=== PATIENT | female | born 1935 | race Caucasian/White ===

== ENCOUNTER 2023-09-03 09:03 | Inpatient (IN) ==
--- NOTE | 2023-09-03 09:58 | CT Scan Report ---
CT head/brain wo con CLINICAL HISTORY: fall Technique: Contiguous axial CT images of the head were acquired from the base of the skull to the munira prema without intravenous contrast administration. Images were viewed in brain, subdural and bone [facility] . Automated dose lowering techniques and/or adjustment according to patient size were utilized for this exam. Comparison: None available at the time of this dictation. Findings: The ventricles, basal cisterns, and cerebral sulci are normal. There is no acute intracranial hemorrh age or evidence of acute territorial infarction. Neither mass effect, shift of the midline structures , nor abnormal extra-axial fluid collections are shown. Imaged portions of the paranasal sinuses and mastoid air cells are clear. The orbits appear normal. There are no acute fractures of the calvaria. Scalp swelling is seen in the right parietal soft tissu es. Impression: No acute intracranial hemorrhage or skull fractures. Scalp swelling is seen in the right parietal sof t tissues. ACT 112: Negative or not required by law. Electronically signed by: Sam Zheng M.D. 09/03/2023 9:57 AM
[2023-09-03 10:00] LABS: Anion Gap 7 (3-11); BUN Creatinine Ratio 28.2 (10-20); Blood Urea Nitrogen 24 mg/dl (6-23); Carbon Dioxide 29 mmol/L (21-32); Chloride 104 mmol/L (98-107); Creatinine Clr Calc Pharmacy 53.4 ml/min; Est GFR (African American) 72.4 ml/min; Est GFR (Non-African American) 62.5 ml/min; Glucose 117 mg/dl (70-99(Fasting)); Lipase 45 U/L (11-82); Potassium 3.6 mmol/L (3.5-5.1); Sodium 140 mmol/L (136-145)
--- NOTE | 2023-09-03 10:02 | CT Scan Report ---
CT cervical spine wo con CLINICAL HISTORY: fall TECHNIQUE: Multidetector row helical CT of the cervical spine was performed without administration of intravenous contrast. Coronal and sagittal reformations were obtained. Automated dose lowering techn iques and/or adjustment according to patient size were utilized for this exam. Comparison: None available at the time of this dictation. FINDINGS: There is an acute fracture of the C2 left posterior lamina and right lateral body. Degenerative manjarrez es are seen in the visualized spine. The alignment is normal. Soft tissues are unremarkable. IMPRESSION: Acute, minimally displaced fracture of C2 involving the lateral body and the superior arch. ACT 112: Negative or not required by law. Electronically signed by: Sam Zheng M.D. 09/03/2023 10:00 AM
[2023-09-03 10:05] LABS: Basophils # (auto) 0.01 K/uL (0.00-0.20); Basophils % (auto) 0.1 %; Eosinophils # (auto) 0.02 K/uL (0.00-0.50); Eosinophils % (auto) 0.3 %; Hematocrit (blood only) 37.5 % (37.0-47.0); Hemoglobin 12.2 g/dl (12.0-16.0); Immature Granulocytes # (auto) 0.03 K/uL (0.01-0.20); Immature Granulocytes % (auto) 0.4 %; Lymphocytes # (auto) 0.72 K/uL (1.20-3.40); Mean Corpuscular Hgb Conc 32.5 g/dL (32.0-36.0); Mean Platelet Volume 9.5 fL (9.4-12.4); Monocytes # (auto) 0.44 K/uL (0.11-0.59); Monocytes % (auto) 5.5 %; Neutrophils # (auto) 6.76 K/uL (1.40-6.50); Neutrophils % (auto) 84.7 %; Platelet Count 176 K/uL (130-400); RDW Coefficient of Variation 13.7 % (11.5-14.5); RDW Standard Deviation 41.1 fL (36.4-46.3); Red Blood Count 4.52 M/uL (4.20-5.40); White Blood Count 7.98 K/ul (4.8-10.8)
[2023-09-03 10:07] LABS: Troponin I High Sensitivity < 2.3 pg/ml (0-14)
[2023-09-03 10:12] LABS: INR 1.1 (0.9-1.1); Partial Thromboplastin Time 26 Seconds (21-31); Prothrombin Time 11.4 Seconds (9.0-12.0)
[2023-09-03] MEDS: ONDANSETRON INJ 2 MG/ML 2 ML VIAL IV STA (10:35)
[2023-09-03] MEDS: MoRPHine SULFATE 2 MG/ML CARP IV STA (10:37)
--- NOTE | 2023-09-03 11:10 | Emergency Department Note ---
ED Visit Note I was asked to suture this patient's right scalp wound by Dr. Fountain. Please see his dictation for full history and physical. Informed oral consent was obtained from the patient. scalp was prepped with Betadine and draped with a sterile towel. Wound was anesthetized using 6 cc1% buffered lidocaine in a direct infiltration. A thorough inspection was performed. no foreign material was noted. A large clot burden was debulked. Wound was irrigated copiously using normal sterile saline under jet spray lavage. There was no additional foreign material visible in the wound. It was then closed using surgical stainless steel nighat. Excellent wound edge approximation was achieved. Hemostasis was achieved. Wound care precautions were reviewed. [place] out in 12 days. she may shower. Avoid prolonged soaking for 2 weeks. Cleanse daily with soap and water and reapply a small amount of bacitracin or Neosporin. Total laceration length was 3 cm.
--- NOTE | 2023-09-03 11:43 | History & Physical Report ---
Date of Service September 03, 2023 Assessment & Plan (1) Dizziness: Plan: Got dizzy this morning when he was trying to go for voodoo No other associated symptoms and no prior history of dizziness Ended up with the fall was scalp laceration on the right side Remains hemodynamically stable May have mild dehydration with BUN elevated to 24 with normal creatinine Will give cautious amount of IV fluid Will get orthostatic vitals and monitoring MedSurg telemetry unit (2) Status post fall: Plan: Status post fall with right scalp laceration No loss of consciousness Scalp has been show sutured on 09/03/2023 (3) Injury of cervical spine: Plan: Acute minimally displaced fracture of C2 involving the lateral body and the superior arch No evidence of neurological symptoms The ER physician did talk to Dr. Giordano and advised to have a cervical collar For spine surgery consult (4) Hypertension: Plan: Has been taking losartan potassium and will continue Monitor BP (5) Osteoarthritis: Plan: Uses diclofenac sodium external gel and will continue Will try Tylenol and/or ibuprofen for pain control (6) Stress incontinence: Plan DVT prophylaxis SCDs for now given the cervical injury CODE STATUS Full History of Present Illness Chief Complaint: Dizziness with the fall this morning Primary Care Provider: Mu Lomeli MD The history was taken from the family members in front of the patient in the emergency room. She is an 87-year-old Citizen Of [place] female with significant past medical history of hypertension, legally blind in the right eye, history of memory and hearing loss, primary osteoarthritis of right knee, and stress incontinence. She cannot speak Monegasque. She has had a fall this morning around 6 AM when she was preparing go for voodoo. She had her breakfast this morning and felt dizzy on standing without any other associated neurological symptoms and she ended up having a fall injuring the head. She denies any visual symptoms before the fall, any chest pain or palpitation, any abdominal pain nausea no vomiting, any problem with urine and bowel habit, or any numbness or tingling involving any of the extremities. She was noted to have right-sided scalp laceration which was sutured and CT scan of the head did not show any significant abnormalities. CT of the cervical spine did show minimally displaced fracture of C2 involving the lateral body and the superior arch. The case was discussed with the spine surgeon and the neck collar was placed. She will be admitted to med/telemetry unit for continuation of care and also find out the possible cause for dizziness. Home Medications Medication Instructions Recorded Confirmed Type losartan 50 mg tablet 25 mg PO UD 09/03/23 09/03/23 History Past Med/Surg History Problem List (Updated 09/03/23 @ 11:48 by Maikel Nevarez MD) Stress incontinence Osteoarthritis Hypertension Injury of cervical spine Status post fall Dizziness Social History Smoking Status: Never smoker Preferred Language: Citizen [place] Feels Safe at Home: Yes Review of Systems Review of Systems: All systems reviewed and are unremarkable except as noted below Physical Exam Physical Exam: Lying in bed in cervical collar without any acute distress Constitutional: well developed, well nourished and + ill appearing Eyes: PERRL, conjunctivae normal, anicteric sclerae ENMT: external ear and nose normal, oropharynx normal Neck: trachea midline Cervical collar in situ Respiratory: no respiratory distress Auscultation: lungs clear to auscu ltation bilaterally Cardiovascular: Rate/Rhythm: regular rate and regular rhythm; not tachycardic Heart Sounds: normal S1 and normal S2; no murmur Extremities: no edema Gastrointestinal (Abdomen): Inspection/Auscultation: normal bowel sounds; abdomen not distended Percussion/Palpation: abdomen soft; abdomen nontender Musculoskeletal: No acute arthritis involving any of the joints Neurologic: normal touch/pain/proprioception and moves all extremities; no focal motor deficits Lymphatic: no cervical or axillary lymphadenopathy Results & Data Results & Data Vital Signs (Past 12 Hours) Vital Signs Temp Pulse Pulse Resp BP BP Pulse Ox 09/03/23 10:37 157/69 H 09/03/23 10:37 157/69 H 09/03/23 10:36 69 22 96 09/03/23 10:33 71 23 97 09/03/23 10:31 68 09/03/23 10:30 160/69 H 09/03/23 10:24 68 18 161/71 H 96 09/03/23 09:24 96 09/03/23 09:07 18 09/03/23 08:54 36.9 C 72 18 159/77 H 93 O2 Del Method 09/03/23 10:37 09/03/23 10:37 09/03/23 10:36 09/03/23 10:33 09/03/23 10:31 09/03/23 10:30 09/03/23 10:24 Room Air 09/03/23 09:24 Room Air 09/03/23 09:07 09/03/23 08:54 Room Air Laboratory Results Short CBC 09/03/23 Range/Units 09:15 WBC 7.98 (4.8-10.8) K/ul Hgb 12.2 (12.0-16.0) g/dl Hct 37.5 (37.0-47.0) % Plt Count 176 (130-400) K/uL BMP 09/03/23 09:15 Sodium 140 Potassium 3.6 Chloride 104 Carbon Dioxide 29 BUN 24 H Creatinine 0.85 Glucose 117 H Calcium 9.0
[2023-09-03] MEDS: LIDOCAINE 1% LOCAL 20 ML VIAL INFIL ONE (11:46)
[2023-09-03] MEDS: NSS + 20MEQ KCL 20 MEQ/1,000 ML BAG IV SCH (12:35)
--- NOTE | 2023-09-03 13:29 | XRay Report ---
XR chest 1V portable CLINICAL HISTORY: Chest pain, nonspecific TECHNIQUE: Single frontal radiograph of the chest was obtained. Comparison: None available at the time of this dictation. FINDINGS: No lines and tubes are seen. Calcified aortic knob is seen. The lungs are clear. No evidence of pleur al effusion or pneumothorax. IMPRESSION: No acute chest disease. ACT 112: Negative or not required by law. Electronically signed by: Sam Zheng M.D. 09/03/2023 1:27 PM
--- NOTE | 2023-09-03 13:32 | Emergency Department Note ---
History of Present Illness General Chief complaint: Fall Stated complaint: FALL, LAC TO HEAD, NECK PAIN Time Seen by Provider: 09/03/23 09:12 Limitations: language barrier (Daughter and at bedside translating) History of Present Illness Provider Complaint: + accidental head injury and + fall Onset (ago): hour(s) (2.5) Mechanism of Injury: + fall Place: + home Loss of Consciousness: + unsure Location of injury: + occipital Severity: moderate Maximum Pain Intensity: 4 Current Pain Intensity: 4 Quality: + sharp, + stabbing, + crushing and + aching Radiation: + neck Other Injuries: + laceration to scalp Context: no on aspirin, no on warfarin, no on plavix or no other anticoagulant use Associated symptoms: no amnesia, no nausea or no vomiting HPI Narrative: Daughter reports that the patient was in the restroom 2 and half hours ago getting ready for denominational when she still became dizzy and then fell and hit her head. Home Medications Medication Instructions Recorded Confirmed Type losartan 50 mg tablet 25 mg PO UD 09/03/23 09/03/23 History Past Med/Surg History Problem List (Updated 09/03/23 @ 13:47 by Stanford Fountain MD) Laceration of scalp (Acute) CHI (closed head injury) (Acute) Syncope and collapse (Acute) C2 cervical fracture (Acute) Stress incontinence Injury of cervical spine Status post fall Dizziness Medical History (Updated 09/03/23 @ 13:47 by Stanford Fountain MD) Osteoarthritis Hypertension Social History Smoking Status: Never smoker Preferred Language: Burmese Feels Safe at Home: Yes Physical Exam 2 Vital Signs: Vital Signs - 24 hr 09/03/23 08:54 09/03/23 09:07 09/03/23 09:24 Temperature 36.9 C Temperature Source Oral Pulse Rate 72 Pulse Rate [Finger ] Pulse Rate from Sp O2 Sensor Pulse Rhythm Regular Pulse Rhythm [Fing er] Pulse Strength [Fi nger] Respiratory Rate 18 18 Respiratory Effort / Characteristics Respiratory Depth Respiratory Patter n Blood Pressure 159/77 H Blood Pressure [Ri ght Arm] Blood Pressure Dayna n 104 Blood Pressure Dayna n [Right Arm] Pulse Oximetry 93 96 Oxygen Delivery Me thod Room Air Room Air Sepsis Recent Feve r Within 48 Hours No Sepsis New/Unexpla ined Change in Men love Status N/A Sepsis Action Take n by Nursing No Action Required 09/03/23 10:24 09/03/23 10:30 09/03/23 10:31 Temperature Temperature Source Pulse Rate 68 Pulse Rate [Finger ] 68 Pulse Rate from Sp O2 Sensor Pulse Rhythm Pulse Rhythm [Fing er] Regular Pulse Strength [Fi nger] Normal Respiratory Rate 18 Respiratory Effort / Characteristics Non-Labored Respiratory Depth Normal Respiratory Patter n Regular Blood Pressure 160/69 H Blood Pressure [Ri ght Arm] 161/71 H Blood Pressure Dayna n 106 Blood Pressure Dayna n [Right Arm] 101 Pulse Oximetry 96 Oxygen Delivery Me thod Room Air Sepsis Recent Feve r Within 48 Hours Sepsis New/Unexpla ined Change in Men love Status Sepsis Action Take n by Nursing 09/03/23 10:33 09/03/23 10:36 09/03/23 10:37 Temperature Temperature Source Pulse Rate 71 69 Pulse Rate [Finger ] Pulse Rate from Sp O2 Sensor 71 69 Pulse Rhythm Pulse Rhythm [Fing er] Pulse Strength [Fi nger] Respiratory Rate 23 22 Respiratory Effort / Characteristics Respiratory Depth Respiratory Patter n Blood Pressure 157/69 H Blood Pressure [Ri ght Arm] Blood Pressure Dayna n 117 Blood Pressure Dayna n [Right Arm] Pulse Oximetry 97 96 Oxygen Delivery Me thod Sepsis Recent Feve r Within 48 Hours Sepsis New/Unexpla ined Change in Men love Status Sepsis Action Take n by Nursing 09/03/23 10:37 09/03/23 10:57 09/03/23 11:00 Temperature Temperature Source Pulse Rate 70 Pulse Rate [Finger ] Pulse Rate from Sp O2 Sensor 70 Pulse Rhythm Pulse Rhythm [Fing er] Pulse Strength [Fi nger] Respiratory Rate 19 Respiratory Effort / Characteristics Respiratory Depth Respiratory Patter n Blood Pressure 157/69 H 143/64 H Blood Pressure [Ri ght Arm] Blood Pressure Dayna n 117 90 Blood Pressure Dayna n [Right Arm] Pulse Oximetry 94 Oxygen Delivery Me thod Sepsis Recent Feve r Within 48 Hours Sepsis New/Unexpla ined Change in Men love Status Sepsis Action Take n by Nursing 09/03/23 11:00 09/03/23 11:00 09/03/23 11:06 Temperature Temperature Source Pulse Rate 69 Pulse Rate [Finger ] Pulse Rate from Sp O2 Sensor 70 Pulse Rhythm Pulse Rhythm [Fing er] Pulse Strength [Fi nger] Respiratory Rate 24 Respiratory Effort / Characteristics Respiratory Depth Respiratory Patter n Blood Pressure 143/64 H 143/64 H Blood Pressure [Ri ght Arm] Blood Pressure Dayna n 90 90 Blood Pressure Dayna n [Right Arm] Pulse Oximetry 96 Oxygen Delivery Me thod Sepsis Recent Feve r Within 48 Hours Sepsis New/Unexpla ined Change in Men love Status Sepsis Action Take n by Nursing 09/03/23 11:12 09/03/23 11:30 09/03/23 11:39 Temperature Temperature Source Pulse Rate 68 72 Pulse Rate [Finger ] Pulse Rate from Sp O2 Sensor 68 Pulse Rhythm Pulse Rhythm [Fing er] Pulse Strength [Fi nger] Respiratory Rate 23 23 Respiratory Effort / Characteristics Respiratory Depth Respiratory Patter n Blood Pressure 137/66 Blood Pressure [Ri ght Arm] Blood Pressure Dayna n 97 Blood Pressure Dayna n [Right Arm] Pulse Oximetry 94 Oxygen Delivery Me thod Sepsis Recent Feve r Within 48 Hours Sepsis New/Unexpla ined Change in Men love Status Sepsis Action Take n by Nursing 09/03/23 12:15 09/03/23 12:30 09/03/23 12:30 Temperature Temperature Source Pulse Rate 71 Pulse Rate [Finger ] Pulse Rate from Sp O2 Sensor 70 Pulse Rhythm Pulse Rhythm [Fing er] Pulse Strength [Fi nger] Respiratory Rate 21 Respiratory Effort / Characteristics Respiratory Depth Respiratory Patter n Blood Pressure 162/93 H 162/93 H Blood Pressure [Ri ght Arm] Blood Pressure Dayna n 124 124 Blood Pressure Dayna n [Right Arm] Pulse Oximetry 95 Oxygen Delivery Me thod Sepsis Recent Feve r Within 48 Hours Sepsis New/Unexpla ined Change in Men love Status Sepsis Action Take n by Nursing 09/03/23 12:30 09/03/23 13:00 09/03/23 13:00 Temperature Temperature Source Pulse Rate 67 Pulse Rate [Finger ] Pulse Rate from Sp O2 Sensor 67 Pulse Rhythm Pulse Rhythm [Fing er] Pulse Strength [Fi nger] Respiratory Rate 19 Respiratory Effort / Characteristics Respiratory Depth Respiratory Patter n Blood Pressure 140/67 140/67 Blood Pressure [Ri ght Arm] Blood Pressure Dayna n 106 106 Blood Pressure Dayna n [Right Arm] Pulse Oximetry 95 Oxygen Delivery Me thod Sepsis Recent Feve r Within 48 Hours Sepsis New/Unexpla ined Change in Men love Status Sepsis Action Take n by Nursing 09/03/23 13:00 Temperature Temperature Source Pulse Rate 64 Pulse Rate [Finger ] Pulse Rate from Sp O2 Sensor 63 Pulse Rhythm Pulse Rhythm [Fing er] Pulse Strength [Fi nger] Respiratory Rate 20 Respiratory Effort / Characteristics Respiratory Depth Respiratory Patter n Blood Pressure Blood Pressure [Ri ght Arm] Blood Pressure Dayna n Blood Pressure Dayna n [Right Arm] Pulse Oximetry 96 Oxygen Delivery Me thod Sepsis Recent Feve r Within 48 Hours Sepsis New/Unexpla ined Change in Men love Status Sepsis Action Take n by Nursing Physical Exam: Physical Exam HENT: Exam performed. -Head: 3 cm laceration to the occiput. -Right Ear: External ear normal. No mastoid erythema -Left Ear: External ear normal. No mastoid erythema EYES: Conjunctivae and EOM are normal. Pupils are equal, round, and reactive to light. Right eye exhibits no discharge. Left eye exhibits no discharge. No scleral icterus. NECK: Patient in c-collar. Pain on palpation of the C-spine. CV: Normal rate, regular rhythm, normal heart sounds and intact distal pulses. There is no peripheral edema. Palpable radial pulses bue. PULM/CHEST: Effort normal and breath sounds normal. No respiratory distress. No stridor. She has no wheezes. She has no rales. -Chest Wall: She exhibits no tenderness. No crepitus bilaterally. ABD: The abdomen is soft. There is no tenderness. There is no rebound, no guarding. MUSC/SKEL: Pelvis stable. No T or L-spine tenderness. NEURO: Motor and sensation grossly intact. Course Course 09: The patient was evaluated in room A10. A complete history and physical exam was performed Cardiac monitoring: An order was placed for continuous cardiac monitoring. The monitor shows a rate of 70 with sinus rhythm interpreted by me 1028: Vital signs stable. Labs are unremarkable. CT of the head shows no skull fracture or ICH. CT of the C-spine shows an acute minimally displaced fracture of C2 involving the lateral body and superior arch. Discussed these findings with spine surgery on-call Dr. Giordano who did review the patient's CT scan. He recommends placing the patient in a Gray J collar. He states he does not think surgery will be necessary. Will admit the patient to the medicine team for workup of her dizziness/syncope and he is in agreement with that. [facility] hospitalist team will be made aware. Laceration closed by GUILLERMO Sanderson see his procedure note. Administered Medications Potassium Chloride/Sodium Chloride (Normal Saline W/20 Meq Kcl) 20 meq in 1,000 mls @ 100 mls/hr IV .Q10H KASIE; Protocol Stop: 09/04/23 08:29 Last Admin: 09/03/23 12:35 Dose: 100 mls/hr Documented By: JOSE Discontinued Medications Lidocaine HCl (Lidocaine 1% Local 20 Ml Vial) 20 ml INFIL NOW ONE Stop: 09/03/23 10:44 Last Admin: 09/03/23 11:46 Dose: 20 ml Documented By: JOSE Morphine Sulfate (Morphine Sulfate 2 Mg/Ml Carp) 2 mg IV NOW STA Stop: 09/03/23 10:32 Last Admin: 09/03/23 10:37 Dose: 2 mg Documented By: JOSE Ondansetron HCl (Ondansetron Inj 2 Mg/Ml 2 Ml Vial) 4 mg IV NOW STA Stop: 09/03/23 10:32 Last Admin: 09/03/23 10:35 Dose: 4 mg Documented By: JOSE Medical Decision Making Laboratory Data Attestation: I reviewed the patient's lab results. 09/03/23 09:15 09/03/23 09:15 Lab Results 09/03/23 09/03/23 Range/Units 09:15 09:15 WBC 7.98 (4.8-10.8) K/ul RBC 4.52 (4.20-5.40) M/uL Hgb 12.2 (12.0-16.0) g/dl Hct 37.5 (37.0-47.0) % MCV 83.0 (80.0-100.0) fL MCH 27.0 (25.0-34.0) pg MCHC 32.5 (32.0-36.0) g/dL RDW Std Deviation 41.1 (36.4-46.3) fL RDW Coeff of Ruby 13.7 (11.5-14.5) % Plt Count 176 (130-400) K/uL MPV 9.5 (9.4-12.4) fL Immature Gran % (Auto) 0.4 % Neut % (Auto) 84.7 % Lymph % (Auto) 9.0 % [place] % (Auto) 5.5 % Eos % (Auto) 0.3 % Baso % (Auto) 0.1 % Neut # (Auto) 6.76 H (1.40-6.50) K/uL Lymph # (Auto) 0.72 L (1.20-3.40) K/uL [place] # (Auto) 0.44 (0.11-0.59) K/uL Eos # (Auto) 0.02 (0.00-0.50) K/uL Baso # (Auto) 0.01 (0.00-0.20) K/uL Immature Gran # (Auto) 0.03 (0.01-0.20) K/uL PT 11.4 (9.0-12.0) Seconds INR 1.1 (0.9-1.1) APTT 26 (21-31) Seconds PTT Ratio 1.0 Sodium 140 (136-145) mmol/L Potassium 3.6 (3.5-5.1) mmol/L Chloride 104 (98-107) mmol/L Carbon Dioxide 29 (21-32) mmol/L Anion Gap 7 (3-11) BUN 24 H (6-23) mg/dl Creatinine 0.85 (0.6-1.2) mg/dl Est Cr Clr Drug Dosing 53.4 ml/min Est GFR ( Amer) 72.4 ml/min Est GFR (Non-Af Amer) 62.5 ml/min BUN/Creatinine Ratio 28.2 H (10-20) Glucose 117 H (70-99(Fasting)) mg/dl Calcium 9.0 (8.6-10.3) mg/dl Magnesium 2.0 (1.7-2.4) mg/dl Troponin I High Sens < 2.3 Cancelled (0-14) pg/ml Lipase 45 (11-82) U/L Imaging Data Radiologist's Impression: Cervical Spine CT 09/03/23 09:22 CT cervical spine wo con CLINICAL HISTORY: fall TECHNIQUE: Multidetector row helical CT of the cervical spine was performed without administration of intravenous contrast. Coronal and sagittal reformations were obtained. Automated dose lowering techniques and/or adjustment according to patient size were utilized for this exam. Comparison: None available at the time of this dictation. FINDINGS: There is an acute fracture of the C2 left posterior lamina and right lateral body. Degenerative changes are seen in the visualized spine. The alignment is normal. Soft tissues are unremarkable. IMPRESSION: Acute, minimally displaced fracture of C2 involving the lateral body and the superior arch. ACT 112: Negative or not required by law. Electronically signed by: Sam Zheng M.D. 09/03/2023 10:00 AM Chest X-Ray 09/03/23 09:22 XR chest 1V portable CLINICAL HISTORY: Chest pain, nonspecific TECHNIQUE: Single frontal radiograph of the chest was obtained. Comparison: None available at the time of this dictation. FINDINGS: No lines and tubes are seen. Calcified aortic knob is seen. The lungs are clear. No evidence of pleural effusion or pneumothorax. IMPRESSION: No acute chest disease. ACT 112: Negative or not required by law. Electronically signed by: Sam Zheng M.D. 09/03/2023 1:[address] 09/03/23 09:22 CT head/brain wo con CLINICAL HISTORY: fall Technique: Contiguous axial CT images of the head were acquired from the base of the skull to the vertex without intravenous contrast administration. Images were viewed in brain, subdural and bone windows. Automated dose lowering techniques and/or adjustment according to patient size were utilized for this exam. Comparison: None available at the time of this dictation. Findings: The ventricles, basal cisterns, and cerebral sulci are normal. There is no acute intracranial hemorrhage or evidence of acute territorial infarction. Neither mass effect, shift of the midline structures, nor abnormal extra-axial fluid collections are shown. Imaged portions of the paranasal sinuses and mastoid air cells are clear. The orbits appear normal. There are no acute fractures of the calvaria. Scalp swelling is seen in the right parietal soft tissues. Impression: No acute intracranial hemorrhage or skull fractures. Scalp swelling is seen in the right parietal soft tissues. ACT 112: Negative or not required by law. Electronically signed by: Sam Zheng M.D. 09/03/2023 9:57 AM ECG Data Attestation: I personally reviewed and interpreted this ECG as follows: Rate (beats per minute): 72 Rhythm: normal sinus Findings: no ST depression, no ST elevation or no prolonged QT Additional Comments: Left ventricular hypertrophy MDM Narrative 0912: The patient was evaluated in room A10. A complete history and physical exam was performed Cardiac monitoring: An order was placed for continuous cardiac monitoring. The monitor shows a rate of 70 with sinus rhythm interpreted by me 1028: Vital signs stable. Labs are unremarkable. CT of the head shows no skull fracture or ICH. CT of the C-spine shows an acute minimally displaced fracture of C2 involving the lateral body and superior arch. Discussed these findings with spine surgery on-call Dr. Giordano who did review the patient's CT scan. He recommends placing the patient in a Gray J collar. He states he does not think surgery will be necessary. Will admit the patient to the medicine team for workup of her dizziness/syncope and he is in agreement with that. [facility] hospitalist team will be made aware. Laceration closed by GUILLERMO Sanderson see his procedure note. Impression & Plan C2 cervical fracture, Syncope and collapse, CHI (closed head injury), Laceration of scalp Discharge Plan Visit Data Chief Complaint: Fall Stated Complaint: FALL, LAC TO HEAD, NECK PAIN ED Provider: Stanford Fountain Discharge Problem: C2 cervical fracture, Syncope and collapse, CHI (closed head injury), Laceration of scalp Patient Disposition: Admitted As Inpatient Discharge Instructions Activity Restrictions/Additional Instructions: Have the nighat removed in approximately 12 days From placement. Keep the area clean with soap and water Avoid soaking for 2 weeks Cover with a very thin coat of triple antibiotic ointment or bacitracin until the nighat have been removed Forms Stand Alone Forms: My [facility] [employer] Prescriptions Prescriptions: No Action losartan 50 mg tablet 25 mg PO UD Rx Instructions: 25 mg po daily; if BP elevated take other 25 mg po hs per pharmacy Referrals Referrals: Mu Lomeli MD [Primary Care Provider] - Discharge Problem: C2 cervical fracture Qualifiers: Encounter type: initial encounter Fracture type: closed Fracture morphology: u nspecified fracture morphology Fracture alignment: nondisplaced Qualified Code(s): S12.101A - Unspecified nondisplaced fracture of second cervical vertebra, initial encounter for closed fracture
--- OUTSIDE RECORDS SUMMARY | 2023-09-03 14:50 | External Medical Summary | Summary of Care ---
Author Name Unknown Organization [facility] Address [address] [place] [address] Phone [phone] Care Team Providers Care Community Service Technician Name Role Phone Armani CHRISTIE MD, Mu Valles Primary Care Provider [phone] Reason for Referral * Evaluate & Treat - Unlimited Visits (Within 10 days (routine)) - Authorized Specialty Diagnoses / Procedures Referred By Gerda almeida Referred To Contact Physical Therapy / Physical Medicine And Rehab Diagnoses Imbalance Frequent falls Damien Bravo DO [address] [place] [address] Referral ID Status Reason Start Date Expiration Date Visits Requested Visits Authorized [id number] Authorized Specialty Services Required 07/28/[phone] Question Answer Referral Priority Within 10 days (routine) Where should this appointment be scheduled? [facility] Comments Frequent dizziness and falls. Has a walker but falls with it. * Precert (Within 10 days (routine)) - Pending Review Specialty Diagnoses / Procedures Referred By Gerda almeida Referred To Contact Radiology Diagnoses Dizziness Imbalance Hearing loss of right ear, unspecified hearing loss type MCI (mild cognitive impairment) Procedures MRI BRAIN W WO CONTRAST Damien Bravo DO [address] [place] [address] Referral ID Status Reason Start Date Expiration Date V isits Requested Visits Authorized [id number] Pending Review 07/29/[phone] * Evaluate & Treat - Unlimited Visits (Within 10 days (routine)) - Authorized Specialty Diagnoses / Procedures Referred By Gerda almeida Referred To Contact Otolaryngology Diagnoses Dizziness Imbalance Hearing loss of right ear, unspecified hearing loss type Damien Bravo DO [address] [place] [address] Referral ID Status Reason Start Date Expiration Date Visits Requested Visits Authorized [id number] Authorized Specialty Services Required 07/28/[phone] Question Answer Referral Priority Within 10 days (routine) Where should this appointment be scheduled? [facility] Reason for Referral Other Comments Dizziness, swooshing noise in head, chronic R hear hearing loss Reason for Visit * Reason Comments NEW PATIENT * Evaluate & Treat - Unlimited Visits (Within 10 days (routine)) - Authorized Specialty Diagnoses / Procedures Referred By Gerda almeida Referred To Contact Neurology Diagnoses Memory loss Mu Lomeli III, MD [address] [place] [address] Referral ID Status Reason Start Date Expiration Date Visits Requested Visits Authorized [id number] Authorized Specialty Services Required 08/15/[phone] Encounter Details Date Type Department Care Team (Latest Contact Info) Description 07/28/2023 9:00 AM EDT Office Visit Neurology [facility] [address] [place] [address] Damien Bravo DO [address], [place] [id number] MCI (mild cognitive impairment)*; Dizziness; Imbalance; Hearing loss of right ear, unspecified hearing loss type; Hyperglycemia; Hyperlipidemia, unspecified hyperlipidemia type; Frequent falls Allergies No known active allergiesdocumented as of this encounter (statuses as of 07/28/2023) Medications Medication Sig Dispensed Refills Start Date End Date Status Blood Pressure Monitoring (BLOOD PRESSURE KIT) EMMANUELLE Use daily to check blood pressure 1 Device 05/08/2017 Active Timolol Maleate 0.5 % Ophthalmic Solution (Timoptic) INSTILL ONE DROP INTO BOTH EYES TWICE DAILY 10 mL 8 10/29/2020 Active Sodium Hyaluronate 60 MG/3ML Intra-articular Prefilled Syringe (Durolane) Inject 60 mg (1 syringe) intra-articularly into right knee once 3 mL 12/15/2022 Active Losartan Potassium 50 MG Oral Tablet (Cozaar) 1/2 tab daily if bp elevated take 2nd dose at bedtime 90 Tablet 11 03/23/2023 Active Sunbeam Incontinent Under Pad As directed 1 Each 11 03/23/2023 Active Diclofenac Sodium 1 % External Gel (Voltaren) APPLY TOPICALLY TO RIGHT KNEE 4 TIMES DAILY 100 g 6 06/19/2023 Active documented as of this encounter (statuses as of 07/28/2023) Active Problems Problem Noted Date Diagnosed Date Stress incontinence in female 03/23/2023 Food insecurity 02/06/2023 Overview: Per [facility] Protocol History of 2018 novel coronavirus disease (COVID -19) 12/23/2021 Legally blind in right eye, as defined in [place] Memory loss 12/23/2021 Hearing loss, right 12/23/2021 Dry eye 12/23/2021 Primary osteoarthritis of right knee 12/23/2021 HTN, goal below 150/90 11/21/2016 documented as of this encounter (statuses as of 07/28/2023) Immunizations No known immunizationsdocumented as of this encounter Social History Tobacco Use Types Packs/Day Years Used Date Smoking Tobacco: Never Smokeless Tobacco: Never Alcohol Use Standard Drinks/Week Comments No 0 (1 standard drink = 0.6 oz pur e alcohol) PHQ-2 Answer Date Recorded PHQ-2 Score -1 01/03/2018 Hunger Vital Sign Answer Date Recorded Within the past 12 months, y ou worried that your food would run out before you got the money to buy more. Sometimes true Within the past 12 months, t he food you bought just didn't last and you didn't have money to get more. Sometimes true Sex and Gender Information Value Date Recorded Sex Assigned at Female 05/24/2018 2:00 PM EDT Gender Identity Female 05/24/2018 2:00 PM EDT Sexual Orientation Straight 05/24/2018 2: 00 PM EDT Job Start Date Occupation Industry Not on file Not on file Not on file documented as of this encounter Last Filed Vital Signs Vital Sign Reading Time Taken Comments Blood Pressure 128/56 07/28/2023 9:10 AM EDT Pulse 71 07/28/2023 9:10 AM EDT Temperature 36.9 C (98.5 F) 07/28/2023 9:10 AM ED T Respiratory Rate - - Oxygen Saturation 96% 07/28/2023 9:10 AM EDT Inhaled Oxygen Concentration - - Weight 84.6 kg (186 lb 9.6 oz) 07/28/2023 9:10 A M EDT Height - - Body Mass Index 33.05 03/23/2023 10:36 AM EST documented in this encounter Progress Notes * Damien Bravo, DO - 07/28/2023 9:00 AM EDT [facility] MEMORY AND COGNITION PROGRAM New Patient Evaluation Patient: Oksana Velazquez Visit date: 07/28/2023 Referring Provider: Mu Lomeli III, MD Reason for referral: memory loss Chief Complaint: 1) memory loss, 2) sound in her head 3) dizziness Primarily language: Hungarian Language Line staff interpreter used: ID [id number] Permission was obtained for observer student doctor Ayaan to be in the room during this visit. HISTORY OF PRESENT ILLNESS Ms. Oksana Velazquez is an 87 year old right-handed Hungarian female with 10 years of education whopresents for evaluation of memory loss, dizziness and sounds in her head. The history was obtained from chart review, patient, and family. She is accompanied by her daughter . Memory loss was first mentioned in EMR in 04/2018. Patient was referred to Neurology for memory loss in 12/2019 , scheduled with Dr. Adan in 2020 but patient canceled via text message. She was again referred to Neurology for memory loss in 07/2022. She has a history significant for obesity, hypertension, blindness in right eye, hearing loss on the right, vertigo, OA, stress urinary incontinence, and food security. Medications are significant for losartan and diclofenac. Clinic note from 10/2022 reported patient attempting to take the [place] citizenship test but failed due to memory issue per daughter. Family was asking for exemption with support documents from PCP's office. Daughter was also wanting assistance with the plan for SSI. Patient was living by herself in early 2022 The following is obtained from the patient and daughter: Patient reports her memory is bad, unable to give me time of onset. Daughter reports STM has been since 2019, gradually progressive. She gets confused sometimes. PCP provided documentation for medical exemption, and she passed her you are citizenship test.. Patient lives alone. Family visits her. ADLs are intact with dressing, feeding, toileting and showering. She has urinary incontinence, but denies a dysuria. IADLs: Never drove. Able to maintain housekeeping and takes her medications in the morning, but needs help with medications. Never managed finances. Gait/balance: Poor. Feels dizzy and slides down. Has had minor head strike before but no lost consciousness. Falls about once every week to every 2 weeks. Last fall was last . Never had PT. Sleep: Sleeps about 7 hours. Interrupted by 2-3 bathroom breaks, denies trouble falling back to sleep. Wakes up refreshed. Naps twice daily for 15-30 minutes. Denies apnea. Appetite: good. Other physical symptoms: Visual impairment: Legally blind in right eye Hearing impairment: Chronic hearing loss or 10-15 years on the right, atraumatic. Never saw ENT or audiology. Chronic pain: no. Other physical symptoms: Hear noises in her head like a whooshing sound, intermittent. No headache.Does not bother her sleep Social history: Denies tobacco, alcohol, drugs. OBJECTIVE Past Medical History: Diagnosis Date Dry eye 12/23/2021 Hearing loss, right 12/23/2021 History of 2019 novel coronavirus disease (COVID-19) 12/23/2021 Legally blind in right eye, as defined in [place] 12/23/2021 MCI (mild cognitive impairment) vs mild dementia. onset 2019, diagnosed 07/28/23 Memory loss 12/23/2021 Primary osteoarthritis of right knee 12/23/2021 No past surgical history on file. Social History Tobacco Use Smoking status: Never Smokeless tobacco: Never Vaping Use Vaping status: Never Used Substance Use Topics Alcohol use: No Drug use: No No family history on file. No family status information on file. Review of patient's allergies indicates: No Known Allergies Patient's Medications New Prescriptions No medications on file Previous Medications BLOOD PRESSURE MONITORING (BLOOD PRESSURE KIT) EMMANUELLE Use daily to check blood pressure DICLOFENAC SODIUM 1 % EXTERNAL GEL (VOLTAREN) APPLY TOPICALLY TO RIGHT KNEE 4 TIMES DAILY LOSARTAN POTASSIUM 50 MG ORAL TABLET (COZAAR) 1/2 tab daily if bp elevated take 2nd dose at bedtime SODIUM HYALURONATE 60 MG/3ML INTRA-ARTICULAR PREFILLED SYRINGE (DUROLANE) Inject 60 mg (1 syringe) intra-articularly into right knee once SUNBEAM INCONTINENT UNDER PAD As directed TIMOLOL MALEATE 0.5 % OPHTHALMIC SOLUTION (TIMOPTIC) INSTILL ONE DROP INTO BOTH EYES TWICE DAILY Modified Medications No medications on file Discontinued Medications No medications on file DATA REVIEWED: Latest Reference Range & Units 11/04/21 13:29 Sodium 135 - 146 mmol/L 143 Potassium 3.5 - 5.1 mmol/L 4.4 Chloride 98 - 107 mmol/L 106 CO2 22 - 32 mmol/L 26 BUN 6 - 20 mg/dL 20 Creatinine 0.5 - 1.0 mg/dL 1.1 (H) Estimated Glomerular Filtration Rate >=60 mL/min 50 (L) Anion Gap 7 - 15 mmol/L 11 Glucose 70 - 120 mg/dL 122 (H) Calcium 8.4 - 10.2 mg/dL 9.7 Protein 6.0 - 8.3 g/dL 7.5 Folic Acid >4.5 ng/mL 11.6 (H): Data is abnormally high (L): Data is abnormally low Latest Reference Range & Units 11/04/21 13:29 Albumin 3.8 - 5.0 g/dL 4.8 AST 10 - 35 U/L 28 ALT 10 - 35 U/L 27 Alkaline Phosphatase 35 - 130 U/L 62 Bilirubin, Total <=1.2 mg/dL 0.7 Bilirubin, Direct 0.0 - 0.3 mg/dL <0.2 Latest Reference Range & Units 11/04/21 13:29 WBC 4.00 - 10.80 K/uL 5.42 RBC 3.85 - 5.15 M/uL 4.58 HGB 12.0 - 15.3 g/dL 12.8 HCT 36.0 - 45.2 % 38.6 MCV 81.5 - 97.5 fL 84.3 MCH 27.0 - 34.0 pg 27.9 MCHC 32.0 - 36.0 g/dL 33.2 RDW 11.5 - 15.5 % 13.7 PLT 140 - 400 K/uL 164 MPV 6.6 - 11.1 fL 9.9 Results for orders placed or performed in visit on 12/07/16 LIPID PANEL WITH DIRECT LDL IF TG ABOVE 400 MG/DL Result Value Ref Range HOURS FASTING 12 hours Triglycerides 229 (H) <200 mg/dL Cholesterol 193 <200 mg/dL HDL Cholesterol 30 (L) >39 mg/dL Cholesterol-HDL Ratio 6.4 LDL Cholesterol 117 0 - 129 mg/dL LDL Cholesterol (Direct Measure) NOT APPLICABLE 0 - 129 mg/dL No results found for: "HEMOGLOBIN A1C" Lab Results Component Value Date/Time TSH - KALYANER 2.75 11/04/2021 01:29 PM Latest Reference Range & Units 11/04/21 13:29 Vitamin B12 232-1,245 pg/mL 384 Folic Acid >4.5 ng/mL 11.6 No results for vitamin-D IMAGING STUDIES: No previous brain imaging PHYSICAL EXAMINATION Vital Signs - BP 128/56 (BP Site: Right Arm, BP Position: Sitting, BP Cuff Size: Regular) | Pulse 71 | Temp 36.9 C (98.5 F) (Tympanic) | Wt 84.6 kg (186 lb 9.6 oz) | SpO2 96% | BMI 33.05 kg/m |BSA 1.94 m General - appears as stated age, well nourished, well developed, in no apparent distress. HEENT: normocephalic, atraumatic. Mood and affect: Appropriate Behavioral Observations: Effort for testing was full. Cognitive and Neurologic exam Mental status: awake and alert. Attention: intact Mini Mental State Exam Question: Answer: Patient is oriented to the year, season, date, day, month? 5 out of 5 (07/28/231099) Patient is oriented to the state, country, town, hospital/clinic, floor? 3 out of 5 (Nose cognitiveher home address, but needs reminders for hometown) (07/28/231099) Patient repeated three words (ex: ball, flag, tree) 3 out of 3 (07/28/231099) Patient counted backwards from 100 by 7's (93, 86, 79, 72, 65) or spelled WORLD backwards (D, L, R,O W) 3 out of 5 (07/28/231099) Patient recalled the three words previously asked (ball, flag, tree) 3 out of 3 (07/28/231099) Patient is able to identify a watch and pencil 2 out of 2 (07/28/231099) Patient is able to repeat "No ifs, ands or buts" 1 out of 1 (07/28/231099) Patient is able to take a piece of paper, fold in half and place on the floor 3 out of 3 (07/28/231099) Patient is able to read and follow directions (show patient card reading "close your eyes") 1 out of 1 (07/28/231099) Patient is able to write a sentence 1 out of 1 (07/28/231099) Patient is able to copy a drawing of intersecting pentagons 1 out of 1 (07/28/231099) Score 26 (07/28/231099) Comments (not recorded) Speech fluent. No dysarthria. Spelling partially incorrect in her chilkat language. Clock drawing: Intact contour and numbers. But only johnnie hour hand ASSESSMENT Ms. Oksana Velazquez is an 87 year old right-handed Hungarian female with 10 years of education whopresents for evaluation of memory loss, dizziness and sounds in her head. Short-term memory decline since 2019, progressive. She lives alone, with assistance from family. ADLs are intact. IADLs: Never drove. Able to maintain housekeeping and takes her medications in the morning, but needs help with medications. Never managed finances. PCP's office provided medical exemption for [place] citizenship test, which she passed. She has a history significant for obesity, hypertension, blindness in right eye, hearing loss on the right, vertigo, OA, stress urinary incontinence, and food security. She complains of whooshing sound in her head, headache. She has chronic right ear hearing loss, never saw ENT or audiology. Also has intermittent dizziness, causing fall every 2 weeks to 1 week, not severe, sliding down usually. No safety concerns. No illicit substances. No brain impairing medications. Labs are notable for mildly elevated creatinine, but was from 2021. Most labs are outupdated. No previous brain imaging. MMSE was normal today: 26/30 (-2 for location; perfect recall). Clock drawing was partially impaired, only to the hour hand. Given patient arrived 15 minutes late, and language barrier, necessitating use of language line staff interpreter, there was no time for neurologic exam. My impression for her progressive short-term memory decline since 2019 is MCI versus dementia givensome ADLs are impaired. Though she did pretty well on MMSE. Differentials include vascular (has multiple cardiovascular risk factors) and AD (less likely). No psychosis symptoms were mentioned unlikely DLB. Differentials for her right-sided hearing loss, intermittent dizziness and frequent falls is on clear this time given we did not have time for physical examination. Diagnosis: ICD-10-CM 1. MCI (mild cognitive impairment) G31.84 2. Dizziness R42 3. Imbalance R26.89 4. Hearing loss of right ear, unspecified hearing loss type H91.91 5. Hyperglycemia R73.9 6. Hyperlipidemia, unspecified hyperlipidemia type E78.5 7. Frequent falls R29.6 PLAN 1. MCI (mild cognitive impairment) - check/recheck labs: B12, folic acid, lipid profile, A1c, TSH (not today, already 8) -MRI brain with and without contrast. Contrast to evaluate for possible enhancing lesion such as tumor, causing dizziness and hearing loss. - MoCA and neurologic exam at the next visit - Dizziness Imbalance, Frequent falls Hearing loss of right ear, unspecified hearing loss type - ADULT/PEDS OTOLARYNGOLOGY REFERRAL OP - MRI BRAIN W WO CONTRAST; Future - PT Follow Up: Return for Clinic Visit. | For: Clinic Visit | Check-out note: # Follow up with Dr. Bravo or Bhavana Meadows in 3-6 months [facility] in-person. The following orders were placed: Plan Vitamin B12 Folic Acid Lipid Panel WITHOUT Direct LDL Hemoglobin A1C TSH with Free T4 if indicated MRI Brain with and without IV contrast Adult/Peds Otolaryngology Referral Op PHYSICAL THERAPY REFERRAL OP I spent a total of 78 minutes coordinating, documenting, and providing care for this patient excluding time spent in the performance of separately billed services or time spent by another provider/QHP. Damien Bravo DO Cognitive and Behavioral Neurology [facility] 07/28/2023 11:34 AM documented in this encounter Nursing Notes * Hansa Narayanan LPN - 07/28/2023 9:10 AM EDT Chief Complaint Patient presents with NEW PATIENT documented in this encounter Plan of Treatment Upcoming Encounters Date Type Department Care Team (Late st Contact Info) Description 08/07/2023 2:00 PM EDT Office Visit Family Practice [facility] [address] [facility] [place] [address] Heather Butt MD [address] [facility] [place] [address] 08/18/2023 10:30 AM EDT Imaging Radiology [address] [facility] [place] [address] 10/05/2023 1:40 PM EDT Office Visit Otolaryngology [facility] [address] [facility] [place] [address] Audra Perez PA-C [facility] [address] 12/22/2023 3:00 PM EDT Office Visit Neurology [facility] [address] [facility] [place] [address] Bhavana Meadows CRNP [address], [place] [id number] Scheduled Orders Name Type Priority Associated Diagnoses Orde r Schedule VITAMIN B12 Lab Routine MCI (mild cognitive impairment) Expected: 07/28/2023, Expires: 07/27/2024 FOLIC ACID Lab Routine MCI (mild cognitive impairment) Expected: 07/28/2023, Expires: 07/27/2024 LIPID PANEL WITHOUT DIRECT LDL Lab Routine MCI (mild cognitive impairment) Hyperlipidemia, unspecified hyperlipidemia type Expected: 07/28/2023, Expires: 07/27/2024 HEMOGLOBIN A1C Lab Routine MCI (mild cognitive impairment) Hyperglycemia Expected: 07/28/2023, Expires: 07/27/2024 TSH WITH FREE T4 IF INDICATED Lab Routine MCI (mild cognitive impairment) Expected: 07/28/2023, Expires: 07/27/2024 MRI BRAIN W WO CONTRAST Medical Imaging Routine Dizziness Imbalance Hearing loss of right ear, unspecified hearing loss type MCI (mild cognitive impairment) Expected: 07/29/2023, Expires: 08/26/2024 Scheduled Referrals Name Type Priority Associated Diagnoses Orde r Schedule ADULT/PEDS OTOLARYNGOLOGY REFERRAL OP Referral Within 10 days (routine) Dizziness Imbalance Hearing loss of right ear, unspecified hearing loss type Ordered: 07/28/2023 PHYSICAL THERAPY REFERRAL OP Referral Within 10 days (routine) Imbalance Frequent falls Ordered: 07/28/2023 Health Maintenance Due Date Last Done Comments DXA Scan 1935 DTaP,Tdap,and Td Vaccines (1 - Tdap) 1956 Zoster Vaccines (1 of 2) 09/14/1987 Pneumococcal Vaccine: 65+ Ye ars (1 of 1 - PCV) 2002 Depression Screening 03/06/2018 03/06/2017 COVID-19 Vaccine (1 - 2022-2 4 season) 2022 Influenza Vaccine (FLU shot) (Season Ended) 2023 Albumin/Creatinine Ratio 11/04/2024 11/04/2021 GARDASIL-HPV IMMUNIZATION SERIES Aged Out No longer eligible based on patient's age to complete this topic Hepatitis B Aged Out No longer eligi ble based on patient's age to complete this topic MENINGOCOCCAL (MENACTRA/MENVEO) Aged Out No longer eligible based on patient's age to complete this topic documented as of this encounter Medical Devices Not on filedocumented as of this encounter Visit Diagnoses Diagnosis MCI (mild cognitive impairment)- Primary Mild cognitive impairment, so stated Dizziness Dizziness and giddiness Imbalance Abnormality of gait Hearing loss of right ear, unspecified hearing loss type Hyperglycemia Other abnormal glucose Hyperlipidemia, unspecified hyperlipidemia type Frequent falls Personal history of fall documented in this encounter Care Teams Community Service Technician Relationship Specialty Start Date End Date Mu Lomeli III, MD [address] [facility] [place] [place] [address] PCP - General Family Medicine 11/24/20 documented as of this encounter
--- OUTSIDE RECORDS SUMMARY | 2023-09-03 14:50 | External Medical Summary | Summary of Care ---
Author Name Unknown Organization [facility] Address [address] [place] [address] Phone [phone] Care Team Providers Care Chief Clerk Shelter Name Role Phone Armani CHRISTIE MD, John E Primary Care Provider [phone] Reason for Visit * Reason Onset Date Comments Other 05/18/2023 Encounter Details Date Type Department Care Team (Late st Contact Info) Description 05/18/2023 Telephone Family Practice [facility] [address] [facility] [place] [address] Mu Lomeli III, MD [address] [facility] [place] [address] Other Allergies No known active allergiesdocumented as of this encounter (statuses as of 07/17/2023) Medications Medication Sig Dispensed Refills Start Date End Date Status Blood Pressure Monitoring (BLOOD PRESSURE KIT) EMMANUELLE Use daily to check blood pressure 1 Device 05/08/2017 Active Timolol Maleate 0.5 % Ophthalmic Solution (Timoptic) INSTILL ONE DROP INTO BOTH EYES TWICE DAILY 10 mL 8 10/29/2020 Active Sodium Hyaluronate 60 MG/3ML Intra-articular Prefilled Syringe (Durolane) Inject 60 mg (1 syringe) intra-articular ly into right knee once 3 mL 12/15/2022 Active Losartan Potassium 50 MG Oral Tablet (Cozaar) 1/2 tab daily if bp elevated take 2nd dose at bedtime 90 Tablet 11 03/23/2023 Active Sunbeam Incontinent Under Pad As directed 1 Each 03/23/2023 Active Diclofenac Sodium 1 % External Gel (Voltaren) Apply topically to affected area 4 times a day. Apply to r knee 100 g 6 10/29/2020 4 Discontinued documented as of this encounter (statuses as of 07/17/2023) Active Problems Problem Noted Date Diagnosed Date Stress incontinence in female 03/23/2023 Food insecurity 02/06/2023 Overview: Per [facility] Protocol History of 2018 novel coronavirus disease (COVID -19) 12/23/2021 Legally blind in right eye, as defined in [place] Memory loss 12/23/2021 Hearing loss, right 12/23/2021 Dry eye 12/23/2021 Primary osteoarthritis of right knee 12/23/2021 HTN, goal below 150/90 11/21/2016 documented as of this encounter (statuses as of 07/17/2023) Immunizations No known immunizationsdocumented as of this [...] on file documented as of this encounter Miscellaneous Notes * Telephone Encounter - Venita Smith LPN - 05/22/2023 3:19 PM EDT Patient should have an office visit for hearing issue to determine if it's something that can be handled by PCP's office or if ENT referral is warranted. Please call to schedule with any available provider. Can discuss need for incontinence supplies at that time as well- will need chart documentation to support the DME request. * Telephone Encounter - Hector Smith OSA - 05/18/2023 12:31 PM EDT Pts daughter came in regarding an order for Incontinent Liners and also ENT as pt has been having asudden hard time in hearing. Please call primary number on file if these can be signed off, or whataction needs to be taken. documented in this encounter Plan of Treatment Upcoming Encounters Date Type Department Care Team (Late st Contact Info) Description 07/28/2023 9:00 AM EDT Office Visit Neurology [facility] [address] [facility] [place] [address] Damien Bravo, DO [address] [place] [address] 08/07/2023 2:00 PM EDT Office Visit Family Practice [facility] [address] [facility] [place] [address] Heather Butt MD [address] [facility] [place] [address] Health Maintenance Due Date Last Done Comments DXA Scan 1935 DTaP,Tdap,and Td Vaccines (1 - Tdap) 1956 Zoster Vaccines (1 of 2) 09/14/1987 Pneumococcal Vaccine: 65+ Ye ars (1 of 1 - PCV) 2002 Depression Screening 03/06/2018 03/06/2017 COVID-19 Vaccine ( - 2022-2 4 season) 2022 Influenza Vaccine [...] Not on filedocumented as of this encounter Care Teams Chief Clerk Shelter Relationship Specialty Start Date End Date Mu Lomeli III, MD [address] [facility] [place] [address] PCP - General Family Medicine 11/24/20 documented as of this encounter
--- OUTSIDE RECORDS SUMMARY | 2023-09-03 14:50 | External Medical Summary | Summary of Care ---
Author Name Unknown Organization [facility] Address [address] [place] [address] Phone [phone] Care Team Providers Care Supervisor Nutritional Yeast Name Role Phone Armani CHRISTIE MD, Mu Valles Primary Care Provider [phone] Encounter Details Date Type Department Care Team (Late st Contact Info) Description 03/27/2023 Orders Only PATIENT PORTAL DO NOT DELETE THIS DEPT USED BY [place] [address] Allergies No known active allergiesdocumented as of this encounter (statuses as of 03/27/2023) Medications Medication Sig Dispensed Refills Start Date End Date Status Blood Pressure Monitoring (BLOOD PRESSURE KIT) EMMANUELLE Use daily to check blood pressure 1 Device 0 05/08/2017 Active Diclofenac Sodium 1 % External Gel (Voltaren) Apply topically to affected area 4 times a day. Apply to r knee 100 g 6 10/29/2020 Active Timolol Maleate 0.5 % Ophthalmic Solution (Timoptic) INSTILL ONE DROP INTO BOTH EYES TWICE DAILY 10 mL 8 10/29/2020 Active Sodium Hyaluronate 60 MG/3ML Intra-articular Prefilled Syringe (Durolane) Inject 60 mg (1 syringe) intra-articularly into right knee once 3 mL 0 12/15/2022 Active Losartan Potassium 50 MG Oral Tablet (Cozaar) 1/2 tab daily if bp elevated take 2nd dose at bedtime 90 Tablet 11 03/23/2023 Active Sunbeam Incontinent Under Pad As directed 1 Each 11 03/23/2023 Active documented as of this encounter (statuses as of 03/27/2023) Active Problems Problem Noted Date Diagnosed Date Stress incontinence in female 03/23/2023 Food insecurity 02/06/2023 Overview: Per [facility] Protocol History of 2019 novel coronavirus disease (COVID -19) 12/23/2021 Legally blind in right eye, as defined in [place] Memory loss 12/23/2021 Hearing loss, right 12/23/2021 Dry eye 12/23/2021 Primary osteoarthritis of right knee 12/23/2021 HTN, goal below 150/90 11/21/2016 documented as of this encounter (statuses as of 03/27/2023) Immunizations No known immunizationsdocumented as of this [...] on file documented as of this encounter Plan of Treatment Upcoming Encounters Date Type Department Care Team (Late st Contact Info) Description 04/13/2023 1:00 PM EST Nurse Only Ancillary [facility] [place] [facility] [address] [place] [address] [place] Nurse [facility] [address] [facility] [place] [address] 07/28/2023 9:00 AM EDT Office Visit Neurology [facility] [address] [place] [address] Damien Bravo, DO [address] [place] [address] Health Maintenance Due Date Last Done Comments DXA Scan 1935 COVID-19 Vaccine (#1) 03[birth year]16/1936 DTaP,Tdap,and Td Vaccines (1 - Tdap) 1956 Zoster Vaccines (1 of 2) 09/14/1987 Pneumococcal Vaccine: 65+ Ye ars (1 - PCV) 2002 Depression Screening 03/06/2018 03/06/2017 Influenza Vaccine (FLU shot) (#1) 2022 Albumin/Creatinine Ratio 11/04/2024 11/04/2021 GARDASIL-HPV IMMUNIZATION SERIES [...] filedocumented as of this encounter Care Teams Supervisor Nutritional Yeast Relationship Specialty Start Date End Date Mu Lomeli III, MD [address] [place] [address] PCP - General Family Medicine 11/24/20 documented as of this encounter
--- OUTSIDE RECORDS SUMMARY | 2023-09-03 14:50 | External Medical Summary | Summary of Care ---
Author Name Unknown Organization [facility] Address [address] [place] [address] Phone [phone] Care Team Providers Care Web Application Tester Name Role Phone Armani CHRISTIE MD, John E Primary Care Provider [phone] Reason for Visit * Reason Comments eRx-Medication Refill Encounter Details Date Type Department Care Team (Late st Contact Info) Description 06/17/2023 Refill Family Practice [facility] [address] [place] [address] Cassia Collins III, MD [address] [facility] [place] [address] Allergies No known active allergiesdocumented as of this encounter (statuses as of 06/19/2023) Medications Medication Sig Dispensed Refills Start Date End Date Status Blood Pressure Monitoring (BLOOD PRESSURE KIT) EMMANUELLE Use daily to check blood pressure 1 Device 0 05/08/2017 Active Timolol Maleate 0.5 % Ophthalmic Solution (Timoptic) INSTILL ONE DROP INTO BOTH EYES TWICE DAILY 10 mL 8 10/29/2020 Active Sodium Hyaluronate 60 MG/3ML Intra-articular Prefilled Syringe (Durolane) Inject 60 mg (1 syringe) intra-articular ly into right knee once 3 mL 0 12/15/2022 Active Losartan Potassium 50 MG Oral Tablet (Cozaar) 1/2 tab daily if bp elevated take 2nd dose at bedtime 90 Tablet 11 03/23/2023 Active Sunbeam Incontinent Under Pad As directed 1 Each 11 03/23/2023 Active Diclofenac Sodium 1 % External Gel (Voltaren) APPLY TOPICALLY TO RIGHT KNEE 4 TIMES DAILY 100 g 6 06/19/2023 Active Diclofenac Sodium 1 % External Gel (Voltaren) Apply topically to affected area 4 times a day. Apply to r knee 100 g 6 10/29/2020 Discontinued documented as of this encounter (statuses as of 06/19/2023) Active Problems Problem Noted Date Diagnosed Date Stress incontinence in female 03/23/2023 Food insecurity 02/06/2023 Overview: Per [facility] Protocol History of 2019 novel coronavirus disease (COVID -19) 12/23/2021 Legally blind in right eye, as defined in [place] Memory loss 12/23/2021 Hearing loss, right 12/23/2021 Dry eye 12/23/2021 Primary osteoarthritis of right knee 12/23/2021 HTN, goal below 150/90 11/21/2016 documented as of this encounter (statuses as of 06/19/2023) Immunizations No known immunizationsdocumented as of this [...] encounter Miscellaneous Notes * Telephone Encounter - Cassia Collins III, MD - 06/19/2023 10:04 AM EDTSigned Prescriptions: Disp Refills Diclofenac Sodium 1 % External Gel (Voltar*100 g 6 Sig: APPLY TOPICALLY TO RIGHT KNEE 4 TIMES DAILYAuthorizing Provider: CASSIA COLLINS III * Telephone Encounter - Arnoldo Jones Kiva - 06/19/2023 8:17 AM EDT Pending Prescriptions: Disp Refills Diclofenac Sodium 1 % External Gel [Pharma*100 g 6 Sig: APPLY TOPICALLY TO RIGHT KNEE 4 TIMES DAILY * Telephone Encounter - Arnoldo Jones Kiva - 06/19/2023 8:16 AM EDT Did you pend patient's preferred pharmacy and medication before forwarding?yes Pharmacy: [facility] [id number] Pending Prescriptions: Disp Refills Diclofenac Sodium 1 % External Gel (Ismay*100 g 6 Sig: APPLY TOPICALLY TO RIGHT KNEE 4 TIMES DAILY Last Visit: 03/23/2023 (in office), Visit date not found (telemedicine) Next Visit: 07/27/2023 If no future appointments scheduled, and last appointment is greater than a year ago, please schedule patient for a follow-up appointment Last date the medication was ordered: 10/29/2020 Is this request for a controlled substance?No Urine Drug Screen:No results found for this or any previous visit. Patient Phone Numbers Labs: Lab Results Component Value Date/Time CREAT 1.1 (H) 11/04/2021 01:29 PM CREAT 1.0 12/07/2016 08:20 AM POTASSIUM 4.4 11/04/2021 01:29 PM POTASSIUM 4.6 12/07/2016 08:20 AM TSH 2.75 11/04/2021 01:29 PM LDLCALC 117 12/07/2016 08:20 AM LDLDIRECT NOT APPLICABLE 12/07/2016 08:20 AM ALT 27 11/04/2021 01:29 PM * Telephone Encounter - Delmy Naidu - 06/18/2023 4:34 AM EDTPending Prescriptions: Disp Refills Diclofenac Sodium 1 % External Gel [Pharma*100 g 6 Sig: APPLY TOPICALLY TO RIGHT KNEE 4 TIMES DAILY documented in this encounter Plan of Treatment Upcoming Encounters Date Type Department Care Team (Late st Contact Info) Description 07/20/2023 1:40 PM EDT Office Visit Otolaryngology [facility] [address] [place] [address] Tim Osborn PA-C [address] [place] [address] 07/27/2023 1:00 PM EDT Office Visit Family Practice [facility] [address] [facility] [address] [place] [address] Cassia Collins III, MD [address] [facility] [place] [address] 07/28/2023 9:00 AM EDT Office Visit Neurology [facility] [address] [place] [address] Damien Bravo, DO [address] [place] [address] Health Maintenance Due Date Last Done Comments [...] filedocumented as of this encounter Care Teams Web Application Tester Relationship Specialty Start Date End Date Cassia Collins III, MD [address] [place] [address] PCP - General Family Medicine 11/24/20 documented as of this encounter
--- OUTSIDE RECORDS SUMMARY | 2023-09-03 14:50 | External Medical Summary | Summary of Care ---
Author Name Unknown Organization [facility] Address [address] [place] [address] Phone [phone] Care Team Providers Care Merchandise Executive Name Role Phone Armani CHRISTIE MD, Mu Valles Primary Care Provider [phone] Reason for Referral * Evaluate & Treat - Unlimited Visits (Within 10 days (routine)) - Authorized Specialty Diagnoses / Procedures Referred By Gerda almeida Referred To Contact Orthopaedic Surgery / Orthopedics Diagnoses Chronic pain of right knee Mu Lomeli III, MD [address] [place] [address] Referral ID Status Reason Start Date Expiration Date Visits Requested Visits Authorized [id number] Authorized Specialty Services Required 03/23/[phone] Question Answer Referral Priority Within 10 days (routine) Where should this appointment be scheduled? [facility] What body part is the patient being seen for? Thigh/Knee What condition is the patient being seen for? Arthritis including related infection Reason for Visit * Reason Comments Re-Check Encounter Details Date Type Department Care Team (Late st Contact Info) Description 03/23/2023 10:20 AM EST Office Visit Family Practice [address] [place] [address] Mu Lomeli III, MD [address] [place] [address] [address] HTN, goal below 140/90*; Stress incontinence in female; At risk for falls; Chronic pain of right knee Allergies No known active allergiesdocumented as of this encounter (statuses as of 03/23/2023) Medications Medication Sig Dispensed Refills Start Date [...] As directed 1 Each 11 03/23/2023 Active Losartan Potassium 50 MG Oral Tablet (Cozaar) Take 1 Tablet by mouth in the morning and 1 Tablet before bedtime. 180 Tablet 11 08/15/2022 03/23/2023 Discontinue d(Refill) documented as of this encounter (statuses as of 03/23/2023) Active Problems Problem Noted Date Diagnosed Date Stress incontinence in female 03/23/2023 Food insecurity 02/06/2023 Overview: Per [facility] Protocol History of 2019 novel coronavirus disease (COVID -19) 12/23/2021 Legally blind in right eye, as defined in [place] Memory loss 12/23/2021 Hearing loss, right 12/23/2021 Dry eye 12/23/2021 Primary osteoarthritis of right knee 12/23/2021 HTN, goal below 150/90 11/21/2016 documented as of this encounter (statuses as of 03/23/2023) Immunizations No known immunizationsdocumented as of this [...] Sign Reading Time Taken Comments Blood Pressure 131/57 03/23/2023 10:36 AM EST Pulse 69 03/23/2023 10:36 AM EST Temperature 37 C (98.6 F) 03/23/2023 10:36 AM EST Respiratory Rate 69 03/23/2023 10:36 AM EST Oxygen Saturation - - Inhaled Oxygen Concentration - - Weight 87.5 kg (193 lb) 03/23/2023 10:36 AM EST Height 160 cm (5' 3") 03/23/2023 10:36 AM EST Body Mass Index 34.19 03/23/2023 10:36 AM EST documented in this encounter Progress Notes * Mu Lomeli III, MD - 03/23/2023 11:04 AM EST Subjective: Oksana Velazquez is a 87 year old female. Chief Complaint Patient presents with Re-Check HPI: Follow-up hypertension blind right eye severe arthritis right knee unable to sit for longer periods of time walking is significantly impaired uses a walker no bleeding urine or bowels has seen orthopedics in the had injections if her knee last injections were not helpful unable to travel to [place] in regards to immigration status would need home visit no bleeding urine or bowels denieschest pain shortness of breath can have some swelling of her ankles PMH: Patient Active Problem List Diagnosis Code HTN, goal below 150/90 I10 History of 2019 novel coronavirus disease (COVID-19) Z86.16 Legally blind in right eye, as defined in [place] H54.8 Memory loss R41.3 Hearing loss, right H91.91 Dry eye H04.129 Primary osteoarthritis of right knee M17.11 Food insecurity Z59.41 Stress incontinence in female N39.3 Current Outpatient Medications Medication Sig Dispense Refill Blood Pressure Monitoring (BLOOD PRESSURE KIT) EMMANUELLE Use daily to check blood pressure 1 Device 0 Diclofenac Sodium 1 % External Gel (Voltaren) Apply topically to affected area 4 times a day. Applyto r knee 100 g 6 Timolol Maleate 0.5 % Ophthalmic Solution (Timoptic) INSTILL ONE DROP INTO BOTH EYES TWICE DAILY 10mL 8 Sodium Hyaluronate 60 MG/3ML Intra-articular Prefilled Syringe (Durolane) Inject 60 mg (1 syringe) intra-articularly into right knee once 3 mL 0 Losartan Potassium 50 MG Oral Tablet (Cozaar) 1/2 tab daily if bp elevated take 2nd dose at [id number] Tablet 11 Sunbeam Incontinent Under Pad As directed 1 Each 11 No current facility-administered medications for this visit. Review of patient's allergies indicates: No Known Allergies Past Medical History: Diagnosis Date Dry eye 12/23/2021 Hearing loss, right 12/23/2021 History of 2019 novel coronavirus disease (COVID-19) 12/23/2021 Legally blind in right eye, as defined in [place] 12/23/2021 Memory loss 12/23/2021 Primary osteoarthritis of right knee 12/23/2021 No past surgical history on file. Objective: The patient is a 87 year old female BP 131/57 | Pulse 69 | Temp 37 C (98.6 F) | Resp 69 | Ht 1.6 m (5' 3") | Wt 87.5 kg (193 lb) | BMI 34.19 kg/m | BSA 1.97 m General: alert, healthy, and no distress Eye Exam: PERRLA, extraocular movements intact, conjunctiva are pink and non- injected, sclera clear Oropharynx: no exudate, no erythema, lips, buccal mucosa, and tongue normal, and mucous membranes are moist Heart: regular rate & rhythm, no murmur, and no gallops Lungs: lungs clear to auscultation Extremities: no clubbing, no cyanosis, trace edema left trace to +1 right ASSESSMENT: I10 HTN, goal below 140/90 (primary encounter diagnosis) N39.3 Stress incontinence in female Z91.81 At risk for falls M25.561,G89.29 Chronic pain of right knee PLAN: Letter for immigration incontinence pad cut back losartan to 1/2 tablet daily if elevated blood pressure could take another half tablet at bedtime flu vaccine discussed encouraged check CBC basic metabolic panel TSH Follow up in 3 month(s). Mu Lomeli III, MD * Lashell Arteaga RN - 03/23/2023 10:34 AM EST Pt is dizzy and BP is low and pt has fallen 2 times. documented in this encounter Plan of Treatment Upcoming Encounters Date Type Department Care Team (Late st Contact Info) Description 07/28/2023 9:00 AM EDT Office Visit Neurology [facility] [address] [place] [address] Damien Bravo, DO [address] [place] [address] Scheduled Orders Name Type Priority Associated Diagnoses Orde r Schedule BASIC METABOLIC PANEL Lab Routine HTN, goal below 140/90 Expected: 03/23/2023 (Approximate), Expires: 03/22/2024 CBC Lab Routine HTN, goal below 140/90 Expected: 03/23/2023 (Approximate), Expires: 03/22/2024 VITAMIN B12 Lab Routine At risk for falls Expected: 03/23/2023 (Approximate), Expires: 03/22/2024 TSH WITH FREE T4 IF INDICATED Lab Routine At risk for falls Expected: 03/23/2023 (Approximate), Expires: 03/22/2024 Scheduled Referrals Name Type Priority Associated Diagnoses Order Schedule ORTHOPAEDICS REFERRAL OP Referral Within 10 days (routine) Chronic pain of right knee Ordered: 03/23/2023 Health Maintenance Due Date Last Done Comments [...] as of this encounter Visit Diagnoses Diagnosis HTN, goal below 140/90- Primary Unspecified essential hypertension Stress incontinence in female Female stress incontinence At risk for falls Personal history of fall Chronic pain of right knee documented in this encounter Care Teams Merchandise Executive Relationship Specialty Start Date End Date Mu Lomeli III, MD [address] [place] [address] PCP - General Family Medicine 11/24/20 documented as of this encounter
[2023-09-03] MEDS ORDERED: POLYETHYLENE (MIRALAX) 17 GM PACK PO PRN (14:57)
[2023-09-03] MEDS: amLODIPine BESYLATE 5 MG TAB PO SCH (18:23)
[2023-09-03] MEDS ORDERED: traMADol HCL 50 MG TABLET PO PRN (20:28)
[2023-09-03] MEDS: ACETAMINOPHEN 325 MG TAB PO PRN (20:29)
[2023-09-03] MEDS ORDERED: Patient's ALLERGY Info needs ENTERED SCH (20:45)
--- NOTE | 2023-09-04 06:18 | Electrocardiogram Report ---
Test Reason : Blood Pressure : / mmHG Vent. Rate : 072 BPM Atrial Rate : 072 BPM P-R Int : 142 ms QRS Dur : 090 ms QT Int : 414 ms P-R-T Axes : 063 -02 029 degrees QTc Int : 453 ms Normal sinus rhythm Minimal voltage criteria for LVH, may be normal variant ( Robb product ) Septal infarct , age undetermined Abnormal ECG No previous ECGs available Confirmed by Kong Salcedo ([id number]) on 09/04/2023 6:17:34 AM Referred By: REFERRED SELF Confirmed By:Kong Salcedo
[2023-09-04 08:19] LABS: Basophils # (auto) 0.01 K/uL (0.00-0.20); Basophils % (auto) 0.2 %; Eosinophils # (auto) 0.06 K/uL (0.00-0.50); Eosinophils % (auto) 1.3 %; Hematocrit (blood only) 30.8 % (37.0-47.0); Hemoglobin 10.2 g/dl (12.0-16.0); Immature Granulocytes # (auto) 0.02 K/uL (0.01-0.20); Immature Granulocytes % (auto) 0.4 %; Lymphocytes # (auto) 1.03 K/uL (1.20-3.40); Lymphocytes % (auto) 22.1 %; Mean Corpuscular Hemoglobin 27.6 pg (25.0-34.0); Mean Corpuscular Hgb Conc 33.1 g/dL (32.0-36.0); Mean Corpuscular Volume 83.2 fL (80.0-100.0); Mean Platelet Volume 9.5 fL (9.4-12.4); Monocytes # (auto) 0.33 K/uL (0.11-0.59); Monocytes % (auto) 7.1 %; Neutrophils # (auto) 3.21 K/uL (1.40-6.50); Neutrophils % (auto) 68.9 %; Platelet Count 153 K/uL (130-400); RDW Coefficient of Variation 13.8 % (11.5-14.5); RDW Standard Deviation 41.3 fL (36.4-46.3); White Blood Count 4.66 K/ul (4.8-10.8)
[2023-09-04 08:39] LABS: BUN Creatinine Ratio 16.3 (10-20); Calcium 8.4 mg/dl (8.6-10.3); Creatinine Clr Calc Pharmacy 56.9 ml/min; Est GFR (African American) 77.9 ml/min; Est GFR (Non-African American) 67.2 ml/min; Potassium 4.1 mmol/L (3.5-5.1)
[2023-09-04 08:54] LABS: Thyroid Stimulating Hormone 2.312 uIu/ml (0.300-4.500)
--- NOTE | 2023-09-04 09:27 | Orthopedic Consultation ---
Date of Consultation September 04, 2023 Assessment & Plan (1) C2 cervical fracture: At this time we will maintain the cervical collar at all times. She may remove it for bathing only. She will require a follow-up CAT scan in approximately 2 weeks to assess healing. She cannot lift more than 1 to 2 pounds. History of Present Illness Reason for Consultation: C2 fracture Attending Physician: Andrews Brooks MD History of Present Illness This is an 87-year-old female presents after fall at home. She was diagnosed with a type III nondisplaced C2 fracture. T this morning she is at the bedside appears comfortable. She does not speak Luxembourgish. Home Medications Medication Instructions Recorded Confirmed Type losartan 50 mg tablet 25 mg PO UD 09/03/23 09/03/23 History Patient History Medical History (Updated 09/03/23 @ 13:47 by Stanford Fountain MD) Osteoarthritis Hypertension Social History Smoking Status: Never smoker Hx Alcohol Use: No Hx Substance Use: No Preferred Language: Dominican Communication Ability: Impaired Communication Ability Comment: patient primary language is Dominican Communication Tools: IPad Ammonium Hydroxide Operator Required: Yes Beliefs That Will Affect Care: None Current Living Situation: Alone Current Living Situation Comment: Lives home alone in apartment Other Information That Helps Us Care for You: No Feels Safe at Home: Yes Safety Concerns: Feels Safe At This Time Assistive Devices: Denture - Upper, Denture - Lower, Glasses and Walker Physical Exam Physical Exam: Patient is in the chair at the bedside. She appears to be neurologically intact with testing. The collar is in place. Results & Data Vital Signs (Past 12 Hours) Vital Signs Temp Pulse Pulse Resp BP Pulse Ox O2 Del Method 09/04/23 07:47 36.9 C 79 17 158/72 H 100 Room Air 09/04/23 06:49 60 09/04/23 04:36 36.8 C 71 16 148/69 H 96 Room Air 09/03/23 23:13 36.8 C 74 18 154/68 H 95 Room Air 09/03/23 21:57 71 (1) C2 cervical fracture Encounter type: initial encounter Fracture alignment: nondisplaced Fracture morphology: unspecified fracture morphology Fracture type: closed Qualified Code(s): S12.101A - Unspecified nondisplaced fracture of second cervical vertebra, initial encounter for closed fracture
[2023-09-04 13:10] LABS: Appearance Urine Clear (Clear); Bacteria Urine Automated None Seen (None Seen); Bilirubin Urine Negative (Negative); Blood Urine 2+ (Negative); Cast Urine Automated 0-2 /lpf (0-2); Color Urine Yellow; Epithelial Cell Urine Auto 0-2 /hpf (0-2); Glucose Urine UA Negative (Negative); Ketones Urine Negative (Negative); Leukocyte Esterase Urine Negative (Negative); Nitrite Urine Negative (Negative); Protein Urine Negative (Negative); RBC Urine Automated 0-2 /hpf (0-2); Urobilinogen Urine Negative (Negative); WBC Urine Automated 0-5 /hpf (0-5); pH Urine 6.5 (4.5-7.5)
--- NOTE | 2023-09-04 14:15 | Hospitalist Progress Note ---
Date of Service September 04, 2023 Assessment & Plan (1) Dizziness: Plan: Per admitting provider w/ addendum Got dizzy in the morning of admission when she was trying to go for [employer] No other associated symptoms and no prior history of dizziness Ended up with the fall with scalp laceration on the right side Remains hemodynamically stable May have mild dehydration with BUN elevated to 24 with normal creatinine Will give cautious amount of IV fluid Will get orthostatic vitals and monitoring [facility] telemetry unit 09/03 Pt is feeling well this AM, She is alert , oriented and answers appropriately Only complains of pain where her laceration is Daughter at the bedside and provides additional hx - says pt took shower, had a breakfast in AM No prior hx of falls. Pt denies any LOC UA, echo, carotid US ordered to further eval (2) Status post fall: Plan: Status post fall with right scalp laceration No loss of consciousness Scalp was sutured on 09/03/2023 (3) Injury of cervical spine: Plan: Acute minimally displaced fracture of C2 involving the lateral body and the superior arch No evidence of neurological symptoms The ER physician did talk to Dr. Giordano and advised to have a cervical collar Spine surgery consulted - At this time we will maintain the cervical collar at all times. She may remove it for bathing only. She will require a follow-up CAT scan in approximately 2 weeks to assess healing. She cannot lift more than 1 to 2 pounds. (4) Hypertension: Plan: Has been taking losartan potassium and will continue Monitor BP (5) Osteoarthritis: Plan: Uses diclofenac sodium external gel and will continue Will try Tylenol and/or ibuprofen for pain control (6) Stress incontinence: Plan DVT prophylaxis SCDs for now given the cervical injury CODE STATUS Full Admission and Anticipated Discharge Date Admission Date: September 03, 2023 Subjective Pt seen in follow up of fall / syncope (pt actually denies loss of consciousness), has C2 cervical fracture Laying in bed in NAD, cervical collar applied Denies fever, chills, chest pain, palpitations, shortness of breath, abd. pain, n/v Pt's daughter present at the bedside and also provides additional hx. Both updated. Pt seen by ortho-spine this AM - cont. cervical collar, no plan for surgery at this time Review of Systems Review of Systems: All systems reviewed & are unremarkable except as noted in Subjective Results & Data Results & Data Vital Signs (Past 12 Hours) Vital Signs Temp Pulse Pulse Resp BP Pulse Ox O2 Del Method 09/04/23 11:53 36.7 C 68 18 131/64 93 Room Air 09/04/23 07:47 36.9 C 79 17 158/72 H 100 Room Air 09/04/23 06:49 60 09/04/23 04:36 36.8 C 71 16 148/69 H 96 Room Air Laboratory Results 09/04/23 09/04/23 Range/Units 12:00 07:47 WBC 4.66 L (4.8-10.8) K/ul RBC 3.70 L (4.20-5.40) M/uL Hgb 10.2 L (12.0-16.0) g/dl Hct 30.8 L (37.0-47.0) % MCV 83.2 (80.0-100.0) fL MCH 27.6 (25.0-34.0) pg MCHC 33.1 (32.0-36.0) g/dL RDW Std Deviation 41.3 (36.4-46.3) fL RDW Coeff of Ruby 13.8 (11.5-14.5) % Plt Count 153 (130-400) K/uL MPV 9.5 (9.4-12.4) fL Immature Gran % (Auto) 0.4 % Neut % (Auto) 68.9 % Lymph % (Auto) 22.1 % [place] % (Auto) 7.1 % Eos % (Auto) 1.3 % Baso % (Auto) 0.2 % Neut # (Auto) 3.21 (1.40-6.50) K/uL Lymph # (Auto) 1.03 L (1.20-3.40) K/uL [place] # (Auto) 0.33 (0.11-0.59) K/uL Eos # (Auto) 0.06 (0.00-0.50) K/uL Baso # (Auto) 0.01 (0.00-0.20) K/uL Immature Gran # (Auto) 0.02 (0.01-0.20) K/uL Sodium 141 (136-145) mmol/L Potassium 4.1 (3.5-5.1) mmol/L Chloride 107 (98-107) mmol/L Carbon Dioxide 29 (21-32) mmol/L Anion Gap 5 (3-11) BUN 13 (6-23) mg/dl Creatinine 0.80 (0.6-1.2) mg/dl Est Cr Clr Drug Dosing 56.9 ml/min Est GFR ( Amer) 77.9 ml/min Est GFR (Non-Af Amer) 67.2 ml/min BUN/Creatinine Ratio 16.3 (10-20) Glucose 112 H (70-99(Fasting)) mg/dl Calcium 8.4 L (8.6-10.3) mg/dl Magnesium 2.0 (1.7-2.4) mg/dl TSH 2.312 (0.300-4.500) uIu/ml Urine Color Yellow Urine Appearance Clear (Clear) Urine pH 6.5 (4.5-7.5) Ur Specific [place] 1.010 (1.000-1.030) Urine Protein Negative (Negative) Urine Glucose (UA) Negative (Negative) Urine Ketones Negative (Negative) Urine Blood 2+ H (Negative) Urine Nitrite Negative (Negative) Urine Bilirubin Negative (Negative) Urine Urobilinogen Negative (Negative) Ur Leukocyte Esterase Negative (Negative) Urine WBC (Auto) 0-5 (0-5) /hpf Urine RBC (Auto) 0-2 (0-2) /hpf U Hyaline Cast (Auto) 0-2 (0-2) /lpf U Epithel Cells (Auto) 0-2 (0-2) /hpf Urine Bacteria (Auto) None Seen (None Seen) Medications Administered Current Inpatient Medications Acetaminophen (Acetaminophen 325 Mg Tab) 650 mg PO Q4H PRN PRN Reason: Pain or Fever Stop: 10/03/23 14:56 Last Admin: 09/03/23 20:29 Dose: 650 mg Amlodipine Besylate (Amlodipine Besylate 5 Mg Tab) 5 mg PO QAM KASIE Stop: 10/03/23 16:44 Last Admin: 09/04/23 08:58 Dose: 5 mg Miscellaneous Information (Patient's Allergy Info Needs Entered) 1 each N/A QS [facility] Stop: 10/04/23 07:59 Polyethylene Glycol (Polyethylene (Miralax) 17 Gm Pack) 17 gm PO DAILY PRN PRN Reason: Constipation Stop: 10/03/23 14:56 Tramadol HCl (Tramadol Hcl 50 Mg Tablet) 25 mg PO Q6H PRN PRN Reason: Mod-Sev Pain (Scale 4-10) Stop: 10/03/23 20:27
--- NOTE | 2023-09-04 17:01 | Ultrasound Report ---
BILATERAL CAROTID DOPPLER STUDY HISTORY: syncope COMPARISON: None. TECHNIQUE: Real-time, grayscale, and color Doppler sonography of the carotid arteries was performed. Imaging reviewed in the transverse and longitudinal planes. All measurements were calculated based on NASCET criteria. FINDINGS: Antegrade flow is seen in the bilateral vertebral arteries. Minimal scattered calcified plaque within the carotid arteries.. The peak systolic velocity within the right ICA is 80 cm/s. The right systolic ratio is 0.9. The peak systolic velocity within the left ICA is 94 cm/s. The left systolic ratio is 1.1. IMPRESSION: No hemodynamically significant stenosis seen within the carotid arteries. ACT 112: Negative or not required by law. Electronically signed by: Marques Villalpando M.D. 09/04/2023 5:00 PM
[2023-09-04] MEDS: Patient's ALLERGY Info needs ENTERED SCH (18:29)
[2023-09-05 06:48] LABS: Hematocrit (blood only) 33.6 % (37.0-47.0); Hemoglobin 10.9 g/dl (12.0-16.0); Mean Corpuscular Hemoglobin 26.8 pg (25.0-34.0); Mean Corpuscular Hgb Conc 32.4 g/dL (32.0-36.0); Mean Corpuscular Volume 82.8 fL (80.0-100.0); Mean Platelet Volume 9.5 fL (9.4-12.4); Platelet Count 165 K/uL (130-400); RDW Coefficient of Variation 13.5 % (11.5-14.5); RDW Standard Deviation 41.1 fL (36.4-46.3); Red Blood Count 4.06 M/uL (4.20-5.40); White Blood Count 5.24 K/ul (4.8-10.8)
[2023-09-05 07:19] LABS: BUN Creatinine Ratio 18.8 (10-20); Calcium 8.9 mg/dl (8.6-10.3); Creatinine Clr Calc Pharmacy 53.5 ml/min; Est GFR (African American) 72.4 ml/min; Est GFR (Non-African American) 62.5 ml/min; Magnesium 2.2 mg/dl (1.7-2.4); Phosphorus 3.1 mg/dl (2.5-4.9)
--- NOTE | 2023-09-05 14:59 | Hospitalist Progress Note ---
Date of Service September 05, 2023 Assessment & Plan (1) Laceration of scalp: (2) CHI (closed head injury): (3) Syncope and collapse: (4) C2 cervical fracture: (5) Stress incontinence: Plan Pt is an 87-year-old Egyptian female with PMHx significant for hypertension, legally blind in the right eye, history of memory and hearing loss, primary osteoarthritis of right knee, and stress incontinence who presented after a fall at home. Fall ?syncope Cervical fracture Scalp laceration CT cervical spine showing c2 fracture Chest xray with no acute fracture head CT noting no acute intracranial bleed, R parietal scalp swelling Syncope workup negative with carotid dopplers, ua w/o infection, and echo noting EF 60-65%, mild conc LVH, grade 1 diastolic dysfunction, moderate aortic sclerosis w/o stenosis, Trace AR, MR Scalp was sutured in the ED on 09/03/2023 Orthospine consulted, appreciate recs -At this time we will maintain the cervical collar at all times. She may remove it for bathing only. She will require a follow-up CAT scan in approximately 2 weeks to assess healing. She cannot lift more than 1 to 2 pounds. PT/OT consulted- recommending home with 24/7 care or short term rehab Per daughter, rehab better option, currently awaiting placement Pt stable for discharge, awaiting placement Hypertension Home losartan 25mg qpm Amlodipine qAM added continue to monitor Hypocalcemia AM ionized vazquez pending Hyperglycemia AM hgba1c pending Continue other home meds as ordered Diet: HH DVT prophylaxis: SCDs in setting of spine injury Dispo: acute rehab Admission and Anticipated Discharge Date Admission Date: September 03, 2023 Subjective pt was seen in the AM with her daughter at bedside. Daughter states that they are unable to care for pt 24/7 at home. Pt denies acute concerns today. Review of Systems Review of Systems: All systems reviewed & are unremarkable except as noted in Subjective Physical Exam Physical Exam: General: Alert. No acute distress Skin: No noted rashes or bruises Psych: Appropriate mood and affect Neuro: laying still, difficulty with movements HEENT: Neck brace in place CV: RRR Resp: Breath sounds clear bilaterally, no increased effort of breathing. Abdomen: Soft, nontender, nondistended Extremities: No edema in lower extremities bilaterally. Results & Data Results & Data Vital Signs (Past 12 Hours) Vital Signs Temp Pulse Pulse Resp BP Pulse Ox O2 Del Method 09/05/23 14:24 69 09/05/23 11:05 37.2 C 68 14 162/76 H 95 Room Air 09/05/23 07:23 36.9 C 66 15 169/75 H 94 Room Air 09/05/23 07:07 71 (4) C2 cervical fracture Encounter type: initial encounter Fracture alignment: nondisplaced Fracture morphology: unspecified fracture morphology Fracture type: closed Qualified Code(s): S12.101A - Unspecified nondisplaced fracture of second cervical vertebra, initial encounter for closed fracture
[2023-09-05] MEDS: LOSARTAN POTASSIUM 25 MG TAB PO SCH (19:46)
[2023-09-06 06:46] LABS: Hematocrit (blood only) 32.4 % (37.0-47.0); Hemoglobin 10.8 g/dl (12.0-16.0); Mean Corpuscular Hemoglobin 27.5 pg (25.0-34.0); Mean Corpuscular Hgb Conc 33.3 g/dL (32.0-36.0); Mean Corpuscular Volume 82.4 fL (80.0-100.0); Mean Platelet Volume 9.4 fL (9.4-12.4); Platelet Count 171 K/uL (130-400); RDW Coefficient of Variation 13.6 % (11.5-14.5); RDW Standard Deviation 41.2 fL (36.4-46.3); Red Blood Count 3.93 M/uL (4.20-5.40)
[2023-09-06 06:57] LABS: BUN Creatinine Ratio 19.3 (10-20); Calcium 8.8 mg/dl (8.6-10.3); Creatinine Clr Calc Pharmacy 54.8 ml/min; Est GFR (African American) 74.5 ml/min; Est GFR (Non-African American) 64.3 ml/min; Potassium 4.1 mmol/L (3.5-5.1)
[2023-09-06 07:25] LABS: Estimated Average Glucose 105 mg/dl; Hemoglobin A1C 5.3 % (4.5-5.6)
[2023-09-06 07:44] VITALS: RESP 16
[2023-09-06 11:30] VITALS: BP 128/67; TEMP 98; O2SAT 94
--- NOTE | 2023-09-06 12:24 | Discharge Summary ---
Discharge Summary Date of Service September 06, 2023 Principal Dx & Hospital Course #1 = Principal Diagnosis (1) Laceration of scalp: (2) CHI (closed head injury): (3) Syncope and collapse: (4) C2 cervical fracture: (5) Stress incontinence: Plan Pt is an 87-year-old Indian female with PMHx significant for hypertension, legally blind in the right eye, history of memory and hearing loss, primary osteoarthritis of right knee, and stress incontinence who presented after a fall at home. Fall ?syncope Cervical fracture Scalp laceration CT cervical spine showing c2 fracture Chest xray with no acute fracture head CT noting no acute intracranial bleed, R parietal scalp swelling Syncope workup negative with carotid dopplers, ua w/o infection, and echo noting EF 60-65%, mild conc LVH, grade 1 diastolic dysfunction, moderate aortic sclerosis w/o stenosis, Trace AR, MR Scalp was sutured in the ED on 09/03/2023 Orthospine consulted, appreciate recs -At this time we will maintain the cervical collar at all times. She may remove it for bathing only. She will require a follow-up CAT scan in approximately 2 weeks to assess healing. She cannot lift more than 1 to 2 pounds. PT/OT consulted- recommending home with 19/09 care or short term rehab Per daughter, rehab better option, currently awaiting placement Pt stable for discharge, discharged to [facility]. Constipation PRN bowel regimen with miralax, enemas Hypertension Home losartan 25mg qpm Amlodipine qAM added Continue with losartan only after discharge per daughter's request. Daughter states that amlodipine has made the pt dizzy in the past. Hyperglycemia hgba1c 5.3, normal Continue other home meds as ordered Notes For Next Care Provider Per orthospine: -At this time we will maintain the cervical collar at all times. She may remove it for bathing only. She will require a follow-up CAT scan in approximately 2 weeks to assess healing. She cannot lift more than 1 to 2 pounds. Medication Changes From Visit None Admission HPI Per Admitting Provider The history was taken from the family members in front of the patient in the emergency room. She is an 87-year-old Indian female with significant past medical history of hypertension, legally blind in the right eye, history of memory and hearing loss, primary osteoarthritis of right knee, and stress incontinence. She cannot speak [place]. She has had a fall this morning around 6 AM when she was preparing go for [employer]. She had her breakfast this morning and felt dizzy on standing without any other associated neurological symptoms and she ended up having a fall injuring the head. She denies any visual symptoms before the fall, any chest pain or palpitation, any abdominal pain nausea no vomiting, any problem with urine and bowel habit, or any numbness or tingling involving any of the extremities. She was noted to have right-sided scalp laceration which was sutured and CT scan of the head did not show any significant abnormalities. CT of the cervical spine did show minimally displaced fracture of C2 involving the lateral body and the superior arch. The case was discussed with the spine surgeon and the neck collar was placed. She will be admitted to med/telemetry unit for continuation of care and also find out the possible cause for dizziness. Admission Exam Per Admitting Provider Physical Exam: Lying in bed in cervical collar without any acute distress Constitutional: well developed, well nourished and + ill appearing Eyes: PERRL, conjunctivae normal, anicteric sclerae ENMT: external ear and nose normal, oropharynx normal Neck: trachea midline Cervical collar in situ Respiratory: no respiratory distress Auscultation: lungs clear to auscultation bilaterally Cardiovascular: Rate/Rhythm: regular rate and regular rhythm; not tachycardic Heart Sounds: normal S1 and normal S2; no murmur Extremities: no edema Gastrointestinal (Abdomen): Inspection/Auscultation: normal bowel sounds; abdomen not distended Percussion/Palpation: abdomen soft; abdomen nontender Musculoskeletal: No acute arthritis involving any of the joints Neurologic: normal touch/pain/proprioception and moves all extremities; no focal motor deficits Lymphatic: no cervical or axillary lymphadenopathy Discharge Exam General: Alert. No acute distress Skin: No noted rashes or bruises Psych: Appropriate mood and affect Neuro: laying still, difficulty with movements HEENT: Neck brace in place CV: RRR Resp: Breath sounds clear bilaterally, no increased effort of breathing. Abdomen: Soft, nontender, nondistended Extremities: No edema in lower extremities bilaterally. Updated Medication List Medication Instructions Recorded Confirmed Type losartan 50 mg tablet 25 mg PO UD 09/03/23 09/03/23 History Hospital Stay Data Consultations 09/03/23 10:29 ED Decision to Admit Stat 09/03/23 10:30 Consult Orthopedic Spine Surgery Routine Diagnostic Imagining Performed 09/03/23 09:22 CT cervical spine wo con Stat CT head/brain wo con Stat 09/04/23 07:19 US carotid doppler BI Routine Cervical Spine CT 09/03/23 09:22 CT cervical spine wo con CLINICAL HISTORY: fall TECHNIQUE: Multidetector row helical CT of the cervical spine was performed without administration of intravenous contrast. Coronal and sagittal reformations were obtained. Automated dose lowering techniques and/or adjustment according to patient size were utilized for this exam. Comparison: None available at the time of this dictation. FINDINGS: There is an acute fracture of the C2 left posterior lamina and right lateral body. Degenerative changes are seen in the visualized spine. The alignment is normal. Soft tissues are unremarkable. IMPRESSION: Acute, minimally displaced fracture of C2 involving the lateral body and the superior arch. ACT 112: Negative or not required by law. Electronically signed by: Sam Zheng M.D. 09/03/2023 10:00 AM Chest X-Ray 09/03/23 09:22 XR chest 1V portable CLINICAL HISTORY: Chest pain, nonspecific TECHNIQUE: Single frontal radiograph of the chest was obtained. Comparison: None available at the time of this dictation. FINDINGS: No lines and tubes are seen. Calcified aortic knob is seen. The lungs are clear. No evidence of pleural effusion or pneumothorax. IMPRESSION: No acute chest disease. ACT 112: Negative or not required by law. Electronically signed by: Sam Zheng M.D. 09/03/2023 1:[address] 09/03/23 09:22 CT head/brain wo con CLINICAL HISTORY: fall Technique: Contiguous axial CT images of the head were acquired from the base of the skull to the vertex without intravenous contrast administration. Images were viewed in brain, subdural and bone windows. Automated dose lowering techniques and/or adjustment according to patient size were utilized for this exam. Comparison: None available at the time of this dictation. Findings: The ventricles, basal cisterns, and cerebral sulci are normal. There is no acute intracranial hemorrhage or evidence of acute territorial infarction. Neither mass effect, shift of the midline structures, nor abnormal extra-axial fluid collections are shown. Imaged portions of the paranasal sinuses and mastoid air cells are clear. The orbits appear normal. There are no acute fractures of the calvaria. Scalp swelling is seen in the right parietal soft tissues. Impression: No acute intracranial hemorrhage or skull fractures. Scalp swelling is seen in the right parietal soft tissues. ACT 112: Negative or not required by law. Electronically signed by: Sam Zheng M.D. 09/03/2023 9:57 AM Carotid Doppler Study 09/04/23 07:19 BILATERAL CAROTID DOPPLER STUDY HISTORY: syncope COMPARISON: None. TECHNIQUE: Real-time, grayscale, and color Doppler sonography of the carotid arteries was performed. Imaging reviewed in the transverse and longitudinal planes. All measurements were calculated based on NASCET criteria. FINDINGS: Antegrade flow is seen in the bilateral vertebral arteries. Minimal scattered calcified plaque within the carotid arteries.. The peak systolic velocity within the right ICA is 80 cm/s. The right systolic ratio is 0.9. The peak systolic velocity within the left ICA is 94 cm/s. The left systolic ratio is 1.1. IMPRESSION: No hemodynamically significant stenosis seen within the carotid arteries. ACT 112: Negative or not required by law. Electronically signed by: Marques Villalpando M.D. 09/04/2023 5:00 PM Discharge Instructions Given to Patient (Per Discharging Provider) Oksana, You are being discharged to an acute rehab facility. For pain, you only requested tylenol while you were here. Please continue with that as needed for pain. Please keep close follow up with your primary care provider after discharge. Please do not hesitate to come back to the emergency room if your symptoms worsen or return. It was a pleasure taking care of you while you were here. Total Time Total Time Spent Total Time Spent (In Minutes): 65
[2023-09-06 15:46] VITALS: PULSE 71
== END 2023-09-06 17:47 | DRG 552 ==
LOC: ED 09:03 → SUATTDRO 11:14 → EDINP 11:14 → 2W 15:51

== ENCOUNTER 2024-01-24 17:11 | Inpatient (IN) ==
[2024-01-24] MEDS: fentaNYL citrate PF 100 MCG/2 ML VIAL IV STA (18:30)
[2024-01-24] MEDS: ACETAMINOPHEN 1,000 MG/100 ML VIAL IV STA (18:31)
--- NOTE | 2024-01-24 18:47 | Emergency Department Note ---
Impression & Plan Fall, Acute pain of right lower extremity, Hematoma of right lower extremity, Musculoskeletal pain of right upper extremity, ABLA (acute blood loss anemia) ED Provider Note Provider: Prince Becerra MD CHIEF COMPLAINT: Fall, right-sided pain, leg bruising HISTORY OF PRESENT ILLNESS: Patient is a 88-year-old female history of C2 fracture in cervical collar following with Dr. Giordano after a fall and summer presenting here today for evaluation after a fall yesterday and today. Has had some dizziness since prior injuries and normally uses a walker. Daughters present as the patient primarily speaks Lao and declined formal translation services she will translate. Patient evidently dizzy and fell to the ground on her right side yesterday. Helped her up but could not get around well today and fell again. Possibly did hit her head. Has maintain her cervical collar. This has been healing well according to daughter. No significant nausea or vomiting or shortness of breath reported. Significant pain in the right lower leg as well as in the right upper arm and some headache reported. Given the significant bruising daughter noted this afternoon or difficulty ambulating came here for evaluation. Does report a little bit of tingling extremities on the right. PAST MEDICAL HISTORY: As noted above MEDICATIONS: Reviewed home medications no blood thinners or anticoagulants reported. SOCIAL HISTORY: Speaks Lao, lives by herself PHYSICAL EXAM: GENERAL: alert and oriented in no acute distress on stretcher Head: normocephalic and atraumatic EYES: No injection, discharge or icterus. PERRL, EOMI. NECK: Trachea midline. In cervical collar ENT: Mucous membranes pink and moist. LUNGS: Airway patent. No retractions. Breath sounds clear HEART: Regular rate and rhythm. No chest wall tenderness ABDOMEN: Soft and non-tender, without guarding or rebound. No significant flank pain. SKIN: Acyanotic, warm, dry, without rashes EXTREMITIES: Patient without significant tenderness or deformity or swelling to the left upper lower extremity. The right upper extremity does have significant ecchymosis contusions mild tenderness of the proximal forearm right upper arm with difficulty with elbow extension and good movement of the shoulder. Intact sensation and feeling in the bilateral hands and feet. Able to dorsal and plantar flex. Patient with significant ecchymosis surrounding the right knee and into the right anterior and lateral lower leg. Some slight tenderness to the right lateral thigh as well. NEUROLOGICAL: No focal deficits. No aphasia. No facial droop or slurred speech. Normal strength and tone in the extremities. Sensation to gross touch normal EK bpm sinus tachycardia. No PVC or PAC. No acute ST segment elevation or depression with QTc of 453. CONTINUOUS CARDIAC MONITORING: was ordered and showed a heart rate of 100s bpm in sinus tachycardia to 90s beats per minute sinus rhythm GCS 15. Patient's laboratory studies and imaging reviewed. Differential includes Fracture, dislocation, contusion, intra-abdominal, pneumothorax, intrathoracic, intracranial, neurologic, compartment syndrome, rhabdomyolysis, as well as other pathologies. IMPRESSION/MEDICAL DECISION MAKING: Again patient declined formal translation services daughter providing translation. Fell yesterday and again today. Significant bruising really on the right lower extremity. Reports some numbness in extremities and headache. No vomiting or nausea or significant shortness of breath reported. History of prior cervical spine fracture follow with Dr. Giordano in collar already. No significant worsening pain here. Unable to fully extend the right arm due to pain in the predominate right upper arm and significant pain of the right knee and to the right lower leg. Seems to have good distal perfusion and able to move the foot and toes. Significant ecchymosis in the anterior to lateral right leg to the right knee. No significant chest wall or right flank pain given her age and mechanism will obtain CT batista scans. Obtain x-rays of the right upper arm right knee and right lower leg. Do not see clear evidence of compartment syndrome at this time but will monitor. Given some fentanyl and Tylenol initially for pain. Maintained in cervical collar. Blood work here shows new significant anemia hemoglobin 6.5. Not on blood thinners or anticoagulants but obvious concerned there could be internal bleeding beyond the significant ecchymosis in the lower extremity. Did discuss the anemia with patient and daughter at bedside. Consented for blood transfusion. Patient denies any GI bleeding/rectal bleeding/black stools recently. Doubt this represents GI bleed. No history of transfusion reported. No severe electrolyte abnormality signs of acute renal dysfunction on blood work. Slight AST elevation but LFTs otherwise reassuring. CK elevated 1960 question rhabdomyolysis. Troponin normal. X-rays without obvious findings of fracture on my review or dislocation. Again does seem like a fairly significant soft tissue injury but doubt compartment syndrome at this point. CT scans per radiology show no significant acute trauma or bleeding by available reports here. Patient on reassessment having improvement of pain in her right arm and leg. Given the anemia likely from the ecchymosis to her leg and arm as well as ambulatory dysfunction discussed further care here at the hospital. Discussed with patient and daughter staying for further care here. Hospitalist contacted. DIAGNOSIS: Fall, acute blood loss anemia, right arm and leg pain, right leg contusion/ecchymosis DISPOSITION: Hospitalist will evaluate Patient was agreeable with this plan. Critical Care I have personally spent 46 minutes of critical care time in the direct management of this patient. This includes bedside care, interpretation of diagnostic studies, and testing, discussion with consultants, patient, and family members, and other required patient management activities. These 46 minutes is in excess of all separately billable procedures. Past Med/Surg History Problem List (Updated 01/24/24 @ 23:50 by Prince Becerra M.D.) ABLA (acute blood loss anemia) (Acute) Musculoskeletal pain of right upper extremity (Acute) Hematoma of right lower extremity (Acute) Acute pain of right lower extremity (Acute) Fall (Acute) Laceration of scalp (Acute) CHI (closed head injury) (Acute) Syncope and collapse (Acute) C2 cervical fracture (Acute) Stress incontinence Injury of cervical spine Status post fall Dizziness Medical History (Updated 01/24/24 @ 23:50 by Prince Becerra M.D.) Osteoarthritis Hypertension Social History Smoking Status: Never smoker Do You Dip or Chew Tobacco: No; Hx Alcohol Use: No Hx Substance Use: No Preferred Language: Lao Communication Ability: Impaired Communication Ability Comment: patient primary language is Lao Communication Tools: IPad and Language Line 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 Required: Yes Beliefs That Will Affect Care: None Current Living Situation: Alone Current Living Situation Comment: Lives home alone in apartment Feels Safe at Home: Yes Safety Concerns: Feels Safe At This Time Assistive Devices: Walker Allergies Allergies Allergy/AdvReac Type Severity Reaction Status Date / Time No Known Allergies Allergy Unverified 09/04/23 10:10 Home Meds Home Medications Medication Instructions Recorded Confirmed losartan 50 mg tablet 25 mg PO UD 09/03/23 01/24/24 Results & Data (ED) Vital Signs Vital Signs - 24 hr 01/24/24 17:16 01/24/24 19:29 01/24/24 19:30 Temperature 36.7 C Temperature Source Temporal Artery Scan Pulse Rate 102 H 99 H Pulse Rate [Apical] 98 H Respiratory Rate 20 18 Blood Pressure 145/69 H Blood Pressure [Right Arm] 136/65 Blood Pressure Mean 94 Blood Pressure Mean [Right Arm] 88 Pulse Oximetry 98 95 Oxygen Delivery Method Room Air Room Air Sepsis Recent Fever Within 48 Hours No Sepsis New/Unexplained Change in Mental Status N/A Sepsis Action Taken by Nursing No Action Required 01/24/24 21:00 Temperature Temperature Source Pulse Rate Pulse Rate [Apical] 91 H Respiratory Rate 18 Blood Pressure Blood Pressure [Right Arm] 96/65 L Blood Pressure Mean Blood Pressure Mean [Right Arm] 75 Pulse Oximetry 96 Oxygen Delivery Method Room Air Sepsis Recent Fever Within 48 Hours Sepsis New/Unexplained Change in Mental Status Sepsis Action Taken by Nursing Laboratory Data 01/24/24 18:25 01/24/24 18:25 Lab Results 01/24/24 01/24/24 01/24/24 Range/Units 18:25 18:37 19:35 WBC 12.29 H (4.8-10.8) K/ul RBC 2.42 L (4.20-5.40) M/uL Hgb 6.5 L* (12.0-16.0) g/dl POC Hgb 6.5 L* (12.0-16.0) g/dl Hct 20.5 L* (37.0-47.0) % POC Hct 19 L* (37-47) % MCV 84.7 (80.0-100.0) fL MCH 26.9 (25.0-34.0) pg MCHC 31.7 L (32.0-36.0) g/dL RDW Std Deviation 47.2 H (36.4-46.3) fL RDW Coeff of Ruby 15.6 H (11.5-14.5) % Plt Count 225 (130-400) K/uL MPV 9.4 (9.4-12.4) fL Immature Gran % (Auto) 0.4 % Neut % (Auto) 84.3 % Lymph % (Auto) 7.2 % [place] % (Auto) 8.0 % Eos % (Auto) 0.0 % Baso % (Auto) 0.1 % Neut # (Auto) 10.37 H (1.40-6.50) K/uL Lymph # (Auto) 0.88 L (1.20-3.40) K/uL [place] # (Auto) 0.98 H (0.11-0.59) K/uL Eos # (Auto) 0.00 (0.00-0.50) K/uL Baso # (Auto) 0.01 (0.00-0.20) K/uL Immature Gran # (Auto) 0.05 (0.01-0.20) K/uL Polychromasia 1+ Tear Drop Cells 1+ PT 11.9 (9.0-12.0) Seconds INR 1.1 (0.9-1.1) POC Sodium 145 H (135-144) mmol/L Sodium 143 (136-145) mmol/L POC Potassium 3.9 (3.3-5.0) mmol/L Potassium 4.0 (3.5-5.1) mmol/L POC Chloride 106 (101-112) mmol/L Chloride 107 (98-107) mmol/L Carbon Dioxide 27 (21-32) mmol/L POC Total CO2 23 L (24-31) mmol/L Anion Gap 9 (3-11) POC Anion Gap 21.0 (16-25) mmol/L POC BUN 31 H (7-18) mg/dl BUN 35 H (6-23) mg/dl Creatinine 0.97 (0.6-1.2) mg/dl POC Creatinine 1.1 (0.6-1.3) mg/dl Est Cr Clr Drug Dosing Not Reportable eGFR 56.91 BUN/Creatinine Ratio 36.1 H (10-20) Glucose 131 H (70-99(Fasting)) mg/dl POC Glucose (other) 127 H (70-99) mg/dl Calcium 9.1 (8.6-10.3) mg/dl POC Ioniz Calcium Jennifer 1.19 (1.12-1.32) mmol/l Magnesium 2.2 (1.7-2.4) mg/dl Total Bilirubin 0.8 (0.2-1.0) mg/dl AST 46 H (13-39) U/L ALT 20 (7-52) U/L Alkaline Phosphatase 51 (34-104) U/L Total Creatine Kinase 1961 H (26-192) U/L Troponin I High Sens 4.5 (0-14) pg/ml Total Protein 6.7 (6.0-8.3) gm/dl Albumin 4.3 (3.4-5.0) gm/dl Globulin 2.4 L (2.5-4.0) gm/dl Albumin/Globulin Ratio 1.8 (0.9-2) Blood Type A Positive Blood Type Recheck Antibody Screen NEGATIVE Crossmatch See Detail 01/24/24 Range/Units 20:12 WBC (4.8-10.8) K/ul RBC (4.20-5.40) M/uL Hgb (12.0-16.0) g/dl POC Hgb (12.0-16.0) g/dl Hct (37.0-47.0) % POC Hct (37-47) % MCV (80.0-100.0) fL MCH (25.0-34.0) pg MCHC (32.0-36.0) g/dL RDW Std Deviation (36.4-46.3) fL RDW Coeff of Ruby (11.5-14.5) % Plt Count (130-400) K/uL MPV (9.4-12.4) fL Immature Gran % (Auto) % Neut % (Auto) % Lymph % (Auto) % [place] % (Auto) % Eos % (Auto) % Baso % (Auto) % Neut # (Auto) (1.40-6.50) K/uL Lymph # (Auto) (1.20-3.40) K/uL [place] # (Auto) (0.11-0.59) K/uL Eos # (Auto) (0.00-0.50) K/uL Baso # (Auto) (0.00-0.20) K/uL Immature Gran # (Auto) (0.01-0.20) K/uL Polychromasia Tear Drop Cells PT (9.0-12.0) Seconds INR (0.9-1.1) POC Sodium (135-144) mmol/L Sodium (136-145) mmol/L POC Potassium (3.3-5.0) mmol/L Potassium (3.5-5.1) mmol/L POC Chloride (101-112) mmol/L Chloride (98-107) mmol/L Carbon Dioxide (21-32) mmol/L POC Total CO2 (24-31) mmol/L Anion Gap (3-11) POC Anion Gap (16-25) mmol/L POC BUN (7-18) mg/dl BUN (6-23) mg/dl Creatinine (0.6-1.2) mg/dl POC Creatinine (0.6-1.3) mg/dl Est Cr Clr Drug Dosing eGFR BUN/Creatinine Ratio (10-20) Glucose (70-99(Fasting)) mg/dl POC Glucose (other) (70-99) mg/dl Calcium (8.6-10.3) mg/dl POC Ioniz Calcium Jennifer (1.12-1.32) mmol/l Magnesium (1.7-2.4) mg/dl Total Bilirubin (0.2-1.0) mg/dl AST (13-39) U/L ALT (7-52) U/L Alkaline Phosphatase (34-104) U/L Total Creatine Kinase (26-192) U/L Troponin I High Sens (0-14) pg/ml Total Protein (6.0-8.3) gm/dl Albumin (3.4-5.0) gm/dl Globulin (2.5-4.0) gm/dl Albumin/Globulin Ratio (0.9-2) Blood Type Blood Type Recheck A Positive Antibody Screen Crossmatch Administered Medications Lactated Ringer's (Lr) 1,000 mls @ 75 mls/hr IV .[id number] ONE Stop: 01/25/24 09:44 Last Admin: 01/24/24 21:06 Dose: 75 mls/hr Documented By: NRB Discontinued Medications Fentanyl Citrate (Fentanyl Citrate Pf 100 Mcg/2 Ml Vial) 25 mcg IV NOW STA Stop: 01/24/24 18:09 Last Admin: 01/24/24 18:30 Dose: 25 mcg Documented By: LUCA Acetaminophen (Ofirmev) 1,000 mg in 100 mls @ 400 mls/hr IV NOW STA Stop: 01/24/24 18:24 Last Infusion: 01/24/24 19:01 Dose: Infused Documented By: Admin: 01/24/24 18:31 Dose: 400 mls/hr Documented By: NRB Ioversol (Optiray 320 100ml) 92 ml IV ONCE ONE Stop: 01/24/24 19:21 Last Admin: 01/24/24 19:21 Dose: 92 ml Documented By: GES Imaging Data Radiologist's Impression: Abdomen/Pelvis CT 01/24/24 18:08 Exam(s): CT ABDOMEN + PELVIS With Contrast IV Amt: 92 cc opti 320 EXAM: CT Abdomen and Pelvis With Intravenous Contrast CLINICAL HISTORY: Fall TECHNIQUE: Axial computed tomography images of the abdomen and pelvis with intravenous contrast. CTDI is 25 mGy and DLP is 899 mGy-cm. Automated exposure control was utilized for the study. A dose lowering technique was utilized adhering to the principles of ALARA. CONTRAST: Patient received 92 cc opti 320 of IV contrast COMPARISON: No relevant prior studies available. FINDINGS: Lung bases: Unremarkable. No mass. No consolidation. ABDOMEN: Liver: There is a simple appearing hepatic cyst, no follow-up is needed. No suspicious liver lesion. Gallbladder and bile ducts: Unremarkable. No calcified stones. No ductal dilation. Pancreas: Unremarkable. No mass. No ductal dilation. Spleen: Unremarkable. No splenomegaly. Adrenals: Unremarkable. No mass. Kidneys and ureters: There is a simple appearing left renal cyst, no follow-up is needed. The kidneys are otherwise unremarkable. No hydronephrosis. Stomach and bowel: Unremarkable. No obstruction. No mucosal thickening. PELVIS: Appendix: Normal appendix. Bladder: Unremarkable. No mass. Reproductive: Unremarkable as visualized. ABDOMEN and PELVIS: Intraperitoneal space: Unremarkable. No free air. No significant fluid collection. Bones/joints: There are degenerative changes of the spine. No acute fracture. No dislocation. Soft tissues: Small fat-containing umbilical hernia. Vasculature: There is ectasia of the infrarenal aorta measuring 2.5 cm. Moderate atherosclerosis. No abdominal aortic aneurysm. Lymph nodes: Unremarkable. No enlarged lymph nodes. IMPRESSION: 1. No acute finding of the abdomen or pelvis. 2. There is ectasia of the infrarenal aorta measuring 2.5 cm. Electronically signed by: Tracee Tipton MD 01/24/24 20:[address] 01/24/24 18:08 Exam(s): CT C SPINE EXAM: CT Cervical Spine Without Intravenous Contrast CLINICAL HISTORY: Fall. TECHNIQUE: Axial computed tomography images of the cervical spine without intravenous contrast. CTDI is 35.22 mGy and DLP is 234.15 mGy-cm. Automated exposure control was utilized for the study. A dose lowering technique was utilized adhering to the principles of ALARA. COMPARISON: CT C-spine 10/09/2023 FINDINGS: Vertebrae: Chronic C2 fractures. No acute fracture. No malalignment. Degenerative changes are noted. Discs/spinal canal/neural foramina: No acute findings. No spinal canal stenosis. Soft tissues: Unremarkable. IMPRESSION: No acute findings in the cervical spine. Electronically signed by: Tracee Tipton MD 01/24/24 20:[address] 01/24/24 18:08 Exam(s): CT CHEST With Contrast IV Amt: 92 cc opti 320 EXAM: CT Chest With Intravenous Contrast CLINICAL HISTORY: Fall. TECHNIQUE: Axial computed tomography images of the chest with intravenous contrast. CTDI is 26.7 mGy and DLP is 511 mGy-cm. Automated exposure control was utilized for the study. A dose lowering technique was utilized adhering to the principles of ALARA. CONTRAST: Patient received 92 cc opti 320 of IV contrast COMPARISON: Chest radiograph 09/03/2023 FINDINGS: Lungs: Unremarkable. No mass. No consolidation. Pleural space: Unremarkable. No pneumothorax. No significant effusion. Heart: Coronary artery calcifications are present. No cardiomegaly. No significant pericardial effusion. Bones/joints: There are degenerative changes of the spine. No acute fracture. No dislocation. Soft tissues: Unremarkable. Vasculature: There is dilation of the pulmonary arteries. Mild atherosclerosis. The main pulmonary artery measures 3.6 cm. Lymph nodes: Unremarkable. No enlarged lymph nodes. IMPRESSION: 1. No acute finding of the chest. 2. There is dilation of the pulmonary arteries. This is concerning for pulmonary artery hypertension. Electronically signed by: Tracee Tipton MD 01/24/24 20:03 PM Elbow X-Ray 01/24/24 18:08 Exam(s): XR RIGHT ELBOW, 3+ views EXAM: XR Right Elbow Complete, 3 or More Views CLINICAL HISTORY: Fall. TECHNIQUE: Frontal, lateral and oblique views of the right elbow. COMPARISON: No relevant prior studies available. FINDINGS: Bones/joints: Question small elbow joint effusion. No visualized acute fracture. No dislocation. Soft tissues: Nonspecific soft tissue swelling of the posterior elbow. IMPRESSION: 1. Nonspecific soft tissue swelling of the posterior elbow. 2. Question small elbow joint effusion. Recommend follow-up radio graphs in 7-10 days to assess for signs of healing. Electronically signed by: Tracee Tipton MD 01/24/24 19:[address] 01/24/24 18:08 Exam(s): CT HEAD Without Contrast EXAM: CT Head Without Intravenous Contrast CLINICAL HISTORY: Fall. TECHNIQUE: Axial computed tomography images of the head/brain without intravenous contrast. CTDI is 35.22 mGy and DLP is 624.41 mGy-cm. Automated exposure control was utilized for the study. A dose lowering technique was utilized adhering to the principles of ALARA. COMPARISON: No relevant prior studies available. FINDINGS: Brain: No intracranial hemorrhage, mass-effect or midline shift. No abnormal extra axial fluid. No evidence of acute infarct. Mild periventricular white matter hypodensities are most consistent with chronic microangiopathy. Ventricles: Unremarkable. No ventriculomegaly. Bones/joints: Unremarkable. No acute fracture. Soft tissues: Unremarkable. Sinuses: There is mild mucosal thickening of the ethmoid and maxillary sinuses. The remaining visualized paranasal sinuses are clear. Mastoid air cells: Unremarkable as visualized. No mastoid effusion. IMPRESSION: No acute intracranial finding. Electronically signed by: Tracee Tipton MD 01/24/24 19:59 PM Knee X-Ray 01/24/24 18:08 Exam(s): XR RIGHT KNEE, 1-2 views EXAM: XR Right Knee, 1 or 2 Views CLINICAL HISTORY: Fall. TECHNIQUE: Frontal and/or lateral views of the right knee. COMPARISON: No relevant prior studies available. FINDINGS: Bones/joints: There are degenerative changes of all 3 compartments of the knee most prominent of the medial compartment where there is severe joint space narrowing. No acute fracture. No dislocation. Soft tissues: Marked nonspecific soft tissue swelling. IMPRESSION: 1. Marked nonspecific soft tissue swelling. 2. There are degenerative changes of all 3 compartments of the knee most prominent of the medial compartment where there is severe joint space narrowing. Electronically signed by: Tracee Tipton MD 01/24/24 19:58 PM Shoulder X-Ray 01/24/24 18:08 Exam(s): XR SHOULDER, 2+ views EXAM: XR Right Shoulder Complete, 2 or More Views CLINICAL HISTORY: Fall. TECHNIQUE: Two or more views of the right shoulder. COMPARISON: No relevant prior studies available. FINDINGS: Bones/joints: There are moderate degenerative changes of the acromioclavicular and glenohumeral joints. No acute fracture. No dislocation. Soft tissues: Unremarkable. IMPRESSION: No acute findings in the right shoulder. Electronically signed by: Tracee Tipton MD 01/24/24 19:58 PM Tibia/Fibula X-Ray 01/24/24 18:08 Exam(s): XR RIGHT TIB/FIB, 2 views EXAM: XR Right Tibia and Fibula, 2 Views CLINICAL HISTORY: Fall. TECHNIQUE: Frontal and lateral views of the right tibia and fibula. COMPARISON: No relevant prior studies available. FINDINGS: Bones/joints: There are degenerative changes of all 3 compartments of the knee most prominent of the medial compartment where there is severe joint space narrowing. Calcaneal enthesophytes are noted. No acute fracture. No dislocation. Soft tissues: Marked nonspecific changes soft tissue swelling. No radiopaque foreign body. IMPRESSION: 1. Marked nonspecific soft tissue swelling. 2. There are degenerative changes of all 3 compartments of the knee most prominent of the medial compartment where there is severe joint space narrowing. Electronically signed by: Tracee Tipton MD 01/24/24 19:58 PM Discharge Plan Visit Data Chief Complaint: Fall Stated Complaint: FELL ON RT SIDE, PAIN IN KNEE ED Provider: Prince Becerra Discharge Problem: Fall, Acute pain of right lower extremity, Hematoma of right lower extremity, Musculoskeletal pain of right upper extremity, ABLA (acute blood loss anemia) Patient Disposition: Admitted As Inpatient Discharge Instructions Interventions: ED Discharge Assessment Last Done: 01/24/24 22:06 Discharge Problem: Fall Qualifiers: Encounter type: initial encounter Qualified Code(s): W19.XXXA - Unspecified fall, initial encounter
[2024-01-24 18:50] LABS: iSTAT Creatinine 1.1 mg/dl (0.6-1.3); iSTAT Hemoglobin 6.5 g/dl (12.0-16.0); iSTAT Ionized Calcium 1.19 mmol/l (1.12-1.32); iSTAT Potassium 3.9 mmol/L (3.3-5.0)
[2024-01-24 18:56] LABS: Hematocrit (blood only) 20.5 % (37.0-47.0); Hemoglobin 6.5 g/dl (12.0-16.0); Mean Corpuscular Hemoglobin 26.9 pg (25.0-34.0); Mean Corpuscular Hgb Conc 31.7 g/dL (32.0-36.0); Mean Corpuscular Volume 84.7 fL (80.0-100.0); Mean Platelet Volume 9.4 fL (9.4-12.4); Platelet Count 225 K/uL (130-400); RDW Coefficient of Variation 15.6 % (11.5-14.5); RDW Standard Deviation 47.2 fL (36.4-46.3); Red Blood Count 2.42 M/uL (4.20-5.40); White Blood Count 12.29 K/ul (4.8-10.8)
[2024-01-24 19:05] LABS: Alanine Aminotransferase 20 U/L (7-52); Albumin Globulin Ratio 1.8 (0.9-2); Albumin Level 4.3 gm/dl (3.4-5.0); Alkaline Phosphatase 51 U/L (34-104); Anion Gap 9 (3-11); Aspartate Aminotransferase 46 U/L (13-39); BUN Creatinine Ratio 36.1 (10-20); Bilirubin,Total 0.8 mg/dl (0.2-1.0); Blood Urea Nitrogen 35 mg/dl (6-23); Calcium 9.1 mg/dl (8.6-10.3); Carbon Dioxide 27 mmol/L (21-32); Chloride 107 mmol/L (98-107); Creatine Kinase 1961 U/L (26-192); Globulin 2.4 gm/dl (2.5-4.0); Glucose 131 mg/dl (70-99(Fasting)); Sodium 143 mmol/L (136-145); Total Protein 6.7 gm/dl (6.0-8.3)
[2024-01-24 19:11] LABS: Basophils # (auto) 0.01 K/uL (0.00-0.20); Basophils % (auto) 0.1 %; Immature Granulocytes # (auto) 0.05 K/uL (0.01-0.20); Immature Granulocytes % (auto) 0.4 %; Lymphocytes # (auto) 0.88 K/uL (1.20-3.40); Lymphocytes % (auto) 7.2 %; Monocytes # (auto) 0.98 K/uL (0.11-0.59); Neutrophils # (auto) 10.37 K/uL (1.40-6.50); Neutrophils % (auto) 84.3 %; Polychromasia 1+; Tear Drop Cells 1+; Troponin I High Sensitivity 4.5 pg/ml (0-14)
[2024-01-24 19:13] LABS: INR 1.1 (0.9-1.1); Prothrombin Time 11.9 Seconds (9.0-12.0)
[2024-01-24] MEDS: OPTIRAY 320 100ml IV ONE (19:21)
[2024-01-24] MEDS ORDERED: SODIUM CHLORIDE 0.9% 50 ML IV PRN (19:52)
[2024-01-24] MEDS ORDERED: SODIUM CHLORIDE 0.9% 100 ML IV PRN (19:52)
--- NOTE | 2024-01-24 19:58 | XRay Report ---
Exam(s): XR RIGHT ELBOW, 3+ views EXAM: XR Right Elbow Complete, 3 or More Views CLINICAL HISTORY: Fall. TECHNIQUE: Frontal, lateral and oblique views of the right elbow. COMPARISON: No relevant prior studies available. FINDINGS: Bones/joints: Question small elbow joint effusion. No visualized acute fracture. No dislocation. Soft tissues: Nonspecific soft tissue swelling of the posterior elbow. IMPRESSION: 1. Nonspecific soft tissue swelling of the posterior elbow. 2. Question small elbow joint effusion. Recommend follow-up radio graphs in 7-10 days to assess for signs of healing. Electronically signed by: Tracee Tipton MD 01/24/24 19:57 PM
--- NOTE | 2024-01-24 19:59 | XRay Report ---
Exam(s): XR RIGHT TIB/FIB, 2 views EXAM: XR Right Tibia and Fibula, 2 Views CLINICAL HISTORY: Fall. TECHNIQUE: Frontal and lateral views of the right tibia and fibula. COMPARISON: No relevant prior studies available. FINDINGS: Bones/joints: There are degenerative changes of all 3 compartments of the knee most prominent of the medial compartment where there is severe joint space narrowing. Calcaneal enthesophytes are noted. No acute fracture. No dislocation. Soft tissues: Marked nonspecific changes soft tissue swelling. No radiopaque foreign body. IMPRESSION: 1. Marked nonspecific soft tissue swelling. 2. There are degenerative changes of all 3 compartments of the knee most prominent of the medial compartment where there is severe joint space narrowing. Electronically signed by: Tracee Tipton MD 01/24/24 19:58 PM
--- NOTE | 2024-01-24 19:59 | XRay Report ---
Exam(s): XR SHOULDER, 2+ views EXAM: XR Right Shoulder Complete, 2 or More Views CLINICAL HISTORY: Fall. TECHNIQUE: Two or more views of the right shoulder. COMPARISON: No relevant prior studies available. FINDINGS: Bones/joints: There are moderate degenerative changes of the acromioclavicular and glenohumeral joints. No acute fracture. No dislocation. Soft tissues: Unremarkable. IMPRESSION: No acute findings in the right shoulder. Electronically signed by: Tracee Tipton MD 01/24/24 19:58 PM
--- NOTE | 2024-01-24 20:00 | CT Scan Report ---
Exam(s): CT HEAD Without Contrast EXAM: CT Head Without Intravenous Contrast CLINICAL HISTORY: Fall. TECHNIQUE: Axial computed tomography images of the head/brain without intravenous contrast. CTDI is 35.22 mGy and DLP is 624.41 mGy-cm. Automated exposure control was utilized for the study. A dose lowering technique was utilized adhering to the principles of ALARA. COMPARISON: No relevant prior studies available. FINDINGS: Brain: No intracranial hemorrhage, mass-effect or midline shift. No abnormal extra axial fluid. No evidence of acute infarct. Mild periventricular white matter hypodensities are most consistent with chronic microangiopathy. Ventricles: Unremarkable. No ventriculomegaly. Bones/joints: Unremarkable. No acute fracture. Soft tissues: Unremarkable. Sinuses: There is mild mucosal thickening of the ethmoid and maxillary sinuses. The remaining visualized paranasal sinuses are clear. Mastoid air cells: Unremarkable as visualized. No mastoid effusion. IMPRESSION: No acute intracranial finding. Electronically signed by: Tracee Tipton MD 01/24/24 19:59 PM
--- NOTE | 2024-01-24 20:00 | XRay Report ---
Exam(s): XR RIGHT KNEE, 1-2 views EXAM: XR Right Knee, 1 or 2 Views CLINICAL HISTORY: Fall. TECHNIQUE: Frontal and/or lateral views of the right knee. COMPARISON: No relevant prior studies available. FINDINGS: Bones/joints: There are degenerative changes of all 3 compartments of the knee most prominent of the medial compartment where there is severe joint space narrowing. No acute fracture. No dislocation. Soft tissues: Marked nonspecific soft tissue swelling. IMPRESSION: 1. Marked nonspecific soft tissue swelling. 2. There are degenerative changes of all 3 compartments of the knee most prominent of the medial compartment where there is severe joint space narrowing. Electronically signed by: Tracee Tipton MD 01/24/24 19:58 PM
--- NOTE | 2024-01-24 20:02 | CT Scan Report ---
Exam(s): CT C SPINE EXAM: CT Cervical Spine Without Intravenous Contrast CLINICAL HISTORY: Fall. TECHNIQUE: Axial computed tomography images of the cervical spine without intravenous contrast. CTDI is 35.22 mGy and DLP is 234.15 mGy-cm. Automated exposure control was utilized for the study. A dose lowering technique was utilized adhering to the principles of ALARA. COMPARISON: CT C-spine 10/09/2023 FINDINGS: Vertebrae: Chronic C2 fractures. No acute fracture. No malalignment. Degenerative changes are noted. Discs/spinal canal/neural foramina: No acute findings. No spinal canal stenosis. Soft tissues: Unremarkable. IMPRESSION: No acute findings in the cervical spine. Electronically signed by: Tracee Tipton MD 01/24/24 20:02 PM
--- NOTE | 2024-01-24 20:04 | CT Scan Report ---
Exam(s): CT CHEST With Contrast IV Amt: 92 cc opti 320 EXAM: CT Chest With Intravenous Contrast CLINICAL HISTORY: Fall. TECHNIQUE: Axial computed tomography images of the chest with intravenous contrast. CTDI is 26.7 mGy and DLP is 511 mGy-cm. Automated exposure control was utilized for the study. A dose lowering technique was utilized adhering to the principles of ALARA. CONTRAST: Patient received 92 cc opti 320 of IV contrast COMPARISON: Chest radiograph 09/03/2023 FINDINGS: Lungs: Unremarkable. No mass. No consolidation. Pleural space: Unremarkable. No pneumothorax. No significant effusion. Heart: Coronary artery calcifications are present. No cardiomegaly. No significant pericardial effusion. Bones/joints: There are degenerative changes of the spine. No acute fracture. No dislocation. Soft tissues: Unremarkable. Vasculature: There is dilation of the pulmonary arteries. Mild atherosclerosis. The main pulmonary artery measures 3.6 cm. Lymph nodes: Unremarkable. No enlarged lymph nodes. IMPRESSION: 1. No acute finding of the chest. 2. There is dilation of the pulmonary arteries. This is concerning for pulmonary artery hypertension. Electronically signed by: Tracee Tipton MD 01/24/24 20:03 PM
--- NOTE | 2024-01-24 20:06 | CT Scan Report ---
Exam(s): CT ABDOMEN + PELVIS With Contrast IV Amt: 92 cc opti 320 EXAM: CT Abdomen and Pelvis With Intravenous Contrast CLINICAL HISTORY: Fall TECHNIQUE: Axial computed tomography images of the abdomen and pelvis with intravenous contrast. CTDI is 25 mGy and DLP is 899 mGy-cm. Automated exposure control was utilized for the study. A dose lowering technique was utilized adhering to the principles of ALARA. CONTRAST: Patient received 92 cc opti 320 of IV contrast COMPARISON: No relevant prior studies available. FINDINGS: Lung bases: Unremarkable. No mass. No consolidation. ABDOMEN: Liver: There is a simple appearing hepatic cyst, no follow-up is needed. No suspicious liver lesion. Gallbladder and bile ducts: Unremarkable. No calcified stones. No ductal dilation. Pancreas: Unremarkable. No mass. No ductal dilation. Spleen: Unremarkable. No splenomegaly. Adrenals: Unremarkable. No mass. Kidneys and ureters: There is a simple appearing left renal cyst, no follow-up is needed. The kidneys are otherwise unremarkable. No hydronephrosis. Stomach and bowel: Unremarkable. No obstruction. No mucosal thickening. PELVIS: Appendix: Normal appendix. Bladder: Unremarkable. No mass. Reproductive: Unremarkable as visualized. ABDOMEN and PELVIS: Intraperitoneal space: Unremarkable. No free air. No significant fluid collection. Bones/joints: There are degenerative changes of the spine. No acute fracture. No dislocation. Soft tissues: Small fat-containing umbilical hernia. Vasculature: There is ectasia of the infrarenal aorta measuring 2.5 cm. Moderate atherosclerosis. No abdominal aortic aneurysm. Lymph nodes: Unremarkable. No enlarged lymph nodes. IMPRESSION: 1. No acute finding of the abdomen or pelvis. 2. There is ectasia of the infrarenal aorta measuring 2.5 cm. Electronically signed by: Tracee Tipton MD 01/24/24 20:06 PM
[2024-01-24 20:52] LABS: Magnesium 2.2 mg/dl (1.7-2.4)
[2024-01-24] MEDS: LACTATED RINGER'S 1,000 ML IV ONE (21:06)
--- NOTE | 2024-01-24 21:11 | History & Physical Report ---
Date of Service January 24, 2024 Assessment & Plan (1) Rhabdomyolysis: Plan: Traumatic rhabdomyolysis secondary to recurrent falls Acute on chronic anemia secondary to multiple contusions/hematoma hypertension, slightly elevated Trace AR/MR history of traumatic cervical fracture 09/2023), patient compliant with cervical collar, patient due for outpatient follow-up with [facility] as per outpatient records from November 2023 mild cognitive impairment as per records Medical Monitor CPK response to IVF Transfuse 1 unit PRBC to maintain hemoglobin of at least 7 Orthopedic spine consult Re: Follow-up eval for C2 fracture PT OT eval DVT prophylaxis. SCDs re: multiple contusions/hematoma resulting in anemia DNR as per patient prior directives as per daughter/POA, Ms. Mariela Ozuna. She request updates from providers through [phone]. Text document was generated using [employer] voice recognition software. It may contain grammatical or spelling errors. Kindly contact undersigned for clarification of any documentation item in qu estion. History of Present Illness Chief Complaint: Recurrent falls Primary Care Provider: Mu Lomeli MD History obtained from patient, family, and records. Limited history from patient secondary to language barrier. Medical history significant for hypertension, history of traumatic cervical fracture, stress incontinence, mild cognitive impairment as per records. Last confinement August 2023 for traumatic C2 fracture/scalp laceration secondary to fall. No operative management. Orthopedics recommended cervical collar at time of discharge to rehab facility before returning home last month. Hemoglobin 10 at time of discharge. Patient with dizzy episode leading to fall on her right side yesterday. No head trauma. Some bruising noted at home. Patient denies chest pain, SOB. Patient had another unwitnessed fall at home today. Achy right arm and leg pain with bruising noted. Denies syncopal event. Achy headache symptoms. Denies arm or leg weakness. 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, [employer] Allergies Allergy/AdvReac Type Severity Reaction Status Date / Time No Known Allergies Allergy Unverified 09/04/23 10:10 Home Medications Medication Instructions Recorded Confirmed Type losartan 50 mg tablet 25 mg PO UD 09/03/23 01/24/24 History Past Med/Surg History Problem List (Updated 01/25/24 @ 04:07 by Nathan Nelson MD) Rhabdomyolysis ABLA (acute blood loss anemia) (Acute) Musculoskeletal pain of right upper extremity (Acute) Hematoma of right lower extremity (Acute) Acute pain of right lower extremity (Acute) Fall (Acute) Laceration of scalp (Acute) CHI (closed head injury) (Acute) Syncope and collapse (Acute) C2 cervical fracture (Acute) Stress incontinence Injury of cervical spine Status post fall Dizziness Medical History (Updated 01/25/24 @ 04:07 by Nathan Nelson MD) Osteoarthritis Hypertension Social History Smoking Status: Never smoker Do You Dip or Chew Tobacco: No; Hx Alcohol Use: No Hx Substance Use: No Preferred Language: Greek Communication Ability: Impaired Communication Ability Comment: patient primary language is Greek Communication Tools: Language Line Assistant Chief Engineer Assistant Chief Engineer Required: Yes Beliefs That Will Affect Care: None Current Living Situation: Alone Current Living Situation Comment: Lives home alone in apartment Feels Safe at Home: Yes Safety Concerns: Feels Safe At This Time Assistive Devices: Walker Review of Systems Review of Systems: Could not be reliably obtained secondary to language barrier Physical Exam Physical Exam: GENERAL: Comfortable, pleasant, obese, no respiratory distress SKIN: Pallor, warm HEENT: Pale palpebral conjunctivae, no ptosis, moist buccal mucosa NECK : Cervical collar in place, no tenderness CHEST : CTA, no tenderness HEART : RRR, no obvious murmurs ABDOMEN: Some distention, nontender EXTREMITIES : Right upper extremity and right lower extremity with tender ecchymoses/contusions NEUROLOGIC : Coherent, no facial asymmetry, gait and stance not assessed Results & Data Results & Data Vital Signs (Past 12 Hours) Vital Signs Temp Pulse Pulse Resp BP BP Pulse Ox 01/24/24 19:30 98 H 18 136/65 95 01/24/24 19:29 99 H 01/24/24 17:16 36.7 C 102 H 20 145/69 H 98 O2 Del Method 01/24/24 19:30 Room Air 01/24/24 19:29 01/24/24 17:16 Room Air Laboratory Results Laboratory Results WBC 12.29 K/ul (4.8-10.8) H 01/24/24 18:25 RBC 2.42 M/uL (4.20-5.40) L 01/24/24 18:25 Hgb 6.5 g/dl (12.0-16.0) L* 01/24/24 18:25 POC Hgb 6.5 g/dl (12.0-16.0) L* 01/24/24 18:37 Hct 20.5 % (37.0-47.0) L* 01/24/24 18:25 POC Hct 19 % (37-47) L* 01/24/24 18: MCV 84.7 fL (80.0-100.0) 01/24/24 18:25 MCH 26.9 pg (25.0-34.0) 01/24/24 18: MCHC 31.7 g/dL (32.0-36.0) L 01/24/24 18: RDW Std Deviation 47.2 fL (36.4-46.3) H 01/24/24 18: RDW Coeff of Ruby 15.6 % (11.5-14.5) H 01/24/24 18: Plt Count 225 K/uL (130-400) 01/24/24 18: MPV 9.4 fL (9.4-12.4) 01/24/24 18: Immature Gran % (Auto) 0.4 % 01/24/24 18: Neut % (Auto) 84.3 % 01/24/24 18: Lymph % (Auto) 7.2 % 01/24/24 18:25 [place] % (Auto) 8.0 % 01/24/24 18:25 Eos % (Auto) 0.0 % 01/24/24 18: Baso % (Auto) 0.1 % 01/24/24 18: Neut # (Auto) 10.37 K/uL (1.40-6.50) H 01/24/24 18:25 Lymph # (Auto) 0.88 K/uL (1.20-3.40) L 01/24/24 18:25 [place] # (Auto) 0.98 K/uL (0.11-0.59) H 01/24/24 18:25 Eos # (Auto) 0.00 K/uL (0.00-0.50) 01/24/24 18: Baso # (Auto) 0.01 K/uL (0.00-0.20) 01/24/24 18:25 Immature Gran # (Auto) 0.05 K/uL (0.01-0.20) 01/24/24 18:25 Polychromasia 1+ 01/24/24 18:25 Tear Drop Cells 1+ 01/24/24 18:25 PT 11.9 Seconds (9.0-12.0) 01/24/24 18:25 INR 1.1 (0.9-1.1) 01/24/24 18:25 POC Sodium 145 mmol/L (135-144) H 01/24/24 18:37 Sodium 143 mmol/L (136-145) 01/24/24 18:25 POC Potassium 3.9 mmol/L (3.3-5.0) 01/24/24 18:37 Potassium 4.0 mmol/L (3.5-5.1) 01/24/24 18:25 POC Chloride 106 mmol/L (101-112) 01/24/24 18:37 Chloride 107 mmol/L (98-107) 01/24/24 18:25 Carbon Dioxide 27 mmol/L (21-32) 01/24/24 18:25 POC Total CO2 23 mmol/L (24-31) L 01/24/24 18:37 Anion Gap 9 (3-11) 01/24/24 18:25 POC Anion Gap 21.0 mmol/L (16-25) 01/24/24 18:37 POC BUN 31 mg/dl (7-18) H 01/24/24 18:37 BUN 35 mg/dl (6-23) H 01/24/24 18:25 Creatinine 0.97 mg/dl (0.6-1.2) 01/24/24 18:25 POC Creatinine 1.1 mg/dl (0.6-1.3) 01/24/24 18:37 Est Cr Clr Drug Dosing Not Reportable 01/24/24 18:25 eGFR 56.91 01/24/24 18:25 BUN/Creatinine Ratio 36.1 (10-20) H 01/24/24 18:25 Glucose 131 mg/dl (70-99(Fasting)) H 01/24/24 18:25 POC Glucose (other) 127 mg/dl (70-99) H 01/24/24 18:37 Calcium 9.1 mg/dl (8.6-10.3) 01/24/24 18:25 POC Ioniz Calcium Jennifer 1.19 mmol/l (1.12-1.32) 01/24/24 18:37 Magnesium 2.2 mg/dl (1.7-2.4) 01/24/24 18:25 Total Bilirubin 0.8 mg/dl (0.2-1.0) 01/24/24 18:25 AST 46 U/L (13-39) H 01/24/24 18:25 ALT 20 U/L (7-52) 01/24/24 18:25 Alkaline Phosphatase 51 U/L (34-104) 01/24/24 18:25 Total Creatine Kinase 1961 U/L (26-192) H 01/24/24 18:25 Troponin I High Sens 4.5 pg/ml (0-14) 01/24/24 18:25 Total Protein 6.7 gm/dl (6.0-8.3) 01/24/24 18:25 Albumin 4.3 gm/dl (3.4-5.0) 01/24/24 18:25 Globulin 2.4 gm/dl (2.5-4.0) L 01/24/24 18:25 Albumin/Globulin Ratio 1.8 (0.9-2) 01/24/24 18:25 Blood Type A Positive 01/24/24 19:35 Blood Type Recheck A Positive 01/24/24 20:12 Antibody Screen NEGATIVE 01/24/24 19:35 Crossmatch See Detail 01/24/24 19:35 Impressions Abdomen/Pelvis CT 01/24/24 18:08 Exam(s): CT ABDOMEN + PELVIS With Contrast IV Amt: 92 cc opti 320 EXAM: CT Abdomen and Pelvis With Intravenous Contrast CLINICAL HISTORY: Fall TECHNIQUE: Axial computed tomography images of the abdomen and pelvis with intravenous contrast. CTDI is 25 mGy and DLP is 899 mGy-cm. Automated exposure control was utilized for the study. A dose lowering technique was utilized adhering to the principles of ALARA. CONTRAST: Patient received 92 cc opti 320 of IV contrast COMPARISON: No relevant prior studies available. FINDINGS: Lung bases: Unremarkable. No mass. No consolidation. ABDOMEN: Liver: There is a simple appearing hepatic cyst, no follow-up is needed. No suspicious liver lesion. Gallbladder and bile ducts: Unremarkable. No calcified stones. No ductal dilation. Pancreas: Unremarkable. No mass. No ductal dilation. Spleen: Unremarkable. No splenomegaly. Adrenals: Unremarkable. No mass. Kidneys and ureters: There is a simple appearing left renal cyst, no follow-up is needed. The kidneys are otherwise unremarkable. No hydronephrosis. Stomach and bowel: Unremarkable. No obstruction. No mucosal thickening. PELVIS: Appendix: Normal appendix. Bladder: Unremarkable. No mass. Reproductive: Unremarkable as visualized. ABDOMEN and PELVIS: Intraperitoneal space: Unremarkable. No free air. No significant fluid collection. Bones/joints: There are degenerative changes of the spine. No acute fracture. No dislocation. Soft tissues: Small fat-containing umbilical hernia. Vasculature: There is ectasia of the infrarenal aorta measuring 2.5 cm. Moderate atherosclerosis. No abdominal aortic aneurysm. Lymph nodes: Unremarkable. No enlarged lymph nodes. IMPRESSION: 1. No acute finding of the abdomen or pelvis. 2. There is ectasia of the infrarenal aorta measuring 2.5 cm. Electronically signed by: Tracee Tipton MD 01/24/24 20:[address] 01/24/24 18:08 Exam(s): CT C SPINE EXAM: CT Cervical Spine Without Intravenous Contrast CLINICAL HISTORY: Fall. TECHNIQUE: Axial computed tomography images of the cervical spine without intravenous contrast. CTDI is 35.22 mGy and DLP is 234.15 mGy-cm. Automated exposure control was utilized for the study. A dose lowering technique was utilized adhering to the principles of ALARA. COMPARISON: CT C-spine 10/09/2023 FINDINGS: Vertebrae: Chronic C2 fractures. No acute fracture. No malalignment. Degenerative changes are noted. Discs/spinal canal/neural foramina: No acute findings. No spinal canal stenosis. Soft tissues: Unremarkable. IMPRESSION: No acute findings in the cervical spine. Electronically signed by: Tracee Tipton MD 01/24/24 20:[address] 01/24/24 18:08 Exam(s): CT CHEST With Contrast IV Amt: 92 cc opti 320 EXAM: CT Chest With Intravenous Contrast CLINICAL HISTORY: Fall. TECHNIQUE: Axial computed tomography images of the chest with intravenous contrast. CTDI is 26.7 mGy and DLP is 511 mGy-cm. Automated exposure control was utilized for the study. A dose lowering technique was utilized adhering to the principles of ALARA. CONTRAST: Patient received 92 cc opti 320 of IV contrast COMPARISON: Chest radiograph 09/03/2023 FINDINGS: Lungs: Unremarkable. No mass. No consolidation. Pleural space: Unremarkable. No pneumothorax. No significant effusion. Heart: Coronary artery calcifications are present. No cardiomegaly. No significant pericardial effusion. Bones/joints: There are degenerative changes of the spine. No acute fracture. No dislocation. Soft tissues: Unremarkable. Vasculature: There is dilation of the pulmonary arteries. Mild atherosclerosis. The main pulmonary artery measures 3.6 cm. Lymph nodes: Unremarkable. No enlarged lymph nodes. IMPRESSION: 1. No acute finding of the chest. 2. There is dilation of the pulmonary arteries. This is concerning for pulmonary artery hypertension. Electronically signed by: Tracee Tipton MD 01/24/24 20:03 PM Elbow X-Ray 01/24/24 18:08 Exam(s): XR RIGHT ELBOW, 3+ views EXAM: XR Right Elbow Complete, 3 or More Views CLINICAL HISTORY: Fall. TECHNIQUE: Frontal, lateral and oblique views of the right elbow. COMPARISON: No relevant prior studies available. FINDINGS: Bones/joints: Question small elbow joint effusion. No visualized acute fracture. No dislocation. Soft tissues: Nonspecific soft tissue swelling of the posterior elbow. IMPRESSION: 1. Nonspecific soft tissue swelling of the posterior elbow. 2. Question small elbow joint effusion. Recommend follow-up radio graphs in 7-10 days to assess for signs of healing. Electronically signed by: Tracee Tipton MD 01/24/24 19:[address] 01/24/24 18:08 Exam(s): CT HEAD Without Contrast EXAM: CT Head Without Intravenous Contrast CLINICAL HISTORY: Fall. TECHNIQUE: Axial computed tomography images of the head/brain without intravenous contrast. CTDI is 35.22 mGy and DLP is 624.41 mGy-cm. Automated exposure control was utilized for the study. A dose lowering technique was utilized adhering to the principles of ALARA. COMPARISON: No relevant prior studies available. FINDINGS: Brain: No intracranial hemorrhage, mass-effect or midline shift. No abnormal extra axial fluid. No evidence of acute infarct. Mild periventricular white matter hypodensities are most consistent with chronic microangiopathy. Ventricles: Unremarkable. No ventriculomegaly. Bones/joints: Unremarkable. No acute fracture. Soft tissues: Unremarkable. Sinuses: There is mild mucosal thickening of the ethmoid and maxillary sinuses. The remaining visualized paranasal sinuses are clear. Mastoid air cells: Unremarkable as visualized. No mastoid effusion. IMPRESSION: No acute intracranial finding. Electronically signed by: Tracee Tipton MD 01/24/24 19:59 PM Knee X-Ray 01/24/24 18:08 Exam(s): XR RIGHT KNEE, 1-2 views EXAM: XR Right Knee, 1 or 2 Views CLINICAL HISTORY: Fall. TECHNIQUE: Frontal and/or lateral views of the right knee. COMPARISON: No relevant prior studies available. FINDINGS: Bones/joints: There are degenerative changes of all 3 compartments of the knee most prominent of the medial compartment where there is severe joint space narrowing. No acute fracture. No dislocation. Soft tissues: Marked nonspecific soft tissue swelling. IMPRESSION: 1. Marked nonspecific soft tissue swelling. 2. There are degenerative changes of all 3 compartments of the knee most prominent of the medial compartment where there is severe joint space narrowing. Electronically signed by: Tracee Tipton MD 01/24/24 19:58 PM Shoulder X-Ray 01/24/24 18:08 Exam(s): XR SHOULDER, 2+ views EXAM: XR Right Shoulder Complete, 2 or More Views CLINICAL HISTORY: Fall. TECHNIQUE: Two or more views of the right shoulder. COMPARISON: No relevant prior studies available. FINDINGS: Bones/joints: There are moderate degenerative changes of the acromioclavicular and glenohumeral joints. No acute fracture. No dislocation. Soft tissues: Unremarkable. IMPRESSION: No acute findings in the right shoulder. Electronically signed by: Tracee Tipton MD 01/24/24 19:58 PM Tibia/Fibula X-Ray 01/24/24 18:08 Exam(s): XR RIGHT TIB/FIB, 2 views EXAM: XR Right Tibia and Fibula, 2 Views CLINICAL HISTORY: Fall. TECHNIQUE: Frontal and lateral views of the right tibia and fibula. COMPARISON: No relevant prior studies available. FINDINGS: Bones/joints: There are degenerative changes of all 3 compartments of the knee most prominent of the medial compartment where there is severe joint space narrowing. Calcaneal enthesophytes are noted. No acute fracture. No dislocation. Soft tissues: Marked nonspecific changes soft tissue swelling. No radiopaque foreign body. IMPRESSION: 1. Marked nonspecific soft tissue swelling. 2. There are degenerative changes of all 3 compartments of the knee most prominent of the medial compartment where there is severe joint space narrowing. Electronically signed by: Tracee Tipton MD 01/24/24 19:58 PM Diagnostic Findings EKG as per my interpretation :rate 105, sinus tachycardia, normal axis, no ischemia
[2024-01-24] MEDS ORDERED: PROMETHAZINE 6.25 MG/50.25 ML BAG IV PRN (21:12)
[2024-01-25] MEDS: ACETAMINOPHEN 325 MG TAB PO PRN (02:21)
[2024-01-25] MEDS: LOSARTAN POTASSIUM 25 MG TAB PO STA (02:21)
[2024-01-25 06:36] LABS: BUN Creatinine Ratio 39.2 (10-20); Calcium 8.4 mg/dl (8.6-10.3); Creatinine Clr Calc Pharmacy 58.6 ml/min; Potassium 3.7 mmol/L (3.5-5.1)
[2024-01-25 06:42] LABS: Hematocrit (blood only) 21.3 % (37.0-47.0); Hemoglobin 6.8 g/dl (12.0-16.0); Mean Corpuscular Hemoglobin 26.4 pg (25.0-34.0); Mean Corpuscular Hgb Conc 31.9 g/dL (32.0-36.0); Mean Corpuscular Volume 82.6 fL (80.0-100.0); Mean Platelet Volume 9.2 fL (9.4-12.4); Platelet Count 174 K/uL (130-400); RDW Coefficient of Variation 15.5 % (11.5-14.5); RDW Standard Deviation 46.8 fL (36.4-46.3); Red Blood Count 2.58 M/uL (4.20-5.40); White Blood Count 7.39 K/ul (4.8-10.8)
[2024-01-25] MEDS ORDERED: SODIUM CHLORIDE 0.9% 50 ML IV PRN (06:45)
[2024-01-25] MEDS ORDERED: SODIUM CHLORIDE 0.9% 100 ML IV PRN (06:45)
[2024-01-25 06:57] LABS: Basophils # (auto) 0.01 K/uL (0.00-0.20); Basophils % (auto) 0.1 %; Eosinophils # (auto) 0.02 K/uL (0.00-0.50); Eosinophils % (auto) 0.3 %; Immature Granulocytes # (auto) 0.04 K/uL (0.01-0.20); Immature Granulocytes % (auto) 0.5 %; Lymphocytes # (auto) 1.27 K/uL (1.20-3.40); Lymphocytes % (auto) 17.2 %; Monocytes # (auto) 0.56 K/uL (0.11-0.59); Monocytes % (auto) 7.6 %; Neutrophils # (auto) 5.49 K/uL (1.40-6.50); Neutrophils % (auto) 74.3 %; Polychromasia 1+; Tear Drop Cells 1+
[2024-01-25] MEDS ORDERED: LOSARTAN POTASSIUM 25 MG TAB PO SCH (09:00)
--- NOTE | 2024-01-25 10:20 | Orthopedic Consultation ---
Date of Consultation January 25, 2024 Assessment & Plan (1) C2 cervical fracture: CT scan of the cervical spine available for review does demonstrate chronic C2 fracture involving the lateral mass on the right. It does appear to be healing and stable. I would recommend weaning from the cervical collar. She certainly may remove this collar for meals. At this point I would only have her wear it when transfers to chair and ambulating. History of Present Illness Reason for Consultation: C2 fracture Attending Physician: Moira Villa MD History of Present Illness This is an 88-year-old female that presents to the hospital with multiple medical issues. She does have a known C2 fracture sustained in August of this year. We have been following her at the office. This morning she does appear comfortable and is not complaining of pain. Allergies Allergy/AdvReac Type Severity Reaction Status Date / Time No Known Allergies Allergy Unverified 09/04/23 10:10 Home Medications Medication Instructions Recorded Confirmed Type losartan 50 mg tablet 25 mg PO UD 09/03/23 01/24/24 History Patient History Medical History (Updated 01/25/24 @ 04:07 by Nathan Nelson MD) Osteoarthritis Hypertension Social History Smoking Status: Never smoker Do You Dip or Chew Tobacco: No; Hx Alcohol Use: No Hx Substance Use: No Preferred Language: Hungarian Communication Ability: Impaired Communication Ability Comment: patient primary language is Hungarian Communication Tools: Language Line Service Line Coordinator Service Line Coordinator Required: Yes Beliefs That Will Affect Care: None Current Living Situation: Alone Current Living Situation Comment: Lives home alone in apartment Feels Safe at Home: Yes Safety Concerns: Feels Safe At This Time Assistive Devices: Walker Physical Exam Physical Exam: On exam she has reasonable cervical range of motion without evidence of discomfort. She is neurologically intact to testing upper extremities. Results & Data Vital Signs (Past 12 Hours) Vital Signs Temp Pulse Pulse Resp BP BP Pulse Ox 01/25/24 10:17 37 C 83 21 117/66 96 01/25/24 09:24 36.9 C 96 H 20 122/65 96 01/25/24 08:54 37.1 C 86 20 114/73 96 01/25/24 08:52 37 C 99 H 22 129/70 96 01/25/24 08:40 36.9 C 100 H 18 148/73 H 96 01/25/24 08:20 37 C 86 24 113/64 94 01/25/24 07:23 36.7 C 91 H 18 127/70 97 01/25/24 00:49 36.8 C 91 H 16 162/70 H 97 01/25/24 00:43 37.2 C 88 16 160/70 H 96 01/24/24 23:43 37.0 C 93 H 17 162/74 H 98 01/24/24 23:40 37.0 C 93 H 17 162/74 H 98 01/24/24 22:43 37.1 C 85 16 163/72 H 97 O2 Del Method 01/25/24 10:17 01/25/24 09:24 01/25/24 08:54 01/25/24 08:52 01/25/24 08:40 01/25/24 08:20 01/25/24 07:23 Room Air 01/25/24 00:49 01/25/24 00:43 01/24/24 23:43 01/24/24 23:40 01/24/24 22:43 (1) C2 cervical fracture Encounter type: initial encounter Fracture alignment: nondisplaced Fracture morphology: unspecified fracture morphology Fracture type: closed Qualified Code(s): S12.101A - Unspecified nondisplaced fracture of second cervical vertebra, initial encounter for closed fracture
--- NOTE | 2024-01-25 11:20 | Hospitalist Progress Note ---
Date of Service January 25, 2024 Assessment & Plan (1) Rhabdomyolysis: Plan: Plan Pt is an 88yoF with PMhx significant for hypertension, history of traumatic cervical fracture, stress incontinence, mild cognitive impairment as per records presenting with concern after a fall at home once more. RLE swelling and bruising Possible R knee Hemarthrosis Fall Patient with fall at home Pain in her right lower extremity with noted swelling and bruising. X-ray right knee noting nonspecific tissue swelling MRI of the right knee ordered and pending Tib-fib x-ray noting marked nonspecific tissue swelling as well as severe joint space narrowing Shoulder x-ray unremarkable Arterial Doppler ordered Orthopedic surgery consulted, appreciate further recs workup for falls completed during last admission, will add EEG PT OT once medically stable Traumatic Rhabdomyolysis secondary to recurrent falls CK 1960 to 1775 today Continue with IV fluids Follow CK Acute on chronic anemia Patient with acute drop of hemoglobin down to 6.8 today hemoglobin of 10 on discharge in August s/p transfusion of 2 units of packed red blood cells since admission hemoglobin 8.1 on repeat AM iron panel as well as folate and B12 levels pending Continue to monitor 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 Giordano as an outpatient Orthospine was consulted once more this admission, appreciate recs. Recommended or stated the following: "CT scan of the cervical spine available for review does demonstrate chronic C2 fracture involving the lateral mass on the right. It does appear to be healing and stable. I would recommend weaning from the cervical collar. She certainly may remove this collar for meals. At this point I would only have her wear it when transfers to chair and ambulating." Continue other home meds as ordered Diet: HH DVT prophylaxis: SCDs re: multiple contusions/hematoma resulting in anemia Dispo: per PT/OT recs once medically stable Admission and Anticipated Discharge Date Admission Date: January 24, 2024 Subjective patient was seen with her daughter at bedside Daughter states that she spent [facility] after discharge in August and has been home for the last 2 months. States that she lives alone but daughter checks on her quite frequently. states she typically ambulates with a walker and does have a known history of osteoarthritis of the right knee. Had a fall And was on the ground for an unknown amount of time. Daughter states that she believes patient dragged her leg trying to get up from her following position. Denies a known history of any blood disorders, no family history of excessive bleeding. Believes that the bleeding in the knee was exacerbated by patient's attempt to get back up. Review of Systems Review of Systems: All systems reviewed & are unremarkable except as noted in Subjective Physical Exam Physical Exam: General: Alert. No acute distress, neck collar in place Skin: bruising noted on right leg and knee Psych: Appropriate mood and affect Neuro: difficulty with movements in the bed HEENT: NC/AT, neck collar in place CV: RRR Resp: no increased effort of breathing Abdomen: Soft, nontender Extremities:R knee and lower extremity with significant swelling and bruising Results & Data Results & Data Vital Signs (Past 12 Hours) Vital Signs Temp Pulse Pulse Resp BP BP Pulse Ox 01/25/24 10:17 37 C 83 21 117/66 96 01/25/24 09:24 36.9 C 96 H 20 122/65 96 01/25/24 08:54 37.1 C 86 20 114/73 96 01/25/24 08:52 37 C 99 H 22 129/70 96 01/25/24 08:40 36.9 C 100 H 18 148/73 H 96 01/25/24 08:20 37 C 86 24 113/64 94 01/25/24 07:23 36.7 C 91 H 18 127/70 97 01/25/24 00:49 36.8 C 91 H 16 162/70 H 97 01/25/24 00:43 37.2 C 88 16 160/70 H 96 01/24/24 23:43 37.0 C 93 H 17 162/74 H 98 01/24/24 23:40 37.0 C 93 H 17 162/74 H 98 O2 Del Method 01/25/24 10:17 01/25/24 09:24 01/25/24 08:54 01/25/24 08:52 01/25/24 08:40 01/25/24 08:20 01/25/24 07:23 Room Air 01/25/24 00:49 01/25/24 00:43 01/24/24 23:43 01/24/24 23:40 Diagnostic Findings Abdomen/Pelvis CT 01/24/24 18:08 Exam(s): CT ABDOMEN + PELVIS With Contrast IV Amt: 92 cc opti 320 EXAM: CT Abdomen and Pelvis With Intravenous Contrast CLINICAL HISTORY: Fall TECHNIQUE: Axial computed tomography images of the abdomen and pelvis with intravenous contrast. CTDI is 25 mGy and DLP is 899 mGy-cm. Automated exposure control was utilized for the study. A dose lowering technique was utilized adhering to the principles of ALARA. CONTRAST: Patient received 92 cc opti 320 of IV contrast COMPARISON: No relevant prior studies available. FINDINGS: Lung bases: Unremarkable. No mass. No consolidation. ABDOMEN: Liver: There is a simple appearing hepatic cyst, no follow-up is needed. No suspicious liver lesion. Gallbladder and bile ducts: Unremarkable. No calcified stones. No ductal dilation. Pancreas: Unremarkable. No mass. No ductal dilation. Spleen: Unremarkable. No splenomegaly. Adrenals: Unremarkable. No mass. Kidneys and ureters: There is a simple appearing left renal cyst, no follow-up is needed. The kidneys are otherwise unremarkable. No hydronephrosis. Stomach and bowel: Unremarkable. No obstruction. No mucosal thickening. PELVIS: Appendix: Normal appendix. Bladder: Unremarkable. No mass. Reproductive: Unremarkable as visualized. ABDOMEN and PELVIS: Intraperitoneal space: Unremarkable. No free air. No significant fluid collection. Bones/joints: There are degenerative changes of the spine. No acute fracture. No dislocation. Soft tissues: Small fat-containing umbilical hernia. Vasculature: There is ectasia of the infrarenal aorta measuring 2.5 cm. Moderate atherosclerosis. No abdominal aortic aneurysm. Lymph nodes: Unremarkable. No enlarged lymph nodes. IMPRESSION: 1. No acute finding of the abdomen or pelvis. 2. There is ectasia of the infrarenal aorta measuring 2.5 cm. Electronically signed by: Tracee Tipton MD 01/24/24 20:[address] 01/24/24 18:08 Exam(s): CT C SPINE EXAM: CT Cervical Spine Without Intravenous Contrast CLINICAL HISTORY: Fall. TECHNIQUE: Axial computed tomography images of the cervical spine without intravenous contrast. CTDI is 35.22 mGy and DLP is 234.15 mGy-cm. Automated exposure control was utilized for the study. A dose lowering technique was utilized adhering to the principles of ALARA. COMPARISON: CT C-spine 10/09/2023 FINDINGS: Vertebrae: Chronic C2 fractures. No acute fracture. No malalignment. Degenerative changes are noted. Discs/spinal canal/neural foramina: No acute findings. No spinal canal stenosis. Soft tissues: Unremarkable. IMPRESSION: No acute findings in the cervical spine. Electronically signed by: Tracee Tipton MD 01/24/24 20:[address] 01/24/24 18:08 Exam(s): CT CHEST With Contrast IV Amt: 92 cc opti 320 EXAM: CT Chest With Intravenous Contrast CLINICAL HISTORY: Fall. TECHNIQUE: Axial computed tomography images of the chest with intravenous contrast. CTDI is 26.7 mGy and DLP is 511 mGy-cm. Automated exposure control was utilized for the study. A dose lowering technique was utilized adhering to the principles of ALARA. CONTRAST: Patient received 92 cc opti 320 of IV contrast COMPARISON: Chest radiograph 09/03/2023 FINDINGS: Lungs: Unremarkable. No mass. No consolidation. Pleural space: Unremarkable. No pneumothorax. No significant effusion. Heart: Coronary artery calcifications are present. No cardiomegaly. No significant pericardial effusion. Bones/joints: There are degenerative changes of the spine. No acute fracture. No dislocation. Soft tissues: Unremarkable. Vasculature: There is dilation of the pulmonary arteries. Mild atherosclerosis. The main pulmonary artery measures 3.6 cm. Lymph nodes: Unremarkable. No enlarged lymph nodes. IMPRESSION: 1. No acute finding of the chest. 2. There is dilation of the pulmonary arteries. This is concerning for pulmonary artery hypertension. Electronically signed by: Tracee Tipton MD 01/24/24 20:03 PM Elbow X-Ray 01/24/24 18:08 Exam(s): XR RIGHT ELBOW, 3+ views EXAM: XR Right Elbow Complete, 3 or More Views CLINICAL HISTORY: Fall. TECHNIQUE: Frontal, lateral and oblique views of the right elbow. COMPARISON: No relevant prior studies available. FINDINGS: Bones/joints: Question small elbow joint effusion. No visualized acute fracture. No dislocation. Soft tissues: Nonspecific soft tissue swelling of the posterior elbow. IMPRESSION: 1. Nonspecific soft tissue swelling of the posterior elbow. 2. Question small elbow joint effusion. Recommend follow-up radio graphs in 7-10 days to assess for signs of healing. Electronically signed by: Tracee Tipton MD 01/24/24 19:[address] 01/24/24 18:08 Exam(s): CT HEAD Without Contrast EXAM: CT Head Without Intravenous Contrast CLINICAL HISTORY: Fall. TECHNIQUE: Axial computed tomography images of the head/brain without intravenous contrast. CTDI is 35.22 mGy and DLP is 624.41 mGy-cm. Automated exposure control was utilized for the study. A dose lowering technique was utilized adhering to the principles of ALARA. COMPARISON: No relevant prior studies available. FINDINGS: Brain: No intracranial hemorrhage, mass-effect or midline shift. No abnormal extra axial fluid. No evidence of acute infarct. Mild periventricular white matter hypodensities are most consistent with chronic microangiopathy. Ventricles: Unremarkable. No ventriculomegaly. Bones/joints: Unremarkable. No acute fracture. Soft tissues: Unremarkable. Sinuses: There is mild mucosal thickening of the ethmoid and maxillary sinuses. The remaining visualized paranasal sinuses are clear. Mastoid air cells: Unremarkable as visualized. No mastoid effusion. IMPRESSION: No acute intracranial finding. Electronically signed by: Tracee Tipton MD 01/24/24 19:59 PM Knee X-Ray 01/24/24 18:08 Exam(s): XR RIGHT KNEE, 1-2 views EXAM: XR Right Knee, 1 or 2 Views CLINICAL HISTORY: Fall. TECHNIQUE: Frontal and/or lateral views of the right knee. COMPARISON: No relevant prior studies available. FINDINGS: Bones/joints: There are degenerative changes of all 3 compartments of the knee most prominent of the medial compartment where there is severe joint space narrowing. No acute fracture. No dislocation. Soft tissues: Marked nonspecific soft tissue swelling. IMPRESSION: 1. Marked nonspecific soft tissue swelling. 2. There are degenerative changes of all 3 compartments of the knee most prominent of the medial compartment where there is severe joint space narrowing. Electronically signed by: Tracee Tipton MD 01/24/24 19:58 PM Shoulder X-Ray 01/24/24 18:08 Exam(s): XR SHOULDER, 2+ views EXAM: XR Right Shoulder Complete, 2 or More Views CLINICAL HISTORY: Fall. TECHNIQUE: Two or more views of the right shoulder. COMPARISON: No relevant prior studies available. FINDINGS: Bones/joints: There are moderate degenerative changes of the acromioclavicular and glenohumeral joints. No acute fracture. No dislocation. Soft tissues: Unremarkable. IMPRESSION: No acute findings in the right shoulder. Electronically signed by: Tracee Tipton MD 01/24/24 19:58 PM Tibia/Fibula X-Ray 01/24/24 18:08 Exam(s): XR RIGHT TIB/FIB, 2 views EXAM: XR Right Tibia and Fibula, 2 Views CLINICAL HISTORY: Fall. TECHNIQUE: Frontal and lateral views of the right tibia and fibula. COMPARISON: No relevant prior studies available. FINDINGS: Bones/joints: There are degenerative changes of all 3 compartments of the knee most prominent of the medial compartment where there is severe joint space narrowing. Calcaneal enthesophytes are noted. No acute fracture. No dislocation. Soft tissues: Marked nonspecific changes soft tissue swelling. No radiopaque foreign body.
[2024-01-25] MEDS: LACTATED RINGER'S 1,000 ML IV ONE (11:32)
--- OUTSIDE RECORDS SUMMARY | 2024-01-25 11:34 | External Medical Summary | Summary of Care ---
Author Name Unknown Organization [facility] Address [address] [place] [address] Phone [phone] Care Team Providers Care Parking Assistant Name Role Phone Armani CHRISTIE MD, John E Primary Care Provider [phone] Reason for Visit * Reason Onset Date Comments Fax 12/15/2023 Encounter Details Date Type Department Care Team (Late st Contact Info) Description 12/15/2023 Telephone Family Practice [facility] [address] [facility] [place] [address] Mu Lomeli III, MD [address] [facility] [place] [address] Fax Allergies No known active allergiesdocumented as of this encounter (statuses as of 01/18/2024) Medications Blood Pressure Monitoring (BLOOD PRESSURE KIT) EMMANUELLE Use daily to check blood pressure 1 Device 8 Active Timolol Maleate 0.5 % Ophthalmic Solution (Timoptic) INSTILL ONE DROP INTO BOTH EYES TWICE DAILY 10 mL 8 1 Active Sodium Hyaluronate 60 MG/3ML Intra-articular Prefilled Syringe (Durolane) Inject 60 mg (1 syringe) intra-articula rly into right knee once 3 mL 12/28/2022 3:41 PM EDT 3 Active Losartan Potassium 50 MG Oral Tablet (Cozaar) 1/2 tab daily if bp elevated take 2nd dose at bedtime 90 Tablet 11 4 Active Sunbeam Incontinent Under Pad As directed 1 Each 11 4 Active Diclofenac Sodium 1 % External Gel (Voltaren) APPLY TOPICALLY TO RIGHT KNEE 4 TIMES DAILY 100 g 6 4 Active documented as of this encounter (statuses as of 01/18/2024) Active Problems Problem Noted Date Diagnosed Date [...] as of this encounter (statuses as of 01/18/2024) Immunizations No known immunizationsdocumented as of this [...] have money to get more. Sometimes true Childcare Answer Date Recorded Do you feel overwhelmed with taking care of a child, family member or friend? No 09/26/2022 Does your family need help f inding childcare? (Household - for ages 0-17 years) Not on file 09/26/2022 Clothing Answer Date Recorded Have you been unable to get clothing when it was really needed? No 09/26/2022 Is your family able to get c lothes or diapers when needed? (Household - for ages 0-17 years) Not on file 09/26/2022 Personal Safety Answer Date Recorded Do you feel unsafe or have concerns for your saf ety? No 09/26/2022 Do you have concerns for you r family's safety? (Household - for ages 0-17 years) Not on file 09/26/2022 Utilities Answer Date Recorded Do you have trouble paying y our heating, water, or electric bill? (Adult - for ages 18 years and over) Not on file 09/29/2023 Is your family able to pay t he heat, water, or electric bill? (Household - for ages 0-17 years) Not on file 09/29/2023 Does your family have access to good internet? (Household - for ages 0-17 years) Not on file 09/29/2023 Employment Status Answer Date Recorded Are you unemployed or without regular income? No 09/26/2022 Does the household have a re gular source of income? (Household - for ages 0-17 years) Not on file 09/26/2022 Social Connections Answer Date Recorded How often do you feel lonely or isolated from those around you? (Adult - for ages 18 years and over) Not on file 09/29/2023 Financial Resource Strain Answer Date R ecorded Do you have any trouble payi ng for your medications, or do you think you might in the future? No 09/26/2022 Does your family have troubl e paying for medicine? (Household - for ages 0-17 years) Not on file 09/26/2022 Transportation Needs Answer Date Record ed READ ONLY Do you have troubl e getting a ride to medical visits or work? Never True 09/26/2022 Does your family have a hard time getting a ride to doctors visits? (Household - for ages 0-17 years) Not on file 09/26/2022 Has lack of transportation k ept you from medical appointments, meetings, work, or from getting things needed for daily living? Check all that apply. (Adult - for ages 18 years and over) Not on file 09/26/2022 Do you (or your family) have trouble finding or paying for a ride (transportation)? (Household - for ages 0-17 years) Not on file 09/26/2022 Housing Stability Answer Date Recorded Do you currently live in a s helter or have no steady place to sleep at night? No 09/26/2022 READ ONLY Do you think you a re at risk of becoming homeless? No 09/26/2022 Does your family worry about paying for your home or becoming homeless? (Household - for ages 0-17 years) Not on file 0 09/26/2022 Are you homeless or worried that you might be in the future? (Adult - for ages 18 years and over) Not on file Are you (or your family) reid eless or worried that you might be in the future? (Household - for ages 0-17 years) Not on file Food Insecurity Answer Date Recorded Do you need food for this week? No 09/26/2022 Are you able to get enough f ood for your family? (Household - for ages 0-17 years) Not on file 09/26/2022 Does your family need food t his week? (Household - for ages 0-17 years) Not on file 09/26/2022 Do you always have enough fo od for your family? (Household - for ages 0-17 years) Not on file 09/26/2022 Comments No Sex and Gender Information Value Date Recorded Sex Assigned at Female 05/24/2018 2:00 PM EDT Legal Sex Female 3:57 PM EDT Gender Identity Female 05/24/2018 2:00 PM EDT Sexual Orientation Straight 05/24/2018 2: 00 PM EDT documented as of this encounter Miscellaneous Notes * Telephone Encounter - Chiquita Olmos OSA - 01/15/2024 12:51 PM EST Do we know where I could locate this form so it can be re faxed again to numbers provided below. * Telephone Encounter - Leigh Ann Vizcarra OSA - 01/03/2024 1:21 PM EST [employer] asking if forms can be re-faxed to [phone] or [phone] * Telephone Encounter - Malathi Aivla LPN - 12/26/2023 11:17 AM EDT Form was received. Signed & faxed * Telephone Encounter - Ekaterina Dupree OSA - 12/25/2023 10:20 AM EDT Received a call asking if fax was received by office. Name/Company sending fax: Courtney from [employer]. What fax is pertaining to: Prescription of medical supplies Date(s) they sent request: 12/18/23,12/15/23,12/08/23,12/06/23 Verified fax number they are sending to is correct (Y or N): [phone] Callback Number for the clinic to call to verified if fax was received: [phone] * Telephone Encounter - Elizabeth Lopes OSA - 12/22/2023 2:03 PM EDT Patient calling in to check on the status of previous message. Patient Called after 48 hour timeframe and escalation e-mail was sent to clinic leadership. * Telephone Encounter - Rc Walter OSA - 12/18/2023 2:51 PM EDT Courtney from [employer] calling. They faxed this over again on 12/07. Was it received? She is going to fax over again. Please have provider fill out diagnosis code, number of refills, and signature and send back to [phone]. * Telephone Encounter - Yumiko Newman OSA - 12/15/2023 9:30 AM EDT Received a call asking if fax was received by office. Name/Company sending fax: [employer] What fax is pertaining to: Prescription request form. Date(s) they sent request: 11/23/23 and 12/15/23. Verified fax number they are sending to is correct (Y or N): Yes Callback Number for the clinic to call to verified if fax was received: [phone] documented in this encounter Plan of Treatment Health Maintenance Due Date Last Done Comments DXA Scan 1937 DTap/Tdap Vaccines (1 - Tdap) 1956 Zoster Vaccines (1 of 2) 09/14/1987 Pneumococcal Vaccine: 65+ Ye ars (1 of 1 - PCV) 2002 Adult Wellness Visit 09/14/2003 Depression Screening 03/06/2018 03/06/2017 COVID-19 Vaccine ( - 2023-2 5 season) 2023 Influenza Vaccine (FLU shot) (#1) 2023 Albumin/Creatinine Ratio 11/04/2024 11/04/2021 HPV (Gardasil) Vaccine Aged Out No lo nger eligible based on patient's age to complete this topic Hepatitis B Vaccine Aged Out No longe r eligible based on patient's age to complete this topic MENINGOCOCCAL (MENACTRA/MENVEO) Aged Out No longer eligible based on patient's age to complete this topic documented as of this encounter Medical Devices Not on filedocumented as of this encounter Care Teams Parking Assistant Relationship Specialty Start Date End Date Mu Lomeli III, MD [address] [place] [address] PCP - General Family Medicine 11/24/20 documented as of this encounter
--- OUTSIDE RECORDS SUMMARY | 2024-01-25 11:34 | External Medical Summary | Summary of Care ---
Author Name Unknown Organization [facility] Address [address] [place] [address] Phone [phone] Care Team Providers Care Machine Tester Name Role Phone Armani CHRISTIE MD, John E Primary Care Provider [phone] Reason for Visit * Reason Onset Date Comments Fax 12/15/2023 Encounter Details Date Type Department Care Team (Late st Contact Info) Description 12/15/2023 Telephone Family Practice [facility] [address] [facility] [address] Mu Lomeli III, MD [address] [place] [address] Fax Allergies No known active allergiesdocumented as of this encounter (statuses as of 01/24/2024) Medications Blood Pressure Monitoring (BLOOD PRESSURE KIT) [...] as of this encounter (statuses as of 01/24/2024) Active Problems Problem Noted Date Diagnosed Date [...] as of this encounter (statuses as of 01/24/2024) Immunizations No known immunizationsdocumented as of this [...] below. * Telephone Encounter - Leigh Ann Vizacrra OSA - 01/03/2024 1:21 PM EST [employer] asking if forms can be re-faxed to [phone] or [phone] * Telephone Encounter - Malathi Avila LPN - 12/26/2023 11:17 AM EDT Form was received. Signed & faxed * Telephone Encounter - Ekaterina Dupree OSA - 12/25/2023 10:20 AM EDT Received a call asking if fax was received by office. Name/Company sending fax: Courtney from [employer]. What fax is pertaining to: Prescription of medical supplies Date(s) they sent request: 12/18/23,12/15/23,12/08/23,12/06/23 Verified fax number they are sending to is correct (Y or N): [phone] Callback Number for the clinic to call to verified if fax was received: [phone] * Telephone Encounter - Elizabeth Lopes OSA - 12/22/2023 2:03 PM EDT Patient calling in to check on the status of previous message. Patient Called after 48 hour timeframe and escalation e-mail was sent to clinic leadership. * Telephone Encounter - Rc Walter OSA - 12/18/2023 2:51 PM EDT Courtney from [employer] calling. They faxed this over again on 12/07. Was it received? She is going to fax over again. Please have provider fill out diagnosis code, number of refills, and signature and send back to [phone]. * Telephone Encounter - Yumiko Newman OSA - 12/15/2023 9:30 AM EDT Received a call asking if fax was received by office. Name/Company sending fax: [employer] What fax is pertaining to: Prescription request form. Date(s) they sent request: 11/23/23 and 12/15/23. Verified fax number they are sending to is correct (Y or N): Yes Callback Number for the clinic to call to verified if fax was received: [phone] documented in this encounter Plan of Treatment [...] filedocumented as of this encounter Care Teams Machine Tester Relationship Specialty Start Date End Date Mu Lomeli III, MD [address] [place] [address] PCP - General Family Medicine 11/24/20 documented as of this encounter
--- OUTSIDE RECORDS SUMMARY | 2024-01-25 11:34 | External Medical Summary | Summary of Care ---
Author Name Unknown Organization [facility] Address [address] [place] [address] Phone [phone] Care Team Providers Care Hunter Trapper Name Role Phone Armani CHRISTIE MD, John E Primary Care Provider [phone] Reason for Visit * Reason Onset Date Comments Fax 12/15/2023 Encounter Details Date Type Department Care Team (Late st Contact Info) Description 12/15/2023 Telephone Family Practice [facility] [address] [facility] [place] [address] Mu Lomeli III, MD [address] [facility] [place] [address] Fax Allergies No known active allergiesdocumented as of this encounter (statuses as of 01/15/2024) Medications Blood Pressure Monitoring (BLOOD PRESSURE KIT) [...] as of this encounter (statuses as of 01/15/2024) Active Problems Problem Noted Date Diagnosed Date [...] as of this encounter (statuses as of 01/15/2024) Immunizations No known immunizationsdocumented as of this [...] Vizcarra OSA - 01/03/2024 1:21 PM EST [employer] asking if forms can be re-faxed to [phone] or [phone] * Telephone Encounter - Malathi Avila LPN - 12/26/2023 11:17 AM EDT Form was received. Signed & faxed * Telephone Encounter - Ekaterina Dupree OSA - 12/25/2023 10:20 AM EDT Received a call asking if fax was received by office. Name/Company sending fax: Courtney from [employer]. What fax is pertaining to: Prescription of medical supplies Date(s) they sent request: 12/18/23,12/15/23,12/08/23,12/06/23 Verified fax number they are sending to is correct (Y or N): [phone] Callback Number for the clinic to call to verified if fax was received: [phone] * Telephone Encounter - Elizabeth Lopes OSA - 12/22/2023 2:03 PM EDT Patient calling in to check on the status of previous message. Patient Called after 48 hour timeframe and escalation e-mail was sent to clinic leadership. * Telephone Encounter - Rc Walter OSA - 12/18/2023 2:51 PM EDT Courtney from [employer] calling. They faxed this over again on 12/07. Was it received? She is going to fax over again. Please have provider fill out diagnosis code, number of refills, and signature and send back to [phone]. * Telephone Encounter - Yumiko Newman OSA - 12/15/2023 9:30 AM EDT Received a call asking if fax was received by office. Name/Company sending fax: [employer] What fax is pertaining to: Prescription request form. Date(s) they sent request: 11/23/23 and 12/15/23. Verified fax number they are sending to is correct (Y or N): Yes Callback Number for the clinic to call to verified if fax was received: [phone] documented in this encounter Plan of Treatment [...] filedocumented as of this encounter Care Teams Hunter Trapper Relationship Specialty Start Date End Date Mu Lomeli III, MD [address] [place] [address] PCP - General Family Medicine 11/24/20 documented as of this encounter
--- OUTSIDE RECORDS SUMMARY | 2024-01-25 11:34 | External Medical Summary | Summary of Care ---
Author Name Unknown Organization [facility] Address [address] [place] [address] Phone [phone] Care Team Providers Care Natural Gas Treating Unit Operator Name Role Phone Armani CHRISTIE MD, John E Primary Care Provider [phone] Reason for Visit * Reason Onset Date Comments Advice 12/11/2023 Encounter Details Date Type Department Care Team (Late st Contact Info) Description 12/11/[address] [facility] [address] [facility] [place] [address] Mu Lomeli III, MD [address] [facility] [place] [address] Advice Allergies No known active allergiesdocumented as of this encounter (statuses as of 01/03/2024) Medications Medication Sig Dispensed Refills Start Date [...] as of this encounter (statuses as of 01/03/2024) Active Problems Problem Noted Date Diagnosed Date [...] as of this encounter (statuses as of 01/03/2024) Immunizations No known immunizationsdocumented as of this [...] 18 years and over) Not on file 3 Are you (or your family) reid eless [...] ages 0-17 years) Not on file 09/26/2022 Sex and Gender Information Value Date Recorded Sex Assigned at Female 05/24/2018 2:00 PM EDT Gender Identity Female 05/24/2018 2:00 PM EDT Sexual Orientation Straight 05/24/2018 2: 00 PM EDT Job Start Date Occupation Industry Not on file Not on file Not on file documented as of this encounter Miscellaneous Notes * Telephone Encounter - Dary Sandoval LPN - 12/11/2023 9:17 AM EDT See TE from 12/07 * Telephone Encounter - Meliza Rutledge OSA - 12/11/2023 9:13 AM EDT Reason for patient's call: Myranda from [facility] is calling in to speak to a nurse about pt seismograph recorder was transferred to Dary at the nurse line. documented in this encounter Plan of Treatment Health Maintenance Due Date Last Done Comments DXA Scan 1935 DTap/Tdap Vaccines (1 - Tdap) 1956 Zoster Vaccines (1 of 2) 09/14/1987 Pneumococcal Vaccine: 65+ Ye ars (1 of 1 - PCV) 2002 Adult Wellness Visit 09/14/2003 Depression Screening 03/06/2018 03/06/2017 COVID-19 Vaccine (2023-2 5 season) 2023 Influenza Vaccine (FLU shot) [...] filedocumented as of this encounter Care Teams Natural Gas Treating Unit Operator Relationship Specialty Start Date End Date Mu Lomeli III, MD [address] [facility] [place] [address] PCP - General Family Medicine 11/24/20 documented as of this encounter
--- OUTSIDE RECORDS SUMMARY | 2024-01-25 11:34 | External Medical Summary | Summary of Care ---
Author Name Unknown Organization [facility] Address [address] [place] [address] Phone [phone] Care Team Providers Care Satellite Technician Name Role Phone Armani CHRISTIE MD, John E Primary Care Provider [phone] Reason for Visit * Reason Onset Date Comments Follow Up 01/01/2024 Encounter Details Date Type Department Care Team (Late st Contact Info) Description 01/01/2024 Telephone Family Practice [facility] 200 [facility] [place] [address] Mu Lomeli III, MD 200 [facility] [place] [id number] Follow Up Allergies No known active allergiesdocumented as of [...] encounter Miscellaneous Notes * Telephone Encounter - Maricarmen Medley LPN - 01/03/2024 3:12 PM EST Called [facility] confirmed that they have received all their documentation and forms and are working with the family to have it delivered. * Telephone Encounter - Heather Butt MD - 01/02/2024 12:40 PM EST Created additional addendum to note. Forms returned to [facility]. * Telephone Encounter - Malathi Avila LPN - 01/01/2024 4:57 PM EST Received call from [facility] Need different order for hospital bed. Needs to say hospital bed semi electric, with mattress &side rails. Due to need for frequent changes in body position Order done & faxed Dr. Butt it may come back that your note from 10/25 would need to be addended to say that "pt requires frequent change in body position" documented in this encounter Plan of Treatment [...] as of this encounter Visit Diagnoses Diagnosis Closed fracture of cervical vertebra, unspecified cervical vertebral level, initial encounter (HCC)- Primary documented in this encounter Care Teams Satellite Technician Relationship Specialty Start Date End Date Mu Lomeli III, MD [address] [place] [address] PCP - General Family Medicine 11/24/20 documented as of this encounter
--- OUTSIDE RECORDS SUMMARY | 2024-01-25 11:35 | External Medical Summary | Summary of Care ---
Author Name Unknown Organization [facility] Address [address] [place] [address] Phone [phone] Care Team Providers Care Dye Mixer Name Role Phone Armani CHRISTIE MD, John E Primary Care Provider [phone] Reason for Visit * Reason Onset Date Comments Advice 11/30/2023 Incontinence sup ply order Encounter Details Date Type Department Care Team (Late st Contact Info) Description 11/30/2023 Telephone Family Practice [facility] [address] [place] [address] Mu Lomeli III, MD [address] [place] [address] Advice (Incontinence supply order ) Allergies No known active allergiesdocumented as of this encounter (statuses as of 12/29/2023) Medications Medication Sig Dispensed Refills Start Date [...] as of this encounter (statuses as of 12/29/2023) Active Problems Problem Noted Date Diagnosed Date [...] as of this encounter (statuses as of 12/29/2023) Immunizations No known immunizationsdocumented as of this [...] encounter Miscellaneous Notes * Telephone Encounter - Lashell Arteaga RN - 12/28/2023 4:15 PM EDT Form on counter for Armani signature. * Telephone Encounter - Marcie Siegel OSA - 12/28/2023 2:46 PM EDT Medical supply calling in to check on the status of previous message about the fax they keep faxingover Called over to [facility] to get check on status and nurse stated she received it and filled it out and faxed it back. Lisa states they did not receive it and to please refax * Telephone Encounter - Sushila Kirkpatrick CPhT - 12/13/2023 2:40 PM EDT [employer] calling in to check if office received the fax for incontinence supplies. They said they keep faxing it over and not getting any responses. Please advise. Thank you, Sushila Kirkpatrick CPhT [employer] [facility] 12/13/2023, 2:40 PM * Telephone Encounter - Sushila Mabry OSA - 12/08/2023 2:28 PM EDT Received a call asking if fax was received by office. Name/Company sending fax: Radha from [employer] What fax is pertaining to: Order Req for Incontinence Supplies - Needs to have dx code, amount of refills, date and signature. Date(s) they sent request: 12/06/23 and again today to Verified fax number they are sending to is correct (Y or N): Y Callback Number for the clinic to call to verified if fax was received: [email or web address] * Telephone Encounter - Kelly Garcia circuit court clerk - 12/06/2023 1:17 PM EDT Geoff calling back from [employer]. Advised of number to fax form to. Advised to make sure dx code , amount of refills and date it is being signed Thank you, Kelly Garcia Meter Installer [employer] [facility] 12/06/2023,1:18 PM * Telephone Encounter - Kaden Moreno circuit court clerk - 12/06/2023 1:11 PM EDT Another calling from [facility] about checking to find out if the fax was received at the office or not. I informed him I didn't see any confirmation that it was received. I put the caller on hold while I reached out to a nurse at the clinic. She gave him a fax number to give to them to ensure it would go directly to the office. Before I could get back on with [employer] and give them the fax number, the call was disconnected. If they call back please make sure they fax form to [phone] Thank you, Jordan Moreno, Machine Plate Stacker [employer] [facility] ([facility] 12/06/2023,1:14 PM * Telephone Encounter - Nirali Murillo PHARM Tech - 12/05/2023 5:27 PM EDT [facility] [employer] checking status, refaxing as well. Thank you, Nirali Murillo [facility] [employer] [facility] 12/05/2023,5:28 PM * Telephone Encounter - Kaden Moreno PHARM Tech - 12/01/2023 2:49 PM EDT Chandler from [employer] is calling for a status check. She will refax form. Thank you, Jordan Moreno Machine Plate Stacker [employer] [facility] 12/01/2023,2:50 PM * Telephone Encounter - Yudy Vail OSA - 11/30/2023 10:29 AM EDT Courtney ([phone]) from [employer] is calling to see if the office received the order for Incontinence supplies. She faxed it 11-23-23 Was it received? If so, can it be signed and faxed back to her at [phone] documented in this encounter Plan of Treatment Health Maintenance Due Date Last Done Comments DXA Scan 1937 DTap/Tdap Vaccines (1 - Tdap) 1956 Zoster Vaccines (1 of 2) 09/14/1987 Pneumococcal Vaccine: 65+ Ye ars (1 of 1 - PCV) 2002 Adult Wellness Visit 09/14/2003 Depression Screening 03/06/2018 03/06/2017 COVID-19 Vaccine (1 - 2023-2 5 season) 2023 Influenza Vaccine [...] filedocumented as of this encounter Care Teams Dye Mixer Relationship Specialty Start Date End Date Mu Lomeli III, MD [address] [place] [address] PCP - General Family Medicine 11/24/20 documented as of this encounter
--- OUTSIDE RECORDS SUMMARY | 2024-01-25 11:35 | External Medical Summary | Summary of Care ---
Author Name Unknown Organization [facility] Address [address] [place] [address] Phone [phone] Care Team Providers Care Filler Shredder Helper Name Role Phone Armani CHRISTIE MD, John E Primary Care Provider [phone] Reason for Visit * Reason Onset Date Comments Fax 12/15/2023 Encounter Details Date Type Department Care Team (Late st Contact Info) Description 12/15/2023 Telephone Family Practice [facility] 200 [facility] [place] [address] Mu Lomeli III, MD 200 [place] [address] Fax Allergies No known active allergiesdocumented as of this encounter (statuses as of 12/26/2023) Medications Medication Sig Dispensed Refills Start Date [...] as of this encounter (statuses as of 12/26/2023) Active Problems Problem Noted Date Diagnosed Date [...] as of this encounter (statuses as of 12/26/2023) Immunizations No known immunizationsdocumented as of this [...] encounter Miscellaneous Notes * Telephone Encounter - Malathi Avila LPN - 12/26/2023 11:17 AM EDT Form was received. Signed & faxed * Telephone Encounter - kEaterina Dupree OSA - 12/25/2023 10:20 AM EDT Received a call asking if fax was received by office. Name/Company sending fax: Courtney from [employer]. What fax is pertaining to: Prescription of medical supplies Date(s) they sent request: 12/18/23,12/15/23,12/08/23,12/06/23 Verified fax number they are sending to is correct (Y or N): [phone] Callback Number for the clinic to call to verified if fax was received: [phone] * Telephone Encounter - Elizabeth Lopes OSA - 12/22/2023 2:03 PM EDT Patient calling in to check on the status of previous message. Patient Called after 48 hour timeframe and escalation e-mail was sent to clinic leadership. * Telephone Encounter - Rc Walter OSA - 12/18/2023 2:51 PM EDT Courtney from [employer] calling. They faxed this over again on 12/07. Was it received? She is going to fax over again. Please have provider fill out diagnosis code, number of refills, and signature and send back to [phone]. * Telephone Encounter - Yumiko Newman OSA - 12/15/2023 9:30 AM EDT Received a call asking if fax was received by office. Name/Company sending fax: [employer] What fax is pertaining to: Prescription request form. Date(s) they sent request: 11/23/23 and 12/15/23. Verified fax number they are sending to is correct (Y or N): Yes Callback Number for the clinic to call to verified if fax was received: [phone] documented in this encounter Plan of Treatment [...] filedocumented as of this encounter Care Teams Filler Shredder Helper Relationship Specialty Start Date End Date Mu Lomeli III, MD [address] [facility] [place] [address] PCP - General Family Medicine 11/24/20 documented as of this encounter
--- OUTSIDE RECORDS SUMMARY | 2024-01-25 11:35 | External Medical Summary | Summary of Care ---
Author Name Unknown Organization [facility] Address [address] [place] [address] Phone [phone] Care Team Providers Care French Comber Name Role Phone Armani CHRISTIE MD, Mu Valles Primary Care Provider [phone] Reason for Visit * Reason Comments Hospital Follow-Up D/C from [facility] Encounter Details Date Type Department Care Team (Latest Contact Info) Description 10/26/2023 1:40 PM EDT Office Visit [facility] [address] [facility] [place] [address] Heather Butt MD [address] [facility] [place] [address] Hospital discharge follow-up*; Closed head injury, sequela; Closed nondisplaced fracture of second cervical vertebra, unspecified fracture morphology, sequela; Gait difficulty; Female stress incontinence; Primary osteoarthritis of right knee Allergies No known active allergiesdocumented as of this encounter (statuses as of 01/02/2024) Medications Medication Sig Dispensed Refills Start Date [...] as of this encounter (statuses as of 01/02/2024) Active Problems Problem Noted Date Diagnosed Date [...] as of this encounter (statuses as of 01/02/2024) Immunizations No known immunizationsdocumented as of this [...] Sign Reading Time Taken Comments Blood Pressure 122/50 10/26/2023 1:41 PM EDT Pulse 80 10/26/2023 1:41 PM EDT Temperature 37.6 C (99.6 F) 10/26/2023 1:41 PM ED T Respiratory Rate 18 10/26/2023 1:41 PM EDT Oxygen Saturation 95% 10/26/2023 1:41 PM EDT Inhaled Oxygen Concentration - - Weight - - Height - - Body Mass Index - - documented in this encounter Progress Notes * Heather Butt MD - 01/02/2024 12:38 PM EST ADDENDUM: Patient requires frequent changes in body position. Recommend semi-electric hospital bed. * Heather Butt MD - 11/17/2023 8:36 AM EDT ADDENDUM: Patient requesting DME order for hospital bed. Due to cervical collar, needs positioning in ways not feasible in an ordinary bed to alleviate pain. * Heather Butt MD - 10/26/2023 1:56 PM EDT Subjective Chief Complaint Patient presents with Hospital Follow-Up D/C from [facility] HPI: Oksana Velazquez is a 88 year old female. The following issues were addressed today: Date of admission: 09/03/23 Date of discharge: 09/06/23 Hospital course: Patient is an 87-year-old female with hypertension, legally blind in the right eye, history of memory and hearing loss, primary osteoarthritis of right knee, and stress incontinence who presented to the [facility] ER after a fall at home. CT cervical spine showing C2 fracture. Head CT noting no acute intracranial bleed, R parietal scalp swelling. Syncope workup negative with carotid Dopplers, UA w/o infection, and TTE noting EF 60-65%, mild conc LVH, grade 1 diastolic dysfunction, moderate aortic sclerosis w/o stenosis, trace AR, MR. Scalp was sutured in the ED on 09/03/23. Ortho-spine consulted, recommended maintaining cervical collar atall times, remove for bathing only. She was discharged to [facility]. Tests/studies pending at time of discharge: None Home/outpatient services ordered: None Course since hospitalization: Patient presents today with daughter who is translating. States she is feeling better. Minimal pain at rest, up to 3-4/10 when moving. Needs help with ambulating. Livingalone. Will be wearing collar for 3 months. Daughter states she needs form for free waiver program and form for home physical therapy completed and they should have been faxed to the office. Having a flare up of knee pain. Was previously getting injections but missed most recent appointment due to being in the hospital. Daughter is also asking for DME orders for briefs for incontinence. Review of Systems: See HPI Objective BP 122/50 | Pulse 80 | Temp 37.6 C (99.6 F) (Tympanic) | Resp 18 | SpO2 95% Wt Readings from Last 3 Encounters: 07/28/23 84.6 kg (186 lb 9.6 oz) 03/23/23 87.5 kg (193 lb) 08/15/22 87.7 kg (193 lb 6.4 oz) BP Readings from Last 3 Encounters: 10/26/23 122/50 07/28/23 128/56 03/23/23 131/57 General: Well-appearing, no acute distress, C collar in place Head: Normocephalic and atraumatic Cardiovascular: Regular rate and rhythm, no murmur Respiratory: Good respiratory effort, breath sounds equal and clear to auscultation bilaterally Extremities: No edema Neurological: Alert Psychiatric: Appropriate mood and affect Assessment & Plan 1. Hospital discharge follow-up - DISCH MED RECON CUR MED LIS 2. Closed head injury, sequela Laceration healed. 3. Closed nondisplaced fracture of second cervical vertebra, unspecified fracture morphology, sequela Continue to wear cervical collar at all times. Follow-up with ortho-spine as scheduled. 4. Gait difficulty Continue home physical therapy. Will sign form for continuation of services once fax received. 5. Female stress incontinence - DURABLE MEDICAL EQUIPMENT 6. Primary osteoarthritis of right knee Follow-up with orthopedics as scheduled for steroid injection. Follow Up: Return in about 6 months (around 04/26/2024). This note was electronically signed by Heather Butt MD documented in this encounter Nursing Notes * Racquel Jarvis LPN - 10/26/2023 1:36 PM EDT Oksana Velazquez presents for follow up on D/C from [facility]. Medications & HM reviewed. Discuss her neck working on getting home health documented in this encounter Plan of Treatment [...] as of this encounter Visit Diagnoses Diagnosis Hospital discharge follow-up- Primary Other follow-up examination Closed head injury, sequela Closed nondisplaced fracture of second cervical vertebra, unspecified fracture morphology, sequela Gait difficulty Abnormality of gait Female stress incontinence Primary osteoarthritis of right knee Primary localized osteoarthrosis, lower leg documented in this encounter Care Teams French Comber Relationship Specialty Start Date End Date Mu Lomeli III, MD [address] [place] [address] PCP - General Family Medicine 11/24/20 documented as of this encounter"
--- OUTSIDE RECORDS SUMMARY | 2024-01-25 11:35 | External Medical Summary | Summary of Care ---
Author Name Unknown Organization [facility] Address [address] [place] [address] Phone [phone] Care Team Providers Care Quilt Maker Name Role Phone Armani CHRISTIE MD, John E Primary Care Provider [phone] Reason for Visit * Reason Onset Date Comments Follow Up 01/01/2024 Encounter Details Date Type Department Care Team (Late st Contact Info) Description 01/01/2024 Telephone Family Practice [facility] [address] [facility] [place] [address] Mu Lomeli III, MD [address] [facility] [place] [address] Follow Up Allergies No known active allergiesdocumented [...] encounter Miscellaneous Notes * Telephone Encounter - Heather Butt MD - 01/02/2024 12:40 PM EST Created additional addendum to note. Forms returned to [facility]. * Telephone Encounter - Malathi Avila LPN [...] Primary documented in this encounter Care Teams Quilt Maker Relationship Specialty Start Date End Date Mu Lomeli III, MD [address] [place] [address] PCP - General Family Medicine 11/24/20 documented as of this encounter
--- OUTSIDE RECORDS SUMMARY | 2024-01-25 11:35 | External Medical Summary | Summary of Care ---
Author Name Unknown Organization [facility] Address [address] [place] [address] Phone [phone] Care Team Providers Care Trauma Surgeon Name Role Phone Armani CHRISTIE MD, John E Primary Care Provider [phone] Reason for Visit * Reason Onset Date Comments Advice 11/30/2023 Incontinence sup ply order Encounter Details Date Type Department Care Team (Late st Contact Info) Description 11/30/[address] [facility] [address] [facility] [place] [address] Mu Lomeli III, MD [address] [place] [address] Advice (Incontinence supply order ) Allergies No known active allergiesdocumented as of this encounter (statuses as of 12/08/2023) Medications Medication Sig Dispensed Refills Start Date [...] as of this encounter (statuses as of 12/08/2023) Active Problems Problem Noted Date Diagnosed Date [...] as of this encounter (statuses as of 12/08/2023) Immunizations No known immunizationsdocumented as of this [...] encounter Miscellaneous Notes * Telephone Encounter - Sushila Mabry OSA - 12/08/2023 2:28 PM EDT Received a call asking if fax was received by office. Name/Company sending fax: Radha from [employer] What fax is pertaining to: Order Req for Incontinence Supplies - Needs to have dx code, amount of refills, date and signature. Date(s) they sent request: 12/06/23 and again today to Verified fax number they are sending to is correct (Y or N): Y Callback Number for the clinic to call to verified if fax was received: [employer], [employer] # [phone] * Telephone Encounter - Kelly Garcia, campus police officer - 12/06/2023 1:17 PM EDT Geoff calling back from [employer]. Advised of number to fax form to. Advised to make sure dx code , amount of refills and date it is being signed Thank you, Kelly Garcia Plaster Maker I [facility] 12/06/2023,1:18 PM * Telephone Encounter - Kaden Moreno PHARM Tech - 12/06/2023 1:11 PM EDT Another calling from [employer] about checking to find out if the [...] Before I could get back on with [employer] and give them the fax number, the call was disconnected. If they call back please make sure they fax form to [phone] Thank you, Jordan Moreno, Warehouse And Receiving Supervisor Plaster Maker 1 [facility] ([facility]) (Formerly Telepharmacy) 12/06/2023,1:14 PM * Telephone Encounter - Nirali Murillo PHARM Tech - 12/05/2023 5:27 PM EDT [employer] checking status, refaxing as well. Thank you, Nirali Murillo, [facility] Obstetrical Nurse II [facility]) 12/05/2023,5:28 PM * Telephone Encounter - Kaden Moreno PHARM Tech - 12/01/2023 2:49 PM EDT Chandler from [employer] is calling for a status check. She will refax form. Thank you, Jordan Moreno, Warehouse And Receiving Supervisor Plaster Maker 1 [facility] ([facility]) (Formerly Telepharmacy) 12/01/2023,2:50 PM * Telephone Encounter - Yudy Vail OSA - 11/30/2023 10:29 AM EDT Courtney ([phone]) from [employer] is calling to see if the office received the order for Incontinence supplies. She faxed it 11-23-23 Was it received? If so, can it be signed and faxed back to her at [phone] documented in this encounter Plan of Treatment Upcoming Encounters Date Type Department Care Team (Late st Contact Info) Description 12/22/2023 3:00 PM EDT Office Visit Neurology [facility] [address] [place] [address] Bhavana Meadows CRNP [address] [place] [address] Health Maintenance Due Date Last [...] filedocumented as of this encounter Care Teams Trauma Surgeon Relationship Specialty Start Date End Date Mu Lomeli III, MD [address] [facility] [place] [address] PCP - General Family Medicine 11/24/20 documented as of this encounter
--- OUTSIDE RECORDS SUMMARY | 2024-01-25 11:35 | External Medical Summary | Summary of Care ---
Author Name Unknown Organization [facility] Address [address] [place] [address] Phone [phone] Care Team Providers Care Burring Wheel Operator Name Role Phone Armani CHRISTIE MD, John E Primary Care Provider [phone] Reason for Visit * Reason Onset Date Comments Advice 11/30/2023 Incontinence sup ply order Encounter Details Date Type Department Care Team (Late st Contact Info) Description 11/30/2023 Telephone Family Practice [facility] [address] [facility] [place] [address] Mu Lomeli III, MD [address] [place] [address] Advice (Incontinence supply order ) Allergies No known active allergiesdocumented as of this encounter (statuses as of 12/13/2023) Medications Medication Sig Dispensed Refills Start Date [...] as of this encounter (statuses as of 12/13/2023) Active Problems Problem Noted Date Diagnosed Date [...] as of this encounter (statuses as of 12/13/2023) Immunizations No known immunizationsdocumented as of this [...] Miscellaneous Notes * Telephone Encounter - Sushila Kirkpatrick CPhT - 12/13/2023 2:40 PM EDT [employer] calling in to check if office received the fax for incontinence supplies. They said they keep faxing it over and not getting any responses. Please advise. Thank you, Sushila Kirkpatrick CPhT Manager Mobile III [facility]) 12/13/2023, 2:40 PM * Telephone Encounter - Sushila Mabry OSA - 12/08/2023 2:28 PM EDT Received a call asking if fax was received by office. Name/Company sending fax: Radha from [employer] What fax is pertaining to: Order Req for Incontinence Supplies - Needs to have dx code, amount of refills, date and signature. Date(s) they sent request: 12/06/23 and again today to Verified fax number they are sending to is correct (Y or N): Y Callback Number for the clinic to call to verified if fax was received: [employer] # [phone] * Telephone Encounter - Kelly Garcia PHARM Tech - 12/06/2023 1:17 PM EDT Geoff calling back from [employer]. Advised of number to fax form to. Advised to make sure dx code , amount of refills and date it is being signed Thank you, Kelly Garcia Cms Expert I [facility]) 12/06/2023,1:18 PM * Telephone Encounter - Kaden Moreno PHARM Tech - 12/06/2023 1:11 PM EDT Another calling from [employer] about checking to find out if the [...] Before I could get back on with [employer] and give them the fax number, the call was disconnected. If they call back please make sure they fax form to [phone] Thank you, Jordan Moreno, Talent Acquisition Manager Cms Expert 1 [facility] ([facility]) (Formerly Telepharmacy) 12/06/2023,1:14 PM * Telephone Encounter - Nirali Murillo PHARM Tech - 12/05/2023 5:27 PM EDT Medical Supply checking status, refaxing as well. Thank you, Nirali Murillo [facility] Manager Mobile II [facility]) 12/05/2023,5:28 PM * Telephone Encounter - Kaden Moreno PHARM Tech - 12/01/2023 2:49 PM EDT Chandler from [employer] is calling for a status check. She will refax form. Thank you, Jordan Moreno, Talent Acquisition Manager Cms Expert 1 [facility] ([facility]) (Formerly Telepharmacy) 12/01/2023,2:50 PM * Telephone Encounter - Yudy Vail OSA - 11/30/2023 10:29 AM EDT Courtney ([phone]) from [employer] is calling to see if the office received the order for Incontinence supplies. She faxed it 11-23-23 Was it received? If so, can it be signed and faxed back to her at [phone] documented in this encounter Plan of Treatment Upcoming Encounters Date Type Department Care Team (Late st Contact Info) Description 12/22/2023 3:00 PM EDT Office Visit Neurology [facility] [address] [place] [address] Bhavana Meadows CRNP [address] [place] [address] Health Maintenance Due Date Last [...] filedocumented as of this encounter Care Teams Burring Wheel Operator Relationship Specialty Start Date End Date Licking PRATIK, Mu Valles MD [address] [facility] [place] [address] PCP - General Family Medicine 11/24/20 documented as of this encounter
--- OUTSIDE RECORDS SUMMARY | 2024-01-25 11:35 | External Medical Summary | Summary of Care ---
Author Name Unknown Organization [facility] Address [address] [place] [address] Phone [phone] Care Team Providers Care Employment Representative Name Role Phone Armani CHRISTIE MD, John E Primary Care Provider [phone] Reason for Visit * Reason Onset Date Comments Order Request 11/10/2023 Encounter Details Date Type Department Care Team (Late st Contact Info) Description 11/10/2023 Telephone Family Practice [facility] [address] [place] [address] Mu Lomeli III, MD [address] [place] [address] Order Request Allergies No known active allergiesdocumented as of this encounter (statuses as of 12/30/2023) Medications Medication Sig Dispensed Refills Start Date [...] as of this encounter (statuses as of 12/30/2023) Active Problems Problem Noted Date Diagnosed Date [...] as of this encounter (statuses as of 12/30/2023) Immunizations No known immunizationsdocumented as of this [...] encounter Miscellaneous Notes * Telephone Encounter - Rommel Welch CMA - 12/30/2023 12:13 PM EDT Refaxed orders to [phone], success receipt relieved. * Telephone Encounter - Yudy Ziegler OSA - 12/28/2023 12:49 PM EDT Daughter Mariela spoke to [facility], they have still not rec'd hospital bed order. She is in an urgent situation to get it. Please refax to [facility]. Pt needs BP monitor order send to another provider. [facility] does not supply these. Please advise daughter Kathe * Telephone Encounter - Yury Peraza OSA - 12/08/2023 3:27 PM EDT Patient's daughter has been notified of the message(pt does not speak Romansh). Patient's daughter has no further questions. * Telephone Encounter - Maricarmen Medley LPN - 11/20/2023 1:55 PM EDT Faxed to [facility]. * Telephone Encounter - Heather Butt MD - 11/17/2023 8:37 AM EDT Order signed and note addended * Telephone Encounter - Rommel Welch CMA - 11/16/2023 3:02 PM EDT Order pended. * Telephone Encounter - Mu Lomeli III, MD - 11/14/2023 12:[address] order please will sign * Telephone Encounter - Rc Hillman OSA - 11/10/2023 3:35 PM EDT An order was requested for this patient. Name of Requesting Provider: PCP Order Requested: hospital bed and blood pressure monitor. Diagnosis/Reason for Request: was recently in hospital and has hard time getting out of bed. Needs to have head elevated. If order request is for Mammogram: Is the patient having any breast symptoms? N/A Is there a chance of ? N/A Has the patient had any breast problems in the past? NA What location AND department does the patient wish to have their order completed at? [facility] Fax Number, if applicable: N/A Phone- [phone] If the caller is not a current patient, please advise the patient to call their current PCP to havethe order's prior to being seen in our office. The patient was informed that our providers would not order anything (medication, labs, etc.) prior to being seen. . documented in this encounter Plan of Treatment [...] of this encounter Visit Diagnoses Diagnosis Closed nondisplaced fracture of second cervical vertebra, unspecified fracture morphology, sequela- Primary documented in this encounter Care Teams Employment Representative Relationship Specialty Start Date End Date Mu Lomeli III, MD [address] [place] [address] PCP - General Family Medicine 11/24/20 documented as of this encounter
--- OUTSIDE RECORDS SUMMARY | 2024-01-25 11:35 | External Medical Summary | Summary of Care ---
Author Name Unknown Organization [facility] Address [address] [place] [address] Phone [phone] Care Team Providers Care Business Solutions Director Name Role Phone Armani CHRISTIE MD, John E Primary Care Provider [phone] Reason for Visit * Reason Onset Date Comments Advice 11/30/2023 Incontinence sup ply order Encounter Details Date Type Department Care Team (Late st Contact Info) Description 11/30/2023 Telephone Family Practice [facility] [address] [place] [address] Mu Lomeli III, MD [address] [place] [address] Advice (Incontinence supply order ) Allergies No known active allergiesdocumented as of this encounter (statuses as of 12/01/2023) Medications Medication Sig Dispensed Refills Start Date [...] as of this encounter (statuses as of 12/01/2023) Active Problems Problem Noted Date Diagnosed Date [...] as of this encounter (statuses as of 12/01/2023) Immunizations No known immunizationsdocumented as of this [...] encounter Miscellaneous Notes * Telephone Encounter - Kaden Moreno piece goods clerk - 12/01/2023 2:49 PM EDT Nataliobina from [employer] is calling for a status check. She will refax form. Thank you, Jordan Moreno, Cabinet Worker [employer] 1 [facility] ([facility]) (Formerly Telepharmacy) 12/01/2023,2:50 PM * Telephone Encounter - Yudy Vail OSA - 11/30/2023 10:29 AM EDT Courtney ([phone]) from [employer] is calling to see if the office received the order for Incontinence supplies. She faxed it 11-23-23 Was it received? If so, can it be signed and faxed back to her at [phone] documented in this encounter Plan of Treatment Upcoming Encounters Date Type Department Care Team (Late st Contact Info) Description 12/22/2023 3:00 PM EDT Office Visit Neurology [facility] [place] [address] [place] [address] Bhavana Meadows CRNP [address] [place] [address] Health Maintenance Due Date Last Done Comments [...] filedocumented as of this encounter Care Teams Business Solutions Director Relationship Specialty Start Date End Date Mu Lomeli III, MD [address] [facility] [place] [address] PCP - General Family Medicine 11/24/20 documented as of this encounter
--- OUTSIDE RECORDS SUMMARY | 2024-01-25 11:35 | External Medical Summary | Summary of Care ---
Author Name Unknown Organization [facility] Address [address] [place] [address] Phone [phone] Care Team Providers Care Title Closer Name Role Phone Armani CHRISTIE MD, John E Primary Care Provider [phone] Reason for Visit * Reason Onset Date Comments Advice 11/30/2023 Incontinence sup ply order Encounter Details Date Type Department Care Team (Late st Contact Info) Description 11/30/2023 Telephone Family Practice [facility] 200 [facility] [place] [address] Mu Lomeli III, MD [address] [place] [address] Advice (Incontinence supply order ) Allergies No known active allergiesdocumented as of this encounter (statuses as of 12/28/2023) Medications Medication Sig Dispensed Refills Start Date [...] as of this encounter (statuses as of 12/28/2023) Active Problems Problem Noted Date Diagnosed Date Stress incontinence in female 03/23/2023 Food insecurity 02/06/2023 Overview: Per [facility] Protocol History of 2019 novel coronavirus disease (COVID -19) 12/23/2021 Legally blind in right eye, as defined in [place] Memory loss 12/23/2021 Hearing loss, right 12/23/2021 Dry eye 12/23/2021 Primary osteoarthritis of right knee 12/23/2021 HTN, goal below 150/90 11/21/2016 documented as of this encounter (statuses as of 12/28/2023) Immunizations No known immunizationsdocumented as of this [...] encounter Miscellaneous Notes * Telephone Encounter - Marcie Siegel OSA - 12/28/2023 2:46 PM EDT Medical supply calling in to check on the status of previous message about the fax they keep faxingover Called over to [facility] to get check on status and nurse [...] Please advise. Thank you, Sushila Kirkpatrick CPhT Smelter Operator III [facility] ([facility]) 12/13/2023, 2:40 PM * Telephone Encounter - Sushila Mabry OSA - 12/08/2023 2:28 PM EDT Received a call asking if fax was received by office. Name/Company sending fax: Radha from [employer] What fax is pertaining to: Order Req for Incontinence Supplies - Needs to have dx code, amount of refills, date and signature. Date(s) they sent request: 12/06/23 and again today to Verified fax number they are sending to is correct (Y or N): Y Callback Number for the clinic to call to verified if fax was received: [employer] # [phone] * Telephone Encounter - Kelly Garcia physicist nuclear - 12/06/2023 1:17 PM EDT Geoff calling back from [employer]. Advised of number to fax form to. Advised to make sure dx code , amount of refills and date it is being signed Thank you, Kelly Garcia Bottle Caser I [facility] ([facility]) 12/06/2023,1:18 PM * Telephone Encounter - Kaden Moreno physicist nuclear - 12/06/2023 1:11 PM EDT Another calling from [employer] about checking to find out if the [...] Before I could get back on with [employer] and give them the fax number, the call was disconnected. If they call back please make sure they fax form to [phone] Thank you, Jordan Moreno, Cosmetics Presser Bottle Caser 1 [facility] ([facility]) (Formerly Telepharmacy) 12/06/2023,1:14 PM * Telephone Encounter - Nirali Murillo PHARM Tech - 12/05/2023 5:27 PM EDT Medical Supply checking status, refaxing as well. Thank you, Nirali Murillo, [facility] Smelter Operator II [facility] ([facility]) 12/05/2023,5:28 PM * Telephone Encounter - Kaden Moreno PHARM Tech - 12/01/2023 2:49 PM EDT Chandler from [employer] is calling for a status check. She will refax form. Thank you, Jordan Moreno Cosmetics Presser Bottle Caser 1 [facility] ([facility]) (Formerly Telepharmacy) 12/01/2023,2:50 PM * Telephone Encounter - Yudy Vail OSA - 11/30/2023 10:29 AM EDT Courtney ([phone]) from [employer] is calling to see if the office received the order for Incontinence supplies. She faxed it 11-23-23 Was it received? If so, can it be signed and faxed back to her at [phone] documented in this encounter Plan of Treatment [...] filedocumented as of this encounter Care Teams Title Closer Relationship Specialty Start Date End Date Mu Lomeli III, MD [address] [place] [address] PCP - General Family Medicine 11/24/20 documented as of this encounter
--- OUTSIDE RECORDS SUMMARY | 2024-01-25 11:35 | External Medical Summary | Summary of Care ---
Author Name Unknown Organization [facility] Address [address] [place] [address] Phone [phone] Care Team Providers Care Bi Analyst Name Role Phone Armani CHRISTIE MD, John E Primary Care Provider [phone] Reason for Visit * Reason Onset Date Comments Order Request 11/10/2023 Encounter Details Date Type Department Care Team (Late st Contact Info) Description 11/10/2023 Telephone Family Practice [facility] 200 [facility] [place] [address] Mu Lomeli III, MD 200 [place] [address] Order Request Allergies No known active allergiesdocumented [...] encounter Miscellaneous Notes * Telephone Encounter - Yury Peraza OSA - 12/08/2023 3:27 PM EDT Patient's daughter has been notified of the message(pt does not speak Turkmen). Patient's daughter has no further questions. * Telephone Encounter - Maricarmen Medley LPN - 11/20/2023 1:55 PM EDT Faxed to [employer]. * Telephone Encounter - Heather Butt MD [...] wish to have their order completed at? [facility] Fax Number, if applicable: N/A Phone- [phone] If the caller is not a current [...] PM EDT Office Visit Neurology [facility] [place] [address] [facility] [address] Bhavana Meadows CRNP [address] [facility] [address] Health Maintenance Due Date Last Done [...] Primary documented in this encounter Care Teams Bi Analyst Relationship Specialty Start Date End Date Mu Lomeli III, MD [address] [place] [address] PCP - General Family Medicine 11/24/20 documented as of this encounter
--- OUTSIDE RECORDS SUMMARY | 2024-01-25 11:35 | External Medical Summary | Summary of Care ---
Author Name Unknown Organization [facility] Address [address] [place] [address] Phone [phone] Care Team Providers Care Die Equipment Operator Name Role Phone Armani CHRISTIE MD, John E Primary Care Provider [phone] Reason for Visit * Reason Onset Date Comments Order Request 12/08/2023 Encounter Details Date Type Department Care Team (Late st Contact Info) Description 12/08/2023 Telephone Family Practice [facility] 200 [facility] [place] [address] Mu Lomeli III, MD 200 [place] [address] Order Request Allergies No known active allergiesdocumented [...] Encounter - Rommel Welch CMA - 12/30/2023 12:36 PM EDT Resolved in other encounter. * Telephone Encounter - Yumiko Newman OSA - 12/29/2023 10:15 AM EDT Reason for patient's call: [facility] to speak with a nurse. Myranda would like to be contacted at [phone]. * Telephone Encounter - Dary Sandoval LPN - 12/11/2023 9:18 AM EDT Myranda from [facility] is calling. Asks that DME for Hospital bed is changed to semi electric hospital bed with mattress and side rails. Office visit note will need addendum stating pt has a cervical fracture and requires frequent changes of body positions. Insurance will not cover digital BP cuff. She will make the pt aware and direct her to an OTC BP cuff. DME and OV note can be faxed to [phone]. Please advise. * Telephone Encounter - Cruz Garvin OSA - 12/08/2023 11:22 AM EDT An order was requested for this patient. Name of Requesting Provider: Patient - Oksana Velazquez Order Requested: Pt needs order for Hospital Bed & Blood Pressure cuff Diagnosis/Reason for Request: N/A If order request is for Mammogram: Is the patient having any breast symptoms? N/A Is there a chance of ? N/A Has the patient had any breast problems in the past? NA What location AND department does the patient wish to have their order completed at? N/A Fax Number, if applicable: N/A Laura from [employer] calling and requesting a call back from a nurse. Patient needs ordersplaced for a Hospital Bed & Blood Pressure Cuff. Laura can be reached at [phone] to discuss. If the caller is not a current patient, please advise the patient to call their current PCP to havethe order's prior to being seen in our office. The patient was informed that our providers would not order anything (medication, labs, etc.) prior to being seen. documented in this encounter Plan of Treatment [...] Primary documented in this encounter Care Teams Die Equipment Operator Relationship Specialty Start Date End Date Mu Lomeli III, MD 200 [place] [address] PCP - General Family Medicine 11/24/20 documented as of this encounter
--- OUTSIDE RECORDS SUMMARY | 2024-01-25 11:35 | External Medical Summary | Summary of Care ---
Author Name Unknown Organization [facility] Address [address] [place] [address] Phone [phone] Care Team Providers Care Lining Parts Sewer Name Role Phone Armani CHRISTIE MD, John E Primary Care Provider [phone] Reason for Visit * Reason Onset Date Comments Home Health 10/23/2023 Encounter Details Date Type Department Care Team (Late st Contact Info) Description 10/23/2023 Telephone Family Practice [facility] 200 [facility] [place] [address] Mu Lomeli III, MD 200 [facility] [place] [address] Home Health Allergies No known active allergiesdocumented as of [...] Telephone Encounter - Venita Smith LPN - 11/09/2023 2:22 PM EDT Faxes received and scanned in to chart starting patient no longer wishes to have an aide or PROFILER OPERATOR services. Will follow up with Dr. Lomeli to see if initial eval form was signed. * Telephone Encounter - Lea Romero MED ASSIST - 11/08/2023 11:[address] Lomeli's nurse regarding this form. * Telephone Encounter - Heather Butt MD - 10/26/2023 2:21 PM EDT Saw patient today. Completed form for waiver program but there is no fax from [facility] in Dr. Lomeli's box yet. * Telephone Encounter - Sushila Youssef LPN - 10/23/2023 2:48 PM EDT HH PT/OT/ST Eval Start of Care/Continuation Diogenes PT, Calling from: [facility] PT Plan of care: 1 times per week for 4 weeks: Focusing on: Gait, balance, therapeutic activity, home exercise program Concerns: no None Symptoms: none Vitals: T 97.8 P 74 RR 18 BP 128/74 SP O2 96% RA Narrative: Family is requesting social work and home health aid. [facility] is faxing orders for signature Advised that additional visit orders will be signed by Mu Lomeli III, MD and to fax to the office for signature * Telephone Encounter - Luz Alegria OSA - 10/23/2023 2:46 PM EDT Reason for patient's call: Diogenes from [facility] Home Health Caller was transferred to Sushila at the nurse line. documented in this [...] filedocumented as of this encounter Care Teams Lining Parts Sewer Relationship Specialty Start Date End Date Mu Lomeli III, MD 200 [facility] [place] [address] PCP - General Family Medicine 11/24/20 documented as of this encounter
--- OUTSIDE RECORDS SUMMARY | 2024-01-25 11:35 | External Medical Summary | Summary of Care ---
Author Name Unknown Organization [facility] Address [address] [place] [address] Phone [phone] Care Team Providers Care Central Office Associate Name Role Phone Armani CHRISTIE MD, John E Primary Care Provider [phone] Reason for Visit * Reason Onset Date Comments Order Request 11/10/2023 Encounter Details Date Type Department Care Team (Late st Contact Info) Description 11/10/2023 Telephone Family Practice [facility] 200 [place] [address] Mu Lomeli III, MD 200 [place] [address] Order Request Allergies No known active allergiesdocumented [...] encounter Miscellaneous Notes * Telephone Encounter - Yudy Ziegler OSA [...] notified of the message(pt does not speak Maltese). Patient's daughter has no further questions. * Telephone Encounter - Maricarmen Medley LPN - 11/20/2023 1:55 PM EDT Faxed to [employer]. * Telephone Encounter - Heather Butt MD [...] wish to have their order completed at? [facility] Fax Number, if applicable: N/A Phone- [phone] If the caller is not a current [...] Primary documented in this encounter Care Teams Central Office Associate Relationship Specialty Start Date End Date Mu Lomeli III, MD 200 [place] [address] PCP - General Family Medicine 11/24/20 documented as of this encounter
--- OUTSIDE RECORDS SUMMARY | 2024-01-25 11:35 | External Medical Summary | Summary of Care ---
Author Name Unknown Organization [facility] Address [address] [place] [address] Phone [phone] Care Team Providers Care Client Technical Specialist Name Role Phone Armani CHRISTIE MD, John E Primary Care Provider [phone] Reason for Visit * Reason Onset Date Comments Advice 11/30/2023 Incontinence sup ply order Encounter Details Date Type Department Care Team (Late st Contact Info) Description 11/30/2023 Telephone Family Practice [facility] 200 [facility] [place] [address] Mu Lomeli III, MD [address] [place] [address] Advice (Incontinence supply order ) Allergies No known active allergiesdocumented as of this encounter (statuses as of 12/06/2023) Medications Medication Sig Dispensed Refills Start Date [...] as of this encounter (statuses as of 12/06/2023) Active Problems Problem Noted Date Diagnosed Date [...] as of this encounter (statuses as of 12/06/2023) Immunizations No known immunizationsdocumented as of this [...] encounter Miscellaneous Notes * Telephone Encounter - Kelly Garcia manager administration - 12/06/2023 1:17 PM EDT Geoff calling back from [employer]. Advised of number to fax form to. Advised to make sure dx code , amount of refills and date it is being signed Thank you, Kelly Garcia Business Continuity Director I [facility] ([facility]) 12/06/2023,1:18 PM * Telephone Encounter - Kaden Moreno manager administration - 12/06/2023 1:11 PM EDT Another calling from [employer] about checking to find out if the [...] Before I could get back on with [employer] and give them the fax number, the call was disconnected. If they call back please make sure they fax form to [phone] Thank you, Jordan Moreno, Teacher Of [employer] Emotionally Dist[employer] Business Continuity Director 1 [facility] Services ([facility]PS) (Formerly Telepharmacy) 12/06/2023,1:14 PM * Telephone Encounter - Nirali Murillo PHARM Tech - 12/05/2023 5:27 PM EDT Medical Supply checking status, refaxing as well. Thank you, Nirali Murillo, [facility] House Admin II [facility] ([facility]) 12/05/2023,5:28 PM * Telephone Encounter - Kaden Moreno PHARM Tech - 12/01/2023 2:49 PM EDT Chandler from [employer] is calling for a status check. She will refax form. Thank you, Jordan Moreno Teacher Of [employer] Emotionally Disturbed Business Continuity Director 1 [facility] ([facility]) (Formerly Telepharmacy) 12/01/2023,2:50 PM * Telephone Encounter - Yudy Vail OSA - 11/30/2023 10:29 AM EDT Courtney ([phone]) from [employer] is calling to see if the office received the order for Incontinence supplies. She faxed it 11-23-23 Was it received? If so, can it be signed and faxed back to her at [phone] documented in this encounter Plan of Treatment Upcoming Encounters Date Type Department Care Team (Late st Contact Info) Description 12/22/2023 3:00 PM EDT Office Visit [facility] [place] [address] Bhavana Meadows CRNP [address] [place] [address] Health Maintenance Due Date Last Done Comments [...] filedocumented as of this encounter Care Teams Client Technical Specialist Relationship Specialty Start Date End Date Mu Lomeli III, MD 200 [facility] [place] [address] PCP - General Family Medicine 11/24/20 documented as of this encounter
--- OUTSIDE RECORDS SUMMARY | 2024-01-25 11:35 | External Medical Summary | Summary of Care ---
Author Name Unknown Organization [facility] Address [address] [place] [address] Phone [phone] Care Team Providers Care Industrial Mechanic Name Role Phone Armani CHRISTIE MD, John E Primary Care Provider [phone] Reason for Visit * Reason Onset Date Comments Order Request 11/10/2023 Encounter Details Date Type Department Care Team (Late st Contact Info) Description 11/10/2023 Telephone Family Practice [facility] 200 [facility] [place] [facility] [place] [address] Mu Lomeli III, MD 200 [place] [address] Order Request Allergies No known active allergiesdocumented [...] notified of the message(pt does not speak Italian). Patient's daughter has no further questions. * [...] wish to have their order completed at? [facility] Fax Number, if applicable: N/A Phone- [phone] If the caller is not a current [...] Primary documented in this encounter Care Teams Industrial Mechanic Relationship Specialty Start Date End Date Mu Lomeli III, MD 200 [facility] [place] [address] PCP - General Family Medicine 11/24/20 documented as of this encounter
--- OUTSIDE RECORDS SUMMARY | 2024-01-25 11:35 | External Medical Summary | Summary of Care ---
Author Name Unknown Organization [facility] Address [address] [place] [address] Phone [phone] Care Team Providers Care Car Cleaner Name Role Phone Armani CHRISTIE MD, John E Primary Care Provider [phone] Reason for Visit * Reason Onset Date Comments Advice 11/30/2023 Incontinence sup ply order Encounter Details Date Type Department Care Team (Late st Contact Info) Description 11/30/2023 Telephone Family Practice [facility] 200 [facility] [place] [address] Mu Lomeli III, MD 200 [place] [address] Advice (Incontinence supply order ) Allergies No [...] Notes * Telephone Encounter - Kaden Moreno events specialist - 12/06/2023 1:11 PM EDT Another calling from [employer] about checking to find out if [...] Before I could get back on with [employer] and give them the fax number, the call was disconnected. If they call back please make sure they fax form to [phone] Thank you, Jordan Moreno, Die Press Operator Traffic Signal Repairer 1 [facility] ([facility]) (Formerly Telepharmacy) 12/06/2023,1:14 PM * Telephone Encounter - Nirali Murillo events specialist - 12/05/2023 5:27 PM EDT Medical Supply checking status, refaxing as well. Thank you, Nirali Murillo, [facility] Corrosion Control Engineer II [facility] Clin[facility] Pharm[facility] Services ([facility]) 12/05/2023,5:28 PM * Telephone Encounter - Kaden Moreno PHARM Tech - 12/01/2023 2:49 PM EDT Chandler from [employer] is calling for a status check. She will refax form. Thank you, Jordan Moreno, Die Press Operator Traffic Signal Repairer 1 [facility] ([facility]) (Formerly Telepharmacy) 12/01/2023,2:50 PM * Telephone Encounter - Yudy Vail OSA - 11/30/2023 10:29 AM EDT Courtney ([phone]) from [employer] is calling to see if the office received the order for Incontinence supplies. She faxed it 11-23-23 Was it received? If so, can it be signed and faxed back to her at [phone] documented in this encounter Plan of Treatment Upcoming Encounters Date Type Department Care Team (Late st Contact Info) Description 12/22/2023 3:00 PM EDT Office Visit Neurology Angela Sams [place] 200 [place] [address] Bhavana Meadows CRNP [address] [facility] [address] Health Maintenance Due Date Last Done [...] filedocumented as of this encounter Care Teams Car Cleaner Relationship Specialty Start Date End Date Mu Lomeli III, MD 200 [facility] [place] [address] PCP - General Family Medicine 11/24/20 documented as of this encounter
--- OUTSIDE RECORDS SUMMARY | 2024-01-25 11:35 | External Medical Summary | Summary of Care ---
Author Name Unknown Organization [facility] Address [address] [place] [address] Phone [phone] Care Team Providers Care Survey Questionnaire Designer Name Role Phone Armani CHRISTIE MD, John E Primary Care Provider [phone] Reason for Visit * Reason Onset Date Comments Follow Up 01/01/2024 Encounter Details Date Type Department Care Team (Late st Contact Info) Description 01/01/2024 Telephone Family Practice [facility] 200 [facility] [place] [address] Mu Lomeli III, MD 200 [facility] [place] [address] Follow Up Allergies No known active allergiesdocumented [...] additional addendum to note. Forms returned to [facility]. * Telephone Encounter - Malathi Avila LPN [...] Primary documented in this encounter Care Teams Survey Questionnaire Designer Relationship Specialty Start Date End Date Mu Lomeli III, MD [address] [place] [address] PCP - General Family Medicine 11/24/20 documented as of this encounter
--- OUTSIDE RECORDS SUMMARY | 2024-01-25 11:35 | External Medical Summary | Summary of Care ---
Author Name Unknown Organization [facility] Address [address] [place] [address] Phone [phone] Care Team Providers Care Emergency Medicine Name Role Phone Armani CHRISTIE MD, John E Primary Care Provider [phone] Reason for Visit * Reason Onset Date Comments Fax 12/15/2023 Encounter Details Date Type Department Care Team (Late st Contact Info) Description 12/15/2023 Telephone Family Practice [facility] 200 [facility] [place] [address] Mu Lomeli III, MD 200 [place] [address] Fax Allergies No known active allergiesdocumented as [...] encounter Miscellaneous Notes * Telephone Encounter - Leigh Ann Vizcarra OSA - 01/03/2024 1:21 PM EST [employer] asking if forms can be re-faxed to [phone] or [phone] * Telephone Encounter - Malathi Avila LPN - 12/26/2023 11:17 AM EDT Form was received. Signed & faxed * Telephone Encounter - Ekaterina Dupree OSA - 12/25/2023 10:20 AM EDT Received a call asking if fax was received by office. Name/Company sending fax: Courtney from [employer]. What fax is pertaining to: Prescription of medical supplies Date(s) they sent request: 12/18/23,12/15/23,12/08/23,12/06/23 Verified fax number they are sending to is correct (Y or N): [phone] Callback Number for the clinic to call to verified if fax was received: [phone] * Telephone Encounter - Elizabeth Lopes OSA - 12/22/2023 2:03 PM EDT Patient calling in to check on the status of previous message. Patient Called after 48 hour timeframe and escalation e-mail was sent to clinic leadership. * Telephone Encounter - Rc Walter OSA - 12/18/2023 2:51 PM EDT Courtney from [employer] calling. They faxed this over again on 12/07. Was it received? She is going to fax over again. Please have provider fill out diagnosis code, number of refills, and signature and send back to [phone]. * Telephone Encounter - Yumiko Newman OSA - 12/15/2023 9:30 AM EDT Received a call asking if fax was received by office. Name/Company sending fax: [employer] What fax is pertaining to: Prescription request form. Date(s) they sent request: 11/23/23 and 12/15/23. Verified fax number they are sending to is correct (Y or N): Yes Callback Number for the clinic to call to verified if fax was received: [phone] documented in this encounter Plan of Treatment [...] filedocumented as of this encounter Care Teams Emergency Medicine Relationship Specialty Start Date End Date Mu Lomeli III, MD [address] [place] [address] PCP - General Family Medicine 11/24/20 documented as of this encounter
--- OUTSIDE RECORDS SUMMARY | 2024-01-25 11:35 | External Medical Summary | Summary of Care ---
Author Name Unknown Organization [facility] Address [address] [place] [address] Phone [phone] Care Team Providers Care Sales Consultant Residential Manager Name Role Phone Armani CHRISTIE MD, John E Primary Care Provider +1 [phone] Reason for Visit * Reason Onset Date Comments Advice 11/30/2023 Incontinence sup ply order Encounter Details Date Type Department Care Team (Late st Contact Info) Description 11/30/2023 Telephone Family Practice [facility] [address] [facility] [place] [address] Mu Lomeli III, MD [address] [place] [address] Advice (Incontinence supply order ) Allergies No known active allergiesdocumented as of this encounter (statuses as of 12/05/2023) Medications Medication Sig Dispensed Refills Start Date [...] as of this encounter (statuses as of 12/05/2023) Active Problems Problem Noted Date Diagnosed Date [...] as of this encounter (statuses as of 12/05/2023) Immunizations No known immunizationsdocumented as of this [...] encounter Miscellaneous Notes * Telephone Encounter - Nirali Murillo PHARM Tech - 12/05/2023 5:27 PM EDT Medical Supply checking status, refaxing as well. Thank you, Nirali Murillo [facility] Burn Table Operator II [facility] ([facility]) 12/05/2023,5:28 PM * Telephone Encounter - Kaden Moreno k 12 school professional - 12/01/2023 2:49 PM EDT Chandler from [facility] [employer] is calling for a status check. She will refax form. Thank you, Jordan Moreno, Steamfitter [employer] Ticket Sales 1 [facility] ([facility]) (Formerly Telepharmacy) 12/01/2023,2:50 PM * Telephone Encounter - Yudy Vail OSA - 11/30/2023 10:29 AM EDT Courtney ([phone]) from [facility] [employer] is calling to see if the office received the order for Incontinence supplies. She faxed it 11-23-23 Was it received? If so, can it be signed and faxed back to her at [phone] documented in this encounter Plan of Treatment Upcoming Encounters Date Type Department Care Team (Late st Contact Info) Description 12/22/2023 3:00 PM EDT Office Visit [facility] [address] [facility] [place] [address] Bhavana Meadows CRNP [address] [place] [address] Health Maintenance Due Date Last [...] filedocumented as of this encounter Care Teams Sales Consultant Residential Manager Relationship Specialty Start Date End Date Mu Lomeli III, MD [address] [facility] [place] [address] PCP - General Family Medicine 9/28/21 documented as of this encounter
--- OUTSIDE RECORDS SUMMARY | 2024-01-25 11:35 | External Medical Summary | Summary of Care ---
Author Name Unknown Organization [facility] Address [address] [place] [address] Phone [phone] Care Team Providers Care Metal Lather Name Role Phone Armani CHRISTIE MD, John E Primary Care Provider [phone] Reason for Visit * Reason Onset Date Comments Advice 12/11/2023 Encounter Details Date Type Department Care Team (Late st Contact Info) Description 12/11/2023 Telephone Family Practice [facility] 200 [place] [address] Mu Lomeli III, MD 200 [place] [address] Advice Allergies No known active allergiesdocumented as of this encounter (statuses as of 12/11/2023) Medications Medication Sig Dispensed Refills Start Date [...] as of this encounter (statuses as of 12/11/2023) Active Problems Problem Noted Date Diagnosed Date [...] as of this encounter (statuses as of 12/11/2023) Immunizations No known immunizationsdocumented as of this [...] EDT Reason for patient's call: Myranda from [facility] is calling in to speak to a nurse about pt telephone order clerk was transferred to [facility] at the nurse line. documented in this encounter Plan of Treatment Upcoming Encounters Date Type Department Care Team (Late st Contact Info) Description 12/22/2023 3:00 PM EDT Office Visit Neurology [facility] [place] [address] [place] [address] Bhavana Meadows CRNP [address] [place] [address] Health Maintenance Due Date Last Done Comments [...] filedocumented as of this encounter Care Teams Metal Lather Relationship Specialty Start Date End Date Mu Lomeli III, MD [address] [place], [place] [address] PCP - General Family Medicine 11/24/20 documented as of this encounter
--- OUTSIDE RECORDS SUMMARY | 2024-01-25 11:35 | External Medical Summary | Summary of Care ---
Author Name Unknown Organization [facility] Address [address] [place] [address] Phone [phone] Care Team Providers Care Credit Administration Officer Name Role Phone Armani CHRISTIE MD, John E Primary Care Provider [phone] Reason for Visit * Reason Onset Date Comments Advice 11/30/2023 Incontinence sup ply order Encounter Details Date Type Department Care Team (Late st Contact Info) Description 11/30/2023 Telephone Family Practice [facility] 200 [facility] [place] [address] Mu Lomeli III, MD [address] [place] [address] Advice (Incontinence supply order ) Allergies No [...] female 03/23/2023 Food insecurity 02/06/2023 Overview: Per [facility] Protocol History of 2019 novel [...] fax they keep faxingover Called over to [facility] to get check on status and nurse [...] Please advise. Thank you, Sushila Kirkpatrick CPhT Central Supply Manager III [facility] ([facility]) 12/13/2023, 2:40 PM * Telephone Encounter - Sushila Mabry OSA - 12/08/2023 2:28 PM EDT Received a call asking if fax was received by office. Name/Company sending fax: Radha from [employer] What fax is pertaining to: Order Req for Incontinence Supplies - Needs to have dx code, amount of refills, date and signature. Date(s) they sent request: 12/06/23 and again today to Verified fax number they are sending to is correct (Y or N): Y Callback Number for the clinic to call to verified if fax was received: [employer] * Telephone Encounter - Kelly Garcia die sinker - 12/06/2023 1:17 PM EDT Geoff calling back from [employer]. Advised of number to fax form to. Advised to make sure dx code , amount of refills and date it is being signed Thank you, Kelly Garcia [employer] [facility] ([facility]) 12/06/2023,1:18 PM * Telephone Encounter - Kaden Moreno die sinker - 12/06/2023 1:11 PM EDT Another calling from [facility] about checking to find out if the [...] please make sure they fax form to [phone] Thank you, Jordan Moreno, Resourcing Advisor [employer] [facility] ([facility]) (Formerly Telepharmacy) 12/06/2023,1:14 PM * Telephone Encounter - Nirali Murillo PHARM Tech - 12/05/2023 5:27 PM EDT Medical Supply checking status, refaxing as well. Thank you, Nirali Murillo [facility] Central Supply Manager II [facility] ([facility]) 12/05/2023,5:28 PM * Telephone Encounter - Kaden Moreno PHARM Tech - 12/01/2023 2:49 PM EDT Chandler from [employer] is calling for a status check. She will refax form. Thank you, Jordan Moreno Resourcing Advisor [employer] [facility] ([facility]) (Formerly Telepharmacy) 12/01/2023,2:50 PM * Telephone Encounter - Yudy Vail OSA - 11/30/2023 10:29 AM EDT Courtney ([phone]) from [employer] is calling to see if the office received the order for Incontinence supplies. She faxed it 11-23-23 Was it received? If so, can it be signed and faxed back to her at [phone] documented in this encounter Plan of Treatment [...] filedocumented as of this encounter Care Teams Credit Administration Officer Relationship Specialty Start Date End Date Mu Lomeli III, MD 200 [place] [address] PCP - General Family Medicine 11/24/20 documented as of this encounter
--- OUTSIDE RECORDS SUMMARY | 2024-01-25 11:36 | External Medical Summary | Summary of Care ---
Author Name Unknown Organization [facility] Address [address] [place] [address] Phone [phone] Care Team Providers Care Bread Pan Greaser Name Role Phone Armani CHRISTIE MD, John E Primary Care Provider [phone] Reason for Visit * Reason Onset Date Comments Home Health 10/23/2023 Encounter Details Date Type Department Care Team (Late st Contact Info) Description 10/23/2023 Telephone Family Practice [facility] [address] [facility] [place] [address] Mu Lomeli III, MD [address] [facility] [place] [address] Home Health Allergies No known active allergiesdocumented as of this encounter (statuses as of 11/08/2023) Medications Medication Sig Dispensed Refills Start Date [...] as of this encounter (statuses as of 11/08/2023) Active Problems Problem Noted Date Diagnosed Date [...] as of this encounter (statuses as of 11/08/2023) Immunizations No known immunizationsdocumented as of this [...] encounter Miscellaneous Notes * Telephone Encounter - Lea Romero, MED ASSIST - 11/08/2023 11:[address] Lomeli's nurse regarding this form. * Telephone Encounter - Heather Butt MD - 10/26/2023 2:21 PM EDT Saw patient today. Completed form for waiver program but there is no fax from [facility] in Dr. Lomeli's box yet. * Telephone Encounter - Sushila Youssef LPN - 10/23/2023 2:48 PM EDT HH PT/OT/ST Eval Start of Care/Continuation Diogenes PT, Calling from: [facility] PT Plan of care: 1 times per [...] EDT Reason for patient's call: Diogenes from [facility] Home Health Caller was transferred to Sushila at the nurse line. documented in this encounter Plan of Treatment Upcoming Encounters Date Type Department Care Team (Late st Contact Info) Description 12/22/2023 3:00 PM EDT Office Visit Neurology [facility] [address] [place] [address] Bhavana Meadows CRNP [address] [place] [address] Health Maintenance Due Date Last Done Comments DXA Scan 1935 DTap/Tdap Vaccines (1 - Tdap) 1956 Zoster Vaccines (1 of 2) 09/14/1987 Pneumococcal Vaccine: 65+ Ye ars (1 of 1 - PCV) 2002 Adult Wellness Visit 09/14/2003 Depression Screening 03/06/2018 03/06/2017 COVID-19 Vaccine (1 - 2022-2 4 season) 2023 Influenza Vaccine (FLU shot) (#1) [...] filedocumented as of this encounter Care Teams Bread Pan Greaser Relationship Specialty Start Date End Date Swain PRATIK, Mu Valles MD 200 [place] [address] PCP - General Family Medicine 11/24/20 documented as of this encounter
--- OUTSIDE RECORDS SUMMARY | 2024-01-25 11:36 | External Medical Summary | Summary of Care ---
Author Name Unknown Organization [facility] Address [address] [place] [address] Phone [phone] Care Team Providers Care Senior Technical Recruiter Name Role Phone Armani CHRISTIE MD, Mu Valles Primary Care Provider [phone] Reason for Visit * Reason Comments Hospital Follow-Up D/C from [facility] Encounter Details Date Type Department Care Team (Latest Contact Info) Description 10/26/2023 1:40 PM EDT Office Visit [facility] 200 [facility] [place] [address] Heather Butt MD [address] [facility] [place] [address] Hospital discharge follow-up*; Closed head injury, sequela; Closed nondisplaced fracture of second cervical vertebra, unspecified fracture morphology, sequela; Gait difficulty; Female stress incontinence; Primary osteoarthritis of right knee Allergies No known active allergiesdocumented as of this encounter (statuses as of 11/17/2023) Medications Medication Sig Dispensed Refills Start Date [...] as of this encounter (statuses as of 11/17/2023) Active Problems Problem Noted Date Diagnosed Date [...] as of this encounter (statuses as of 11/17/2023) Immunizations No known immunizationsdocumented as of this [...] Progress Notes * Heather Butt MD - 11/17/2023 8:36 AM EDT ADDENDUM: Patient requesting DME order for hospital bed. Due to cervical collar, needs positioning in ways not feasible in an ordinary bed to alleviate pain. * Heather Butt MD - 10/26/2023 1:56 PM EDT Subjective Chief Complaint Patient presents with Hospital Follow-Up D/C from [facility] HPI: Oksana Velazquez is a 88 year old female. The following issues were addressed today: Date of admission: 09/03/23 Date of discharge: 09/06/23 Hospital course: Patient is an 87-year-old female with hypertension, legally blind in the right eye, history of memory and hearing loss, primary osteoarthritis of right knee, and stress incontinence who presented to the [facility] ER after a fall at home. CT [...] for bathing only. She was discharged to [facility]. Tests/studies pending at time of discharge: None [...] presents for follow up on D/C from [facility]. Medications & HM reviewed. Discuss her neck working on getting home health documented in this encounter Plan of Treatment Upcoming Encounters Date Type Department Care Team (Late st Contact Info) Description 12/22/2023 3:00 PM EDT Office Visit [facility]rology [facility] [place] [facility] [address] Bhavana Meadows CRNP [address] [facility] [address] Health Maintenance Due Date Last [...] leg documented in this encounter Care Teams Senior Technical Recruiter Relationship Specialty Start Date End Date Mu Lomeli III, MD [address] [facility] [place] [address] PCP - General Family Medicine 11/24/20 documented as of this encounter"
--- OUTSIDE RECORDS SUMMARY | 2024-01-25 11:36 | External Medical Summary | Summary of Care ---
Author Name Unknown Organization [facility] Address [address] [place] [address] Phone [phone] Care Team Providers Care Product Development Manager Name Role Phone Armani CHRISTIE MD, John E Primary Care Provider [phone] Reason for Visit * Reason Onset Date Comments Home Health 10/23/2023 Encounter Details Date Type Department Care Team (Late st Contact Info) Description 10/23/2023 Telephone Family Practice [facility] 200 [facility] [place] [address] Mu Lomeli III, MD [address] [facility] [place] [place] [address] Home Health Allergies No known active allergiesdocumented as of this encounter (statuses as of 10/23/2023) Medications Medication Sig Dispensed Refills Start Date [...] as of this encounter (statuses as of 10/23/2023) Active Problems Problem Noted Date Diagnosed Date [...] as of this encounter (statuses as of 10/23/2023) Immunizations No known immunizationsdocumented as of this [...] Miscellaneous Notes * Telephone Encounter - Sushila Youssef LPN - 10/23/2023 2:48 PM EDT HH PT/OT/ST Eval Start of Care/Continuation Diogenes PT, Calling from: [facility] PT Plan of care: 1 times [...] EDT Reason for patient's call: Diogenes from [facility] Home Health Caller was transferred to Sushila at the nurse line. documented in this encounter Plan of Treatment Upcoming Encounters Date Type Department Care Team (Late st Contact Info) Description 10/26/2023 1:40 PM EDT Office Visit Family Practice [facility] [address] [place] [address] Heather Butt MD 200 [facility] [place] [address] 12/22/2023 3:00 PM EDT Office Visit Neurology [facility] [address] [place] [address] Bhavana Meadows CRNP [address] [place] [address] Health Maintenance Due Date Last Done Comments DXA Scan 1937 DTaP,Tdap,and Td Vaccines (1 - Tdap) 1956 Zoster Vaccines (1 of 2) 09/14/1987 Pneumococcal Vaccine: 65+ Ye ars (1 of 1 - PCV) 2002 Adult Wellness Visit 09/14/2003 Depression Screening 03/06/2018 03/06/2017 COVID-19 Vaccine ( - 2022-2 4 season) 2022 Influenza Vaccine (FLU shot) (#1) 2023 Albumin/Creatinine [...] filedocumented as of this encounter Care Teams Product Development Manager Relationship Specialty Start Date End Date Mu Lomeli III, MD [address] [facility] [place] [address] PCP - General Family Medicine 11/24/20 documented as of this encounter
--- OUTSIDE RECORDS SUMMARY | 2024-01-25 11:36 | External Medical Summary | Summary of Care ---
Author Name Unknown Organization [facility] Address [address] [place] [address] Phone [phone] Care Team Providers Care Molecular Pathologist Name Role Phone Armani CHRISTIE MD, John E Primary Care Provider [phone] Reason for Visit * Reason Onset Date Comments Order Request 11/10/2023 Encounter Details Date Type Department Care Team (Late st Contact Info) Description 11/10/2023 Telephone Family Practice [facility] 200 [facility] [place] [address] Mu Lomeli III, MD [address] [place] [address] Order Request Allergies No known active allergiesdocumented [...] wish to have their order completed at? [facility] Fax Number, if applicable: N/A Phone- [phone] If the caller is not a current [...] 12/22/2023 3:00 PM EDT Office Visit Neurology [facility] [address] [place] [address] Bhavana Meadows CRNP [address] [place] [address] Health Maintenance Due Date Last [...] Primary documented in this encounter Care Teams Molecular Pathologist Relationship Specialty Start Date End Date Mu Lomeli III, MD [address] [facility] [place] [address] PCP - General Family Medicine 11/24/20 documented as of this encounter
--- OUTSIDE RECORDS SUMMARY | 2024-01-25 11:36 | External Medical Summary | Summary of Care ---
Author Name Unknown Organization [facility] Address [address] [place] [address] Phone [phone] Care Team Providers Care 411 Directory Assistance Operator Name Role Phone Armani CHRISTIE MD, John E Primary Care Provider [phone] Reason for Visit * Reason Onset Date Comments Order Request 11/10/2023 Encounter Details Date Type Department Care Team (Late st Contact Info) Description 11/10/[address] [facility] 200 [facility] [place] [address] Mu Lomeli III, MD 200 [facility] [place] [address] Order Request Allergies No known active allergiesdocumented as of this encounter (statuses as of 11/20/2023) Medications Medication Sig Dispensed Refills Start Date [...] as of this encounter (statuses as of 11/20/2023) Active Problems Problem Noted Date Diagnosed Date [...] as of this encounter (statuses as of 11/20/2023) Immunizations No known immunizationsdocumented as of this [...] wish to have their order completed at? [facility] Fax Number, if applicable: N/A Phone- [phone] If the caller is not a current [...] 3:00 PM EDT Office Visit Neurology [facility] [address] [place] [address] Bhavana Meadows CRNP [address] [place] [address] Health Maintenance Due Date Last [...] Primary documented in this encounter Care Teams 411 Directory Assistance Operator Relationship Specialty Start Date End Date Mu Lomeli III, MD 200 [facility] [place] [address] PCP - General Family Medicine 11/24/20 documented as of this encounter
--- OUTSIDE RECORDS SUMMARY | 2024-01-25 11:36 | External Medical Summary | Summary of Care ---
Author Name Unknown Organization [facility] Address [address] [place] [address] Phone [phone] Care Team Providers Care Continuous Dryout Operator Helper Name Role Phone Armani CHRISTIE MD, John E Primary Care Provider [phone] Reason for Visit * Reason Onset Date Comments Home Health 10/23/2023 Encounter Details Date Type Department Care Team (Late st Contact Info) Description 10/23/2023 Telephone Family Practice [facility] 200 [facility] [place] [address] Mu Lomeli III, MD [address] [facility] [place] [address] Home Health Allergies No known active allergiesdocumented as of this encounter (statuses as of 11/09/2023) Medications Medication Sig Dispensed Refills Start Date [...] as of this encounter (statuses as of 11/09/2023) Active Problems Problem Noted Date Diagnosed Date [...] as of this encounter (statuses as of 11/09/2023) Immunizations No known immunizationsdocumented as of this [...] longer wishes to have an aide or HOME ORGANIZER services. Will follow up with Dr. Lomeli to see if initial eval form was signed. * Telephone Encounter - Lea Romero MED ASSIST - 11/08/2023 11:[address] Lomeli's nurse regarding this form. * Telephone Encounter - Heather Butt MD - 10/26/2023 2:21 PM EDT Saw patient today. Completed form for waiver program but there is no fax from [facility] in Dr. Lomeli's box yet. * Telephone Encounter - Sushila Youssef LPN - 10/23/2023 2:48 PM EDT HH PT/OT/ST Eval Start of Care/Continuation Diogenes PT, Calling from: [facility] PT Plan of care: 1 times [...] EDT Reason for patient's call: Diogenes from [facility] Home Health Caller was transferred to Sushila at the nurse line. documented in this encounter Plan of Treatment Upcoming Encounters Date Type Department Care Team (Late st Contact Info) Description 12/22/2023 3:00 PM EDT Office Visit Neurology [facility] 200 [place] [address] Bhavana Meadows CRNP [address] [place] [address] Health Maintenance Due Date Last Done Comments DXA Scan 1937 DTap/Tdap Vaccines (1 - Tdap) 1956 Zoster Vaccines (1 of 2) 09/14/1987 Pneumococcal Vaccine: 65+ Ye ars (1 of 1 - PCV) 2002 Adult Wellness Visit 09/14/2003 Depression Screening 03/06/2018 03/06/2017 COVID-19 Vaccine ( - 2024-2 5 season) 2023 Influenza Vaccine (FLU shot) [...] filedocumented as of this encounter Care Teams Continuous Dryout Operator Helper Relationship Specialty Start Date End Date Mu Lomeli III, MD 200 [facility] [place] [address] PCP - General Family Medicine 11/24/20 documented as of this encounter
--- OUTSIDE RECORDS SUMMARY | 2024-01-25 11:36 | External Medical Summary | Summary of Care ---
Author Name Unknown Organization [facility] Address [address] [place] [address] Phone [phone] Care Team Providers Care Stock Holder Name Role Phone Armani HCRISTIE MD, John E Primary Care Provider [phone] Reason for Visit * Reason Onset Date Comments Advice 11/30/2023 Incontinence sup ply order Encounter Details Date Type Department Care Team (Late st Contact Info) Description 11/30/2023 Telephone Family Practice [facility] 200 [facility] [place] [address] Mu Lomeli III, MD 200 [place] [address] Advice (Incontinence supply order ) Allergies No known active allergiesdocumented as of this encounter (statuses as of 11/30/2023) Medications Medication Sig Dispensed Refills Start Date [...] as of this encounter (statuses as of 11/30/2023) Active Problems Problem Noted Date Diagnosed Date [...] as of this encounter (statuses as of 11/30/2023) Immunizations No known immunizationsdocumented as of this [...] Miscellaneous Notes * Telephone Encounter - Yudy Vail OSA - 11/30/2023 10:29 AM EDT Courtney ([phone]) from [email or web address] is calling to see if the office received the order for Incontinence supplies. She faxed it 11-23-23 Was it received? If so, can it be signed and faxed back to her at [phone] documented in this encounter Plan of Treatment Upcoming Encounters Date Type Department Care Team (Late st Contact Info) Description 12/22/2023 3:00 PM EDT Office [facility] [place] [address] [facility] [address] Bhavana Meadows CRNP [address] [place] [address] Health Maintenance Due Date Last [...] filedocumented as of this encounter Care Teams Stock Holder Relationship Specialty Start Date End Date Mu Lomeli III, MD [address] [place] [address] PCP - General Family Medicine 11/24/20 documented as of this encounter
--- OUTSIDE RECORDS SUMMARY | 2024-01-25 11:36 | External Medical Summary | Summary of Care ---
Author Name Unknown Organization [facility] Address [address] [place] [address] Phone [phone] Care Team Providers Care Sprayer Automatic Spray Machine Name Role Phone Armani CHRISTIE MD, Mu Valles Primary Care Provider [phone] Reason for Visit * Reason Onset Date Comments MyCode Nonconsent - Language Barrier 10/26/2023 Encounter Details Date Type Department Care Team (Late st Contact Info) Description 10/26/2023 Orders Only Outcomes Research Department [address] [place] [address] Tigre Gonzales CHRA MyCode Nonconsent Documentation Allergies No known active allergiesdocumented as of this encounter (statuses as of 10/26/2023) Medications Medication Sig Dispensed Refills Start Date [...] as of this encounter (statuses as of 10/26/2023) Active Problems Problem Noted Date Diagnosed Date [...] as of this encounter (statuses as of 10/26/2023) Immunizations No known immunizationsdocumented as of this [...] on file documented as of this encounter Progress Notes * Tigre Gonzales CHRA - 10/26/2023 3:07 PM EDT MyCode Nonconsent Documentation Oksana Velazquez was approached in the clinic regarding participation in the MyCode Project and did not consent. documented in this encounter Plan of Treatment Upcoming Encounters Date Type Department Care Team (Late st Contact Info) Description 12/22/2023 3:00 PM EDT Office Visit Neurology [facility] [place] [address] [place] [address] Bhavana Meadows CRNP [address] [place] [address] Health Maintenance Due Date Last [...] filedocumented as of this encounter Care Teams Sprayer Automatic Spray Machine Relationship Specialty Start Date End Date Mu Lomeli III, MD [address] [place] [address] PCP - General Family Medicine 11/24/20 documented as of this encounter
--- OUTSIDE RECORDS SUMMARY | 2024-01-25 11:36 | External Medical Summary | Summary of Care ---
Author Name Unknown Organization [facility] Address [address] [place] [address] Phone [phone] Care Team Providers Care Cabinetmaker Supervisor Name Role Phone Armani CHRISTIE MD, John E Primary Care Provider [phone] Reason for Visit * Reason Onset Date Comments Order Request 11/10/2023 Encounter Details Date Type Department Care Team (Late st Contact Info) Description 11/10/2023 Telephone Family Practice [facility] 200 [facility] [place] [address] Mu Lomeli III, MD 200 [facility] [place] [address] Order Request Allergies No known active allergiesdocumented [...] to have their order completed at? [facility] Fax Number, if applicable: N/A Phone- [phone] If the caller is not a current [...] 12/22/2023 3:00 PM EDT Office Visit Neurology [facility] [address] [place] [address] Bhavana Meadows CRNP [address] [place] [address] Health Maintenance Due Date Last [...] Primary documented in this encounter Care Teams Cabinetmaker Supervisor Relationship Specialty Start Date End Date Mu Lomlei III, MD 200 [facility] [place] [address] PCP - General Family Medicine 11/24/20 documented as of this encounter
--- OUTSIDE RECORDS SUMMARY | 2024-01-25 11:36 | External Medical Summary | Summary of Care ---
Author Name Unknown Organization [facility] Address [address] [place] [address] Phone [phone] Care Team Providers Care Lead Software Engineer Name Role Phone Armani CHRISTIE MD, John E Primary Care Provider [phone] Reason for Visit * Reason Onset Date Comments Home Health 11/09/2023 Encounter Details Date Type Department Care Team (Late st Contact Info) Description 11/09/2023 Telephone Family Practice [facility] 200 [place] [address] Mu Lomeli III, MD [address] [place] [address] Home Health Allergies No known active allergiesdocumented [...] Telephone Encounter - Sushila Youssef LPN - 11/09/2023 10:49 AM EDT [facility]kel PT calling from [facility]. Patient cancelled appt for today, he said there is a language barrier and they mentioned something about a bill in the mail. He stated that he is planning for 2 more visit next week and then discharging. Faxing order for signature. documented in this encounter Plan of Treatment Upcoming Encounters Date Type Department Care Team (Late st Contact Info) Description 12/22/2023 3:00 PM EDT Office Visit Neurology [facility] [place] 200 [place] [address] Bhavana Meadows CRNP [address] [place] [address] Health Maintenance Due Date Last [...] filedocumented as of this encounter Care Teams Lead Software Engineer Relationship Specialty Start Date End Date Mu Lomeli III, MD [address] [place] [address] PCP - General Family Medicine 11/24/20 documented as of this encounter
--- OUTSIDE RECORDS SUMMARY | 2024-01-25 11:36 | External Medical Summary | Summary of Care ---
Author Name Unknown Organization [facility] Address [address] [place] [address] Phone [phone] Care Team Providers Care Doctor Podiatric Medicine Name Role Phone Armani CHRISTIE MD, Mu Valles Primary Care Provider [phone] Reason for Visit * Reason Comments Hospital Follow-Up D/C from [facility] Encounter Details Date Type Department Care Team (Latest Contact Info) Description 10/26/2023 1:40 PM EDT Office Visit Family [facility] 200 [facility] [place] [address] Heather Butt MD [address] [facility] [place] [address] Hospital discharge follow-up*; Closed head injury, sequela; Closed nondisplaced fracture of second cervical vertebra, unspecified fracture morphology, sequela; Gait difficulty; Female stress incontinence; Primary osteoarthritis of right knee Allergies No known active allergiesdocumented as of this encounter (statuses as of 11/03/2023) Medications Medication Sig Dispensed Refills Start Date [...] as of this encounter (statuses as of 11/03/2023) Active Problems Problem Noted Date Diagnosed Date [...] as of this encounter (statuses as of 11/03/2023) Immunizations No known immunizationsdocumented as of this [...] Progress Notes * Heather Butt MD - 10/26/2023 1:56 PM EDT Subjective Chief Complaint Patient presents with Hospital Follow-Up D/C from [facility] HPI: Oksana Velazquez is a 88 year old female. The following issues were addressed today: Date of admission: 09/03/23 Date of discharge: 09/06/23 Hospital course: Patient is an 87-year-old female with hypertension, legally blind in the right eye, history of memory and hearing loss, primary osteoarthritis of right knee, and stress incontinence who presented to the [facility] after a fall at home. CT [...] for bathing only. She was discharged to [facility]. Tests/studies pending at time of discharge: None [...] presents for follow up on D/C from [facility]. Medications & HM reviewed. Discuss her neck working on getting home health documented in this encounter Plan of Treatment Upcoming Encounters Date Type Department Care Team (Late st Contact Info) Description 12/22/2023 3:00 PM EDT Office Visit Neurology [facility] [address] [place] [address] Bhavana Meadows CRNP [address] [place] [address] Health Maintenance Due Date Last [...] leg documented in this encounter Care Teams Doctor Podiatric Medicine Relationship Specialty Start Date End Date Mu Lomeli III, MD 200 [place] [place] [address] PCP - General Family Medicine 11/24/20 documented as of this encounter"
--- OUTSIDE RECORDS SUMMARY | 2024-01-25 11:36 | External Medical Summary | Summary of Care ---
Author Name Unknown Organization [facility] Address [address] [place] [address] Phone [phone] Care Team Providers Care Chlorine Operator Name Role Phone Armani CHRISTIE MD, John E Primary Care Provider [phone] Reason for Visit * Reason Onset Date Comments Home Health 10/19/2023 Encounter Details Date Type Department Care Team (Late st Contact Info) Description 10/19/2023 Telephone Family Practice [facility] 200 [facility] [place] [address] Mu Lomeli III, MD [address] [facility] [place] [address] Home Health Allergies No known active allergiesdocumented as of this encounter (statuses as of 10/19/2023) Medications Medication Sig Dispensed Refills Start Date [...] as of this encounter (statuses as of 10/19/2023) Active Problems Problem Noted Date Diagnosed Date [...] as of this encounter (statuses as of 10/19/2023) Immunizations No known immunizationsdocumented as of this [...] Telephone Encounter - Sushila Youssef LPN - 10/19/2023 1:14 PM EDT HH PT/OT/ST [place] Start of Care/Continuation Mykel PT, Calling from: [facility] PT Plan of care: 1 times per week for 4 weeks: Focusing on: Gait, balance, therapeutic activity, home exercise program Concerns: no None Symptoms: none Vitals: T 98.2 P 72 RR 18 BP 138/60 sitting, left 132/60 standing, left SP O2 94% RA Lung sounds Clear Narrative: Scheduled Hospital Discharge appt with Dr. Butt 10/25 at 1:40pm. Advised that additional visit orders will be signed by Mu Lomeli III, MD and to fax to the office for signature documented in this encounter Plan of Treatment Upcoming Encounters Date Type Department Care Team (Late st Contact Info) Description 10/26/2023 1:40 PM EDT Office Visit [facility] [place] [address] [place] [address] Heather Butt MD [address] [place] [address] 12/22/2023 3:00 PM EDT Office Visit Neurology [facility] [place] [address] [place] [address] Bhavana Meadows CRNP [address] [place] [address] Health Maintenance Due Date Last Done Comments [...] filedocumented as of this encounter Care Teams Chlorine Operator Relationship Specialty Start Date End Date Mu Lomeli III, MD [address] [facility] [address] PCP - General Family Medicine 11/24/20 documented as of this encounter
--- OUTSIDE RECORDS SUMMARY | 2024-01-25 11:36 | External Medical Summary | Summary of Care ---
Author Name Unknown Organization [facility] Address [address] [place] [address] Phone [phone] Care Team Providers Care Rn Birthing Name Role Phone Armani CHRISTIE MD, John E Primary Care Provider [phone] Reason for Visit * Reason Onset Date Comments Home Health 10/23/2023 Encounter Details Date Type Department Care Team (Late st Contact Info) Description 10/23/2023 Telephone Family Practice [facility] 200 [place] [address] Mu Lomeli III, MD 200 [facility] [place] [address] Home Health Allergies No known active allergiesdocumented [...] program but there is no fax from [facility] in Dr. Lomeli's box yet. * Telephone Encounter - Sushila Yousesf LPN - 10/23/2023 2:48 PM EDT HH PT/OT/ST Eval Start of Care/Continuation Diogenes PT, Calling from: [facility] PT Plan of care: 1 times [...] EDT Reason for patient's call: Diogenes from [facility] Home Health Caller was transferred to Sushila at the nurse line. documented in this encounter Plan of Treatment Upcoming Encounters Date Type Department Care Team (Late st Contact Info) Description 12/22/2023 3:00 PM EDT Office Visit [facility] [address] [facility] [place] [address] Bhavana Meadows CRNP [address] [place] [address] Health Maintenance Due Date Last [...] filedocumented as of this encounter Care Teams Rn Birthing Relationship Specialty Start Date End Date Mu Lomeli III, MD 200 [facility] [place] [address] PCP - General Family Medicine 11/24/20 documented as of this encounter
--- OUTSIDE RECORDS SUMMARY | 2024-01-25 11:36 | External Medical Summary | Summary of Care ---
Author Name Unknown Organization [facility] Address [address] [place] [address] Phone [phone] Care Team Providers Care Transportation Inspector Name Role Phone Armain CHRISTIE MD, John E Primary Care Provider [phone] Reason for Visit * Reason Onset Date Comments Order Request 11/10/2023 Encounter Details Date Type Department Care Team (Late st Contact Info) Description 11/10/2023 Telephone Family Practice [facility] 200 [place] [address] Mu Lomeli III, MD 200 [place] [address] Order Request Allergies No known active allergiesdocumented [...] wish to have their order completed at? [facility] Fax Number, if applicable: N/A Phone- [phone] If the caller is not a current [...] 12/22/2023 3:00 PM EDT Office Visit Neurology [facility] [address] [place] [address] Bhavana Meadows CRNP [address] [place] [address] Health Maintenance Due Date Last [...] Primary documented in this encounter Care Teams Transportation Inspector Relationship Specialty Start Date End Date Mu Lomeli III, MD [address] [place] [address] PCP - General Family Medicine 11/24/20 documented as of this encounter
--- OUTSIDE RECORDS SUMMARY | 2024-01-25 11:36 | External Medical Summary | Summary of Care ---
Author Name Unknown Organization [facility] Address [address] [place] [address] Phone [phone] Care Team Providers Care Transit Mix Operator Name Role Phone Armani CHRISTIE MD, John E Primary Care Provider [phone] Reason for Visit * Reason Onset Date Comments Home Health 10/23/2023 Encounter Details Date Type Department Care Team (Late st Contact Info) Description 10/23/2023 Telephone Family Practice [facility] [address] [place] [address] Mu Lomeli III, MD [address] [place] [address] Home Health Allergies No known active allergiesdocumented [...] Start of Care/Continuation Diogenes PT, Calling from: [facility] PT Plan of care: 1 times [...] EDT Reason for patient's call: Diogenes from [facility] Home Health Caller was transferred to Sushila at the nurse line. documented in this encounter Plan of Treatment Upcoming Encounters Date Type Department Care Team (Late st Contact Info) Description 12/22/2023 3:00 PM EDT Office Visit Neurology [facility] [place] [address] [facility] [place] [address] Bhavana Meadows CRNP [address] [place] [address] Health Maintenance Due Date Last Done Comments [...] filedocumented as of this encounter Care Teams Transit Mix Operator Relationship Specialty Start Date End Date Mu Lomeli III, MD [address] [facility] [place] [address] PCP - General Family Medicine 11/24/20 documented as of this encounter
--- NOTE | 2024-01-25 11:44 | Electrocardiogram Report ---
Test Reason : Blood Pressure : */* mmHG Vent. Rate : 101 BPM Atrial Rate : 101 BPM P-R Int : 158 ms QRS Dur : 82 ms QT Int : 350 ms P-R-T Axes : 54 25 16 degrees QTcB Int : 453 ms Poor data quality, interpretation may be adversely affected Sinus tachycardia Nonspecific ST abnormality Abnormal ECG When compared with ECG of 03-Sep-2023 09:15, Criteria for Septal infarct are no longer Present Confirmed by Kong Salcedo ([id number]) on 01/25/2024 11:44:20 AM Referred By: REFERRED SELF Confirmed By: Kong Salcedo
[2024-01-25 12:31] LABS: Hematocrit (blood only) 24.9 % (37.0-47.0); Hemoglobin 8.1 g/dl (12.0-16.0)
--- NOTE | 2024-01-25 16:19 | Orthopedic Consultation ---
Date of Consultation January 25, 2024 Assessment & Plan (1) Status post fall: IMPRESSION: 1) RLE pain, secondarily to swelling, bruising, and exacerbation of degenerative changes right knee, due to fall and resulting in rhabdomyolysis 2) Right elbow pain, secondarily to contusion versus occult fracture PLAN: Recommend conservative treatment. WBAT with walker. RICE RLE & R elbow. PT/OT Continue IV fluids. Continue pain control per primary service Continue care per primary service. Will continue to monitor. Present on Admission?: Yes History of Present Illness Reason for Consultation: R knee, pain, swelling, ?hematoma Requesting Physician: Tigre Rice MD Attending Physician: Moira Villa MD History of Present Illness 88 yo female with multiple falls, admitted for rhabdomyolysis with right knee pain. I was consulted for RLE swelling, concern for hematoma. Utilized interpreter and translator ipad to communicate with the patient. Allergies Allergy/AdvReac Type Severity Reaction Status Date / Time No Known Allergies Allergy Unverified 09/04/23 10:10 Home Medications Medication Instructions Recorded Confirmed Type losartan 50 mg tablet 25 mg PO UD 09/03/23 01/24/24 History Patient History Medical History (Updated 01/25/24 @ 04:07 by Nathan Nelson MD) Osteoarthritis Hypertension Social History Smoking Status: Never smoker Do You Dip or Chew Tobacco: No; Hx Alcohol Use: No Hx Substance Use: No Preferred Language: Bhutanese Communication Ability: Effective Communication Ability Comment: patient primary language is Bhutanese Communication Tools: IPad Chinese Instructor Required: Yes Beliefs That Will Affect Care: None Current Living Situation: Alone Current Living Situation Comment: Lives home alone in apartment Feels Safe at Home: Yes Safety Concerns: Feels Safe At This Time Assistive Devices: Walker Review of Systems Review of Systems: All systems reviewed & are unremarkable except as noted in HPI & below Physical Exam Physical Exam: RLE: Sensation to light touch intact. Motor to GS, TA, EHL intact. Able to preform straight leg raise. BCR < 2 sec. Significant bruising and swelling to lateral/anterior compartment, tender to touch, compliant/not firm. + tenderness to palpation hamstring, vastus lateralis/IT band, and quad, but soft. Limited ROM knee secondarily to pain. RUE: 2+ radial pulse. Sensation to light touch intact distally. Motor to median, ulnar, radial, AIN, PIN intact. No swelling. + minimal TTP over the radial head laterally. ROM 30-120 deg. Minimal discomfort with supination of the forearm. Results & Data Vital Signs (Past 12 Hours) Vital Signs Temp Pulse Pulse Resp BP BP Pulse Ox 01/25/24 11:19 37 C 93 H 18 133/71 94 01/25/24 10:17 37 C 83 21 117/66 96 01/25/24 09:24 36.9 C 96 H 20 122/65 96 01/25/24 08:54 37.1 C 86 20 114/73 96 01/25/24 08:52 37 C 99 H 22 129/70 96 01/25/24 08:40 36.9 C 100 H 18 148/73 H 96 01/25/24 08:20 37 C 86 24 113/64 94 01/25/24 07:23 36.7 C 91 H 18 127/70 97 O2 Del Method 01/25/24 11:19 01/25/24 10:17 01/25/24 09:24 01/25/24 08:54 01/25/24 08:52 01/25/24 08:40 01/25/24 08:20 01/25/24 07:23 Room Air Laboratory Results Laboratory Results WBC 7.39 K/ul (4.8-10.8) 01/25/24 05:54 RBC 2.58 M/uL (4.20-5.40) L 01/25/24 05:54 Hgb 8.1 g/dl (12.0-16.0) L 01/25/24 12:10 POC Hgb 6.5 g/dl (12.0-16.0) L* 01/24/24 18:37 Hct 24.9 % (37.0-47.0) L 01/25/24 12:10 POC Hct 19 % (37-47) L* 01/24/24 18:37 MCV 82.6 fL (80.0-100.0) 01/25/24 05:54 MCH 26.4 pg (25.0-34.0) 01/25/24 05:54 MCHC 31.9 g/dL (32.0-36.0) L 01/25/24 05:54 RDW Std Deviation 46.8 fL (36.4-46.3) H 01/25/24 05:54 RDW Coeff of Ruby 15.5 % (11.5-14.5) H 01/25/24 05:54 Plt Count 174 K/uL (130-400) 01/25/24 05:54 MPV 9.2 fL (9.4-12.4) L 01/25/24 05:54 Immature Gran % (Auto) 0.5 % 01/25/24 05:54 Neut % (Auto) 74.3 % 01/25/24 05:54 Lymph % (Auto) 17.2 % 01/25/24 05:54 Haskell % (Auto) 7.6 % 01/25/24 05:54 Eos % (Auto) 0.3 % 01/25/24 05:54 Baso % (Auto) 0.1 % 01/25/24 05:54 Neut # (Auto) 5.49 K/uL (1.40-6.50) 01/25/24 05:54 Lymph # (Auto) 1.27 K/uL (1.20-3.40) 01/25/24 05:54 Haskell # (Auto) 0.56 K/uL (0.11-0.59) 01/25/24 05:54 Eos # (Auto) 0.02 K/uL (0.00-0.50) 01/25/24 05:54 Baso # (Auto) 0.01 K/uL (0.00-0.20) 01/25/24 05:54 Immature Gran # (Auto) 0.04 K/uL (0.01-0.20) 01/25/24 05:54 Polychromasia 1+ 01/25/24 05:54 Tear Drop Cells 1+ 01/25/24 05:54 PT 11.9 Seconds (9.0-12.0) 01/24/24 18:25 INR 1.1 (0.9-1.1) 01/24/24 18:25 POC Sodium 145 mmol/L (135-144) H 01/24/24 18:37 Sodium 143 mmol/L (136-145) 01/25/24 05:54 POC Potassium 3.9 mmol/L (3.3-5.0) 01/24/24 18:37 Potassium 3.7 mmol/L (3.5-5.1) 01/25/24 05:54 POC Chloride 106 mmol/L (101-112) 01/24/24 18:37 Chloride 110 mmol/L (98-107) H 01/25/24 05:54 Carbon Dioxide 27 mmol/L (21-32) 01/25/24 05:54 POC Total CO2 23 mmol/L (24-31) L 01/24/24 18:37 Anion Gap 6 (3-11) 01/25/24 05:54 POC Anion Gap 21.0 mmol/L (16-25) 01/24/24 18:37 POC BUN 31 mg/dl (7-18) H 01/24/24 18:37 BUN 29 mg/dl (6-23) H 01/25/24 05:54 Creatinine 0.74 mg/dl (0.6-1.2) 01/25/24 05:54 POC Creatinine 1.1 mg/dl (0.6-1.3) 01/24/24 18:37 Est Cr Clr Drug Dosing 58.6 ml/min 01/25/24 05:54 eGFR 78.74 01/25/24 05:54 BUN/Creatinine Ratio 39.2 (10-20) H 01/25/24 05:54 Glucose 112 mg/dl (70-99(Fasting)) H 01/25/24 05:54 POC Glucose (other) 127 mg/dl (70-99) H 01/24/24 18:37 Calcium 8.4 mg/dl (8.6-10.3) L 01/25/24 05:54 POC Ioniz Calcium Jennifer 1.19 mmol/l (1.12-1.32) 01/24/24 18:37 Magnesium 2.2 mg/dl (1.7-2.4) 01/24/24 18:25 Total Bilirubin 0.8 mg/dl (0.2-1.0) 01/24/24 18:25 AST 46 U/L (13-39) H 01/24/24 18:25 ALT 20 U/L (7-52) 01/24/24 18:25 Alkaline Phosphatase 51 U/L (34-104) 01/24/24 18:25 Total Creatine Kinase 1776 U/L (26-192) H 01/25/24 05:54 Troponin I High Sens 4.5 pg/ml (0-14) 01/24/24 18:25 Total Protein 6.7 gm/dl (6.0-8.3) 01/24/24 18:25 Albumin 4.3 gm/dl (3.4-5.0) 01/24/24 18:25 Globulin 2.4 gm/dl (2.5-4.0) L 01/24/24 18:25 Albumin/Globulin Ratio 1.8 (0.9-2) 01/24/24 18:25 Blood Type A Positive 01/24/24 19:35 Blood Type Recheck A Positive 01/24/24 20:12 Antibody Screen NEGATIVE 01/24/24 19:35 Crossmatch See Detail 01/24/24 19:35 Impressions Abdomen/Pelvis CT 01/24/24 18:08 Exam(s): CT ABDOMEN + PELVIS With Contrast IV Amt: 92 cc opti 320 EXAM: CT Abdomen and Pelvis With Intravenous Contrast CLINICAL HISTORY: Fall TECHNIQUE: Axial computed tomography images of the abdomen and pelvis with intravenous contrast. CTDI is 25 mGy and DLP is 899 mGy-cm. Automated exposure control was utilized for the study. A dose lowering technique was utilized adhering to the principles of ALARA. CONTRAST: Patient received 92 cc opti 320 of IV contrast COMPARISON: No relevant prior studies available. FINDINGS: Lung bases: Unremarkable. No mass. No consolidation. ABDOMEN: Liver: There is a simple appearing hepatic cyst, no follow-up is needed. No suspicious liver lesion. Gallbladder and bile ducts: Unremarkable. No calcified stones. No ductal dilation. Pancreas: Unremarkable. No mass. No ductal dilation. Spleen: Unremarkable. No splenomegaly. Adrenals: Unremarkable. No mass. Kidneys and ureters: There is a simple appearing left renal cyst, no follow-up is needed. The kidneys are otherwise unremarkable. No hydronephrosis. Stomach and bowel: Unremarkable. No obstruction. No mucosal thickening. PELVIS: Appendix: Normal appendix. Bladder: Unremarkable. No mass. Reproductive: Unremarkable as visualized. ABDOMEN and PELVIS: Intraperitoneal space: Unremarkable. No free air. No significant fluid collection. Bones/joints: There are degenerative changes of the spine. No acute fracture. No dislocation. Soft tissues: Small fat-containing umbilical hernia. Vasculature: There is ectasia of the infrarenal aorta measuring 2.5 cm. Moderate atherosclerosis. No abdominal aortic aneurysm. Lymph nodes: Unremarkable. No enlarged lymph nodes. IMPRESSION: 1. No acute finding of the abdomen or pelvis. 2. There is ectasia of the infrarenal aorta measuring 2.5 cm. Electronically signed by: Tracee Tipton MD 01/24/24 20:[address] 01/24/24 18:08 Exam(s): CT C SPINE EXAM: CT Cervical Spine Without Intravenous Contrast CLINICAL HISTORY: Fall. TECHNIQUE: Axial computed tomography images of the cervical spine without intravenous contrast. CTDI is 35.22 mGy and DLP is 234.15 mGy-cm. Automated exposure control was utilized for the study. A dose lowering technique was utilized adhering to the principles of ALARA. COMPARISON: CT C-spine 10/09/2023 FINDINGS: Vertebrae: Chronic C2 fractures. No acute fracture. No malalignment. Degenerative changes are noted. Discs/spinal canal/neural foramina: No acute findings. No spinal canal stenosis. Soft tissues: Unremarkable. IMPRESSION: No acute findings in the cervical spine. Electronically signed by: Tracee Tipton MD 01/24/24 20:[address] 01/24/24 18:08 Exam(s): CT CHEST With Contrast IV Amt: 92 cc opti 320 EXAM: CT Chest With Intravenous Contrast CLINICAL HISTORY: Fall. TECHNIQUE: Axial computed tomography images of the chest with intravenous contrast. CTDI is 26.7 mGy and DLP is 511 mGy-cm. Automated exposure control was utilized for the study. A dose lowering technique was utilized adhering to the principles of ALARA. CONTRAST: Patient received 92 cc opti 320 of IV contrast COMPARISON: Chest radiograph 09/03/2023 FINDINGS: Lungs: Unremarkable. No mass. No consolidation. Pleural space: Unremarkable. No pneumothorax. No significant effusion. Heart: Coronary artery calcifications are present. No cardiomegaly. No significant pericardial effusion. Bones/joints: There are degenerative changes of the spine. No acute fracture. No dislocation. Soft tissues: Unremarkable. Vasculature: There is dilation of the pulmonary arteries. Mild atherosclerosis. The main pulmonary artery measures 3.6 cm. Lymph nodes: Unremarkable. No enlarged lymph nodes. IMPRESSION: 1. No acute finding of the chest. 2. There is dilation of the pulmonary arteries. This is concerning for pulmonary artery hypertension. Electronically signed by: Tracee Tipton MD 01/24/24 20:03 PM Elbow X-Ray 01/24/24 18:08 Exam(s): XR RIGHT ELBOW, 3+ views EXAM: XR Right Elbow Complete, 3 or More Views CLINICAL HISTORY: Fall. TECHNIQUE: Frontal, lateral and oblique views of the right elbow. COMPARISON: No relevant prior studies available. FINDINGS: Bones/joints: Question small elbow joint effusion. No visualized acute fracture. No dislocation. Soft tissues: Nonspecific soft tissue swelling of the posterior elbow. IMPRESSION: 1. Nonspecific soft tissue swelling of the posterior elbow. 2. Question small elbow joint effusion. Recommend follow-up radio graphs in 7-10 days to assess for signs of healing. Electronically signed by: Tracee Tipton MD 01/24/24 19:[address] 01/24/24 18:08 Exam(s): CT HEAD Without Contrast EXAM: CT Head Without Intravenous Contrast CLINICAL HISTORY: Fall. TECHNIQUE: Axial computed tomography images of the head/brain without intravenous contrast. CTDI is 35.22 mGy and DLP is 624.41 mGy-cm. Automated exposure control was utilized for the study. A dose lowering technique was utilized adhering to the principles of ALARA. COMPARISON: No relevant prior studies available. FINDINGS: Brain: No intracranial hemorrhage, mass-effect or midline shift. No abnormal extra axial fluid. No evidence of acute infarct. Mild periventricular white matter hypodensities are most consistent with chronic microangiopathy. Ventricles: Unremarkable. No ventriculomegaly. Bones/joints: Unremarkable. No acute fracture. Soft tissues: Unremarkable. Sinuses: There is mild mucosal thickening of the ethmoid and maxillary sinuses. The remaining visualized paranasal sinuses are clear. Mastoid air cells: Unremarkable as visualized. No mastoid effusion. IMPRESSION: No acute intracranial finding. Electronically signed by: Tracee Tipton MD 01/24/24 19:59 PM Knee X-Ray 01/24/24 18:08 Exam(s): XR RIGHT KNEE, 1-2 views EXAM: XR Right Knee, 1 or 2 Views CLINICAL HISTORY: Fall. TECHNIQUE: Frontal and/or lateral views of the right knee. COMPARISON: No relevant prior studies available. FINDINGS: Bones/joints: There are degenerative changes of all 3 compartments of the knee most prominent of the medial compartment where there is severe joint space narrowing. No acute fracture. No dislocation. Soft tissues: Marked nonspecific soft tissue swelling. IMPRESSION: 1. Marked nonspecific soft tissue swelling. 2. There are degenerative changes of all 3 compartments of the knee most prominent of the medial compartment where there is severe joint space narrowing. Electronically signed by: Tracee Tipton MD 01/24/24 19:58 PM Shoulder X-Ray 01/24/24 18:08 Exam(s): XR SHOULDER, 2+ views EXAM: XR Right Shoulder Complete, 2 or More Views CLINICAL HISTORY: Fall. TECHNIQUE: Two or more views of the right shoulder. COMPARISON: No relevant prior studies available. FINDINGS: Bones/joints: There are moderate degenerative changes of the acromioclavicular and glenohumeral joints. No acute fracture. No dislocation. Soft tissues: Unremarkable. IMPRESSION: No acute findings in the right shoulder. Electronically signed by: Tracee Tipton MD 01/24/24 19:58 PM Tibia/Fibula X-Ray 01/24/24 18:08 Exam(s): XR RIGHT TIB/FIB, 2 views EXAM: XR Right Tibia and Fibula, 2 Views CLINICAL HISTORY: Fall. TECHNIQUE: Frontal and lateral views of the right tibia and fibula. COMPARISON: No relevant prior studies available. FINDINGS: Bones/joints: There are degenerative changes of all 3 compartments of the knee most prominent of the medial compartment where there is severe joint space narrowing. Calcaneal enthesophytes are noted. No acute fracture. No dislocation. Soft tissues: Marked nonspecific changes soft tissue swelling. No radiopaque foreign body. IMPRESSION: 1. Marked nonspecific soft tissue swelling. 2. There are degenerative changes of all 3 compartments of the knee most prominent of the medial compartment where there is severe joint space narrowing. Electronically signed by: Tracee Tipton MD 01/24/24 19:58 PM Knee MRI 01/25/24 11:16 Clinical History: Knee pain. Technique: Multiple T1 and T2-weighted magnetic resonance images were obtained of the right knee without gadolinium contrast. Findings: This examination is limited by extensive motion artifact There is full-thickness cartilage loss in the medial compartment. There is both horizontal and vertical tearing of the body and posterior horn of the medial meniscus There is a horizontal tear of the body and anterior horn of the lateral meniscus. No lateral compartment cartilage defect is identified. There is full-thickness cartilage loss in the patellofemoral compartment. The patella is normally situated within the trochlear groove. The medial and lateral patellar retinacula appear intact. There is some thickening and intermediate signal intensity of the anterior cruciate ligament. The posterior cruciate ligament appears intact. There is mild quadriceps and patellar tendinopathy. The medial and lateral collateral ligament complexes appear normal. There is a small knee effusion. No definite joint body is seen. No Car's cyst is present. There is subcutaneous edema anterior to the patellar tendon and patella, without definite bursitis There is mild bone marrow edema within the posterior aspect of the lateral tibial plateau. No definite fracture is identified. No focal osseous lesion is seen. There are osteophytes in all 3 compartments Impression: 1. Limited examination due to motion artifact 2. Multifocal tearing of the medial meniscus 3. Horizontal tear of the lateral meniscus 4. 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 Mild quadriceps and patellar tendinopathy 7. Small knee effusion 8. Possible bone contusion of the posterior edge of the lateral tibial plateau Electronically signed by Kai Sams 01-25-2024 4:55 PM Duplex Scan Lower Extremity Artery 01/25/24 13:46 EXAM: US arterial duplex LE RT CLINICAL HISTORY: RLE swelling; ? compartment syndrome. See attached worksheet No detectable flow in dist rt PHYSICIST ASTROPHYSICS. TECHNIQUE: Ultrasound examination of the right lower extremity arteries with ankle brachial indices was performed in real time and duplex. One or more of the following were performed- spectral analysis, resistive index, waveform analysis, and pulsed Doppler. COMPARISON: None. FINDINGS: Vessel Flow Pattern Right Peak Velocity Right (cm/sec) Common Femoral Artery (SHEAR GRINDER OPERATOR) Tri [PSV Right]159 Deep Femoral Artery (DPA) Bi [PSV Right]55 Superficial Femoral Artery (SFA) Bi [PSV Right]135 Popliteal Artery (POP A) Bi [PSV Right]84 Posterior Tibial Artery (PHYSICIST ASTROPHYSICS), proximal [place] 294 Posterior Tibial Artery (PHYSICIST ASTROPHYSICS), distal [place] 47 Dorsalis Pedis Artery (DPA) Bi 31 SANDRA measures 1.04 on right and 1.13 on left side. Diffuse mild atherosclerotic disease. There is significant elevation of the velocity at the proximal PHYSICIST ASTROPHYSICS with a velocity ratio measures 3 suggesting significant stenosis 50-74%. IMPRESSION: 1. 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 Further evaluation by CT angiography is advised. 2. Preserved normal SANDRA. Electronically signed by Isai Barrera 01-25-2024 4:20 PM
--- NOTE | 2024-01-25 16:21 | Ultrasound Report ---
EXAM: US arterial duplex LE RT CLINICAL HISTORY: RLE swelling; ? compartment syndrome. See attached worksheet No detectable flow in dist rt DISTRICT ADMINISTRATIVE ASSISTANT. TECHNIQUE: Ultrasound examination of the right lower extremity arteries with ankle brachial indices was performed in real time and duplex. One or more of the following were performed- spectral analysis, resistive index, waveform analysis, and pulsed Doppler. COMPARISON: None. FINDINGS: Vessel Flow Pattern Right Peak Velocity Right (cm/sec) Common Femoral Artery (FOUNDER AND CHIEF EXECUTIVE OFFICER) Tri [PSV Right]159 Deep Femoral Artery (DPA) Bi [PSV Right]55 Superficial Femoral Artery (SFA) Bi [PSV Right]135 Popliteal Artery (POP A) Bi [PSV Right]84 Posterior Tibial Artery (DISTRICT ADMINISTRATIVE ASSISTANT), proximal [place] 294 Posterior Tibial Artery (DISTRICT ADMINISTRATIVE ASSISTANT), distal [place] 47 Dorsalis Pedis Artery (DPA) Bi 31 SANDRA measures 1.04 on right and 1.13 on left side. Diffuse mild atherosclerotic disease. There is significant elevation of the velocity at the proximal DISTRICT ADMINISTRATIVE ASSISTANT with a velocity ratio measures 3 suggesting significant stenosis 50-74%. IMPRESSION: 1. Diffuse mild atherosclerotic disease, with significant stenosis at the proximal DISTRICT ADMINISTRATIVE ASSISTANT (50-74% stenosis according to velocity changes). Further evalaution by CT angiography is advised. 2. Preserved normal SANDRA. Electronically signed by Isai Barrera 01-25-2024 4:20 PM
--- NOTE | 2024-01-25 16:56 | Magnetic Resonance Report ---
Clinical History: Knee pain. Technique: Multiple T1 and T2-weighted magnetic resonance images were obtained of the right knee without gadolinium contrast. Findings: This examination is limited by extensive motion artifact There is full-thickness cartilage loss in the medial compartment. There is both horizontal and vertical tearing of the body and posterior horn of the medial meniscus There is a horizontal tear of the body and anterior horn of the lateral meniscus. No lateral compartment cartilage defect is identified. There is full-thickness cartilage loss in the patellofemoral compartment. The patella is normally situated within the trochlear groove. The medial and lateral patellar retinacula appear intact. There is some thickening and intermediate signal intensity of the anterior cruciate ligament. The posterior cruciate ligament appears intact. There is mild quadriceps and patellar tendinopathy. The medial and lateral collateral ligament complexes appear normal. There is a small knee effusion. No definite joint body is seen. No Car's cyst is present. There is subcutaneous edema anterior to the patellar tendon and patella, without definite bursitis There is mild bone marrow edema within the posterior aspect of the lateral tibial plateau. No definite fracture is identified. No focal osseous lesion is seen. There are osteophytes in all 3 compartments Impression: 1. Limited examination due to motion artifact 2. Multifocal tearing of the medial meniscus 3. Horizontal tear of the lateral meniscus 4. 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 Mild quadriceps and patellar tendinopathy 7. Small knee effusion 8. Possible bone contusion of the posterior edge of the lateral tibial plateau Electronically signed by Kai Sams 01-25-2024 4:55 PM
[2024-01-26 07:05] LABS: Hematocrit (blood only) 24.8 % (37.0-47.0); Mean Corpuscular Hgb Conc 32.3 g/dL (32.0-36.0); Mean Corpuscular Volume 83.8 fL (80.0-100.0); Mean Platelet Volume 9.3 fL (9.4-12.4); Platelet Count 155 K/uL (130-400); RDW Coefficient of Variation 15.6 % (11.5-14.5); RDW Standard Deviation 47.5 fL (36.4-46.3); Red Blood Count 2.96 M/uL (4.20-5.40); White Blood Count 5.76 K/ul (4.8-10.8)
[2024-01-26 07:17] LABS: Albumin Globulin Ratio 1.4 (0.9-2); Albumin Level 3.5 gm/dl (3.4-5.0); BUN Creatinine Ratio 26.7 (10-20); Bilirubin,Total 1.2 mg/dl (0.2-1.0); Calcium 8.3 mg/dl (8.6-10.3); Creatinine Clr Calc Pharmacy 57.8 ml/min; Globulin 2.5 gm/dl (2.5-4.0); Magnesium 2.1 mg/dl (1.7-2.4); Phosphorus 2.7 mg/dl (2.5-4.9); Potassium 3.6 mmol/L (3.5-5.1)
[2024-01-26 07:35] LABS: Ferritin 177.4 ng/ml (8-388)
[2024-01-26 07:41] LABS: Folate (Folic Acid),Ser orPlas 15.22 ng/ml (>5.38)
[2024-01-26] MEDS ORDERED: POLYETHYLENE (MIRALAX) 17 GM PACK PO PRN (07:51)
[2024-01-26] MEDS ORDERED: LOSARTAN POTASSIUM 25 MG TAB PO SCH (09:00)
[2024-01-26] MEDS: IRON SUCROSE 200 MG in SODIUM CHLORIDE 0.9% 100 ML IV ONE (09:19)
[2024-01-26] MEDS: DOCUSATE SODIUM 100 MG CAP PO SCH (09:19)
[2024-01-26] MEDS: OPTIRAY 320 125ml IV ONE (10:18)
--- NOTE | 2024-01-26 10:54 | CT Scan Report ---
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 MRI of the ri ght knee January 05, 2024. CT of the abdomen and pelvis January 24, 2024. TECHNIQUE: Helical axial images of the right lower extremity were obtained during arterial phase foll owing intravenous injection of 119 cc of Optiray 320 IV. Sagittal and coronal reconstructions were vi ewed as well as maximal intensity projections on an independent 3-D workstation .Automated exposure c ontrol was utilized for the study. A dose lowering technique was utilized adhering to the principles of ALARA. FINDINGS: The right common femoral and superficial femoral arteries are patent. There is mild plaque within the right superficial femoral artery without stenosis. There is moderate plaque within the rig ht popliteal artery without stenosis. The proximal right anterior tibial arteries occluded. There are severe multifocal stenoses with suspected short segment occlusion and reconstitution within the righ t anterior tibial and dorsalis pedis vessels. The right peroneal artery is patent. The proximal right posterior tibial artery is occluded with reconstitution distally through the peroneal artery. There is no aneurysm within the right lower extremity. There is no evidence for vascular injury. Multiple intramuscular hematomas within the right gluteal musculature are present. There are hematoma s within an overlying the right hamstrings muscle, deep to the fascia. There may also be a small amou nt of intramuscular hemorrhage within the right adductor muscles. No active extravasation is identifi ed. Overall, there is a moderate amount of hemorrhage. There is no pseudoaneurysm. There are no fract ures within the right femur. Severe degenerative changes within the right knee are incidentally noted . IMPRESSION: 1. Moderate atherosclerotic plaque within the right lower extremity. Patent right common femoral, sup erficial femoral and popliteal arteries. 2. 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 Patent right peroneal artery. Severe stenoses and suspected short segment occlusion w ith reconstitution of the right dorsalis pedis and anterior tibial arteries. 3. Multiple acute hematomas within the right buttock, groin and thigh, as described above. Overall, m oderate amount of hemorrhage. No active extravasation. ACT 112: Negative or not required by law. Electronically signed by: Leonid Mueller M.D. 01/26/2024 10:52 AM
--- NOTE | 2024-01-26 10:57 | Hospitalist Progress Note ---
Date of Service January 26, 2024 Assessment & Plan (1) Rhabdomyolysis: Plan: Plan Pt is an 88yoF with PMhx significant for hypertension, history of traumatic cervical fracture, stress incontinence, mild cognitive impairment as per records presenting with concern after a fall at home once more. RLE swelling and bruising R Elbow Pain Possible R knee Hemarthrosis Hematomas Peripheral Artery Disease Fall Patient with fall at home Pain in her right lower extremity with noted swelling and bruising. 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 Noted or stated the following on 01/26/24 via [employer]:"Her abis are normal and all waveforms are normal except for the posterior tibial. 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 Noted /stated the following: "Recommend conservative treatment. WBAT with walker. RICE RLE & R elbow. PT/OT" Workup for falls completed during last admission, EEG noted with no indication of seizures PT OT ordered, appreciate further recs Traumatic Rhabdomyolysis secondary to recurrent falls CK 1960 to 1775 today Continue with IV fluids Follow CK Acute on chronic anemia Multiple hematomas of buttock, groin and thigh Patient with acute drop of hemoglobin down to 6.8 on 01/25/24 hemoglobin of 10 on discharge in August CTA right lower extremity noting "Multiple acute hematomas within the right buttock, groin and thigh, as described above. Overall, moderate amount of hemorrhage. 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 Giordano as an outpatient Orthospine was consulted once more this admission, appreciate recs. Recommended or stated the following: "CT scan of the cervical spine available for review does demonstrate chronic C2 fracture involving the lateral mass on the right. It does appear to be healing and stable. I would recommend weaning from the cervical collar. She certainly may remove this collar for meals. At this point I would only have her wear it when transfers to chair and ambulating." Continue other home meds as ordered Diet: HH DVT prophylaxis: SCDs re: multiple contusions/hematoma resulting in anemia Dispo: per PT/OT recs once medically stable Admission and Anticipated Discharge Date Admission Date: January 24, 2024 Subjective Patient was seen laying in bed Had ice on her right knee noted that it was "cold" Daughter called and updated at the end of the day Review of Systems Review of Systems: All systems reviewed & are unremarkable except as noted in Subjective Physical Exam Physical Exam: General: Alert. No acute distress, neck collar in place Skin: bruising noted on right leg and knee Psych: Appropriate mood and affect Neuro: difficulty with movements in the bed HEENT: NC/AT, neck collar in place CV: RRR Resp: no increased effort of breathing Abdomen: Soft, nontender Extremities:R knee and lower extremity with significant swelling and bruising Results & Data Results & Data Vital Signs (Past 12 Hours) Vital Signs Temp Pulse Resp BP Pulse Ox O2 Del Method 01/26/24 08:22 37.0 C 82 18 166/73 H 97 Room Air 01/26/24 05:02 36.6 C 76 18 155/74 H 95 Room Air Diagnostic Findings Abdomen/Pelvis CT 01/24/24 18:08 Exam(s): CT ABDOMEN + PELVIS With Contrast IV Amt: 92 cc opti 320 EXAM: CT Abdomen and Pelvis With Intravenous Contrast CLINICAL HISTORY: Fall TECHNIQUE: Axial computed tomography images of the abdomen and pelvis with intravenous contrast. CTDI is 25 mGy and DLP is 899 mGy-cm. Automated exposure control was utilized for the study. A dose lowering technique was utilized adhering to the principles of ALARA. CONTRAST: Patient received 92 cc opti 320 of IV contrast COMPARISON: No relevant prior studies available. FINDINGS: Lung bases: Unremarkable. No mass. No consolidation. ABDOMEN: Liver: There is a simple appearing hepatic cyst, no follow-up is needed. No suspicious liver lesion. Gallbladder and bile ducts: Unremarkable. No calcified stones. No ductal dilation. Pancreas: Unremarkable. No mass. No ductal dilation. Spleen: Unremarkable. No splenomegaly. Adrenals: Unremarkable. No mass. Kidneys and ureters: There is a simple appearing left renal cyst, no follow-up is needed. The kidneys are otherwise unremarkable. No hydronephrosis. Stomach and bowel: Unremarkable. No obstruction. No mucosal thickening. PELVIS: Appendix: Normal appendix. Bladder: Unremarkable. No mass. Reproductive: Unremarkable as visualized. ABDOMEN and PELVIS: Intraperitoneal space: Unremarkable. No free air. No significant fluid collection. Bones/joints: There are degenerative changes of the spine. No acute fracture. No dislocation. Soft tissues: Small fat-containing umbilical hernia. Vasculature: There is ectasia of the infrarenal aorta measuring 2.5 cm. Moderate atherosclerosis. No abdominal aortic aneurysm. Lymph nodes: Unremarkable. No enlarged lymph nodes. IMPRESSION: 1. No acute finding of the abdomen or pelvis. 2. There is ectasia of the infrarenal aorta measuring 2.5 cm. Electronically signed by: Tracee Tipton MD 01/24/24 20:[address] 01/24/24 18:08 Exam(s): CT C SPINE EXAM: CT Cervical Spine Without Intravenous Contrast CLINICAL HISTORY: Fall. TECHNIQUE: Axial computed tomography images of the cervical spine without intravenous contrast. CTDI is 35.22 mGy and DLP is 234.15 mGy-cm. Automated exposure control was utilized for the study. A dose lowering technique was utilized adhering to the principles of ALARA. COMPARISON: CT C-spine 10/09/2023 FINDINGS: Vertebrae: Chronic C2 fractures. No acute fracture. No malalignment. Degenerative changes are noted. Discs/spinal canal/neural foramina: No acute findings. No spinal canal stenosis. Soft tissues: Unremarkable. IMPRESSION: No acute findings in the cervical spine. Electronically signed by: Tracee Tipton MD 01/24/24 20:[address] 01/24/24 18:08 Exam(s): CT CHEST With Contrast IV Amt: 92 cc opti 320 EXAM: CT Chest With Intravenous Contrast CLINICAL HISTORY: Fall. TECHNIQUE: Axial computed tomography images of the chest with intravenous contrast. CTDI is 26.7 mGy and DLP is 511 mGy-cm. Automated exposure control was utilized for the study. A dose lowering technique was utilized adhering to the principles of ALARA. CONTRAST: Patient received 92 cc opti 320 of IV contrast COMPARISON: Chest radiograph 09/03/2023 FINDINGS: Lungs: Unremarkable. No mass. No consolidation. Pleural space: Unremarkable. No pneumothorax. No significant effusion. Heart: Coronary artery calcifications are present. No cardiomegaly. No significant pericardial effusion. Bones/joints: There are degenerative changes of the spine. No acute fracture. No dislocation. Soft tissues: Unremarkable. Vasculature: There is dilation of the pulmonary arteries. Mild atherosclerosis. The main pulmonary artery measures 3.6 cm. Lymph nodes: Unremarkable. No enlarged lymph nodes. IMPRESSION: 1. No acute finding of the chest. 2. There is dilation of the pulmonary arteries. This is concerning for pulmonary artery hypertension. Electronically signed by: Tracee Tipton MD 01/24/24 20:03 PM Elbow X-Ray 01/24/24 18:08 Exam(s): XR RIGHT ELBOW, 3+ views EXAM: XR Right Elbow Complete, 3 or More Views CLINICAL HISTORY: Fall. TECHNIQUE: Frontal, lateral and oblique views of the right elbow. COMPARISON: No relevant prior studies available. FINDINGS: Bones/joints: Question small elbow joint effusion. No visualized acute fracture. No dislocation. Soft tissues: Nonspecific soft tissue swelling of the posterior elbow. IMPRESSION: 1. Nonspecific soft tissue swelling of the posterior elbow. 2. Question small elbow joint effusion. Recommend follow-up radio graphs in 7-10 days to assess for signs of healing. Electronically signed by: Tracee Tipton MD 01/24/24 19:[address] 01/24/24 18:08 Exam(s): CT HEAD Without Contrast EXAM: CT Head Without Intravenous Contrast CLINICAL HISTORY: Fall. TECHNIQUE: Axial computed tomography images of the head/brain without intravenous contrast. CTDI is 35.22 mGy and DLP is 624.41 mGy-cm. Automated exposure control was utilized for the study. A dose lowering technique was utilized adhering to the principles of ALARA. COMPARISON: No relevant prior studies available. FINDINGS: Brain: No intracranial hemorrhage, mass-effect or midline shift. No abnormal extra axial fluid. No evidence of acute infarct. Mild periventricular white matter hypodensities are most consistent with chronic microangiopathy. Ventricles: Unremarkable. No ventriculomegaly. Bones/joints: Unremarkable. No acute fracture. Soft tissues: Unremarkable. Sinuses: There is mild mucosal thickening of the ethmoid and maxillary sinuses. The remaining visualized paranasal sinuses are clear. Mastoid air cells: Unremarkable as visualized. No mastoid effusion. IMPRESSION: No acute intracranial finding. Electronically signed by: Tracee Tipton MD 01/24/24 19:59 PM Knee X-Ray 01/24/24 18:08 Exam(s): XR RIGHT KNEE, 1-2 views EXAM: XR Right Knee, 1 or 2 Views CLINICAL HISTORY: Fall. TECHNIQUE: Frontal and/or lateral views of the right knee. COMPARISON: No relevant prior studies available. FINDINGS: Bones/joints: There are degenerative changes of all 3 compartments of the knee most prominent of the medial compartment where there is severe joint space narrowing. No acute fracture. No dislocation. Soft tissues: Marked nonspecific soft tissue swelling. IMPRESSION: 1. Marked nonspecific soft tissue swelling. 2. There are degenerative changes of all 3 compartments of the knee most prominent of the medial compartment where there is severe joint space narrowing. Electronically signed by: Tracee Tipton MD 01/24/24 19:58 PM Shoulder X-Ray 01/24/24 18:08 Exam(s): XR SHOULDER, 2+ views EXAM: XR Right Shoulder Complete, 2 or More Views CLINICAL HISTORY: Fall. TECHNIQUE: Two or more views of the right shoulder. COMPARISON: No relevant prior studies available. FINDINGS: Bones/joints: There are moderate degenerative changes of the acromioclavicular and glenohumeral joints. No acute fracture. No dislocation. Soft tissues: Unremarkable. IMPRESSION: No acute findings in the right shoulder. Electronically signed by: Tracee Tipton MD 01/24/24 19:58 PM Tibia/Fibula X-Ray 01/24/24 18:08 Exam(s): XR RIGHT TIB/FIB, 2 views EXAM: XR Right Tibia and Fibula, 2 Views CLINICAL HISTORY: Fall. TECHNIQUE: Frontal and lateral views of the right tibia and fibula. COMPARISON: No relevant prior studies available. FINDINGS: Bones/joints: There are degenerative changes of all 3 compartments of the knee most prominent of the medial compartment where there is severe joint space narrowing. Calcaneal enthesophytes are noted. No acute fracture. No dislocation. Soft tissues: Marked nonspecific changes soft tissue swelling. No radiopaque foreign body. IMPRESSION: 1. Marked nonspecific soft tissue swelling. 2. There are degenerative changes of all 3 compartments of the knee most prominent of the medial compartment where there is severe joint space narrowing. Electronically signed by: Tracee Tipton MD 01/24/24 19:58 PM Knee MRI 01/25/24 11:16 Clinical History: Knee pain. Technique: Multiple T1 and T2-weighted magnetic resonance images were obtained of the right knee without gadolinium contrast. Findings: This examination is limited by extensive motion artifact There is full-thickness cartilage loss in the medial compartment. There is both horizontal and vertical tearing of the body and posterior horn of the medial meniscus There is a horizontal tear of the body and anterior horn of the lateral meniscus. No lateral compartment cartilage defect is identified. There is full-thickness cartilage loss in the patellofemoral compartment. The patella is normally situated within the trochlear groove. The medial and lateral patellar retinacula appear intact. There is some thickening and intermediate signal intensity of the anterior cruciate ligament. The posterior cruciate ligament appears intact. There is mild quadriceps and patellar tendinopathy. The medial and lateral collateral ligament complexes appear normal. There is a small knee effusion. No definite joint body is seen. No Car's cyst is present. There is subcutaneous edema anterior to the patellar tendon and patella, without definite bursitis There is mild bone marrow edema within the posterior aspect of the lateral tibial plateau. No definite fracture is identified. No focal osseous lesion is seen. There are osteophytes in all 3 compartments Impression: 1. Limited examination due to motion artifact 2. Multifocal tearing of the medial meniscus 3. Horizontal tear of the lateral meniscus 4. 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 Mild quadriceps and patellar tendinopathy 7. Small knee effusion 8. Possible bone contusion of the posterior edge of the lateral tibial plateau Electronically signed by Kai Sams 01-25-2024 4:55 PM Duplex Scan Lower Extremity Artery 01/25/24 13:46 EXAM: US arterial duplex LE RT CLINICAL HISTORY: RLE swelling; ? compartment syndrome. See attached worksheet No detectable flow in dist rt MULTIMEDIA SERVICES MANAGER. TECHNIQUE: Ultrasound examination of the right lower extremity arteries with ankle brachial indices was performed in real time and duplex. One or more of the following were performed- spectral analysis, resistive index, waveform analysis, and pulsed Doppler. COMPARISON: None. FINDINGS: Vessel Flow Pattern Right Peak Velocity Right (cm/sec) Common Femoral Artery (CIRCUITRY NEGATIVE INSPECTOR) Tri [PSV Right]159 Deep Femoral Artery (DPA) Bi [PSV Right]55 Superficial Femoral Artery (SFA) Bi [PSV Right]135 Popliteal Artery (POP A) Bi [PSV Right]84 Posterior Tibial Artery (MULTIMEDIA SERVICES MANAGER), proximal [place] 294 Posterior Tibial Artery (MULTIMEDIA SERVICES MANAGER), distal [place] 47 Dorsalis Pedis Artery (DPA) Bi 31 SANDRA measures 1.04 on right and 1.13 on left side. Diffuse mild atherosclerotic disease. There is significant elevation of the velocity at the proximal M[employer]IMEDIA SERVICES MANAGER with a velocity ratio measures 3 suggesting significant stenosis 50-74%. IMPRESSION: 1. Diffuse mild atherosclerotic disease, with significant stenosis at the proximal MULTIMEDIA SERVICES MANAGER (50-74% stenosis according to velocity changes). Further evalaution by CT angiography is advised. 2. Preserved normal SANDRA. Electronically signed by Isai Barrera 01-25-2024 4:20 PM Lower Extremity CTA 01/26/24 07:[address] ANGIOGRAPHY CLINICAL HISTORY: f/u on RLE arterial doppler, significant stenosis of right M[employer]IMEDIA SERVICES MANAGER COMPARISON STUDY: Right lower extremity arterial Doppler ultrasound January 25, 2024. MRI of the right knee January 05, 2024. CT of the abdomen and pelvis January 24, 2024. TECHNIQUE: Helical axial images of the right lower extremity were obtained during arterial phase following intravenous injection of 119 cc of Optiray 320 IV. Sagittal and coronal reconstructions were viewed as well as maximal int ensity projections on an independent 3-D workstation .Automated exposure control was utilized for the study. A dose lowering technique was utilized adhering to the principles of ALARA. FINDINGS: The right common femoral and superficial femoral arteries are patent. There is mild plaque within the right superficial femoral artery without stenosis. There is moderate plaque within the right popliteal artery without stenosis. The proximal right anterior tibial arteries occluded. There are severe multifocal stenoses with suspected short segment occlusion and reconstitution within the right anterior tibial and dorsalis pedis vessels. The right peroneal artery is patent. The proximal right posterior tibial artery is occluded with reconstitution distally through the peroneal artery. There is no aneurysm within the right lower extremity. There is no evidence for vascular injury. Multiple intramuscular hematomas within the right gluteal musculature are present. There are hematomas within an overlying the right hamstrings muscle, deep to the fascia. There may also be a small amount of intramuscular hemorrhage within the right adductor muscles. No active extravasation is identified. Overal l, there is a moderate amount of hemorrhage. There is no pseudoaneurysm. There are no fractures within the right femur. Severe degenerative changes within the right knee are incidentally noted. IMPRESSION: 1. Moderate atherosclerotic plaque within the right lower extremity. Patent right common femoral, superficial femoral and popliteal arteries. 2. 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 Patent right peroneal artery. Severe stenoses and suspected short segment occlusion with reconstitution of the right dorsalis pedis and anterior tibial arteries. 3. Multiple acute hematomas within the right buttock, groin and thigh, as described above. Overall, moderate amount of hemorrhage. No active extravasation. ACT 112: Negative or not required by law. Electronically signed by: Leonid Mueller M.D. 01/26/2024 10:52 AM
--- NOTE | 2024-01-26 16:37 | Electroencephalogram ---
EEG Procedure Note Date of Service January 26, 2024 Start / End Times Start Time: 1101 End Time: [address] Garcia History A 88 yo F with syncope. EEG performed for evaluation of epileptiform activity. Home Medication List Medication Instructions Recorded Confirmed Type losartan 50 mg tablet 25 mg PO UD 09/03/23 01/24/24 History Inpatient Medication List Acetaminophen (Acetaminophen 325 Mg Tab) 650 mg PO QID PRN PRN Reason: pain/fever Stop: 02/23/24 20:24 Last Admin: 01/26/24 09:18 Dose: 650 mg Documented By: Admin: 01/25/24 11:18 Dose: 650 mg Documented By: Admin: 01/25/24 02:21 Dose: 650 mg Documented By: MAYI Docusate Sodium (Docusate Sodium 100 Mg Cap) 100 mg PO BID KASIE Stop: 02/25/24 08:59 Last Admin: 01/26/24 09:19 Dose: 100 mg Documented By: JARROD Discontinued Medications Fentanyl Citrate (Fentanyl Citrate Pf 100 Mcg/2 Ml Vial) 25 mcg IV NOW STA Stop: 01/24/24 18:09 Last Admin: 01/24/24 18:30 Dose: 25 mcg Documented By: LUCA Acetaminophen (Ofirmev) 1,000 mg in 100 mls @ 400 mls/hr IV NOW STA Stop: 01/24/24 18:24 Last Infusion: 01/24/24 19:01 Dose: Infused Documented By: Admin: 01/24/24 18:31 Dose: 400 mls/hr Documented By: LUCA Lactated Ringer's (Lr) 1,000 mls @ 75 mls/hr IV .[id number] ONE Stop: 01/25/24 09:44 Last Infusion: 01/25/24 08:15 Dose: 0 mls/hr Documented By: Admin: 01/24/24 21:06 Dose: 75 mls/hr Documented By: LUCA Lactated Ringer's (Lr) 1,000 mls @ 75 mls/hr IV .[id number] ONE Stop: 01/25/24 23:19 Last Infusion: 01/26/24 06:50 Dose: Infused Documented By: Admin: 01/25/24 11:32 Dose: 75 mls/hr Documented By: JARROD Iron Sucrose 200 mg/ Sodium (Chloride) 110 mls @ 220 mls/hr IV TODAY ONE; Protocol Stop: 01/26/24 08:29 Last Infusion: 01/26/24 10:23 Dose: Infused Documented By: Admin: 01/26/24 09:19 Dose: 220 mls/hr Documented By: JARROD Ioversol (Optiray 320 100ml) 92 ml IV ONCE ONE Stop: 01/24/24 19:21 Last Admin: 01/24/24 19:21 Dose: 92 ml Documented By: LISSETT Ioversol (Optiray 320 125ml) 119 ml IV ONCE ONE Stop: 01/26/24 10:18 Last Admin: 01/26/24 10:18 Dose: 119 ml Documented By: JAIME Losartan Potassium (Losartan Potassium 25 Mg Tab) 25 mg PO NOW STA Stop: 01/25/24 01:36 Last Admin: 01/25/24 02:21 Dose: 25 mg Documented By: MAYI Description This is a 21 electrode EEG with a single channel dedicated to limited EKG. The electrodes were placed in accordance with the International 10-20 system. REPORT: At the onset of the EEG the patient is awake. The posterior dominant rhythm is 10 Hz. During drowsiness there is some intermixed 2-3 Hz generalized delta activity. Interpretation IMPRESSION: This is an abnormal awake and drowsy routine EEG due to mild intermittent background slowing suggestive of a mild non specific encephalopathy. No epileptiform activity is seen.
[2024-01-27 07:22] LABS: Hematocrit (blood only) 26.9 % (37.0-47.0); Hemoglobin 8.6 g/dl (12.0-16.0); Mean Corpuscular Hemoglobin 26.8 pg (25.0-34.0); Mean Corpuscular Volume 83.8 fL (80.0-100.0); Mean Platelet Volume 9.3 fL (9.4-12.4); Platelet Count 170 K/uL (130-400); RDW Coefficient of Variation 15.5 % (11.5-14.5); RDW Standard Deviation 46.7 fL (36.4-46.3); Red Blood Count 3.21 M/uL (4.20-5.40); White Blood Count 5.79 K/ul (4.8-10.8)
[2024-01-27 07:44] LABS: Albumin Globulin Ratio 1.5 (0.9-2); Albumin Level 3.7 gm/dl (3.4-5.0); Bilirubin,Total 1.6 mg/dl (0.2-1.0); Calcium 8.6 mg/dl (8.6-10.3); Chol HDL Ratio 4.3 (0-5); Globulin 2.5 gm/dl (2.5-4.0); Phosphorus 2.9 mg/dl (2.5-4.9); Total Protein 6.2 gm/dl (6.0-8.3)
[2024-01-27 08:21] LABS: Potassium 3.7 mmol/L (3.5-5.1)
[2024-01-27] MEDS: FERROUS SULFATE 325 MG TAB PO SCH (09:32)
--- NOTE | 2024-01-27 14:21 | Orthopedic Progress Note ---
Date of Service January 26, 2024 Assessment & Plan (1) Status post fall: Plan: IMPRESSION: 1) RLE pain, secondarily to swelling, bruising, and exacerbation of degenerative changes right knee, due to fall and resulting in rhabdomyolysis, improving slowly 2) Right elbow pain, secondarily to contusion versus occult fracture, improving PLAN: Recommend conservative treatment. WBAT with walker. RICE RLE & R elbow. PT/OT Continue IV fluids. Continue pain control per primary service Continue care per primary service. Will continue to monitor. Admission and Anticipated Discharge Date Admission Date: January 24, 2024 Subjective A little better, but still bad. Right arm not painful. Physical Exam Physical Exam: RLE: Sensation to light touch intact. Motor to GS, TA, EHL intact. Able to preform straight leg raise. BCR < 2 sec. Significant bruising and swelling to lateral/anterior compartment, tender to touch, softer. + tenderness to palpation hamstring, vastus lateralis/IT band, and quad, also soft. Limited ROM knee secondarily to pain. RUE: 2+ radial pulse. Sensation to light touch intact distally. Motor to median, ulnar, radial, AIN, PIN intact. No swelling. + minimal TTP over the radial head laterally. ROM 30-120 deg. - discomfort with supination of the forearm. Results & Data Vital Signs (Past 12 Hours) Vital Signs Temp Pulse Pulse Resp BP Pulse Ox O2 Del Method 01/27/24 11:26 36.7 C 81 18 116/67 96 Room Air 01/27/24 07:45 36.8 C 76 18 124/49 L 96 Room Air 01/27/24 06:20 62 01/27/24 03:10 37.2 C 77 22 130/64 95 Room Air Laboratory Results 01/27/24 Range/Units 07:05 WBC 5.79 (4.8-10.8) K/ul RBC 3.21 L (4.20-5.40) M/uL Hgb 8.6 L (12.0-16.0) g/dl Hct 26.9 L (37.0-47.0) % MCV 83.8 (80.0-100.0) fL MCH 26.8 (25.0-34.0) pg MCHC 32.0 (32.0-36.0) g/dL RDW Std Deviation 46.7 H (36.4-46.3) fL RDW Coeff of Ruby 15.5 H (11.5-14.5) % Plt Count 170 (130-400) K/uL MPV 9.3 L (9.4-12.4) fL Sodium 145 (136-145) mmol/L Potassium 3.7 (3.5-5.1) mmol/L Chloride 110 H (98-107) mmol/L Carbon Dioxide 27 (21-32) mmol/L Anion Gap 8 (3-11) BUN 17 (6-23) mg/dl Creatinine 0.74 (0.6-1.2) mg/dl Est Cr Clr Drug Dosing 57.0 ml/min eGFR 78.74 BUN/Creatinine Ratio 23.0 H (10-20) Glucose 97 (70-99(Fasting)) mg/dl Calcium 8.6 (8.6-10.3) mg/dl Phosphorus 2.9 (2.5-4.9) mg/dl Magnesium 2.0 (1.7-2.4) mg/dl Total Bilirubin 1.6 H (0.2-1.0) mg/dl AST 33 (13-39) U/L ALT 22 (7-52) U/L Alkaline Phosphatase 48 (34-104) U/L Total Creatine Kinase 521 H (26-192) U/L Total Protein 6.2 (6.0-8.3) gm/dl Albumin 3.7 (3.4-5.0) gm/dl Globulin 2.5 (2.5-4.0) gm/dl Albumin/Globulin Ratio 1.5 (0.9-2) Triglycerides 151 H (0-150) mg/dl Cholesterol 155 (0-200) mg/dl LDL Cholesterol, Calc 89 mg/dl VLDL Cholesterol, Calc 30 (0-30) mg/dl HDL Cholesterol 36 mg/dl Cholesterol/HDL Ratio 4.3 (0-5)
--- NOTE | 2024-01-27 14:23 | Orthopedic Progress Note ---
Date of Service January 27, 2024 Assessment & Plan (1) Status post fall: Plan: IMPRESSION: 1) RLE pain, secondarily to swelling, bruising, and exacerbation of degenerative changes right knee, due to fall and resulting in rhabdomyolysis, improving slowly 2) Right elbow pain, secondarily to contusion versus occult fracture, improving PLAN: Recommend conservative treatment. WBAT with walker. RICE RLE & R elbow. PT/OT Continue IV fluids. Continue pain control per primary service Continue care per primary service. Will continue to monitor. Admission and Anticipated Discharge Date Admission Date: January 24, 2024 Subjective A little better, but still bad. Right arm not painful, stiff. Physical Exam Physical Exam: RLE: Sensation to light touch intact. Motor to GS, TA, EHL intact. Able to preform straight leg raise. BCR < 2 sec. Significant bruising and swelling to lateral/anterior compartment, tender to touch, softer. + tenderness to palpation hamstring, vastus lateralis/IT band, and quad, also soft. Limited ROM knee secondarily to pain (5-70 deg). RUE: 2+ radial pulse. Sensation to light touch intact distally. Motor to median, ulnar, radial, AIN, PIN intact. No swelling. + TTP over the biceps and Triceps. ROM 30-120 deg. - discomfort with supination of the forearm. Results & Data Vital Signs (Past 12 Hours) Vital Signs Temp Pulse Pulse Resp BP Pulse Ox O2 Del Method 01/27/24 11:26 36.7 C 81 18 116/67 96 Room Air 01/27/24 07:45 36.8 C 76 18 124/49 L 96 Room Air 01/27/24 06:20 62 01/27/24 03:10 37.2 C 77 22 130/64 95 Room Air
--- NOTE | 2024-01-27 14:56 | Hospitalist Progress Note ---
Date of Service January 27, 2024 Assessment & Plan (1) Rhabdomyolysis: Plan: Plan Pt is an 88yoF with PMhx significant for hypertension, history of traumatic cervical fracture, stress incontinence, mild cognitive impairment as per records presenting with concern after a fall at home once more. RLE swelling and bruising R Elbow Pain Possible R knee Hemarthrosis Hematomas Peripheral Artery Disease Fall Patient with fall at home Pain in her right lower extremity with noted swelling and bruising. X-ray right knee noting nonspecific tissue swelling MRI of the right knee ordered and pending Tib-fib x-ray noting marked nonspecific tissue swelling as well as severe joint space narrowing Shoulder x-ray unremarkable Arterial Doppler noting "Diffuse mild atherosclerotic disease, with significant stenosis at the proximal CLINICAL RESEARCH MANAGEMENT ASSOCIATE (50-74% stenosis according to velocity changes). 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 Noted or stated the following on 01/26/24 via Tigertext:"Her abis are normal and all waveforms are normal except for the posterior tibial. Theres no treatment thats needed for an isolated stick inserter tibial stenosis....follow up after discharge" Orthopedic surgery consulted, appreciate further recs. Noted /stated the following: "Recommend conservative treatment. WBAT with walker. RICE RLE & R elbow. PT/OT" Workup for falls completed during last admission, EEG noted with no indication of seizures PT OT ordered, appreciate further recs- recommending acute rehab Traumatic Rhabdomyolysis secondary to recurrent falls CK 1960 to 1775 today Continue with IV fluids Follow CK Improving Acute on chronic anemia Multiple hematomas of buttock, groin and thigh Patient with acute drop of hemoglobin down to 6.8 on 01/25/24 hemoglobin of 10 on discharge in August CTA right lower extremity noting "Multiple acute hematomas within the right buttock, groin and thigh, as described above. Overall, moderate amount of hemorrhage. 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 Giordano as an outpatient Orthospine was consulted once more this admission, appreciate recs. Recommended or stated the following: "CT scan of the cervical spine available for review does demonstrate chronic C2 fracture involving the lateral mass on the right. It does appear to be healing and stable. I would recommend weaning from the cervical collar. She certainly may remove this collar for meals. At this point I would only have her wear it when transfers to chair and ambulating." Continue other home meds as ordered Diet: HH DVT prophylaxis: SCDs re: multiple contusions/hematoma resulting in anemia Dispo: per PT/OT recs once medically stable Admission and Anticipated Discharge Date Admission Date: January 24, 2024 Subjective patient seen with Egyptian felt strip finisher service patient states that she is better but is having some difficulty and cannot stand on the foot, states she can only stand on her toes. Notes she can lift the leg while laying in bed. Also states she has been urinating quite frequently Discussion with patient that she had been receiving IV fluids for her rhabdo and was drinking quite a bit of fluids as well. Was evaluated by physical therapy who is currently recommending acute rehab. Review of Systems Review of Systems: All systems reviewed & are unremarkable except as noted in Subjective Physical Exam Physical Exam: General: Alert. No acute distress, neck collar in place Skin: bruising noted on right leg and knee Psych: Appropriate mood and affect Neuro: difficulty with movements in the bed HEENT: NC/AT, neck collar in place CV: RRR Resp: no increased effort of breathing Abdomen: Soft, nontender Extremities:R knee and lower extremity with significant swelling and bruising Results & Data Results & Data Vital Signs (Past 12 Hours) Vital Signs Temp Pulse Pulse Resp BP Pulse Ox O2 Del Method 01/27/24 11:26 36.7 C 81 18 116/67 96 Room Air 01/27/24 07:45 36.8 C 76 18 124/49 L 96 Room Air 01/27/24 06:20 62 01/27/24 03:10 37.2 C 77 22 130/64 95 Room Air
[2024-01-27] MEDS: traMADol HCL 50 MG TABLET PO PRN (17:01)
[2024-01-28 07:45] LABS: Hematocrit (blood only) 28.3 % (37.0-47.0); Hemoglobin 8.8 g/dl (12.0-16.0); Mean Corpuscular Hemoglobin 26.9 pg (25.0-34.0); Mean Corpuscular Hgb Conc 31.1 g/dL (32.0-36.0); Mean Corpuscular Volume 86.5 fL (80.0-100.0); Mean Platelet Volume 9.6 fL (9.4-12.4); Platelet Count 200 K/uL (130-400); RDW Coefficient of Variation 15.9 % (11.5-14.5); RDW Standard Deviation 48.9 fL (36.4-46.3); Red Blood Count 3.27 M/uL (4.20-5.40); White Blood Count 5.56 K/ul (4.8-10.8)
[2024-01-28 08:07] LABS: Albumin Globulin Ratio 1.4 (0.9-2); Albumin Level 3.7 gm/dl (3.4-5.0); BUN Creatinine Ratio 28.4 (10-20); Bilirubin,Total 1.7 mg/dl (0.2-1.0); Calcium 8.7 mg/dl (8.6-10.3); Creatinine Clr Calc Pharmacy 57.5 ml/min; Globulin 2.6 gm/dl (2.5-4.0); Magnesium 2.1 mg/dl (1.7-2.4); Phosphorus 3.5 mg/dl (2.5-4.9); Potassium 3.9 mmol/L (3.5-5.1); Total Protein 6.3 gm/dl (6.0-8.3)
--- NOTE | 2024-01-28 11:53 | Discharge Summary ---
Discharge Summary Date of Service January 28, 2024 Principal Dx & Hospital Course #1 = Principal Diagnosis (1) Rhabdomyolysis: Plan Pt is an 88yoF with PMhx significant for hypertension, history of traumatic cervical fracture, stress incontinence, mild cognitive impairment as per records presenting with concern after a fall at home once more. RLE swelling and bruising R Elbow Pain Possible R knee Hemarthrosis Hematomas Peripheral Artery Disease Fall Patient with fall at home Pain in her right lower extremity with noted swelling and bruising. X-ray right knee noting nonspecific tissue swelling MRI of the right knee ordered and pending Tib-fib x-ray noting marked nonspecific tissue swelling as well as severe joint space narrowing Shoulder x-ray unremarkable Arterial Doppler noting "Diffuse mild atherosclerotic disease, with significant stenosis at the proximal RESEARCH AND DEVELOPMENT CHEMIST (50-74% stenosis according to velocity changes). 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 Noted or stated the following on 01/26/24 via Tigertext:"Her abis are normal and all waveforms are normal except for the posterior tibial. Theres no treatment thats needed for an isolated rheologist tibial stenosis....follow up after discharge" Orthopedic surgery consulted, appreciate further recs. Noted /stated the following: "Recommend conservative treatment. WBAT with walker. RICE RLE & R elbow. PT/OT" Workup for falls completed during last admission, EEG noted with no indication of seizures PT OT ordered, appreciate further recs- recommending acute rehab Traumatic Rhabdomyolysis secondary to recurrent falls CK 1960 to 1775 today Continue with IV fluids Follow CK Improving Acute on chronic anemia Multiple hematomas of buttock, groin and thigh Patient with acute drop of hemoglobin down to 6.8 on 01/25/24 hemoglobin of 10 on discharge in August CTA right lower extremity noting "Multiple acute hematomas within the right buttock, groin and thigh, as described above. Overall, moderate amount of hemorrhage. 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 Giordano as an outpatient Orthospine was consulted once more this admission, appreciate recs. Recommended or stated the following: "CT scan of the cervical spine available for review does demonstrate chronic C2 fracture involving the lateral mass on the right. It does appear to be healing and stable. I would recommend weaning from the cervical collar. She certainly may remove this collar for meals. At this point I would only have her wear it when transfers to chair and ambulating." Continue other home meds as ordered Diet: HH DVT prophylaxis: SCDs re: multiple contusions/hematoma resulting in anemia Dispo: per PT/OT recs once medically stable Admission HPI Per Admitting Provider History obtained from patient, family, and records. Limited history from patient secondary to language barrier. Medical history significant for hypertension, history of traumatic cervical fracture, stress incontinence, mild cognitive impairment as per records. Last confinement August 2023 for traumatic C2 fracture/scalp laceration secondary to fall. No operative management. Orthopedics recommended cervical collar at time of discharge to rehab facility before returning home last month. Hemoglobin 10 at time of discharge. Patient with dizzy episode leading to fall on her right side yesterday. No head trauma. Some bruising noted at home. Patient denies chest pain, SOB. Patient had another unwitnessed fall at home today. Achy right arm and leg pain with bruising noted. Denies syncopal event. Achy headache symptoms. Denies arm or leg weakness. 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 No acute distress, neck collar in place Skin: bruising noted on right leg and knee Psych: Appropriate mood and affect Neuro: difficulty with movements in the bed HEENT: NC/AT, neck collar in place CV: RRR Resp: no increased effort of breathing Abdomen: Soft, nontender Extremities:R knee and lower extremity with significant swelling and bruising Updated Medication List Medication Instructions Recorded Confirmed Type losartan 50 mg tablet 25 mg PO UD 09/03/23 01/24/24 History Hospital Stay Data Consultations 01/24/24 20:21 ED Decision to Admit Stat 01/25/24 04:03 Consult Orthopedic Spine Surgery Routine 01/25/24 11:15 Consult Orthopedic Surgery Routine 01/26/24 07:45 Consult Vascular Surgery Routine Diagnostic Imagining Performed 01/24/24 18:08 CT abd pelvis IV con only Stat CT cervical spine wo con Stat CT chest diagnostic w con Stat CT head/brain wo con Stat 01/25/24 11:16 MRI Knee [MR knee RT wo con] Urgent 01/25/24 13:46 US arterial duplex LE RT Urgent 01/26/24 07:48 CTA LE RT w and wo if don [CT angio LE RT w inc wo if don] Urgent
--- NOTE | 2024-01-28 12:57 | Hospitalist Progress Note ---
Date of Service January 28, 2024 Assessment & Plan (1) Rhabdomyolysis: Plan: Plan Pt is an 88yoF with PMhx significant for hypertension, history of traumatic cervical fracture, stress incontinence, mild cognitive impairment as per records presenting with concern after a fall at home once more. RLE swelling and bruising R Elbow Pain Possible R knee Hemarthrosis Hematomas Peripheral Artery Disease Fall Patient with fall at home Pain in her right lower extremity with noted swelling and bruising. X-ray right knee noting nonspecific tissue swelling MRI of the right knee ordered and pending Tib-fib x-ray noting marked nonspecific tissue swelling as well as severe joint space narrowing Shoulder x-ray unremarkable Arterial Doppler noting "Diffuse mild atherosclerotic disease, with significant stenosis at the proximal FINISH MACHINE TENDER (50-74% stenosis according to velocity changes). 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 Noted or stated the following on 01/26/24 via Tigertext:"Her abis are normal and all waveforms are normal except for the posterior tibial. Theres no treatment thats needed for an isolated email manager tibial stenosis....follow up after discharge" Orthopedic surgery consulted, appreciate further recs. Noted /stated the following: "Recommend conservative treatment. WBAT with walker. RICE RLE & R elbow. PT/OT" Workup for falls completed during last admission, EEG noted with no indication of seizures PT OT ordered, appreciate further recs- recommending acute rehab Traumatic Rhabdomyolysis secondary to recurrent falls CK 1960 to 1775 today Continue with IV fluids Follow CK Improving Acute on chronic anemia Multiple hematomas of buttock, groin and thigh Patient with acute drop of hemoglobin down to 6.8 on 01/25/24 hemoglobin of 10 on discharge in August CTA right lower extremity noting "Multiple acute hematomas within the right buttock, groin and thigh, as described above. Overall, moderate amount of hemorrhage. 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 Giordano as an outpatient Orthospine was consulted once more this admission, appreciate recs. Recommended or stated the following: "CT scan of the cervical spine available for review does demonstrate chronic C2 fracture involving the lateral mass on the right. It does appear to be healing and stable. I would recommend weaning from the cervical collar. She certainly may remove this collar for meals. At this point I would only have her wear it when transfers to chair and ambulating." Continue other home meds as ordered Diet: HH DVT prophylaxis: SCDs re: multiple contusions/hematoma resulting in anemia Dispo: [facility] in AM Admission and Anticipated Discharge Date Admission Date: January 24, 2024 Subjective Patient was seen in the a.m. laying in bed Stated that her leg though improved still her Per case management, paulette has a bed today Call placed to patient's daughter who states that she is unable to transport patient to [facility] today and prefers to go tomorrow. She notes that insurance will not cover transportation otherwise. Review of Systems Review of Systems: All systems reviewed & are unremarkable except as noted in Subjective Physical Exam Physical Exam: General: Alert. No acute distress, neck collar in place Skin: bruising noted on right leg and knee Psych: Appropriate mood and affect Neuro: difficulty with movements in the bed HEENT: NC/AT, neck collar in place CV: RRR Resp: no increased effort of breathing Abdomen: Soft, nontender Extremities:R knee and lower extremity with significant swelling and bruising Results & Data Results & Data Vital Signs (Past 12 Hours) Vital Signs Temp Pulse Resp BP Pulse Ox O2 Del Method 01/28/24 11:48 37.1 C 86 18 147/68 H 94 Room Air 01/28/24 08:00 36.7 C 78 18 128/66 95 Room Air 01/28/24 03:20 37.0 C 73 18 129/68 96 Room Air
[2024-01-29 08:10] LABS: Hematocrit (blood only) 30.5 % (37.0-47.0); Hemoglobin 9.6 g/dl (12.0-16.0); Mean Corpuscular Hemoglobin 27.2 pg (25.0-34.0); Mean Corpuscular Hgb Conc 31.5 g/dL (32.0-36.0); Mean Corpuscular Volume 86.4 fL (80.0-100.0); Mean Platelet Volume 9.3 fL (9.4-12.4); Platelet Count 196 K/uL (130-400); RDW Coefficient of Variation 15.8 % (11.5-14.5); RDW Standard Deviation 48.1 fL (36.4-46.3); Red Blood Count 3.53 M/uL (4.20-5.40)
[2024-01-29 08:33] LABS: Albumin Globulin Ratio 1.3 (0.9-2); Albumin Level 3.9 gm/dl (3.4-5.0); BUN Creatinine Ratio 23.2 (10-20); Bilirubin,Total 1.8 mg/dl (0.2-1.0); Calcium 9.1 mg/dl (8.6-10.3); Creatinine Clr Calc Pharmacy 50.9 ml/min; Globulin 2.9 gm/dl (2.5-4.0); Magnesium 2.1 mg/dl (1.7-2.4); Phosphorus 3.3 mg/dl (2.5-4.9); Potassium 3.9 mmol/L (3.5-5.1); Total Protein 6.8 gm/dl (6.0-8.3)
--- NOTE | 2024-01-29 10:37 | Orthopedic Progress Note ---
Date of Service January 29, 2024 Assessment & Plan (1) Status post fall: Plan: IMPRESSION: 1) RLE pain, secondarily to swelling, bruising, and exacerbation of degenerative changes right knee, due to fall and resulting in rhabdomyolysis, improving 2) Right elbow pain, secondarily to contusion, Resolved PLAN: Recommend continuing conservative treatment. Discussed with the patient this morning that this can take some time to resolve but she is noting improveme nts which is reassuring. WBAT with walker. RICE RLE & R elbow as needed however patient is reporting no pain and that her elbow is better PT/OT Continue pain control and care per primary service Follow-up with [facility] orthopedics as needed 10 to 14 days from discharge. Please call [phone] to make an appointment. Will sign off for now. Please Dixie text with any questions or concerns. Admission and Anticipated Discharge Date Admission Date: January 24, 2024 Subjective Patient was seen and examined at bedside. Patient is Kazakh-speaking and and breeder service technician was used today. She says that she is still having some pain in her right leg but no pain in her right elbow that has improved. She says the pain in her right leg/knee is also improved since yesterday. Physical Exam Physical Exam: Patient has extensive bruising over her right lower extremity mostly over the distal lateral aspect below her knee there appears to be a hematoma present. Patient is tender to touch over this. She has some pain medially over her knee. She also has some bruising over her medial thigh area. She can extend and flex her knee to 95 degrees. She is able to dorsiflex and plantarflex and wiggle all of her toes. Her medial calf is soft and compressible. Skin is tense over the hematoma. She has no pain when palpating her right elbow. She is able to flex and extend without any pain. Results & Data Vital Signs (Past 12 Hours) Vital Signs Temp Pulse Pulse Resp BP Pulse Ox O2 Del Method 01/29/24 07:20 36.6 C 66 20 147/65 H 95 Room Air 01/29/24 05:50 69 01/29/24 03:08 37.2 C 67 18 165/68 H 93 Room Air 01/28/24 22:47 36.8 C 80 20 146/68 H 92 Room Air
[2024-01-29 11:15] VITALS: PULSE 70; RESP 19; TEMP 98.4; O2SAT 96
[2024-01-29] MEDS: ATORVASTATIN 40 MG TAB PO SCH (11:45)
--- NOTE | 2024-01-29 13:14 | Discharge Summary ---
Discharge Summary Date of Service January 29, 2024 Principal Dx & Hospital Course #1 = Principal Diagnosis (1) Rhabdomyolysis: Plan Pt is an 88yoF with PMhx significant for hypertension, history of traumatic cervical fracture, stress incontinence, mild cognitive impairment as per records presenting with concern after a fall at home once more. RLE swelling and bruising R Elbow Pain Hematomas Peripheral Artery Disease Fall Patient with fall at home Pain in her right lower extremity with noted swelling and bruising. 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 Further evaluation by CT angiography is advised." CTA RLE noting " moderate atherosclerotic plaque in the right lower extremity", "occlusion of the proximal right posterior tibial artery.." and multiple hematomas of the groin, buttock and right thigh vascular surgery was consulted. Noted or stated the following on 01/26/24 via [employer]:"Her abis are normal and all waveforms are normal except for the posterior tibial. Theres no treatment thats needed for an isolated special procedures tech tibial stenosis....follow up after discharge" Orthopedic surgery consulted, appreciate further recs. Noted /stated the following: "Recommend continuing conservative treatment. Discussed with the patient this morning that this can take some time to resolve but she is noting improvements which is reassuring. WBAT with walker. RICE RLE & R elbow as needed however patient is reporting no pain and that her elbow is better. PT/OT. Continue pain control and care per primary service. Follow-up with [facility] orthopedics as needed 10 to 14 days from discharge. Please call [phone] to make an appointment." Workup for falls completed during last admission, EEG noted with no indication of seizures PT/OT recommending acute rehab Please ensure orthopedic followup after discharge Traumatic Rhabdomyolysis secondary to recurrent falls CK 1960 on admission, downtrended Treated with IV fluids Improved on discharge Acute on chronic anemia Multiple hematomas of buttock, groin and thigh Patient with acute drop of hemoglobin down to 6.8 on 01/25/24 hemoglobin of 10 on discharge in August CTA right lower extremity noting "Multiple acute hematomas within the right but tock, groin and thigh, as described above. Overall, moderate amount of hemorrhage. 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 Giordano as an outpatient Orthospine was consulted once more this admission, appreciate recs. Recommended or stated the following: "CT scan of the cervical spine available for review does demonstrate chronic C2 fracture involving the lateral mass on the right. It does appear to be healing and stable. I would recommend weaning from the cervical collar. She certainly may remove this collar for meals. At this point I would only have her wear it when transfers to chair and ambulating." Continue other home meds as ordered Notes For Next Care Provider Please ensure orthopedic followup after discharge Please continue to monitor hemoglobin after discharge Medication Changes From Visit Ferrous sulfate supplement Atorvastatin 40mg daily Admission HPI Per Admitting Provider History obtained from patient, family, and records. Limited history from patient secondary to language barrier. Medical history significant for hypertension, history of traumatic cervical fracture, stress incontinence, mild cognitive impairment as per records. Last confinement August 2023 for traumatic C2 fracture/scalp laceration secondary to fall. No operative management. Orthopedics recommended cervical collar at time of discharge to rehab facility before returning home last month. Hemoglobin 10 at time of discharge. Patient with dizzy episode leading to fall on her right side yesterday. No head trauma. Some bruising noted at home. Patient denies chest pain, SOB. Patient had another unwitnessed fall at home today. Achy right arm and leg pain with bruising noted. Denies syncopal event. Achy headache symptoms. Denies arm or leg weakness. 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 No acute distress, neck collar in place Skin: bruising noted on right leg and knee Psych: Appropriate mood and affect Neuro: difficulty with movements in the bed HEENT: NC/AT, neck collar in place CV: RRR Resp: no increased effort of breathing Abdomen: Soft, nontender Extremities:R knee and lower extremity with significant swelling and bruising Updated Medication List Medication Instructions Recorded Confirmed Type losartan 50 mg tablet 25 mg PO UD 09/03/23 01/24/24 History atorvastatin 40 mg tablet 40 mg PO QAM #30 tabs 01/29/24 Rx ferrous sulfate 325 mg (65 mg 325 mg PO QAM #30 tabs 01/29/24 Rx iron) tablet,delayed release Hospital Stay Data Consultations 01/24/24 20:21 ED Decision to Admit Stat 01/25/24 04:03 Consult Orthopedic Spine Surgery Routine 01/25/24 11:15 Consult Orthopedic Surgery Routine 01/26/24 07:45 Consult Vascular Surgery Routine Diagnostic Imagining Performed 01/24/24 18:08 CT abd pelvis IV con only Stat CT cervical spine wo con Stat CT chest diagnostic w con Stat CT head/brain wo con Stat 01/25/24 11:16 MRI Knee [MR knee RT wo con] Urgent 01/25/24 13:46 US arterial duplex LE RT Urgent 01/26/24 07:48 CTA LE RT w and wo if don [CT angio LE RT w inc wo if don] Urgent Abdomen/Pelvis CT 01/24/24 18:08 Exam(s): CT ABDOMEN + PELVIS With Contrast IV Amt: 92 cc opti 320 EXAM: CT Abdomen and Pelvis With Intravenous Contrast CLINICAL HISTORY: Fall TECHNIQUE: Axial computed tomography images of the abdomen and pelvis with intravenous contrast. CTDI is 25 mGy and DLP is 899 mGy-cm. Automated exposure control was utilized for the study. A dose lowering technique was utilized adhering to the principles of ALARA. CONTRAST: Patient received 92 cc opti 320 of IV contrast COMPARISON: No relevant prior studies available. FINDINGS: Lung bases: Unremarkable. No mass. No consolidation. ABDOMEN: Liver: There is a simple appearing hepatic cyst, no follow-up is needed. No suspicious liver lesion. Gallbladder and bile ducts: Unremarkable. No calcified stones. No ductal dilation. Pancreas: Unremarkable. No mass. No ductal dilation. Spleen: Unremarkable. No splenomegaly. Adrenals: Unremarkable. No mass. Kidneys and ureters: There is a simple appearing left renal cyst, no follow-up is needed. The kidneys are otherwise unremarkable. No hydronephrosis. Stomach and bowel: Unremarkable. No obstruction. No mucosal thickening. PELVIS: Appendix: Normal appendix. Bladder: Unremarkable. No mass. Reproductive: Unremarkable as visualized. ABDOMEN and PELVIS: Intraperitoneal space: Unremarkable. No free air. No significant fluid collection. Bones/joints: There are degenerative changes of the spine. No acute fracture. No dislocation. Soft tissues: Small fat-containing umbilical hernia. Vasculature: There is ectasia of the infrarenal aorta measuring 2.5 cm. Moderate atherosclerosis. No abdominal aortic aneurysm. Lymph nodes: Unremarkable. No enlarged lymph nodes. IMPRESSION: 1. No acute finding of the abdomen or pelvis. 2. There is ectasia of the infrarenal aorta measuring 2.5 cm. Electronically signed by: Tracee Tipton MD 01/24/24 20:[address] 01/24/24 18:08 Exam(s): CT C SPINE EXAM: CT Cervical Spine Without Intravenous Contrast CLINICAL HISTORY: Fall. TECHNIQUE: Axial computed tomography images of the cervical spine without intravenous contrast. CTDI is 35.22 mGy and DLP is 234.15 mGy-cm. Automated exposure control was utilized for the study. A dose lowering technique was utilized adhering to the principles of ALARA. COMPARISON: CT C-spine 10/09/2023 FINDINGS: Vertebrae: Chronic C2 fractures. No acute fracture. No malalignment. Degenerative changes are noted. Discs/spinal canal/neural foramina: No acute findings. No spinal canal stenosis. Soft tissues: Unremarkable. IMPRESSION: No acute findings in the cervical spine. Electronically signed by: Tracee Tipton MD 01/24/24 20:[address] 01/24/24 18:08 Exam(s): CT CHEST With Contrast IV Amt: 92 cc opti 320 EXAM: CT Chest With Intravenous Contrast CLINICAL HISTORY: Fall. TECHNIQUE: Axial computed tomography images of the chest with intravenous contrast. CTDI is 26.7 mGy and DLP is 511 mGy-cm. Automated exposure control was utilized for the study. A dose lowering technique was utilized adhering to the principles of ALARA. CONTRAST: Patient received 92 cc opti 320 of IV contrast COMPARISON: Chest radiograph 09/03/2023 FINDINGS: Lungs: Unremarkable. No mass. No consolidation. Pleural space: Unremarkable. No pneumothorax. No significant effusion. Heart: Coronary artery calcifications are present. No cardiomegaly. No significant pericardial effusion. Bones/joints: There are degenerative changes of the spine. No acute fracture. No dislocation. Soft tissues: Unremarkable. Vasculature: There is dilation of the pulmonary arteries. Mild atherosclerosis. The main pulmonary artery measures 3.6 cm. Lymph nodes: Unremarkable. No enlarged lymph nodes. IMPRESSION: 1. No acute finding of the chest. 2. There is dilation of the pulmonary arteries. This is concerning for pulmonary artery hypertension. Electronically signed by: Tracee Tipton MD 01/24/24 20:03 PM Elbow X-Ray 01/24/24 18:08 Exam(s): XR RIGHT ELBOW, 3+ views EXAM: XR Right Elbow Complete, 3 or More Views CLINICAL HISTORY: Fall. TECHNIQUE: Frontal, lateral and oblique views of the right elbow. COMPARISON: No relevant prior studies available. FINDINGS: Bones/joints: Question small elbow joint effusion. No visualized acute fracture. No dislocation. Soft tissues: Nonspecific soft tissue swelling of the posterior elbow. IMPRESSION: 1. Nonspecific soft tissue swelling of the posterior elbow. 2. Question small elbow joint effusion. Recommend follow-up radio graphs in 7-10 days to assess for signs of healing. Electronically signed by: Tracee Tipton MD 01/24/24 19:[address] 01/24/24 18:08 Exam(s): CT HEAD Without Contrast EXAM: CT Head Without Intravenous Contrast CLINICAL HISTORY: Fall. TECHNIQUE: Axial computed tomography images of the head/brain without intravenous contrast. CTDI is 35.22 mGy and DLP is 624.41 mGy-cm. Automated exposure control was utilized for the study. A dose lowering technique was utilized adhering to the principles of ALARA. COMPARISON: No relevant prior studies available. FINDINGS: Brain: No intracranial hemorrhage, mass-effect or midline shift. No abnormal extra axial fluid. No evidence of acute infarct. Mild periventricular white matter hypodensities are most consistent with chronic microangiopathy. Ventricles: Unremarkable. No ventriculomegaly. Bones/joints: Unremarkable. No acute fracture. Soft tissues: Unremarkable. Sinuses: There is mild mucosal thickening of the ethmoid and maxillary sinuses. The remaining visualized paranasal sinuses are clear. Mastoid air cells: Unremarkable as visualized. No mastoid effusion. IMPRESSION: No acute intracranial finding. Electronically signed by: Tracee Tipton MD 01/24/24 19:59 PM Knee X-Ray 01/24/24 18:08 Exam(s): XR RIGHT KNEE, 1-2 views EXAM: XR Right Knee, 1 or 2 Views CLINICAL HISTORY: Fall. TECHNIQUE: Frontal and/or lateral views of the right knee. COMPARISON: No relevant prior studies available. FINDINGS: Bones/joints: There are degenerative changes of all 3 compartments of the knee most prominent of the medial compartment where there is severe joint space narrowing. No acute fracture. No dislocation. Soft tissues: Marked nonspecific soft tissue swelling. IMPRESSION: 1. Marked nonspecific soft tissue swelling. 2. There are degenerative changes of all 3 compartments of the knee most prominent of the medial compartment where there is severe joint space narrowing. Electronically signed by: Tracee Tipton MD 01/24/24 19:58 PM Shoulder X-Ray 01/24/24 18:08 Exam(s): XR SHOULDER, 2+ views EXAM: XR Right Shoulder Complete, 2 or More Views CLINICAL HISTORY: Fall. TECHNIQUE: Two or more views of the right shoulder. COMPARISON: No relevant prior studies available. FINDINGS: Bones/joints: There are moderate degenerative changes of the acromioclavicular and glenohumeral joints. No acute fracture. No dislocation. Soft tissues: Unremarkable. IMPRESSION: No acute findings in the right shoulder. Electronically signed by: Tracee Tipton MD 01/24/24 19:58 PM Tibia/Fibula X-Ray 01/24/24 18:08 Exam(s): XR RIGHT TIB/FIB, 2 views EXAM: XR Right Tibia and Fibula, 2 Views CLINICAL HISTORY: Fall. TECHNIQUE: Frontal and lateral views of the right tibia and fibula. COMPARISON: No relevant prior studies available. FINDINGS: Bones/joints: There are degenerative changes of all 3 compartments of the knee most prominent of the medial compartment where there is severe joint space narrowing. Calcaneal enthesophytes are noted. No acute fracture. No dislocation. Soft tissues: Marked nonspecific changes soft tissue swelling. No radiopaque foreign body. IMPRESSION: 1. Marked nonspecific soft tissue swelling. 2. There are degenerative changes of all 3 compartments of the knee most prominent of the medial compartment where there is severe joint space narrowing. Electronically signed by: Tracee Tipton MD 01/24/24 19:58 PM Knee MRI 01/25/24 11:16 Clinical History: Knee pain. Technique: Multiple T1 and T2-weighted magnetic resonance images were obtained of the right knee without gadolinium contrast. Findings: This examination is limited by extensive motion artifact There is full-thickness cartilage loss in the medial compartment. There is both horizontal and vertical tearing of the body and posterior horn of the medial meniscus There is a horizontal tear of the body and anterior horn of the lateral meniscus. No lateral compartment cartilage defect is identified. There is full-thickness cartilage loss in the patellofemoral compartment. The patella is normally situated within the trochlear groove. The medial and lateral patellar retinacula appear intact. There is some thickening and intermediate signal intensity of the anterior cruciate ligament. The posterior cruciate ligament appears intact. There is mild quadriceps and patellar tendinopathy. The medial and lateral collateral ligament complexes appear normal. There is a small knee effusion. No definite joint body is seen. No Car's cyst is present. There is subcutaneous edema anterior to the patellar tendon and patella, without definite bursitis There is mild bone marrow edema within the posterior aspect of the lateral tibial plateau. No definite fracture is identified. No focal osseous lesion is seen. There are osteophytes in all 3 compartments Impression: 1. Limited examination due to motion artifact 2. Multifocal tearing of the medial meniscus 3. Horizontal tear of the lateral meniscus 4. 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 Mild quadriceps and patellar tendinopathy 7. Small knee effusion 8. Possible bone contusion of the posterior edge of the lateral tibial plateau Electronically signed by Kai Sams 01-25-2024 4:55 PM Duplex Scan Lower Extremity Artery 01/25/24 13:46 EXAM: US arterial duplex LE RT CLINICAL HISTORY: RLE swelling; ? compartment syndrome. See attached worksheet No detectable flow in dist rt COMMERCIAL ACCOUNT MANAGER. TECHNIQUE: Ultrasound examination of the right lower extremity arteries with ankle brachial indices was performed in real time and duplex. One or more of the following were performed- spectral analysis, resistive index, waveform analysis, and pulsed Doppler. COMPARISON: None. 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 Diffuse mild atherosclerotic disease. There is significant elevation of the velocity at the proximal COMMERCIAL ACCOUNT MANAGER with a velocity ratio measures 3 suggesting significant stenosis 50-74%. IMPRESSION: 1. Diffuse mild atherosclerotic disease, with significant stenosis at the proximal COMMERCIAL ACCOUNT MANAGER (50-74% stenosis according to velocity changes). Further evalaution by CT angiography is advised. 2. Preserved normal SANDRA. Electronically signed by Isai Barrera 01-25-2024 4:20 PM Lower Extremity CTA 01/26/24 07:[address] ANGIOGRAPHY CLINICAL HISTORY: f/u on RLE arterial doppler, significant stenosis of right COMMERCIAL ACCOUNT MANAGER COMPARISON STUDY: Right lower extremity arterial Doppler ultrasound January 25, 2024. MRI of the right knee January 05, 2024. CT of the abdomen and pelvis January 24, 2024. TECHNIQUE: Helical axial images of the right lower extremity were obtained during arterial phase following intravenous injection of 119 cc of Optiray 320 IV. Sagittal and coronal reconstructions were viewed as well as maximal intensit y projections on an independent 3-D workstation .Automated exposure control was utilized for the study. A dose lowering technique was utilized adhering to the principles of ALARA. FINDINGS: The right common femoral and superficial femoral arteries are patent. There is mild plaque within the right superficial femoral artery without stenosis. There is moderate plaque within the right popliteal artery without stenosis. The proximal right anterior tibial arteries occluded. There are severe multifocal stenoses with suspected short segment occlusion and reconstitution within the right anterior tibial and dorsalis pedis vessels. The right peroneal artery is patent. The proximal right posterior tibial artery is occluded with reconstitution distally through the peroneal artery. There is no aneurysm within the right lower extremity. There is no evidence for vascular injury. Multiple intramuscular hematomas within the right gluteal musculature are present. There are hematomas within an overlying the right hamstrings muscle, deep to the fascia. There may also be a small amount of intramuscular hemorrhage within the right adductor muscles. No active extravasation is identified. Overall, there is a moderate amount of hemorrhage. There is no pseudoaneurysm. There are no fractures within the right femur. Severe degenerative changes within the right knee are incidentally noted. IMPRESSION: 1. Moderate atherosclerotic plaque within the right lower extremity. Patent right common femoral, superficial femoral and popliteal arteries. 2. 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 Patent right peroneal artery. Severe stenoses and suspected short segment occlusion with reconstitution of the right dorsalis pedis and anterior tibial arteries. 3. Multiple acute hematomas within the right buttock, groin and thigh, as described above. Overall, moderate amount of hemorrhage. No active extravasation. ACT 112: Negative or not required by law. Electronically signed by: Leonid Mueller M.D. 01/26/2024 10:52 AM Pending Results Patient Have Any Pending Studies at Discharge: No Discharge Instructions Given to Patient (Per Discharging Provider) Oksana, You are being discharged to acute rehab after a fall at home. You had significant bleeding as a result and you required a blood transfusion. Your blood counts are now stable. You were also noted to have peripheral artery disease. We started you on a cholesterol medication called atorvastatin. Please take it as prescribed. The Vascular Surgeon would also like to follow up with you as an outpatient. Please continue with the daily iron tablet. Please keep close follow up with your primary care provider after discharge. Please do not hesitate to come back to the emergency room if your symptoms worsen or return. It was a pleasure taking care of you while you were here. Total Time Total Time Spent Total Time Spent (In Minutes): 60
[2024-01-29 14:37] VITALS: BP 147/65
== END 2024-01-29 15:51 | DRG 565 ==
LOC: ED 17:11 → 3N 21:11 → 2S 01-25 10:19

== ENCOUNTER 2024-06-10 15:59 | Inpatient (IN) ==
--- NOTE | 2024-06-10 16:55 | Emergency Department Note ---
History of Present Illness General Chief complaint: Fall Stated complaint: FALL Time Seen by Provider: 06/10/24 16:40 Source: patient and family (Daughter at bedside) Limitations: language barrier (Daughter is translating) History of Present Illness Provider complaint: Fall Maximum Pain Intensity: 4 88-year-old female presents emergency department for fall. Daughter reports that the patient fell yesterday and today. She states today she was unable to get up. Patient reports that she has been having increasing weakness in her legs. Daughter reports she has been falling a lot more since breaking her neck in August. She states since then she has been unable to move her right arm or right leg. No fevers. Home Medications Medication Instructions Recorded Confirmed Type losartan 50 mg tablet 25 mg PO UD 09/03/23 06/10/24 History cyanocobalamin (vitamin B-12) 1,000 mcg PO QAM 06/10/24 06/10/24 History 1,000 mcg tablet Allergies Allergy/AdvReac Type Severity Reaction Status Date / Time No Known Allergies Allergy Unverified 06/10/24 16:41 Past Med/Surg History Problem List (Updated 06/10/24 @ 20:35 by Stanford Fountain MD) Recurrent falls (Acute) Rhabdomyolysis (Acute) ABLA (acute blood loss anemia) (Acute) Musculoskeletal pain of right upper extremity (Acute) Hematoma of right lower extremity (Acute) Acute pain of right lower extremity (Acute) Fall (Acute) Laceration of scalp (Acute) CHI (closed head injury) (Acute) Syncope and collapse (Acute) C2 cervical fracture (Acute) Stress incontinence Injury of cervical spine Status post fall Dizziness Medical History Osteoarthritis Hypertension Social History Smoking Status: Never smoker Do You Dip or Chew Tobacco: No; Hx Alcohol Use: No Hx Substance Use: No Preferred Language: Gabonese Communication Ability: Effective Communication Ability Comment: patient primary language is Gabonese Communication Tools: [employer] Technician Required: Yes Beliefs That Will Affect Care: None Current Living Situation: Alone Current Living Situation Comment: Lives home alone in apartment Feels Safe at Home: Yes Assistive Devices: Walker Physical Exam Vital Signs Vital Signs - 24 hr 06/10/24 15:49 06/10/24 16:41 06/10/24 16:50 Temperature 36.8 C Temperature Source Oral Pulse Rate 88 82 Pulse Rate [Apical] Pulse Rhythm [Apical] Pulse Strength [Apical] Respiratory Rate 23 Respiratory Effort / Characteristics Respiratory Depth Respiratory Pattern Blood Pressure 147/83 H Blood Pressure [Left Radial Artery] Blood Pressure Mean 104 Blood Pressure Mean [Left Radial Artery] Blood Pressure Position [Left Radial Artery] Pulse Oximetry 96 96 Oxygen Delivery Method Room Air Room Air Sepsis Recent Fever Within 48 Hours No Sepsis New/Unexplained Change in Mental Status N/A Sepsis Action Taken by Nursing No Action Required 06/10/24 17:30 06/10/24 19:00 06/10/24 19:00 Temperature Temperature Source Pulse Rate Pulse Rate [Apical] 83 73 71 Pulse Rhythm [Apical] Regular Pulse Strength [Apical] Normal Respiratory Rate 19 17 17 Respiratory Effort / Characteristics Non-Labored Spontaneous Non-Labored Spontaneous Respiratory Depth Normal Normal Respiratory Pattern Regular Regular Blood Pressure Blood Pressure [Left Radial Artery] 176/84 H 168/86 H 168/86 H Blood Pressure Mean Blood Pressure Mean [Left Radial Artery] 114 113 113 Blood Pressure Position [Left Radial Artery] Lying Lying Pulse Oximetry 96 96 96 Oxygen Delivery Method Room Air Room Air Room Air Sepsis Recent Fever Within 48 Hours Sepsis New/Unexplained Change in Mental Status Sepsis Action Taken by Nursing 06/10/24 20:00 Temperature Temperature Source Pulse Rate Pulse Rate [Apical] 71 Pulse Rhythm [Apical] Pulse Strength [Apical] Respiratory Rate 18 Respiratory Effort / Characteristics Non-Labored Spontaneous Respiratory Depth Normal Respiratory Pattern Regular Blood Pressure Blood Pressure [Left Radial Artery] 168/86 H Blood Pressure Mean Blood Pressure Mean [Left Radial Artery] 113 Blood Pressure Position [Left Radial Artery] Lying Pulse Oximetry 96 Oxygen Delivery Method Room Air Sepsis Recent Fever Within 48 Hours Sepsis New/Unexplained Change in Mental Status Sepsis Action Taken by Nursing Physical Exam HENT: Exam performed. -Head: Normocephalic and atraumatic. -Right Ear: External ear normal. No mastoid erythema -Left Ear: External ear normal. No mastoid erythema -Mouth/Throat: The oropharynx is clear and moist. No trismus in the jaw. No dental abscesses or uvula swelling. No oropharyngeal exudate or tonsillar abscesses. EYES: Conjunctivae and EOM are normal. Pupils are equal, round, and reactive to light. Right eye exhibits no discharge. Left eye exhibits no discharge. No scleral icterus. NECK: Normal range of motion. Neck supple. No JVD present. No spinous process tenderness present. CV: Normal rate, regular rhythm, normal heart sounds and intact distal pulses. There is no peripheral edema. Palpable radial pulses bue. PULM/CHEST: Effort normal and breath sounds normal. No respiratory distress. No stridor. She has no wheezes. She has no rales. ABD: The abdomen is soft. There is no tenderness. There is no rebound, no guarding MUSC/SKEL: No C, T, or L-spine tenderness. Pelvis stable. Right upper extremity is contracted. Daughter reports this has been contracted since her fall in August. Swelling and pain on palpation over the right knee. NEURO: Motor and sensation grossly intact. Course Course 1640: The patient was evaluated in room B12A. A complete history and physical exam was performed Cardiac monitoring: An order was placed for continuous cardiac monitoring. The monitor shows a rate of 70 with sinus rhythm interpreted by 1915: Vital signs stable. Labs are significant for CK greater than 900. Imaging shows no traumatic injury. Given the patient's elevated CK and recurrent falls patient will be treated with IV hydration admitted to the [facility] hospitalist team. Administered Medications Sodium Chloride (Nss) 1,000 mls @ 125 mls/hr IV .Q8H KASIE Stop: 06/11/24 18:14 Last Admin: 06/10/24 18:50 Dose: 125 mls/hr Documented By: HELADIO Discontinued Medications Sodium Chloride (Nss) 1,000 mls @ 999 mls/hr IV .Q1H1M ONE Stop: 06/10/24 19:40 Last Admin: 06/10/24 18:50 Dose: 999 mls/hr Documented By: HELADIO Ioversol (Optiray 320 100ml) 93 ml IV ONCE ONE Stop: 06/10/24 17:42 Last Admin: 06/10/24 17:42 Dose: 93 ml Documented By: STACIE Medical Decision Making Laboratory Data Attestation: I reviewed the patient's lab results. 06/10/24 17:05 06/10/24 17:05 Lab Results 06/10/24 06/10/24 06/10/24 Range/Units 17:05 17:10 17:18 WBC 9.94 (4.8-10.8) K/ul RBC 4.67 (4.20-5.40) M/uL Hgb 13.2 (12.0-16.0) g/dl POC Hgb 12.9 (12.0-16.0) g/dl Hct 38.2 (37.0-47.0) % POC Hct 38 (37-47) % MCV 81.8 (80.0-100.0) fL MCH 28.3 (25.0-34.0) pg MCHC 34.6 (32.0-36.0) g/dL RDW Std Deviation 39.9 (36.4-46.3) fL RDW Coeff of Ruby 13.5 (11.5-14.5) % Plt Count 195 (130-400) K/uL MPV 9.3 L (9.4-12.4) fL Immature Gran % (Auto) 0.6 % Neut % (Auto) 82.5 % Lymph % (Auto) 10.7 % Candler % (Auto) 5.8 % Eos % (Auto) 0.3 % Baso % (Auto) 0.1 % Neut # (Auto) 8.20 H (1.40-6.50) K/uL Lymph # (Auto) 1.06 L (1.20-3.40) K/uL Candler # (Auto) 0.58 (0.11-0.59) K/uL Eos # (Auto) 0.03 (0.00-0.50) K/uL Baso # (Auto) 0.01 (0.00-0.20) K/uL Immature Gran # (Auto) 0.06 (0.01-0.20) K/uL PT 11.8 (9.0-12.0) Seconds INR 1.1 (0.9-1.1) APTT 28 (21-31) Seconds PTT Ratio 1.0 POC Sodium 143 (135-144) mmol/L Sodium 142 (136-145) mmol/L POC Potassium 3.4 (3.3-5.0) mmol/L Potassium 3.4 L (3.5-5.1) mmol/L POC Chloride 103 (101-112) mmol/L Chloride 106 (98-107) mmol/L Carbon Dioxide 28 (21-32) mmol/L POC Total CO2 24 (24-31) mmol/L Anion Gap 8 (3-11) POC Anion Gap 20.0 (16-25) mmol/L POC BUN 20 H (7-18) mg/dl BUN 20 (6-23) mg/dl Creatinine 0.81 (0.6-1.2) mg/dl POC Creatinine 0.9 (0.6-1.3) mg/dl Est Cr Clr Drug Dosing 52.8 ml/min eGFR 70.65 BUN/Creatinine Ratio 24.7 H (10-20) Glucose 124 H (70-99(Fasting)) mg/dl POC Glucose 121 H (70-99) mg/dl POC Glucose (other) 125 H (70-99) mg/dl Calcium 9.6 (8.6-10.3) mg/dl POC Ioniz Calcium Jennifer 1.20 (1.12-1.32) mmol/l Magnesium 2.0 (1.7-2.4) mg/dl Total Bilirubin 1.4 H (0.2-1.0) mg/dl Direct Bilirubin 0.2 (0-0.2) mg/dl AST 32 (13-39) U/L ALT 17 (7-52) U/L Alkaline Phosphatase 74 (34-104) U/L Total Creatine Kinase 904 H (26-192) U/L Troponin I High Sens 4.3 (0-14) pg/ml Total Protein 7.6 (6.0-8.3) gm/dl Albumin 4.4 (3.4-5.0) gm/dl Lipase 21 (11-82) U/L Urine Color Urine Appearance (Clear) Urine pH (4.5-7.5) Ur Specific [place] (1.000-1.030) Urine Protein (Negative) Urine Glucose (UA) (Negative) Urine Ketones (Negative) Urine Blood (Negative) Urine Nitrite (Negative) Urine Bilirubin (Negative) Urine Urobilinogen (Negative) Ur Leukocyte Esterase (Negative) Urine RBC (0-2) /hpf Urine WBC (0-5) /hpf Ur Epithelial Cells (0-2) /hpf Urine Bacteria (None Seen) Urine Mucus (None Prsent) SARS-CoV-2 (PCR) (Negative) Influenza Type A (PCR) (Neg) Influenza Type B (PCR) (Neg) RSV (RT-PCR) (Neg) 06/10/24 06/10/24 Range/Units 18:15 Unknown WBC (4.8-10.8) K/ul RBC (4.20-5.40) M/uL Hgb (12.0-16.0) g/dl POC Hgb (12.0-16.0) g/dl Hct (37.0-47.0) % POC Hct (37-47) % MCV (80.0-100.0) fL MCH (25.0-34.0) pg MCHC (32.0-36.0) g/dL RDW Std Deviation (36.4-46.3) fL RDW Coeff of Ruby (11.5-14.5) % Plt Count (130-400) K/uL MPV (9.4-12.4) fL Immature Gran % (Auto) % Neut % (Auto) % Lymph % (Auto) % Candler % (Auto) % Eos % (Auto) % Baso % (Auto) % Neut # (Auto) (1.40-6.50) K/uL Lymph # (Auto) (1.20-3.40) K/uL Candler # (Auto) (0.11-0.59) K/uL Eos # (Auto) (0.00-0.50) K/uL Baso # (Auto) (0.00-0.20) K/uL Immature Gran # (Auto) (0.01-0.20) K/uL PT (9.0-12.0) Seconds INR (0.9-1.1) APTT (21-31) Seconds PTT Ratio POC Sodium (135-144) mmol/L Sodium (136-145) mmol/L POC Potassium (3.3-5.0) mmol/L Potassium (3.5-5.1) mmol/L POC Chloride (101-112) mmol/L Chloride (98-107) mmol/L Carbon Dioxide (21-32) mmol/L POC Total CO2 (24-31) mmol/L Anion Gap (3-11) POC Anion Gap (16-25) mmol/L POC BUN (7-18) mg/dl BUN (6-23) mg/dl Creatinine (0.6-1.2) mg/dl POC Creatinine (0.6-1.3) mg/dl Est Cr Clr Drug Dosing ml/min eGFR BUN/Creatinine Ratio (10-20) Glucose (70-99(Fasting)) mg/dl POC Glucose (70-99) mg/dl POC Glucose (other) (70-99) mg/dl Calcium (8.6-10.3) mg/dl POC Ioniz Calcium Jennifer (1.12-1.32) mmol/l Magnesium (1.7-2.4) mg/dl Total Bilirubin (0.2-1.0) mg/dl Direct Bilirubin (0-0.2) mg/dl AST (13-39) U/L ALT (7-52) U/L Alkaline Phosphatase (34-104) U/L Total Creatine Kinase (26-192) U/L Troponin I High Sens (0-14) pg/ml Total Protein (6.0-8.3) gm/dl Albumin (3.4-5.0) gm/dl Lipase (11-82) U/L Urine Color Yellow Urine Appearance Clear (Clear) Urine pH 6.0 (4.5-7.5) Ur Specific [place] 1.015 (1.000-1.030) Urine Protein Negative (Negative) Urine Glucose (UA) Negative (Negative) Urine Ketones Negative (Negative) Urine Blood Trace-intact H (Negative) Urine Nitrite Negative (Negative) Urine Bilirubin Negative (Negative) Urine Urobilinogen Negative (Negative) Ur Leukocyte Esterase Trace H (Negative) Urine RBC 0-2 (0-2) /hpf Urine WBC 0-5 (0-5) /hpf Ur Epithelial Cells 3-5 H (0-2) /hpf Urine Bacteria 1+ H (None Seen) Urine Mucus Present A (None Prsent) SARS-CoV-2 (PCR) NEGATIVE (Negative) Influenza Type A (PCR) Negative (Neg) Influenza Type B (PCR) Negative (Neg) RSV (RT-PCR) Negative (Neg) Imaging Data Attestation: I personally reviewed and interpreted this imaging study as follows: My Impression: Pelvis x-ray: No acute fracture or dislocation Radiologist's Impression: Abdomen/Pelvis CT 06/10/24 16:50 EXAMINATION: CT of the abdomen and pelvis performed after the administration of IV contrast TECHNIQUE: Helical CT images from the lung bases through the symphysis pubis were obtained with contrast. Coronal and sagittal reformatted images were generated at a workstation for further assessment. Dose reduction techniques were achieved by using automatic exposure control and/or adjustment of mA and/or kV according to patient size and/or use of iterative reconstruction technique. COMPARISON: 01/24/2024 HISTORY: Trauma FINDINGS: Lower chest: No consolidation. No pleural effusion or pneumothorax. Liver: No suspicious liver lesions. Portal veins appear patent. Simple appearing cyst in the superior left hepatic lobe. Gallbladder: No gallstones. No evidence of acute cholecystitis. Spleen: Enlarged measuring 14.2 cm. Pancreas: No suspicious pancreatic lesions. The pancreatic duct is not dilated. Adrenal glands: No adrenal nodules. Kidneys: No hydronephrosis or obstructing renal stones. Small left-sided cyst. Bladder / Pelvic organs: Unremarkable. Bowel: No bowel obstruction. No abnormal bowel wall thickening. The appendix is not visualized. Lymph nodes: No retroperitoneal, mesenteric, or pelvic lymphadenopathy. Peritoneum / Retroperitoneum: No free fluid or air within the abdomen. Vessels: No infrarenal aortic aneurysm. Moderate aortoiliac calcification. Bones and soft tissues: No suspicious lesion in the bones. Fracture of the partially visualized anterior right rib 5 associated with healing callus, is favored subacute or chronic. IMPRESSION: No acute finding of the abdomen or pelvis. Fracture of the partially visualized anterior right rib 5 associated with healing callus, is favored subacute or chronic. Splenomegaly. Electronically signed by Kash Ziegler 06-10-2024 6:[address] 06/10/24 16:51 CT cervical spine without IV contrast History: Trauma Comparison: None Technique: Using multidetector thin collimation helical acquisition technique, axial, coronal and sagittal CT images through the cervical spine were obtained without intravenous contrast. Dose reduction techniques were achieved by using automatic exposure control and/or adjustment of mA and/or kV according to patient size and/or use of iterative reconstruction technique. Findings: The cervical vertebrae are normally aligned. Normal cervical lordosis. No acute fracture or subluxation. No prevertebral edema. Moderate discogenic degenerative changes at C5-6 and C6-7. Moderate scattered areas of degenerative facet change. No abnormality of the paraspinous soft tissues. Impression: No acute fracture or traumatic subluxation. Electronically signed by Kash Ziegler 06-10-2024 6:09 PM Chest X-Ray 06/10/24 16:51 INDICATION: Chest pain. TECHNIQUE: Frontal radiograph of the chest. COMPARISON: None. FINDINGS: Cardiomegaly. Pulmonary vasculature appear within normal limits. No infiltrate, pleural effusion or pneumothorax. No acute osseous abnormality evident. IMPRESSION: No acute cardiopulmonary process. Electronically signed by Ashish Gonzales 06-10-2024 5:[address] 06/10/24 16:51 CT maxillofacial without contrast History: Trauma Comparison: None Technique: Using thin collimation multidetector helical acquisition technique, axial and coronal thin section CT images were reconstructed through the facial bones. Images were reviewed in bone and soft tissue windows. One or more of the following dose-optimizing techniques was utilized for this exam: automated exposure control, adjustment of the mA and/or kV according to patient size, and/or use of iterative reconstruction technique. Findings: There is no significant soft tissue swelling of the face. There is no evident fracture of the facial bones. The cribriform plate appears intact. Alignment of the facial bones appears normal. There is no hematoma, soft tissue mass or gas visualized within the orbits. The visualized portions of the paranasal sinuses are clear. The patient is edentulous. Impression: Normal CT study of the facial bones. Electronically signed by Kash Ziegler 06-10-2024 6:09 PM Femur X-Ray 06/10/24 16:51 INDICATION: Pain and injury. TECHNIQUE: 1 view the pelvis. 4 views of the right femur. 2 views of the right knee. COMPARISON: No relevant priors. FINDINGS: Evaluation of the pelvis, right femur and the right knee. No acute fracture or dislocation. No lytic or blastic bony lesions seen. Mild bilateral hip joint space loss. [id number] tricompartmental joint space loss in the knee. Soft tissues appear unremarkable. IMPRESSION: No acute osseous abnormality evident. Electronically signed by Ashish Gonzales 06-10-2024 5:[address] 06/10/24 16:51 CT head without contrast History: Trauma Comparison: None Technique: Using multidetector thin collimation helical acquisition technique, axial, coronal and sagittal CT images from the skull base to the vertex were obtained without intravenous contrast. Dose reduction techniques were achieved by using automatic exposure control and/or adjustment of mA and/or kV according to patient size and/or use of iterative reconstruction technique. Findings: No intracranial hemorrhage, mass-effect, or midline shift. The ventricles are proportionate to the cerebral sulci. The zazueta to white matter differentiation of the cerebral hemispheres is preserved. The basal cisterns are patent. There is moderate cerebral atrophy. Moderate, patchy low-attenuation changes in the white matter, most suggestive of sequelae of chronic small vessel ischemic disease. The visualized paranasal sinuses are clear. Mastoid air cells are clear. Impression: No acute intracranial pathology. Electronically signed by Kash Ziegler 06-10-2024 6:09 PM Knee X-Ray 06/10/24 16:51 INDICATION: Pain and injury. TECHNIQUE: 1 view the pelvis. 4 views of the right femur. 2 views of the right knee. COMPARISON: No relevant priors. FINDINGS: Evaluation of the pelvis, right femur and the right knee. No acute fracture or dislocation. No lytic or blastic bony lesions seen. Mild bilateral hip joint space loss. Cvsa-[id number] tricompartmental joint space loss in the knee. Soft tissues appear unremarkable. IMPRESSION: No acute osseous abnormality evident. Electronically signed by Ashish Gonzales 06-10-2024 5:48 PM Pelvis X-Ray 06/10/24 16:51 INDICATION: Pain and injury. TECHNIQUE: 1 view the pelvis. 4 views of the right femur. 2 views of the right knee. COMPARISON: No relevant priors. FINDINGS: Evaluation of the pelvis, right femur and the right knee. No acute fracture or dislocation. No lytic or blastic bony lesions seen. Mild bilateral hip joint space loss. Umxh-mr-[id number] tricompartmental joint space loss in the knee. Soft tissues appear unremarkable. IMPRESSION: No acute osseous abnormality evident. Electronically signed by Ashish Gonzales 06-10-2024 5:48 PM ECG Data Attestation: I personally reviewed and interpreted this ECG as follows: Rate (beats per minute): 67 Rhythm: + normal sinus ECG Intervals/blocks: + Normal NH and + Normal QT-c ECG ST segments: + Normal ST segments Additional Comments: QRS 78 MDM Narrative 1640: The patient was evaluated in room B12A. A complete history and physical exam was performed Cardiac monitoring: An order was placed for continuous cardiac monitoring. The monitor shows a rate of 70 with sinus rhythm interpreted by me 1915: Vital signs stable. Labs are significant for CK greater than 900. Imaging shows no traumatic injury. Given the patient's elevated CK and recurrent falls patient will be treated with IV hydration admitted to the [facility] Hospitalist team. Impression & Plan Rhabdomyolysis, Recurrent falls Discharge Plan Visit Data Chief Complaint: Fall Stated Complaint: FALL ED Provider: Stanford Fountain Discharge Problem: Rhabdomyolysis, Recurrent falls Patient Disposition: Admitted As Inpatient Forms Stand Alone Forms: My [facility] Prescriptions Prescriptions: No Action losartan 50 mg tablet 25 mg PO UD Rx Instructions: 25 mg po daily IN THE MORNING; if BP elevated take other 25 mg po HS per pharmacy cyanocobalamin (vitamin B-12) 1,000 mcg tablet 1,000 mcg PO QAM Referrals Referrals: Mu Lomeli MD [Primary Care Provider] -
[2024-06-10 17:19] LABS: Basophils # (auto) 0.01 K/uL (0.00-0.20); Basophils % (auto) 0.1 %; Eosinophils # (auto) 0.03 K/uL (0.00-0.50); Eosinophils % (auto) 0.3 %; Hematocrit (blood only) 38.2 % (37.0-47.0); Hemoglobin 13.2 g/dl (12.0-16.0); Immature Granulocytes # (auto) 0.06 K/uL (0.01-0.20); Immature Granulocytes % (auto) 0.6 %; Lymphocytes # (auto) 1.06 K/uL (1.20-3.40); Lymphocytes % (auto) 10.7 %; Mean Corpuscular Hemoglobin 28.3 pg (25.0-34.0); Mean Corpuscular Hgb Conc 34.6 g/dL (32.0-36.0); Mean Corpuscular Volume 81.8 fL (80.0-100.0); Mean Platelet Volume 9.3 fL (9.4-12.4); Monocytes # (auto) 0.58 K/uL (0.11-0.59); Monocytes % (auto) 5.8 %; Neutrophils % (auto) 82.5 %; Platelet Count 195 K/uL (130-400); RDW Coefficient of Variation 13.5 % (11.5-14.5); RDW Standard Deviation 39.9 fL (36.4-46.3); Red Blood Count 4.67 M/uL (4.20-5.40); White Blood Count 9.94 K/ul (4.8-10.8)
[2024-06-10 17:22] LABS: iSTAT Creatinine 0.9 mg/dl (0.6-1.3); iSTAT Hemoglobin 12.9 g/dl (12.0-16.0); iSTAT Ionized Calcium 1.2 mmol/l (1.12-1.32); iSTAT Potassium 3.4 mmol/L (3.3-5.0)
[2024-06-10 17:36] LABS: Albumin Level 4.4 gm/dl (3.4-5.0); BUN Creatinine Ratio 24.7 (10-20); Bilirubin Direct 0.2 mg/dl (0-0.2); Bilirubin,Total 1.4 mg/dl (0.2-1.0); Calcium 9.6 mg/dl (8.6-10.3); Creatinine Clr Calc Pharmacy 52.8 ml/min; Potassium 3.4 mmol/L (3.5-5.1); Total Protein 7.6 gm/dl (6.0-8.3)
[2024-06-10 17:42] LABS: Troponin I High Sensitivity 4.3 pg/ml (0-14)
[2024-06-10] MEDS: OPTIRAY 320 100ml IV ONE (17:42)
[2024-06-10 17:46] LABS: INR 1.1 (0.9-1.1); Partial Thromboplastin Time 28 Seconds (21-31); Prothrombin Time 11.8 Seconds (9.0-12.0)
--- NOTE | 2024-06-10 17:48 | XRay Report ---
INDICATION: Pain and injury. TECHNIQUE: 1 view the pelvis. 4 views of the right femur. 2 views of the right knee. COMPARISON: No relevant priors. FINDINGS: Evaluation of the pelvis, right femur and the right knee. No acute fracture or dislocation. No lytic or blastic bony lesions seen. Mild bilateral hip joint space loss. Viry-[id number] tricompartmental joint space loss in the knee. Soft tissues appear unremarkable. IMPRESSION: No acute osseous abnormality evident. Electronically signed by Ashish Gonzales 06-10-2024 5:48 PM
--- NOTE | 2024-06-10 17:49 | XRay Report ---
INDICATION: Chest pain. TECHNIQUE: Frontal radiograph of the chest. COMPARISON: None. FINDINGS: Cardiomegaly. Pulmonary vasculature appear within normal limits. No infiltrate, pleural effusion or pneumothorax. No acute osseous abnormality evident. IMPRESSION: No acute cardiopulmonary process. Electronically signed by Ashish Gonzales 06-10-2024 5:48 PM
--- NOTE | 2024-06-10 18:10 | CT Scan Report ---
CT maxillofacial without contrast History: Trauma Comparison: None Technique: Using thin collimation multidetector helical acquisition technique, axial and coronal thin section CT images were reconstructed through the facial bones. Images were reviewed in bone and soft tissue windows. One or more of the following dose-optimizing techniques was utilized for this exam: automated exposure control, adjustment of the mA and/or kV according to patient size, and/or use of iterative reconstruction technique. Findings: There is no significant soft tissue swelling of the face. There is no evident fracture of the facial bones. The cribriform plate appears intact. Alignment of the facial bones appears normal. There is no hematoma, soft tissue mass or gas visualized within the orbits. The visualized portions of the paranasal sinuses are clear. The patient is edentulous. Impression: Normal CT study of the facial bones. Electronically signed by Kash Ziegler 06-10-2024 6:09 PM
--- NOTE | 2024-06-10 18:10 | CT Scan Report ---
CT cervical spine without IV contrast History: Trauma Comparison: None Technique: Using multidetector thin collimation helical acquisition technique, axial, coronal and sagittal CT images through the cervical spine were obtained without intravenous contrast. Dose reduction techniques were achieved by using automatic exposure control and/or adjustment of mA and/or kV according to patient size and/or use of iterative reconstruction technique. Findings: The cervical vertebrae are normally aligned. Normal cervical lordosis. No acute fracture or subluxation. No prevertebral edema. Moderate discogenic degenerative changes at C5-6 and C6-7. Moderate scattered areas of degenerative facet change. No abnormality of the paraspinous soft tissues. Impression: No acute fracture or traumatic subluxation. Electronically signed by Kash Ziegler 06-10-2024 6:09 PM
--- NOTE | 2024-06-10 18:10 | CT Scan Report ---
CT head without contrast History: Trauma Comparison: None Technique: Using multidetector thin collimation helical acquisition technique, axial, coronal and sagittal CT images from the skull base to the vertex were obtained without intravenous contrast. Dose reduction techniques were achieved by using automatic exposure control and/or adjustment of mA and/or kV according to patient size and/or use of iterative reconstruction technique. Findings: No intracranial hemorrhage, mass-effect, or midline shift. The ventricles are proportionate to the cerebral sulci. The zazueta to white matter differentiation of the cerebral hemispheres is preserved. The basal cisterns are patent. There is moderate cerebral atrophy. Moderate, patchy low-attenuation changes in the white matter, most suggestive of sequelae of chronic small vessel ischemic disease. The visualized paranasal sinuses are clear. Mastoid air cells are clear. Impression: No acute intracranial pathology. Electronically signed by Kash Ziegler 06-10-2024 6:09 PM
[2024-06-10 18:12] LABS: Influenza A virus by PCR Negative (Neg); Influenza B virus by PCR Negative (Neg); RSV by PCR Negative (Neg); SARS CoV2 RNA(COVID-19) Ceph NEGATIVE (Negative)
--- NOTE | 2024-06-10 18:20 | CT Scan Report ---
EXAMINATION: CT of the abdomen and pelvis performed after the administration of IV contrast TECHNIQUE: Helical CT images from the lung bases through the symphysis pubis were obtained with contrast. Coronal and sagittal reformatted images were generated at a workstation for further assessment. Dose reduction techniques were achieved by using automatic exposure control and/or adjustment of mA and/or kV according to patient size and/or use of iterative reconstruction technique. COMPARISON: 01/24/2024 HISTORY: Trauma FINDINGS: Lower chest: No consolidation. No pleural effusion or pneumothorax. Liver: No suspicious liver lesions. Portal veins appear patent. Simple appearing cyst in the superior left hepatic lobe. Gallbladder: No gallstones. No evidence of acute cholecystitis. Spleen: Enlarged measuring 14.2 cm. Pancreas: No suspicious pancreatic lesions. The pancreatic duct is not dilated. Adrenal glands: No adrenal nodules. Kidneys: No hydronephrosis or obstructing renal stones. Small left-sided cyst. Bladder / Pelvic organs: Unremarkable. Bowel: No bowel obstruction. No abnormal bowel wall thickening. The appendix is not visualized. Lymph nodes: No retroperitoneal, mesenteric, or pelvic lymphadenopathy. Peritoneum / Retroperitoneum: No free fluid or air within the abdomen. Vessels: No infrarenal aortic aneurysm. Moderate aortoiliac calcification. Bones and soft tissues: No suspicious lesion in the bones. Fracture of the partially visualized anterior right rib 5 associated with healing callus, is favored subacute or chronic. IMPRESSION: No acute finding of the abdomen or pelvis. Fracture of the partially visualized anterior right rib 5 associated with healing callus, is favored subacute or chronic. Splenomegaly. Electronically signed by Kash Ziegler 06-10-2024 6:19 PM
[2024-06-10 18:35] LABS: Appearance Urine Clear (Clear); Bilirubin Urine Negative (Negative); Blood Urine Trace-intact (Negative); Color Urine Yellow; Glucose Urine UA Negative (Negative); Ketones Urine Negative (Negative); Leukocyte Esterase Urine Trace (Negative); Nitrite Urine Negative (Negative); Protein Urine Negative (Negative); Specific Gravity Urine 1.015 (1.000-1.030); Urobilinogen Urine Negative (Negative)
[2024-06-10] MEDS: SODIUM CHLORIDE 0.9% 1,000 ML IV ONE (18:50)
[2024-06-10] MEDS: SODIUM CHLORIDE 0.9% 1,000 ML IV SCH (18:50)
[2024-06-10 18:53] LABS: Bacteria Urine 1+ (None Seen); Mucus Urine Present (None Prsent); RBC Urine 0-2 /hpf (0-2); WBC Urine 0-5 /hpf (0-5)
[2024-06-10] MEDS ORDERED: ACETAMINOPHEN 325 MG TAB PO PRN (19:26)
[2024-06-10] MEDS ORDERED: ALUMINUM/MAGNESIUM SUSP 30 ML UDC PO PRN (19:26)
[2024-06-10] MEDS ORDERED: MAGNESIUM HYDROXIDE SUSP 30 ML UDC PO PRN (19:26)
--- NOTE | 2024-06-10 19:37 | History & Physical Report ---
Date of Service June 10, 2024 Assessment & Plan (1) Rhabdomyolysis: Plan Assessment/plan Mechanical fall Mild rhabdomyolysis Facial contusion Patient presents to the hospital with mechanical fall; history of right knee osteoarthritis and right hand contracture for several months Patient underwent head CT, face CT, cervical spine CT, abdominal pelvis CT, chest x-ray, femur x-ray, knee x-ray and pelvic x-ray which did not show any acute fractures. CK mildly elevated to 900s Continue IV fluid; follow-up on CK level tomorrow a.m. PT OT evaluation; patient's daughter wants [facility] to [facility] qualifies Pain control with Tylenol as needed Chronic conditions; Hypertension -continue losartan vitamin B12 deficiencycontinue B12 DNR/DNI as per discussed with the daughter DVT prophylaxis SCDs for now Time spent evaluating patient, direct bedside care, chart review, placing orders, interpretation of diagnostic studies, discussion with consultants, patient, and family members, as well as other required patient management activities is 60 minutes Please note the above document was generated using voice recognition software. It may contain grammatical, syntax or spelling errors. Any formal questions or concerns about the content, text or information contained within the body of this dictation should be directly addressed to the provider for clarification History of Present Illness Primary Care Provider: Mu Lomeli MD History obtained from interview of the patient's daughter, chart review and discussion with the ED provider. Past medical history of hypertension, history of traumatic cervical fracture, mild cognitive impairment. Patient was brought to the hospital by her daughter after she suffered a fall today. Patient felt on the ground face first; daughter was not able to get her up and called the EMS. Patient denies any visual changes, weakness/numbness of any body part, neck pain, chest pain, abdominal pain, shortness of breath, any changes to urinary habits or bowel habit. As per the daughter, patient has problem with osteoarthritis on her right knee for which she gets injection. 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 Patient has ambulatory dysfunction due to this. MRI Of the brain was planned as outpatient. However, patient did not want to undergo it as per patient's daughter. She does not want patient to undergo any aggressive measures, or MRI during the hospitalization. She wants physical therapy and Occupational Therapy evaluation and possibly get [facility] to [facility] for [facility]hab. Allergies Allergy/AdvReac Type Severity Reaction Status Date / Time No Known Allergies Allergy Unverified 06/10/24 16:41 Home Medications Medication Instructions Recorded Confirmed Type losartan 50 mg tablet 25 mg PO UD 09/03/23 06/10/24 History cyanocobalamin (vitamin B-12) 1,000 mcg PO QAM 06/10/24 06/10/24 History 1,000 mcg tablet Past Med/Surg History Problem List Rhabdomyolysis ABLA (acute blood loss anemia) (Acute) Musculoskeletal pain of right upper extremity (Acute) Hematoma of right lower extremity (Acute) Acute pain of right lower extremity (Acute) Fall (Acute) Laceration of scalp (Acute) CHI (closed head injury) (Acute) Syncope and collapse (Acute) C2 cervical fracture (Acute) Stress incontinence Injury of cervical spine Status post fall Dizziness Medical History Osteoarthritis Hypertension Social History Smoking Status: Never smoker Do You Dip or Chew Tobacco: No; Hx Alcohol Use: No Hx Substance Use: No Preferred Language: Gambian Communication Ability: Effective Communication Ability Comment: patient primary language is Gambian Communication Tools: IPad Dedicated Regional Driver Required: Yes Beliefs That Will Affect Care: None Current Living Situation: Alone Current Living Situation Comment: Lives home alone in apartment Feels Safe at Home: Yes Assistive Devices: Walker Review of Systems Review of Systems: All systems reviewed & are unremarkable except as noted in Subjective Physical Exam Physical Exam: On physical examination; Constitutional: Alert oriented x 3; not in distress Face; contusion on left face; ecchymosis/bruising present. No active bleeding Respiratory: normal respiratory effort, lungs clear to auscultation, no wheeze, rales, rhonchi. Normal insp/exp effort, no accessory muscle use Cardiovascular: RRR, no murmur, no edema Vessels: no JVD or carotid bruit Chest: normal inspection of chest Abdomen: normal bowel sounds, soft, nontender, no hepatosplenomegaly Musculoskeletal: Contracture of right in flexed supine position Neurologic: PERRL, EOMI, accommodation nl, no face palsy, no dysarthria CN's II- XI intact bilaterally and moves all extremities Results & Data Results & Data Vital Signs (Past 12 Hours) Vital Signs Temp Pulse Pulse Resp BP BP Pulse Ox 06/10/24 17:30 83 19 176/84 H 96 06/10/24 16:50 96 06/10/24 16:41 82 06/10/24 15:49 36.8 C 88 23 147/83 H 96 O2 Del Method 06/10/24 17:30 Room Air 06/10/24 16:50 Room Air 06/10/24 16:41 06/10/24 15:49 Room Air Code Status & VTE Plan VTE Prophylaxis Plan VTE Prophylaxis will be ordered: Yes
[2024-06-10] MEDS ORDERED: HEPARIN SOD 5,000 UNIT/0.5 ML VIAL SQ SCH (22:00)
--- OUTSIDE RECORDS SUMMARY | 2024-06-11 03:44 | External Medical Summary | Summary of Care ---
Author Name Unknown Organization [facility] Address [address] [place] [address] Phone [phone] Care Team Providers Care Transfer Station Attendant Name Role Phone Armani CHRISTIE MD, John E Primary Care Provider [phone] Reason for Visit * Reason Onset Date Comments Test Results 05/15/2024 Call Back 05/15/2024 Daughter calling back for test results Encounter Details Date Type Department Care Team (Late st Contact Info) Description 05/15/2024 Telephone Family Practice [facility] [address] [facility] [place] [address] Mu Lomeli III, MD [address] [facility] [place] [address] Test Results; Call Back (Daughter calling ... Allergies No known active allergiesdocumented as of this encounter (statuses as of 05/16/2024) Medications Blood Pressure Monitoring (BLOOD PRESSURE KIT) EMMANUELLE Use daily to check blood pressure 1 Device 8 Active Additional Information Patient not taking.Reported on 02/23/2024 Timolol Maleate 0.5 % Ophthalmic Solution (Timoptic) INSTILL ONE DROP INTO BOTH EYES TWICE DAILY 10 mL 8 1 Active Sodium Hyaluronate 60 MG/3ML Intra-articular Prefilled Syringe (Durolane) Inject 60 mg (1 syringe) intra-articular ly into right knee once 3 mL 12/28/2022 3:41 PM EDT 3 Active Additional Information Patient not taking.Reported on 05/14/2024 Losartan Potassium 50 MG Oral Tablet (Cozaar) 1/2 tab daily if bp elevated take 2nd dose at bedtime 90 Tablet 11 4 Active Atorvastatin Calcium 40 MG Oral Tablet (Lipitor) 1 Tablet. 4 Active Iron (Ferrous Sulfate) 325 (65 Fe) MG Oral TabletIndication s:Iron deficiency anemia due to chronic blood loss,Hospital discharge follow-up,Dizzy, Injury of right knee, subsequent encounter Take 325 mg by mouth in the morning. 100 Tablet 3 4 Active Acetaminophen ER 650 MG Oral Tablet Extended Release (Tylenol 8 Hour Arthritis Pain)Indications :Iron deficiency anemia due to chronic blood loss,Hospital discharge follow-up,Dizzy, Injury of right knee, subsequent encounter Take 1 Tablet by mouth in the morning and 1 Tablet before bedtime. 100 Tablet 3 4 Active Diclofenac Sodium 1 % External Gel (Voltaren)Indica tions:Iron deficiency anemia due to chronic blood loss,Hospital discharge follow-up,Dizzy, Injury of right knee, subsequent encounter Apply topically to affected area 4 times a day. Apply r knee 100 g 6 4 Active Cyanocobalamin 1000 MCG Oral Tablet (Cyanocobalamin) Take 1 Tablet by mouth in the morning. 100 Tablet 3 5 Active documented as of this encounter (statuses as of 05/16/2024) Active Problems Problem Noted Date Diagnosed Date Stress incontinence in female 03/23/2023 History of 2019 novel coronavirus disease (COVID -19) 12/23/2021 Legally blind in right eye, as defined in [place] Memory loss 12/23/2021 Hearing loss, right 12/23/2021 Dry eye 12/23/2021 Primary osteoarthritis of right knee 12/23/2021 HTN, goal below 150/90 11/21/2016 documented as of this encounter (statuses as of 05/16/2024) Resolved Problems Problem Noted Date Diagnosed Date Resolved Date Food insecurity 02/06/2023 03/14/2024 Overview: Per [facility] Protocol documented as of this encounter (statuses as of 05/16/2024) Immunizations No known immunizationsdocumented as of this encounter Social History Tobacco Use Types Packs/Day Years Used Date Smoking Tobacco: Never Smokeless Tobacco: Never Alcohol Use Standard Drinks/Week Comments No 0 (1 standard drink = 0.6 oz pur e alcohol) PHQ-2 Answer Date Recorded PHQ Adult Total Score 0 02/13/2024 Hunger Vital Sign Answer Date Recorded Within the past 12 months, y ou worried that your food would run out before you got the money to buy more. Never true 02/13/20 24 Within the past 12 months, t he food you bought just didn't last and you didn't have money to get more. Never true 02/13/2024 Childcare Answer Date Recorded Do you feel overwhelmed with taking care of a child, family member or friend? No 02/13/2024 Does your family need help f inding childcare? (Household - for ages 0-17 years) Not on file 02/13/2024 Clothing Answer Date Recorded Have you been unable to get clothing when it was really needed? No 02/13/2024 Is your family able to get c lothes or diapers when needed? (Household - for ages 0-17 years) Not on file 02/13/2024 Personal Safety Answer Date Recorded Do you feel unsafe or have concerns for your saf ety? No 02/13/2024 Do you have concerns for you r family's safety? (Household - for ages 0-17 years) Not on file 02/13/2024 Utilities Answer Date Recorded Do you have trouble paying y our heating, water, or electric bill? No 02/13/2024 Is your family able to pay t he heat, water, or electric bill? (Household - for ages 0-17 years) Not on file 02/13/2024 Does your family have access to good internet? (Household - for ages 0-17 years) Not on file 02/13/2024 Employment Status Answer Date Recorded Are you unemployed or without regular income? No 02/13/2024 Does the household have a re gular source of income? (Household - for ages 0-17 years) Not on file 02/13/2024 Social Connections Answer Date Recorded How often do you feel lonely or isolated from th ose around you? Never 02/13/2024 Financial Resource Strain Answer Date R ecorded Do you have any trouble payi ng for your medications, or do you think you might in the future? No 02/13/2024 Does your family have troubl e paying for medicine? (Household - for ages 0-17 years) Not on file 02/13/2024 Transportation Needs Answer Date Record ed Do you have trouble getting a ride to medical visits or work? (Adult - for ages 18 years and over) Not on file 02/13/2024 Does your family have a hard time getting a ride to doctors visits? (Household - for ages 0-17 years) Not on file 02/13/2024 Has lack of transportation k ept you from medical appointments, meetings, work, or from getting things needed for daily living? Check all that apply. No 02/13/2024 Do you (or your family) have trouble finding or paying for a ride (transportation)? (Household - for ages 0-17 years) Not on file 02/13/2024 Housing Stability Answer Date Recorded Do you currently live in a s helter or have no steady place to sleep at night? No 02/13/2024 Do you think you are at risk of becoming homeless? (Adult - for ages 18 years and over) Not on file 02/13/2024 Does your family worry about paying for your home or becoming homeless? (Household - for ages 0-17 years) Not on file 1 04/15/2023 Are you homeless or worried that you might be in the future? No 02/13/2024 Are you (or your family) reid eless or worried that you might be in the future? (Household - for ages 0-17 years) Not on file Food Insecurity Answer Date Recorded Do you need food for this week? No 02/13/2024 Are you able to get enough f ood for your family? (Household - for ages 0-17 years) Not on file 02/13/2024 Does your family need food t his week? (Household - for ages 0-17 years) Not on file 02/13/2024 Do you always have enough fo od for your family? (Household - for ages 0-17 years) Not on file 02/13/2024 Food Insecurity Answer Date Recorded Within the past 12 months, y ou worried that your food would run out before you got the money to buy more. Never true 02/13/20 24 Within the past 12 months, t he food you bought just didn't last and you didn't have money to get more. Never true 02/13/2024 Do you need food for this week? No 02/13/2024 Comments No Sex and Gender Information Value Date Recorded Sex Assigned at Female 05/24/2018 2:00 PM EDT Legal Sex Female 3:57 PM EDT Gender Identity Female 05/24/2018 2:00 PM EDT Sexual Orientation Straight 05/24/2018 2: 00 PM EDT documented as of this encounter Miscellaneous Notes * Telephone Encounter - Sushila Youssef LPN - 05/16/2024 12:14 PM EDT Patient's daughter is aware and verbalizes understanding. Agreeable to B-12--pharmacy selected. Asking if a copy of labs can be mailed to verified home address. * Telephone Encounter - Carito Aranda OSA - 05/16/2024 12:11 PM EDT Daughter of patient returning call for test results. Transferred to dedicated nurse line. * Telephone Encounter - Lashell Arteaga RN - 05/15/2024 4:18 PM EDT Left message for daughter to call. Please inform of pt results below. * Telephone Encounter - Lashell Arteaga RN - 05/15/2024 4:18 PM EDT ----- Message from Mu Lomeli MD sent at 05/15/2024 10:14 AM EDT ----- Call please comprehensive panel function a little bit worse maybe an element of dehydration encourage fluids sedimentation rate and thyroid testing are normal while B12 level is normal as well it is on the lower side be beneficial to try some and see if it helps balance should not hurt her in any way will send a pharmacy if amenable documented in this encounter Plan of Treatment Upcoming Encounters Date Type Department Care Team (Late st Contact Info) Description 06/11/2024 8:20 AM EDT Office Visit Family Practice [facility] [address] [facility] [place] [address] Mu Lomeli III, MD [address] [facility] [place] [address] Health Maintenance Due Date Last Done Comments DXA Scan 1935 DTap/Tdap Vaccines (1 - Tdap) 1954 Pneumococcal Vaccine: 50+ Ye ars (1 of 1 - PCV) 09/14/1987 Zoster Vaccines (1 of 2) 09/14/1987 COVID-19 Vaccine (1 - 2023-2 5 season) 2023 Influenza Vaccine (FLU shot) (#1) 2023 Albumin/Creatinine Ratio 11/04/2024 11/04/2021 Depression Screening 02/12/2025 02/13/2024 HPV (Gardasil) Vaccine Aged Out No lo nger eligible based on patient's age to complete this topic Hepatitis B Vaccine Aged Out No longe r eligible based on patient's age to complete this topic MENINGOCOCCAL (MENACTRA/MENVEO) Aged Out No longer eligible based on patient's age to complete this topic Meningitis B Vaccine (Bexsero/Trumemba) Aged Out No longer eligible b ased on patient's age to complete this topic documented as of this encounter Medical Devices Not on filedocumented as of this encounter Advance Directives Healthcare Agents on File Name Relationship Healthcare Agent Relationshi p Communication Mariela Ozuna Adult Child Health Care R epresentative (appointed verbally by patient or by statute hierarchy) Care Teams Transfer Station Attendant Relationship Specialty Start Date End Date Mu Lomeli III, MD [address] [facility] [place] [address] PCP - General Family Medicine 11/24/20 documented as of this encounter
--- OUTSIDE RECORDS SUMMARY | 2024-06-11 03:44 | External Medical Summary | Summary of Care ---
Author Name Unknown Organization [facility] Address [address] [place] [address] Phone [phone] Care Team Providers Care Hospice Entrance Attendant Name Role Phone Armani CHRISTIE MD, John E Primary Care Provider [phone] Reason for Visit * Reason Onset Date Comments Home Health 02/22/2024 Encounter Details Date Type Department Care Team (Late st Contact Info) Description 02/22/2024 Telephone Family Practice [facility] [place] [address] [facility] [place] [address] Mu Lomeli III, MD [address] [facility] [place] [address] Home Health Allergies No known active allergiesdocumented as of this encounter (statuses as of 05/24/2024) Medications Blood Pressure Monitoring (BLOOD PRESSURE KIT) [...] r knee 100 g 6 4 Active documented as of this encounter (statuses as of 05/24/2024) Active Problems Problem Noted Date Diagnosed Date Stress incontinence in female 03/23/2023 History of 2019 novel coronavirus disease (COVID -19) 12/23/2021 Legally blind in right eye, as defined in [place] Memory loss 12/23/2021 Hearing loss, right 12/23/2021 Dry eye 12/23/2021 Primary osteoarthritis of right knee 12/23/2021 HTN, goal below 150/90 11/21/2016 documented as of this encounter (statuses as of 05/24/2024) Resolved Problems Problem Noted Date Diagnosed Date Resolved Date Food insecurity 02/06/2023 03/14/2024 Overview: Per [facility] Protocol documented as of this encounter (statuses as of 05/24/2024) Immunizations No known immunizationsdocumented as of this [...] 02/13/2024 Does the household have a re lar source of income? (Household - for ages [...] encounter Miscellaneous Notes * Telephone Encounter - Gillian Oliveira MD - 02/23/2024 4:07 PM EST Noted and seen * Telephone Encounter - Ilda Chen LPN - 02/22/2024 1:27 PM EST Concerns Mykel PT, Calling from: [facility] Report/Concerns of: Fall - 02/20 into the countertop Symptoms: Decreased ROM, pain with use Vitals: T 98.2 P 60 RR 18 BP 148/82 left arm SP O2 98% Lung sounds- clear Narrative: Mykel PT from [facility]. He is currently with the patient. Feel into the countertop yesterday - right bicep pain 1/10 at rest. 5/10 with use. Not using her hand to walk with her walker. Favoring right leg also. (No swelling or bruising noted. Bicep very tight like she's flexing) Risk of falling with decreased ROM and not using her right hand to walk with her walker. Appt scheduled with Dr. Oliveira tomorrow at 11:20am. Call back daughterMariela with any advice or orders at [phone] Please fax new orders [facility] Home Health CC: Dr. Oliveira documented in this encounter Plan of Treatment Upcoming Encounters Date Type Department Care Team (Late st Contact Info) Description 06/11/2024 8:20 AM EDT Office Visit Family Practice State [facility] [address] [place] [address] Mu Lomeli III, MD [address] [facility] [place] [address] Health Maintenance Due Date Last Done Comments [...] Name Relationship Healthcare Agent Relationshi p Communication Jersonima Laith Adult Child Health Care R epresentative (appointed verbally by patient or by statute hierarchy) Care Teams Hospice Entrance Attendant Relationship Specialty Start Date End Date Mu Lomeli III, MD [address] [facility] [place] [address] PCP - General Family Medicine 11/24/20 documented as of this encounter
--- OUTSIDE RECORDS SUMMARY | 2024-06-11 03:45 | External Medical Summary | Summary of Care ---
Author Name Unknown Organization [facility] Address [address] [place] [address] Phone [phone] Care Team Providers Care Cap Maker Name Role Phone Armani CHRISTIE MD, John E Primary Care Provider [phone] Reason for Visit * Reason Onset Date Comments Home Health 04/17/2024 Encounter Details Date Type Department Care Team (Late st Contact Info) Description 04/17/2024 Telephone Family Practice [facility] [address] [place] [address] Mu Lomeli III, MD [address] [place] [address] Home Health Allergies No known active allergiesdocumented as of this encounter (statuses as of 04/17/2024) Medications Blood Pressure Monitoring (BLOOD PRESSURE KIT) [...] as of this encounter (statuses as of 04/17/2024) Active Problems Problem Noted Date Diagnosed Date Stress incontinence in female 03/23/2023 History of 2019 novel coronavirus disease (COVID -19) 12/23/2021 Legally blind in right eye, as defined in [place] Memory loss 12/23/2021 Hearing loss, right 12/23/2021 Dry eye 12/23/2021 Primary osteoarthritis of right knee 12/23/2021 HTN, goal below 150/90 11/21/2016 documented as of this encounter (statuses as of 04/17/2024) Resolved Problems Problem Noted Date Diagnosed Date Resolved Date Food insecurity 02/06/2023 03/14/2024 Overview: Per [facility] Protocol documented as of this encounter (statuses as of 04/17/2024) Immunizations No known immunizationsdocumented as of this [...] the money to buy more. Never true 12/17/20 24 Within the past 12 months, t [...] Telephone Encounter - Sushila Youssef LPN - 04/17/2024 10:09 AM EST Clare calling from [facility] Needs order for continuation of PT signed by PCP, dated 03/17/24 Faxing to [phone] Please have PCP sign orders and fax to:[phone] documented in this encounter Plan of Treatment Upcoming Encounters Date Type Department Care Team (Late st Contact Info) Description 06/11/2024 8:20 AM EDT Office Visit Family Practice [facility] [address] [place] [address] Mu Lomeli III, MD [address] [place] [address] Health Maintenance Due Date Last Done Comments DXA Scan 1935 DTap/Tdap Vaccines (1 - Tdap) 1954 Pneumococcal Vaccine: 50+ Ye ars (1 of 1 - PCV) 09/14/1987 Zoster Vaccines (1 of 2) 09/14/1987 Adult Wellness Visit 09/14/2003 COVID-19 Vaccine (1 - 2023-2 5 season) [...] Relationship Healthcare Agent Relationshi p Communication Mariela Revelestr Adult Child Health Care R epresentative (appointed verbally by patient or by statute hierarchy) Care Teams Cap Maker Relationship Specialty Start Date End Date Mu Lomeli III, MD [address] [place] [address] PCP - General Family Medicine 11/24/20 documented as of this encounter
--- OUTSIDE RECORDS SUMMARY | 2024-06-11 03:45 | External Medical Summary ---
Author Name Unknown Address Unknown Organization [id number]:[facility] - [address] [place] [address] Laboratory Report Ordering Provider Test Date Status DENNIS ANTONY III 05/14/2024 12:12:53 Final Observation Date Value Abnormality Reference (Units ) Status Erythrocyte sedimentation rate by Photometric method 05/14/2024 12:12:53 10 <30 (mm/hour) Final Performing Location [facility] [address] [facility] [address]
--- OUTSIDE RECORDS SUMMARY | 2024-06-11 03:45 | External Medical Summary | Summary of Care ---
Author Name Unknown Organization [facility] Address [address] [place] [address] Phone [phone] Care Team Providers Care Veterinary Dentist Name Role Phone Armani CHRISTIE MD, John E Primary Care Provider [phone] Reason for Visit * Reason Onset Date Comments Advice 04/10/2024 Encounter Details Date Type Department Care Team (Late st Contact Info) Description 04/10/2024 Telephone Family Practice [facility] [address] [facility] [place] [address] Mu Lomeli III, MD [address] [facility] [place] [address] Advice Allergies No known active allergiesdocumented as [...] encounter Miscellaneous Notes * Telephone Encounter - Lilly Clark RN - 04/17/2024 2:14 PM EST Spoke with Sushila at [facility] they will have an evaluation done on the patient to determine if she is a candidate for inpatient rehab. She will reach back out if any other questions or concerns arise. * Telephone Encounter - Lilly Clark RN - 04/17/2024 1:37 PM EST Provider to address: Reason for Call: Advice Contact: Telephone Call Contact Type: Other: follow up Provider In-Basket: No Outcome: Called and left message with uSshila at [facility] asking her to return call Face to face time spent with Patient (minutes): 0 Total Time including non face to face (minutes): 10 * Telephone Encounter - Mu Lomeli III, MD - 04/11/2024 9:10 AM EST yes * Telephone Encounter - Fela Wilde OSA - 04/10/2024 4:46 PM EST Who is calling facility name: [facility] Provider patient is established with: Mu Lomeli What is the concern or issue they are having: daughter called them that she would like for them to admit her for inpatient rehab for gait disturbance; she can only use in the one side-- daughter wants her to do this to get her stable and able to get up back on her feet Akash is asking if he is in agreement with this. Phone number for nurse to call back: [phone] documented in this encounter Plan of Treatment Upcoming Encounters Date Type Department Care Team (Late st Contact Info) Description 06/11/2024 8:20 AM EDT Office Visit Family Practice [facility] [address] [facility] [place] [address] Mu Lomeli III, MD [address] [facility] [place] [address] Health Maintenance Due Date Last Done Comments [...] Name Relationship Healthcare Agent Relationshi p Communication Galima Lupisimicky Adult Child Health Care R epresentative (appointed verbally by patient or by statute hierarchy) Care Teams Veterinary Dentist Relationship Specialty Start Date End Date Mu Lomeli III, MD [address] [facility] [place] [address] PCP - General Family Medicine 11/24/20 documented as of this encounter
--- OUTSIDE RECORDS SUMMARY | 2024-06-11 03:45 | External Medical Summary ---
Author Name Unknown Address Unknown Organization [id number]:[facility] [address] Laboratory Report Ordering Provider Test Date Status ARMANDO IVORY 04/23/2024 05:39:32 Final Observation Date Value Abnormality Reference (Units ) Status WBC, Total 04/23/2024 05:39:32 5.29 4.00-10.8 0 (K/uL) Final RBC 04/23/2024 05:39:32 4.35 3.85-5.15 (M/uL) Final Hemoglobin 04/23/2024 05:39:32 12.1 12.0-15.3 (g/dL) Final HCT 04/23/2024 05:39:32 37.4 36.0-45.2 (%) Final MCV 04/23/2024 05:39:32 86.0 81.5-97.5 (fL) Final MCH 04/23/2024 05:39:32 27.8 27.0-34.0 (pg) Final MCHC 04/23/2024 05:39:32 32.4 32.0-36.0 (g/dL) Final RDW 04/23/2024 05:39:32 14.5 11.5-15.5 (%) Final Platelets 04/23/2024 05:39:32 189 140-400 (K /uL) Final MPV 04/23/2024 05:39:32 9.6 6.6-11.1 ( fL) Final Performing Location [facility] [address]
--- OUTSIDE RECORDS SUMMARY | 2024-06-11 03:45 | External Medical Summary | Summary of Care ---
Author Name Unknown Organization [facility] Address [address] [place] [address] Phone [phone] Care Team Providers Care Industrial Custodian Name Role Phone Armani CHRISTIE MD, John E Primary Care Provider [phone] Reason for Referral * Evaluate & Treat - Unlimited Visits (Within 10 days (routine)) - Pending Review Specialty Diagnoses / Procedures Referred By Gerda almeida Referred To Contact Orthopaedic Surgery / Orthopedics Diagnoses Adhesive capsulitis of right shoulder Elbow pain, chronic, right Mu Lomeli III, MD [address] [place] [address] Phone: tel: fax: Referral ID Status Reason Start Date Expiration Date Visits Requested Visits Authorized [id number] Pending Review Specialty Services Required 05/14/2024 [id number] Question Answer Referral Priority Within 10 days (routine) Where should this appointment be scheduled? [facility] What body part is the patient being seen for? Shoulder What condition is the patient being seen for? Sprain/Strain/Tear/Other * Evaluate & Treat - Unlimited Visits (Within 10 days (routine)) - Pending Review Specialty Diagnoses / Procedures Referred By Gerda almeida Referred To Contact Sports Medicine / Orthopedics Diagnoses Adhesive capsulitis of right shoulder Elbow pain, chronic, right Mu Lomeli III, MD [address] [place] [address] Phone: tel: fax: Referral ID Status Reason Start Date Expiration Date Visits Requested Visits Authorized [id number] Pending Review Specialty Services Required 05/14/[phone] Question Answer Referral Priority Within 10 days (routine) [facility] this appointment be scheduled? [facility] What body part is the patient being seen for? Shoulder What condition is the patient being seen for? Sprain/Strain/Tear/Other Comments Elbow pain r as well Reason for Visit * Reason Onset Date Comments Hospital Follow-Up 05/14/2024 Encounter Details Date Type Department Care Team (Late st Contact Info) Description 05/14/2024 11:00 AM EDT Office Visit Family Practice [facility] [address] [facility] [place] [address] Mu Lomeli III, MD [address] [facility] [place] [address] Hospital discharge follow-up*; Adhesive capsulitis of right shoulder; Ambulatory dysfunction; Balance problem; Elbow pain, chronic, right Allergies No known active allergiesdocumented as of this encounter (statuses as of 05/14/2024) Medications Blood Pressure Monitoring (BLOOD PRESSURE KIT) [...] as of this encounter (statuses as of 05/14/2024) Active Problems Problem Noted Date Diagnosed Date Stress incontinence in female 03/23/2023 History of 2019 novel coronavirus disease (COVID -19) 12/23/2021 Legally blind in right eye, as defined in [place] Memory loss 12/23/2021 Hearing loss, right 12/23/2021 Dry eye 12/23/2021 Primary osteoarthritis of right knee 12/23/2021 HTN, goal below 150/90 11/21/2016 documented as of this encounter (statuses as of 05/14/2024) Resolved Problems Problem Noted Date Diagnosed Date Resolved Date Food insecurity 02/06/2023 03/14/2024 Overview: Per [facility] Protocol documented as of this encounter (statuses as of 05/14/2024) Immunizations No known immunizationsdocumented as of this encounter Social History Tobacco Use Types Packs/Day Years Used Date Smoking Tobacco: Never Smokeless Tobacco: Never Tobacco Cessation:Counseling Given: Not Answered Alcohol Use Standard Drinks/Week Comments No 0 [...] PM EDT documented as of this encounter Last Filed Vital Signs Vital Sign Reading Time Taken Comments Blood Pressure 148/68 05/14/2024 12:13 PM EDT Pulse 73 05/14/2024 11:24 AM EDT Temperature 36.6 °C (97.8 °F) 05/14/2024 11:24 AM E DT Respiratory Rate 16 05/14/2024 11:24 AM EDT Oxygen Saturation 96% 05/14/2024 11:24 AM EDT Inhaled Oxygen Concentration - - Weight - - Height - - Body Mass Index - - documented in this encounter Progress Notes * Mu Lomeli III, MD - 05/14/2024 12:11 PM EDT Subjective: Oksana Velazquez is a 88 year old female. Chief Complaint Patient presents with Hospital Follow-Up HPI: Hospital discharge follow-up balance problems ambulatory dysfunction capsulitis right shoulderelbow pain right patient admitted April 22 discharge May 03 has not has been anemic hemoglobin now up to 13.1 GFR was 60 5 potassium 4.3 still having significant problems with the right shoulder and right knee they been injected in the past occurred after an injuries all back in December denies chest pain shortness of breath no swelling of her ankles no bleeding urine or bowels nodysuria PHM: Patient Active Problem List Diagnosis HTN, goal below 150/90 History of 2019 novel coronavirus disease (COVID-19) Legally blind in right eye, as defined in [place] Memory loss Hearing loss, right Dry eye Primary osteoarthritis of right knee Stress incontinence in female Current Outpatient Medications Medication Sig Dispense Refill Timolol Maleate 0.5 % Ophthalmic Solution (Timoptic) INSTILL ONE DROP INTO BOTH EYES TWICE DAILY 10mL 8 Losartan Potassium 50 MG Oral Tablet (Cozaar) 1/2 tab daily if bp elevated take 2nd dose at [id number] Tablet 11 Atorvastatin Calcium 40 MG Oral Tablet (Lipitor) 1 Tablet. Iron (Ferrous Sulfate) 325 (65 Fe) MG Oral Tablet Take 325 mg by mouth in the morning. 100 Tablet 3 Acetaminophen ER 650 MG Oral Tablet Extended Release (Tylenol 8 Hour Arthritis Pain) Take 1 Tablet by mouth in the morning and 1 Tablet before bedtime. 100 Tablet 3 Diclofenac Sodium 1 % External Gel (Voltaren) Apply topically to affected area 4 times a day. Applyr knee 100 g 6 Blood Pressure Monitoring (BLOOD PRESSURE KIT) EMMANUELLE Use daily to check blood pressure (Patient not taking: Reported on 02/23/2024) 1 Device 0 Sodium Hyaluronate 60 MG/3ML Intra-articular Prefilled Syringe (Durolane) Inject 60 mg (1 syringe) intra-articularly into right knee once (Patient not taking: Reported on 05/14/2024) 3 mL 0 No current facility-administered medications for this visit. Past Medical History: Diagnosis Date Dry eye 12/23/2021 Hearing loss, right 12/23/2021 History of 2019 novel coronavirus disease (COVID-19) 12/23/2021 Legally blind in right eye, as defined in [place] 12/23/2021 MCI (mild cognitive impairment) vs mild dementia. onset 2019, diagnosed 07/28/23 Memory loss 12/23/2021 Primary osteoarthritis of right knee 12/23/2021 No past surgical history on file. Review of patient's allergies indicates: No Known Allergies Objective: BP 159/67 | Pulse 73 | Temp 97.8 °F (36.6 °C) | Resp 16 | SpO2 96% Physical Exam: General: alert, healthy, and no distress Eye Exam: PERRLA, extraocular movements intact, conjunctiva are pink and non- injected, sclera clear Oropharynx: no exudate, no erythema, lips, buccal mucosa, and tongue normal, and mucous membranes are moist Heart: regular rate & rhythm, no murmur, and no gallops Lungs: lungs clear to auscultation Extremities: no edema, no clubbing, no cyanosis Decreased range of motion right shoulder abduction to 60° or so ASSESSMENT/PLAN: Hospital discharge follow-up (Primary) - DISCH MED RECON CUR MED LIS Adhesive capsulitis of right shoulder - SPORTS MEDICINE REFERRAL OP - ORTHOPAEDICS REFERRAL OP Ambulatory dysfunction - TSH WITH FREE T4 IF INDICATED; Future; Expected date: 05/14/2024 - COMPREHENSIVE METABOLIC PANEL; Future; Expected date: 05/14/2024 - VITAMIN B12; Future; Expected date: 05/14/2024 - ERYTHROCYTE SEDIMENTATION RATE (ESR); Future; Expected date: 05/14/2024 Balance problem - TSH WITH FREE T4 IF INDICATED; Future; Expected date: 05/14/2024 - COMPREHENSIVE METABOLIC PANEL; Future; Expected date: 05/14/2024 - VITAMIN B12; Future; Expected date: 05/14/2024 - ERYTHROCYTE SEDIMENTATION RATE (ESR); Future; Expected date: 05/14/2024 Elbow pain, chronic, right - SPORTS MEDICINE REFERRAL OP - ORTHOPAEDICS REFERRAL OP [facility] notes reviewed supposed to follow up referral placed check lab work in regards to balance issues Time 38 minutes Mu Lomeli III, MD * Lashell Arteaga RN - 05/14/2024 11:24 AM EDT Discharged from [facility] 05/03/24. documented in this encounter Plan of Treatment Upcoming Encounters Date Type Department Care Team (Late st Contact Info) Description 06/11/2024 8:20 AM EDT Office Visit [address] [place] [address] Mu Lomeli III, MD [address] [place] [address] Pending Results Name Type Priority Associated Diagnoses Date /Time TSH WITH FREE T4 IF INDICATED Lab Routine Ambulatory dysfunction Balance problem 05/14/2024 12:12 PM EDT VITAMIN B12 Lab Routine Ambulatory dysfunction Balance problem 05/14/2024 12:12 PM EDT ERYTHROCYTE SEDIMENTATION RATE (ESR) Lab Routine Ambulatory dysfunction Balance problem 05/14/2024 12:12 PM EDT Scheduled Orders Name Type Priority Associated Diagnoses Orde r Schedule TSH WITH FREE T4 IF INDICATED Lab Routine Ambulatory dysfunction Balance problem Expected: 05/14/2024 (Approximate), Expires: 05/14/2025 VITAMIN B12 Lab Routine Ambulatory dysfunction Balance problem Expected: 05/14/2024 (Approximate), Expires: 05/14/2025 ERYTHROCYTE SEDIMENTATION RATE (ESR) Lab Routine Ambulatory dysfunction Balance problem Expected: 05/14/2024 (Approximate), Expires: 05/14/2025 LIPID PANEL WITH DIRECT LDL IF TG IS HIGH Lab Routine Balance problem Expected: 05/14/2024, Expires: 05/14/2025 IRON SCREEN, INCLUDING TIBC Lab Routine Balance problem Expected: 05/14/2024 (Approximate), Expires: 05/14/2025 Scheduled Referrals Name Type Priority Associated Diagnoses Order Schedule SPORTS MEDICINE REFERRAL OP Referral Within 10 days (routine) Adhesive capsulitis of right shoulder Elbow pain, chronic, right Ordered: 05/14/2024 ORTHOPAEDICS REFERRAL OP Referral Within 10 days (routine) Adhesive capsulitis of right shoulder Elbow pain, chronic, right Ordered: 05/14/2024 Health Maintenance Due Date Last Done Comments [...] Not on filedocumented as of this encounter Procedures Procedure Name Priority Date/Time Associated Diagnosis Comments COMPREHENSIVE METABOLIC PANEL Routine 05/14/2024 12:12 PM EDT Ambulatory dysfunction Balance problem documented in this encounter Results * (ABNORMAL) COMPREHENSIVE METABOLIC PANEL (05/14/2024 12:12 PM EDT) BUN 23(H) 6 - 20 mg/dL 05/14/2024 1:24 PM EDT [facility]02 CREATININE 0.9 0.5 - 1.0 mg/dL 05/14/2024 1:24 PM EDT [facility]02 EGFR 59(L) >=60 mL/min 05/14/2024 1:24 PM EDT [facility] Comment:eGFR is calculated b ased on the CKD-EPI 2020 equation. SODIUM 144 135 - 146 mmol/L 05/14/2024 1:24 PM EDT [facility] 56 POTASSIUM 4.1 3.5 - 5.1 mmol/L 05/14/2024 1:24 PM EDT [facility] 56 CHLORIDE 109(H) 98 - 107 mmol/L 05/14/2024 1:24 PM EDT [facility] 56 CO2 25 22 - 32 mmol/L 05/14/2024 1:24 PM EDT [address] ANION GAP 10 7 - 15 mmol/L 05/14/2024 1:24 PM EDT [address] GLUCOSE 113 70 - 120 mg/dL 05/14/2024 1:24 PM EDT [address] Albumin 4.5 3.8 - 5.0 g/dL 05/14/2024 1:24 PM EDT [address] AST 16 10 - 35 U/L 05/14/2024 1:24 PM EDT [address] Alkaline Phosphatase 66 35 - 130 U/L 05/14/2024 1:24 PM EDT [address] Bilirubin, Total 0.6 <=1.2 mg/dL 05/14/2024 1:24 PM EDT [facility] 56 CALCIUM 9.2 8.4 - 10.2 mg/dL 05/14/2024 1:24 PM EDT [facility] 56 Protein 7.1 6.0 - 8.3 g/dL 05/14/2024 1:24 PM EDT [address] ALT 15 10 - 35 U/L 05/14/2024 1:24 PM EDT [facility] 56 Blood Venous blood specimen / Unknown Venipuncture / Unknown 05/14/2024 12:12 PM EDT 05/14/2024 12:12 PM EDT Mu Lomeli III, MD LAB BLOOD ORDERABLES Final Result [facility] [address] [place] [address] documented in this encounter Visit Diagnoses Diagnosis Hospital discharge follow-up- Primary Other follow-up examination Adhesive capsulitis of right shoulder Adhesive capsulitis of shoulder Ambulatory dysfunction Balance problem Other symptoms involving nervous and musculoskeletal systems Elbow pain, chronic, right documented in this encounter Advance Directives Healthcare Agents on File Name Relationship Healthcare Agent Relationshi p Communication Mariela Revelestr Adult Child Health Care R epresentative (appointed verbally by patient or by statute hierarchy) Care Teams Industrial Custodian Relationship Specialty Start Date End Date Mu Lomeli III, MD [address] [place] [address] PCP - General Family Medicine 11/24/20 documented as of this encounter"
--- OUTSIDE RECORDS SUMMARY | 2024-06-11 03:45 | External Medical Summary | Summary of Care ---
Author Name Unknown Organization [facility] Address [address] [place] [address] Phone [phone] Care Team Providers Care Merchandising Lead Name Role Phone Armani CHRISTIE MD, John E Primary Care Provider [phone] Reason for Visit * Reason Onset Date Comments Advice 04/10/2024 Encounter Details Date Type Department Care Team (Late st Contact Info) Description 04/10/2024 Telephone Family Practice [facility] [address] [facility] [place] [address] Mu Lomeli III, MD [address] [facility] [place] [address] Advice Allergies No known active allergiesdocumented as of this encounter (statuses as of 04/11/2024) Medications Blood Pressure Monitoring (BLOOD PRESSURE KIT) [...] as of this encounter (statuses as of 04/11/2024) Active Problems Problem Noted Date Diagnosed Date Stress incontinence in female 03/23/2023 History of 2019 novel coronavirus disease (COVID -19) 12/23/2021 Legally blind in right eye, as defined in [place] Memory loss 12/23/2021 Hearing loss, right 12/23/2021 Dry eye 12/23/2021 Primary osteoarthritis of right knee 12/23/2021 HTN, goal below 150/90 11/21/2016 documented as of this encounter (statuses as of 04/11/2024) Resolved Problems Problem Noted Date Diagnosed Date Resolved Date Food insecurity 02/06/2023 03/14/2024 Overview: Per [facility] Protocol documented as of this encounter (statuses as of 04/11/2024) Immunizations No known immunizationsdocumented as of this [...] encounter Miscellaneous Notes * Telephone Encounter - Mu Lomeli III, [...] Phone number for nurse to call back: [phone] documented in this encounter Plan of Treatment Upcoming Encounters Date Type Department Care Team (Late st Contact Info) Description 06/11/2024 8:20 AM EDT Office Visit Family Practice [address] [place] [address] [facility] III, MD [address] [facility] [address] Health Maintenance Due Date Last Done Comments [...] Name Relationship Healthcare Agent Relationshi p Communication Jersonjesus Laith Adult Child Health Care R epresentative (appointed verbally by patient or by statute hierarchy) Care Teams Merchandising Lead Relationship Specialty Start Date End Date Mu Lomeli III, MD [address] [facility] [place] [address] PCP - General Family Medicine 11/24/20 documented as of this encounter
--- OUTSIDE RECORDS SUMMARY | 2024-06-11 03:45 | External Medical Summary | Continuity of Care Document ---
Author Name Unknown Organization [place] [id number] Address [address] [place] [id number] Care Team Providers Care Crystallographer Name Role Phone Mu Lomeli Primary Care Physician [phone] Encounter [facility] FINNBR [id number] Date(s): 03/19/24 - 03/19/24 [facility] [address] [place] [id number] [facility] Medicine [address] [place] [address] Encounter Diagnosis Shoulder pain(Discharge Diagnosis) - 03/19/24 Osteoarthritis of glenohumeral joint(Discharge Diagnosis) - 03/19/24 Discharge Disposition: Home or Self Care Attending Physician: DO Bazan Jina Referring Physician: JOSE GUADALUPE Trejo [place] Allergies, Adverse Reactions, Alerts No Known Allergies Medications atorvastatin 40 mg oral tablet Start: 03/12/24 10:47:00 AM EST, 30 each, 0 Refill(s), TAKE ONE TABLET BY MOUTH EVERY MORNING Start Date: 03/12/24 Status: Ordered CeleBREX 200 mg oral capsule Start: 03/12/24 11:41:00 AM EST, See Instructions, Disp# 60 tab, Refills: 0, Take 1 capsule (200mg) twice a day for 2 weeks, then once a day for 1 week, and then as needed, PRN: as needed for pain, Pharmacy: [id number] Start Date: 03/12/24 Status: Ordered diclofenac 1% topical gel Start: 02/04/24 12:04:00 PM EST, 4 g =, Topical, 100 g, 0 Refill(s) Start Date: 02/04/24 Status: Ordered ferrous sulfate 325 mg (65 mg elemental iron) oral tablet Start: 02/04/24 12:04:00 PM EST, 325 mg =, Oral, 0 Refill(s) Start Date: 02/04/24 Status: Ordered Trivisc 10 mg/mL intra-articular solution Start: 03/14/24 4:00:00 PM EST, 25 mg =, intra-articular, q7days, Disp# 7.5 mL, Refills: 0, 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, Note to Pharmacy: 3 syringes for R knee., other Start Date: 03/14/24 Stop Date: 04/04/24 Status: Ordered Mental Status 03/19/24 Barriers to Learning one year None evide nt Problem List Condition Confirmation Course Effective Dates Status Health St at[facility] Informant Right hand pain Confirmed Active Right knee pain Confirmed Active Diagnosis Diagnosis Type Effective Dates Health Status Clinical Service Informant Shoulder pain Discharge Diagnosis 03/19/24 Non-Specified Osteoarthritis of glenohumeral joint Discharge Diagnosis 03/19/24 Non-Specified Social History Social History Type Response Smoking Status Never smoked cigaret brian Sex Sex Representation Female (finding) Ortho Outpt Note * DO Bazan Jina: PERFORM, MODIFY, MODIFY Event Display: Ortho Outpt Note Authored Date: [id number] Name: DRISS SELBY Patient Number: [id number] : 1935 Date of Service: 03/19/2024 Outpatient Radiology Study: Limited Diagnostic Musculoskeletal Ultrasound of Right Shoulder * though complete eval was requested, patients daughter reported she needed to leave and was not expecting a diagnostic ultrasound eval. Her and the mother discussed the options and decided to stop the diagnostic ultrasound eval and go forward with glenohumeral joint injection. Patient visit took more time as the patient required an community arts centre manager for the visit: [address] [place] [address] Indication: Right Shoulder Pain and adhesive capsulitis Report: A limited musculoskeletal diagnostic ultrasound was performed of the right shoulder. Real time static and dynamic imaging was performed. The long head of the biceps was viewed in long and short axes. There was evidence of tendinopathy and tenosynovitis Dynamic evaluation unable to be performed due to severe loss of ROM The pectoralis major tendon was viewed in long axis at the insertion and was normal in appearance at this level. A long axis view was then obtained of the acromioclavicular joint. There were significant cortical irregularities present. There was an effusion present. Subscapularis The patient was unable to externally rotate hence very limited exam was obtained of the subscapularis. There was evidence of tendinopathy but unable to fully evaluate the subscapularis due to severelylimited ROM. Likely tear of subscap but hard to evaluate and characterize due to severely limited ROM. Supraspinatus The patient was unable to go into the modified Crass position due to limited ROM. The supraspinatustendon was viewed as much as possible in long and short axes. There was evidence of supraspinatus tendinosis. Likely also a tear however patient elected to stop the procedure prior to full evaluation and confirmation. There was effusion within the subacromial bursa. The transducer was then moved over the distal acromion. A long axis view was obtained of the subacromial space. Dynamic evaluation was unable to be performed due to limited ROM unable to evaluate for subacromial impingement of either the supraspinatus or the subacromial bursa due to limited ROM Impression: Catheter Finisher And Inspector was used for today's eval. [id number] Oleksandryna Full evaluation was stopped due to patient preference/ request. Her daughter is her transportation driver and needed to leave prior to full scan being done. Exam severely limited due to significantly decreased ROM due to adhesive capsulitis. Likely biceps tendinopathy and tenosynovitis. Likely subscapularis tendinopathy and concern for tear. Likely supraspinatus tendinopathy. subacromial bursa present. Likely supraspinatus tear but exam was stopped prior to confirmation. AC joint cortical irregularity with effusion. Indication for procedure:adhesive capsulitis Pre and post procedure diagnosis:adhesive capsulits Procedure Note US Ultrasound guided Right (GHJ) glenohumeral joint Steroid Injection: The potential benefits and side effects of the procedure were explained to the patient, an opportunity for questions was provided.The patient then gave verbal consent. community arts centre manager was present and used for consent: [id number] Oleksandryna The patient was positioned in a side-lying position. Skin Preparation: The overlying skin was prepped with 30 second scrub with chlorhexidine and allowed to dry. After a High frequency linear ultrasound probe was cleaned using chlorhexidine, sterile ultrasound gel was applied to the probe. The glenohumeral joint was identified by ultrasound visualization. Injection complicated due to limited ROM of the shoulder A 22 gauge 3.5 inch needle attached to a 5 cc syringe containing the mixture below was directed to the target via the posterior lateral approach under ultrasound-guidance. The solution was injected under ultrasound guidance. 4 cc of 0.5% Ropivacaine 1 cc of Depomedrol (Methylprednisolone Acetate 40 mg/ml) A Band-Aid was placed over the needle entry site. Post-procedural instructions: no soaking the area in water for the next 48 hours, showers are okay,limit unnecessary activity for the rest of the day, and apply ice p.r.n. Immediate post-injection impingement maneuvers: compared with pre-injection, the signs were: some improvement in ROM Patient tolerance for the procedure: excellent I am available for ultrasound guided capsular distention/hydrodilation if symptoms persist after this injection Bernadette Bazan DO Sports Medicine and Interventional Spine Electronic Signature on File CC: Jerri Trejo PA-C [id number] [address] Electronically Reviewed/Signed by: Bernadette Bazan DO Author Signature Dt/Tm:03/19/2024 08:03 PM Division of Sports Medicine Electronically Reviewed/Signed by: Bernadette Bazan DO Cosigner Signature Dt/Tm: 03/19/2024 08:04 PM Division of Sports Medicine [place] Patient Care team information Care Team Personnel Name: MD Armani, Mu Valles Position: Referring DIRECT Member Role: Primary Care Provider Address: [address] [place] [address]
--- OUTSIDE RECORDS SUMMARY | 2024-06-11 03:45 | External Medical Summary ---
Author Name Unknown Address Unknown Organization K09:[facility] [place] [address] Laboratory Report Ordering Provider Test Date Status ARMANDO IVORY 04/30/2024 05:38:57 Final Observation Date Value Abnormality Reference (Units ) Status BUN 04/30/2024 05:38:57 28 Above high normal 6-20 (mg/dL) Final Creatinine 04/30/2024 05:38:57 0.9 0.5-1.0 (mg/dL) Final Glomerular filtration rate/1.73 sq M.predicted [Volume Rate/Area] in Serum, Plasma or Blood by Creatinine-based formula (CKD-EPI) 04/30/2024 05:38:57 65 >=60 (mL/min) Final eGFR is calculated based on the CKD-EPI 2020 equation. Sodium 04/30/2024 05:38:57 143 135-146 (m mol/L) Final Potassium 04/30/2024 05:38:57 4.3 3.5-5.1 (m mol/L) Final Cl 04/30/2024 05:38:57 106 98-107 (mm ol/L) Final CO2 04/30/2024 05:38:57 27 22-32 (mmo l/L) Final Anion gap 04/30/2024 05:38:57 10 7-15 (mmol /L) Final Glucose 04/30/2024 05:38:57 97 70-120 (mg /dL) Final Calcium 04/30/2024 05:38:57 9.4 8.4-10.2 ( mg/dL) Final Performing Location [facility] [place] [address]
--- OUTSIDE RECORDS SUMMARY | 2024-06-11 03:45 | External Medical Summary ---
Author Name Unknown Address Unknown Organization K01:LAB[facility]AT[facility] - [address] [place] [address] Laboratory Report Ordering Provider Test Date Status DENNIS ANTONY III 05/14/2024 12:12:53 Final Observation Date Value Abnormality Reference (Units ) Status TSH 05/14/2024 12:12:53 2.36 0.27-4.20 (uIU/mL) Final Performing Location [facility] - [address] [facility] [address]
--- OUTSIDE RECORDS SUMMARY | 2024-06-11 03:45 | External Medical Summary | Summary of Care ---
Author Name Unknown Organization [facility] Address [address] [place] [address] Phone [phone] Care Team Providers Care Register Clerk Name Role Phone Armani CHRISTIE MD, John E Primary Care Provider [phone] Reason for Visit * Reason Onset Date Comments Advice 04/10/2024 Encounter Details Date Type Department Care Team (Late st Contact Info) Description 04/10/2024 Telephone Family Practice [facility] [address] [facility] [place] [address] Mu Lomeli III, MD [address] [facility] [place] [address] Advice Allergies No known active allergiesdocumented as [...] 2:14 PM EST Spoke with Sushila at [facility], they will have an evaluation done on [...] No Outcome: Called and left message with Sushila at [facility] asking her to return call Face to [...] Phone number for nurse to call back: [phone] documented in this encounter Plan of Treatment Upcoming Encounters Date Type Department Care Team (Late st Contact Info) Description 06/11/2024 8:20 AM EDT Office Visit Family Practice [place] [address] [facility] [place] [address] Mu Lomeli III, MD [address] [facility] [place] [address] Health Maintenance Due Date Last Done Comments [...] patient or by statute hierarchy) Care Teams Register Clerk Relationship Specialty Start Date End Date Mu Lomeli III, MD [address] [facility] [place] [address] PCP - General Family Medicine 11/24/20 documented as of this encounter
--- OUTSIDE RECORDS SUMMARY | 2024-06-11 03:45 | External Medical Summary ---
Author Name Unknown Address Unknown Organization K09:[facility] [place] [address] Laboratory Report Ordering Provider Test Date Status ARMANDO IVORY 04/30/2024 05:38:57 Final Observation Date Value Abnormality Reference (Units ) Status WBC, Total 04/30/2024 05:38:57 6.27 4.00-10.8 0 (K/uL) Final RBC 04/30/2024 05:38:57 4.77 3.85-5.15 (M/uL) Final Hemoglobin 04/30/2024 05:38:57 13.1 12.0-15.3 (g/dL) Final HCT 04/30/2024 05:38:57 40.7 36.0-45.2 (%) Final MCV 04/30/2024 05:38:57 85.3 81.5-97.5 (fL) Final MCH 04/30/2024 05:38:57 27.5 27.0-34.0 (pg) Final MCHC 04/30/2024 05:38:57 32.2 32.0-36.0 (g/dL) Final RDW 04/30/2024 05:38:57 14.8 11.5-15.5 (%) Final Platelets 04/30/2024 05:38:57 196 140-400 (K /uL) Final MPV 04/30/2024 05:38:57 9.9 6.6-11.1 ( fL) Final Performing Location [facility] [place] [address]
--- OUTSIDE RECORDS SUMMARY | 2024-06-11 03:45 | External Medical Summary ---
Author Name Unknown Address Unknown Organization K09:[facility] [place] [address] Laboratory Report Ordering Provider Test Date Status ARMANDO IVORY 04/23/2024 05:39:32 Final Observation Date Value Abnormality Reference (Units ) Status BUN 04/23/2024 05:39:32 16 6-20 (mg/dL) Final Creatinine 04/23/2024 05:39:32 0.8 0.5-1.0 (mg/dL) Final Glomerular filtration rate/1.73 sq M.predicted [Volume Rate/Area] in Serum, Plasma or Blood by Creatinine-based formula (CKD-EPI) 04/23/2024 05:39:32 68 >=60 (mL/min) Final eGFR is calculated based on the CKD-EPI 2020 equation. Sodium 04/23/2024 05:39:32 142 135-146 (m mol/L) Final Potassium 04/23/2024 05:39:32 4.1 3.5-5.1 (m mol/L) Final Cl 04/23/2024 05:39:32 105 98-107 (mm ol/L) Final CO2 04/23/2024 05:39:32 26 22-32 (mmo l/L) Final Anion gap 04/23/2024 05:39:32 11 7-15 (mmol /L) Final Glucose 04/23/2024 05:39:32 107 70-120 (mg /dL) Final Calcium 04/23/2024 05:39:32 9.3 8.4-10.2 ( mg/dL) Final Performing Location [facility] [place] [address]
--- OUTSIDE RECORDS SUMMARY | 2024-06-11 03:45 | External Medical Summary ---
Author Name Unknown Address Unknown Organization K01:[facility]AT[facility] [place] - [address] [place] [address] Laboratory Report Ordering Provider Test Date Status DENNIS ANTONY III 05/14/2024 12:12:53 Final Observation Date Value Abnormality Reference (Units ) Status Vitamin B12 05/14/2024 12:12:53 690 278-0989 (pg/mL) Final Performing Location [facility] - [address] [place] [address]
--- OUTSIDE RECORDS SUMMARY | 2024-06-11 03:45 | External Medical Summary ---
Author Name Unknown Address Unknown Organization K09:[facility] [place] [facility] - [address] [place] [address] Laboratory Report Ordering Provider Test Date Status DENNIS ANTONY III 05/14/2024 12:12:53 Final Observation Date Value Abnormality Reference (Units ) Status BUN 05/14/2024 12:12:53 23 Above high normal 6-20 (mg/dL) Final Creatinine 05/14/2024 12:12:53 0.9 0.5-1.0 (mg/dL) Final Glomerular filtration rate/1.73 sq M.predicted [Volume Rate/Area] in Serum, Plasma or Blood by Creatinine-based formula (CKD-EPI) 05/14/2024 12:12:53 59 Below low normal >=60 (mL/min) Final eGFR is calculated based on the CKD-EPI 2020 equation. Sodium 05/14/2024 12:12:53 144 135-146 (m mol/L) Final Potassium 05/14/2024 12:12:53 4.1 3.5-5.1 (m mol/L) Final Cl 05/14/2024 12:12:53 109 Above high normal 98 -107 (mmol/L) Final CO2 05/14/2024 12:12:53 25 22-32 (mmo l/L) Final Anion gap 05/14/2024 12:12:53 10 7-15 (mmol /L) Final Glucose 05/14/2024 12:12:53 113 70-120 (mg /dL) Final Albumin 05/14/2024 12:12:53 4.5 3.8-5.0 (g /dL) Final AST (Aspartate aminotransferase) 05/14/2024 12:12:53 16 10-35 (U/L) Fin al Alk Phos 05/14/2024 12:12:53 66 35-130 (U/ L) Final Bilirubin, Total 05/14/2024 12:12:53 0.6 <=1 .2 (mg/dL) Final Calcium 05/14/2024 12:12:53 9.2 8.4-10.2 ( mg/dL) Final Protein 05/14/2024 12:12:53 7.1 6.0-8.3 (g /dL) Final ALT (Alanine aminotransferase) 05/14/2024 12:12:53 15 10-35 (U/L) Maximino martin Performing Location [facility] [place] [facility] - [address] [place] [address]
--- OUTSIDE RECORDS SUMMARY | 2024-06-11 03:45 | External Medical Summary | Summary of Care ---
Author Name Unknown Organization [facility] Address [address] [place] [address] Phone [phone] Care Team Providers Care Field Mechanical Meter Tester Name Role Phone Armani CHRISTIE MD, John E Primary Care Provider [phone] Reason for Visit * Reason Onset Date Comments Advice 04/10/2024 Encounter Details Date Type Department Care Team (Late st Contact Info) Description 04/10/2024 Telephone Family Practice [facility] [address] [place] [address] Mu Lomeli III, MD [address] [place] [address] Advice Allergies No known active allergiesdocumented as [...] Phone number for nurse to call back: [phone] documented in this encounter Plan of Treatment Upcoming Encounters Date Type Department Care Team (Late st Contact Info) Description 06/11/2024 8:20 AM EDT Office Visit Family Practice [address] [place] [address] Mu Lomeli III, MD [address] [facility] [address] Health Maintenance Due Date Last Done Comments [...] patient or by statute hierarchy) Care Teams Field Mechanical Meter Tester Relationship Specialty Start Date End Date Mu Lomeli III, MD [address] [place] [address] PCP - General Family Medicine 11/24/20 documented as of this encounter
--- OUTSIDE RECORDS SUMMARY | 2024-06-11 03:45 | External Medical Summary | Continuity of Care Document ---
Author Name Unknown Organization [place] [id number] Address [address] [place] [id number] Care Team Providers Care Operator Specialist Communications Name Role Phone Mu Lomeli Primary Care Physician [phone] Encounter [facility] FINNBR [id number] Date(s): 03/12/24 - 03/12/24 [facility] [address] [place] [id number] [facility] Medicine [address] [address] Encounter Diagnosis Right knee DJD(Discharge Diagnosis) - 03/12/24 Right elbow pain(Discharge Diagnosis) - 03/12/24 Right shoulder pain(Discharge Diagnosis) - 03/12/24 Discharge Disposition: Home or Self Care Attending Physician: JOSE GUADALUPE Trejo, Jerri Referring Physician: MD Dwayne, Trevor A Allergies, Adverse Reactions, Alerts No Known Medication Allergies Medications atorvastatin 40 mg oral tablet [...] needed, PRN: as needed for pain, Pharmacy: [facility] Start Date: 03/12/24 Status: Ordered diclofenac 1% [...] Stop Date: 04/04/24 Status: Ordered Mental Status 03/12/24 Barriers to Learning one year None evide nt Mandatory Health Literacy Documentation Yes Health Literacy Communication Barriers A lways Health Literacy Reading Assist speaks ru ssian daughter present did not want to use the wire web worker machine Primary Language Greenlandic Problem List Condition Confirmation Course Effective Dates Status Health St at[facility] Informant Right hand pain Confirmed Active Right knee pain Confirmed Active Diagnosis Diagnosis Type Effective Dates Health Status Cl inical Service Informant Right knee DJD Discharge Diagnosis 03/12/24 Right elbow pain Discharge Diagnosis 03/12/24 Right shoulder pain Discharge Diagnosis 03/12/24 Social History Social History Type Response Smoking Status Never smoked cigaret brian Sex Sex Representation Female (finding) Patient Care team information Care Team Personnel Name: MD Armani, Mu Valles Position: Referring DIRECT Member Role: Primary Care Provider Address: [address] [place] [address]
--- OUTSIDE RECORDS SUMMARY | 2024-06-11 03:45 | External Medical Summary | Summary of Care ---
Author Name Unknown Organization [facility] Address [address] [place] [address] Phone [phone] Care Team Providers Care Pv Design Engineer Name Role Phone Armani CHRISTIE MD, Mu Valles Primary Care Provider [phone] Encounter Details Date Type Department Care Team (Late st Contact Info) Description 05/16/2024 Orders Only PATIENT PORTAL DO NOT DELETE THIS DEPT [facility] [id number] Allergies No known active allergiesdocumented as of [...] PM EDT documented as of this encounter Plan of Treatment Upcoming Encounters Date Type Department Care Team (Late st Contact Info) Description 06/11/2024 8:20 AM EDT Office Visit Family Practice [place] [address] [place] [address] Mu Lomeli III, MD [address] [facility] [place] [address] Health Maintenance Due Date Last Done Comments DXA Scan 1935 DTap/Tdap Vaccines (1 - Tdap) 1954 Pneumococcal Vaccine: 50+ Ye ars (1 of 1 - PCV) 09/14/1987 Zoster Vaccines (1 of 2) 09/14/1987 COVID-19 Vaccine ( - 2023-2 5 season) [...] patient or by statute hierarchy) Care Teams Pv Design Engineer Relationship Specialty Start Date End Date Mu Lomeli III, MD [address] [place] [address] PCP - General Family Medicine 11/24/20 documented as of this encounter
[2024-06-11 08:52] LABS: Basophils # (auto) 0.02 K/uL (0.00-0.20); Basophils % (auto) 0.3 %; Eosinophils # (auto) 0.06 K/uL (0.00-0.50); Eosinophils % (auto) 0.8 %; Hematocrit (blood only) 35.7 % (37.0-47.0); Hemoglobin 12.2 g/dl (12.0-16.0); Immature Granulocytes # (auto) 0.03 K/uL (0.01-0.20); Immature Granulocytes % (auto) 0.4 %; Mean Corpuscular Hemoglobin 28.4 pg (25.0-34.0); Mean Corpuscular Hgb Conc 34.2 g/dL (32.0-36.0); Mean Platelet Volume 9.4 fL (9.4-12.4); Monocytes # (auto) 0.38 K/uL (0.11-0.59); Monocytes % (auto) 5.2 %; Neutrophils # (auto) 5.72 K/uL (1.40-6.50); Neutrophils % (auto) 78.3 %; Platelet Count 198 K/uL (130-400); RDW Coefficient of Variation 13.6 % (11.5-14.5); RDW Standard Deviation 41.2 fL (36.4-46.3); White Blood Count 7.31 K/ul (4.8-10.8)
[2024-06-11] MEDS: CYANOCOBALAMIN (B-12) 500 MCG TABLET PO SCH (09:14)
[2024-06-11] MEDS: LOSARTAN POTASSIUM 25 MG TAB PO SCH (09:14)
--- NOTE | 2024-06-11 09:16 | Hospitalist Progress Note ---
Date of Service June 11, 2024 Assessment & Plan (1) Rhabdomyolysis: Plan Per admitting provider w/ addendum Assessment/plan Mechanical fall Mild rhabdomyolysis Facial contusion Patient presents to the hospital with mechanical fall; history of right knee osteoarthritis and right hand contracture for several months Patient underwent head CT, face CT, cervical spine CT, abdominal pelvis CT, chest x-ray, femur x-ray, knee x-ray and pelvic x-ray which did not show any acute fractures. CK mildly elevated to 900s Continue IV fluid; follow-up on CK level -> currently down to 500s PT OT evaluation; patient's daughter wants [facility] qual[facility] Pain control with Tylenol as needed 06/11 Daughter reports they have an appointment with orthopedics Dr. Rice coming up. Reports leg weakness. On exam, pt is moving LEs while lying in bed, able to lift LEs off the bed. PT/OT evaluation pending. Will try to see if Dr. Rice is able to see the pt while in the hospital. Poss. UTI - Ucultx from ED - more than 3 types of organisms present, inconclusive - will repeat UA - empiric ceftriaxone for now Chronic conditions; Hypertension -continue losartan vitamin B12 deficiencycontinue B12 DNR/DNI as per discussed with the daughter DVT prophylaxis SCDs for now Admission and Anticipated Discharge Date Admission Date: June 10, 2024 Subjective Pt seen in follow up of fall, admitted w/ mild rhabdo Lying in bed in NAD, daughter present at the bedside and helps w/ hx also translates Pt denies any fever , chills, chest pain, shortness of breath, abd. pain, n/v Reports leg weakness and OA, follows w/ Dr. Rice from ortho, daughter says they have an outpt appointment coming up with him Review of Systems Review of Systems: All systems reviewed & are unremarkable except as noted in Subjective Physical Exam Physical Exam: Constitutional: Alert oriented x 3; not in distress Face; contusion on left face; ecchymosis/bruising present. No active bleeding Respiratory: normal respiratory effort, lungs clear to auscultation, no wheeze, rales, rhonchi. Cardiovascular: RRR, no murmur, no edema Chest: normal inspection of chest Abdomen: normal bowel sounds, soft, nontender Musculoskeletal: Contracture of right arm in flexed supine position, moves LEs while lying in bed, able to lift LEs off bed b/l Neurologic: PERRL, EOMI, no face palsy, moves all extremities Results & Data Results & Data Vital Signs (Past 12 Hours) Vital Signs Temp Pulse Pulse Resp BP BP Pulse Ox 06/11/24 07:45 36.7 C 70 16 184/72 H 94 06/10/24 22:45 36.6 C 86 18 184/78 H 96 06/10/24 22:00 79 20 184/86 H 96 O2 Del Method 06/11/24 07:45 Room Air 06/10/24 22:45 Room Air 06/10/24 22:00 Room Air Laboratory Results 06/11/24 06/10/24 06/10/24 Range/Units 07:24 Unknown 18:15 WBC 7.31 (4.8-10.8) K/ul RBC 4.30 (4.20-5.40) M/uL Hgb 12.2 (12.0-16.0) g/dl POC Hgb (12.0-16.0) g/dl Hct 35.7 L (37.0-47.0) % POC Hct (37-47) % MCV 83.0 (80.0-100.0) fL MCH 28.4 (25.0-34.0) pg MCHC 34.2 (32.0-36.0) g/dL RDW Std Deviation 41.2 (36.4-46.3) fL RDW Coeff of Ruby 13.6 (11.5-14.5) % Plt Count 198 (130-400) K/uL MPV 9.4 (9.4-12.4) fL Immature Gran % (Auto) 0.4 % Neut % (Auto) 78.3 % Lymph % (Auto) 15.0 % Creek % (Auto) 5.2 % Eos % (Auto) 0.8 % Baso % (Auto) 0.3 % Neut # (Auto) 5.72 (1.40-6.50) K/uL Lymph # (Auto) 1.10 L (1.20-3.40) K/uL Creek # (Auto) 0.38 (0.11-0.59) K/uL Eos # (Auto) 0.06 (0.00-0.50) K/uL Baso # (Auto) 0.02 (0.00-0.20) K/uL Immature Gran # (Auto) 0.03 (0.01-0.20) K/uL PT (9.0-12.0) Seconds INR (0.9-1.1) APTT (21-31) Seconds PTT Ratio POC Sodium (135-144) mmol/L Sodium Pending (136-145) mmol/L POC Potassium (3.3-5.0) mmol/L Potassium Pending (3.5-5.1) mmol/L POC Chloride (101-112) mmol/L Chloride Pending (98-107) mmol/L Carbon Dioxide Pending (21-32) mmol/L POC Total CO2 (24-31) mmol/L Anion Gap Pending (3-11) POC Anion Gap (16-25) mmol/L POC BUN (7-18) mg/dl BUN Pending (6-23) mg/dl Creatinine Pending (0.6-1.2) mg/dl POC Creatinine (0.6-1.3) mg/dl Est Cr Clr Drug Dosing Pending ml/min eGFR Pending BUN/Creatinine Ratio Pending (10-20) Glucose Pending (70-99(Fasting)) mg/dl POC Glucose (70-99) mg/dl POC Glucose (other) (70-99) mg/dl Calcium Pending (8.6-10.3) mg/dl POC Ioniz Calcium Jennifer (1.12-1.32) mmol/l Magnesium (1.7-2.4) mg/dl Total Bilirubin (0.2-1.0) mg/dl Direct Bilirubin (0-0.2) mg/dl AST (13-39) U/L ALT (7-52) U/L Alkaline Phosphatase (34-104) U/L Total Creatine Kinase Pending (26-192) U/L Troponin I High Sens (0-14) pg/ml Total Protein (6.0-8.3) gm/dl Albumin (3.4-5.0) gm/dl Lipase (11-82) U/L Urine Color Yellow Urine Appearance Clear (Clear) Urine pH 6.0 (4.5-7.5) Ur Specific Shirley 1.015 (1.000-1.030) Urine Protein Negative (Negative) Urine Glucose (UA) Negative (Negative) Urine Ketones Negative (Negative) Urine Blood Trace-intact H (Negative) Urine Nitrite Negative (Negative) Urine Bilirubin Negative (Negative) Urine Urobilinogen Negative (Negative) Ur Leukocyte Esterase Trace H (Negative) Urine RBC 0-2 (0-2) /hpf Urine WBC 0-5 (0-5) /hpf Ur Epithelial Cells 3-5 H (0-2) /hpf Urine Bacteria 1+ H (None Seen) Urine Mucus Present A (None Prsent) SARS-CoV-2 (PCR) NEGATIVE (Negative) Influenza Type A (PCR) Negative (Neg) Influenza Type B (PCR) Negative (Neg) RSV (RT-PCR) Negative (Neg) 06/10/24 06/10/24 06/10/24 Range/Units 17:18 17:10 17:05 WBC 9.94 (4.8-10.8) K/ul RBC 4.67 (4.20-5.40) M/uL Hgb 13.2 (12.0-16.0) g/dl POC Hgb 12.9 (12.0-16.0) g/dl Hct 38.2 (37.0-47.0) % POC Hct 38 (37-47) % MCV 81.8 (80.0-100.0) fL MCH 28.3 (25.0-34.0) pg MCHC 34.6 (32.0-36.0) g/dL RDW Std Deviation 39.9 (36.4-46.3) fL RDW Coeff of Ruby 13.5 (11.5-14.5) % Plt Count 195 (130-400) K/uL MPV 9.3 L (9.4-12.4) fL Immature Gran % (Auto) 0.6 % Neut % (Auto) 82.5 % Lymph % (Auto) 10.7 % Creek % (Auto) 5.8 % Eos % (Auto) 0.3 % Baso % (Auto) 0.1 % Neut # (Auto) 8.20 H (1.40-6.50) K/uL Lymph # (Auto) 1.06 L (1.20-3.40) K/uL Creek # (Auto) 0.58 (0.11-0.59) K/uL Eos # (Auto) 0.03 (0.00-0.50) K/uL Baso # (Auto) 0.01 (0.00-0.20) K/uL Immature Gran # (Auto) 0.06 (0.01-0.20) K/uL PT 11.8 (9.0-12.0) Seconds INR 1.1 (0.9-1.1) APTT 28 (21-31) Seconds PTT Ratio 1.0 POC Sodium 143 (135-144) mmol/L Sodium 142 (136-145) mmol/L POC Potassium 3.4 (3.3-5.0) mmol/L Potassium 3.4 L (3.5-5.1) mmol/L POC Chloride 103 (101-112) mmol/L Chloride 106 (98-107) mmol/L Carbon Dioxide 28 (21-32) mmol/L POC Total CO2 24 (24-31) mmol/L Anion Gap 8 (3-11) POC Anion Gap 20.0 (16-25) mmol/L POC BUN 20 H (7-18) mg/dl BUN 20 (6-23) mg/dl Creatinine 0.81 (0.6-1.2) mg/dl POC Creatinine 0.9 (0.6-1.3) mg/dl Est Cr Clr Drug Dosing 52.8 ml/min eGFR 70.65 BUN/Creatinine Ratio 24.7 H (10-20) Glucose 124 H (70-99(Fasting)) mg/dl POC Glucose 121 H (70-99) mg/dl POC Glucose (other) 125 H (70-99) mg/dl Calcium 9.6 (8.6-10.3) mg/dl POC Ioniz Calcium Jennifer 1.20 (1.12-1.32) mmol/l Magnesium 2.0 (1.7-2.4) mg/dl Total Bilirubin 1.4 H (0.2-1.0) mg/dl Direct Bilirubin 0.2 (0-0.2) mg/dl AST 32 (13-39) U/L ALT 17 (7-52) U/L Alkaline Phosphatase 74 (34-104) U/L Total Creatine Kinase 904 H (26-192) U/L Troponin I High Sens 4.3 (0-14) pg/ml Total Protein 7.6 (6.0-8.3) gm/dl Albumin 4.4 (3.4-5.0) gm/dl Lipase 21 (11-82) U/L Urine Color Urine Appearance (Clear) Urine pH (4.5-7.5) Ur Specific Shirley (1.000-1.030) Urine Protein (Negative) Urine Glucose (UA) (Negative) Urine Ketones (Negative) Urine Blood (Negative) Urine Nitrite (Negative) Urine Bilirubin (Negative) Urine Urobilinogen (Negative) Ur Leukocyte Esterase (Negative) Urine RBC (0-2) /hpf Urine WBC (0-5) /hpf Ur Epithelial Cells (0-2) /hpf Urine Bacteria (None Seen) Urine Mucus (None Prsent) SARS-CoV-2 (PCR) (Negative) Influenza Type A (PCR) (Neg) Influenza Type B (PCR) (Neg) RSV (RT-PCR) (Neg) Medications Administered Current Inpatient Medications Acetaminophen (Acetaminophen 325 Mg Tab) 650 mg PO Q4H PRN PRN Reason: pain/fever Stop: 07/10/24 19:25 Al Hydrox/Mg Hydrox/Simethicone (Aluminum/Magnesium Susp 30 Ml Udc) 30 ml PO Q6H PRN PRN Reason: Dyspepsia Stop: 07/10/24 19:25 Cyanocobalamin (Cyanocobalamin (B-12) 500 Mcg Tablet) 1,000 mcg PO QAM [facility] Stop: 07/11/24 08:59 Last Admin: 06/11/24 09:14 Dose: 1,000 mcg Sodium Chloride (Nss) 1,000 mls @ 125 mls/hr IV .Q8H [facility] Stop: 06/11/24 18:14 Last Admin: 06/11/24 02:39 Dose: 125 mls/hr Losartan Potassium (Losartan Potassium 25 Mg Tab) 25 mg PO QAM [facility] Stop: 07/11/24 08:59 Last Admin: 06/11/24 09:14 Dose: 25 mg Magnesium Hydroxide (Magnesium Hydroxide Susp 30 Ml Udc) 30 ml PO Q6H PRN PRN Reason: Constipation Stop: 07/10/24 19:25
[2024-06-11 09:18] LABS: BUN Creatinine Ratio 18.9 (10-20); Calcium 8.8 mg/dl (8.6-10.3); Creatinine Clr Calc Pharmacy 57.6 ml/min; Potassium 3.4 mmol/L (3.5-5.1)
--- NOTE | 2024-06-11 11:38 | Electrocardiogram Report ---
Test Reason : Blood Pressure : */* mmHG Vent. Rate : 67 BPM Atrial Rate : 67 BPM P-R Int : 154 ms QRS Dur : 78 ms QT Int : 418 ms P-R-T Axes : 40 0 27 degrees QTcB Int : 441 ms Sinus rhythm with Premature atrial complexes Abnormal ECG When compared with ECG of 24-Jan-2024 18:26, Premature atrial complexes are now Present Vent. rate has decreased by 34 bpm Nonspecific T wave abnormality now evident in Anterior leads Confirmed by Kash Pena ([id number]) on 06/11/2024 11:38:33 AM Referred By: Confirmed By: Kash Pena
[2024-06-11] MEDS ORDERED: cefTRIAXone SODIUM 1,000 MG/50 ML BAG IV SCH (17:45)
[2024-06-11] MEDS: POTASSIUM CHLORIDE CRTAB 20 MEQ TABCR PO STA (18:20)
[2024-06-11] MEDS: cefTRIAXone SODIUM 2,000 MG/50 ML BAG IV SCH (18:37)
[2024-06-11 19:44] LABS: Appearance Urine Clear (Clear); Bilirubin Urine Negative (Negative); Blood Urine Negative (Negative); Color Urine Yellow; Glucose Urine UA Negative (Negative); Ketones Urine Negative (Negative); Leukocyte Esterase Urine Negative (Negative); Nitrite Urine Negative (Negative); Protein Urine Negative (Negative); Specific Gravity Urine 1.018 (1.000-1.030); Urobilinogen Urine Negative (Negative); pH Urine 5.5 (4.5-7.5)
[2024-06-12 08:18] LABS: Hematocrit (blood only) 33.8 % (37.0-47.0); Hemoglobin 11.4 g/dl (12.0-16.0); Mean Corpuscular Hemoglobin 28.4 pg (25.0-34.0); Mean Corpuscular Hgb Conc 33.7 g/dL (32.0-36.0); Mean Corpuscular Volume 84.1 fL (80.0-100.0); Mean Platelet Volume 9.5 fL (9.4-12.4); Platelet Count 182 K/uL (130-400); RDW Coefficient of Variation 13.7 % (11.5-14.5); RDW Standard Deviation 42.3 fL (36.4-46.3); Red Blood Count 4.02 M/uL (4.20-5.40); White Blood Count 6.57 K/ul (4.8-10.8)
[2024-06-12 08:54] LABS: Calcium 8.4 mg/dl (8.6-10.3); Potassium 3.2 mmol/L (3.5-5.1)
[2024-06-12 09:00] LABS: BUN Creatinine Ratio 21.6 (10-20); Creatinine Clr Calc Pharmacy 48.4 ml/min; Phosphorus 3.5 mg/dl (2.5-4.9)
--- NOTE | 2024-06-12 10:52 | Orthopedic Consultation ---
Date of Consultation June 12, 2024 Assessment & Plan (1) Osteoarthritis, knee: Right knee OA, chronic Continue symptomatic treatment Last Intra-articular injection with cortisone given 03/12/2024, could repeat at next scheduled outpatient visit. Continue WBAT RICE Continue care and pain control per Hospitalist service. Would benefit from PT/OT. May need rehab or SNF. Please recall if any orthopedic issues. Spent over 45 min with face to face visit using [place]auan tallow refiner, reviewing studies & notes, and documenting findings Present on Admission?: Yes (2) Recurrent falls: Weakness has since resolved, unknown etiology: medical vs nutritional vs neurological. Recommend evaluation with Neurology. Present on Admission?: Yes History of Present Illness Reason for Consultation: Weakness, knee OA Requesting Physician: Tigre Rice MD Attending Physician: Moira Villa MD History of Present Illness 88 yo female with recurrent falls, was found by her daughter after fall 06/10/24 and brought to [facility] by EMS. Admitted to hospitalist service. Patient is followed as an outpatient in my office for Right knee OA, last cortisone injection 03/12/24. Is also followed for Right shoulder OA/frozen shoulder. Patient noted that she had leg weakness which led to her fall, but has since resolved since being in the hospital. Notes pain in her knee and shoulder is unchanged. Denies any back pain or numbness or tingling, or any changes to urinary habits or bowel habit.. I was consulted for weakness and right knee OA. She does not want patient to undergo any aggressive measures, or MRI during the hospitalization. Allergies Allergy/AdvReac Type Severity Reaction Status Date / Time No Known Allergies Allergy Unverified 06/10/24 16:41 Home Medications Medication Instructions Recorded Confirmed Type losartan 50 mg tablet 25 mg PO UD 09/03/23 06/10/24 History cyanocobalamin (vitamin B-12) 1,000 mcg PO QAM 06/10/24 06/10/24 History 1,000 mcg tablet Patient History Medical History Osteoarthritis Hypertension Social History Smoking Status: Never smoker Do You Dip or Chew Tobacco: No; Hx Alcohol Use: No Hx Substance Use: No Preferred Language: Palauan Communication Ability: Effective Communication Ability Comment: patient primary language is Palauan Communication Tools: IPad Irrigation Service Technician Required: Yes Beliefs That Will Affect Care: None Current Living Situation: Alone Current Living Situation Comment: Lives home alone in apartment Feels Safe at Home: Yes Safety Concerns: Feels Safe At This Time Assistive Devices: Walker Review of Systems Review of Systems: Denies back pain. Weakness has resolved. Physical Exam Physical Exam: BLE: Sensation to light touch unchanged. BCR < 2 sec. Motor gastroc soleus, EHL, Tib ant 5/5. Able to preform straight leg raise. ROM 0-125 left knee & 5-110 deg right knee (improved since last hospitalization). Trace effusion right knee. TTP right knee medial & lateral joint line, MPF, distal hamstrings. - Madison's. Ligaments stable. - straight leg raise Results & Data Vital Signs (Past 12 Hours) Vital Signs Temp Pulse Resp BP Pulse Ox O2 Del Method 06/12/24 06:57 36.8 C 64 16 120/55 L 94 Room Air 06/11/24 23:04 37.4 C 77 16 162/69 H 95 Room Air Laboratory Results Laboratory Results WBC 6.57 K/ul (4.8-10.8) 06/12/24 07:16 RBC 4.02 M/uL (4.20-5.40) L 06/12/24 07:16 Hgb 11.4 g/dl (12.0-16.0) L 06/12/24 07:16 POC Hgb 12.9 g/dl (12.0-16.0) 06/10/24 17:10 Hct 33.8 % (37.0-47.0) L 06/12/24 07:16 POC Hct 38 % (37-47) 06/10/24 17:10 MCV 84.1 fL (80.0-100.0) 06/12/24 07:16 MCH 28.4 pg (25.0-34.0) 06/12/24 07:16 MCHC 33.7 g/dL (32.0-36.0) 06/12/24 07:16 RDW Std Deviation 42.3 fL (36.4-46.3) 06/12/24 07:16 RDW Coeff of Ruby 13.7 % (11.5-14.5) 06/12/24 07:16 Plt Count 182 K/uL (130-400) 06/12/24 07:16 MPV 9.5 fL (9.4-12.4) 06/12/24 07:16 Immature Gran % (Auto) 0.4 % 06/11/24 07:24 Neut % (Auto) 78.3 % 06/11/24 07:24 Lymph % (Auto) 15.0 % 06/11/24 07:24 Borden % (Auto) 5.2 % 06/11/24 07:24 Eos % (Auto) 0.8 % 06/11/24 07:24 Baso % (Auto) 0.3 % 06/11/24 07:24 Neut # (Auto) 5.72 K/uL (1.40-6.50) 06/11/24 07:24 Lymph # (Auto) 1.10 K/uL (1.20-3.40) L 06/11/24 07:24 Borden # (Auto) 0.38 K/uL (0.11-0.59) 06/11/24 07:24 Eos # (Auto) 0.06 K/uL (0.00-0.50) 06/11/24 07:24 Baso # (Auto) 0.02 K/uL (0.00-0.20) 06/11/24 07:24 Immature Gran # (Auto) 0.03 K/uL (0.01-0.20) 06/11/24 07:24 PT 11.8 Seconds (9.0-12.0) 06/10/24 17:05 INR 1.1 (0.9-1.1) 06/10/24 17:05 APTT 28 Seconds (21-31) 06/10/24 17:05 PTT Ratio 1.0 06/10/24 17:05 POC Sodium 143 mmol/L (135-144) 06/10/24 17:10 Sodium 144 mmol/L (136-145) 06/12/24 07:16 POC Potassium 3.4 mmol/L (3.3-5.0) 06/10/24 17:10 Potassium 3.2 mmol/L (3.5-5.1) L 06/12/24 07:16 POC Chloride 103 mmol/L (101-112) 06/10/24 17:10 Chloride 111 mmol/L (98-107) H 06/12/24 07:16 Carbon Dioxide 27 mmol/L (21-32) 06/12/24 07:16 POC Total CO2 24 mmol/L (24-31) 06/10/24 17:10 Anion Gap 6 (3-11) 06/12/24 07:16 POC Anion Gap 20.0 mmol/L (16-25) 06/10/24 17:10 POC BUN 20 mg/dl (7-18) H 06/10/24 17:10 BUN 19 mg/dl (6-23) 06/12/24 07:16 Creatinine 0.88 mg/dl (0.6-1.2) 06/12/24 07:16 POC Creatinine 0.9 mg/dl (0.6-1.3) 06/10/24 17:10 Est Cr Clr Drug Dosing 48.4 ml/min 06/12/24 07:16 eGFR 63.96 06/12/24 07:16 BUN/Creatinine Ratio 21.6 (10-20) H 06/12/24 07:16 Glucose 97 mg/dl (70-99(Fasting)) 06/12/24 07:16 POC Glucose 121 mg/dl (70-99) H 06/10/24 17:18 POC Glucose (other) 125 mg/dl (70-99) H 06/10/24 17:10 Calcium 8.4 mg/dl (8.6-10.3) L 06/12/24 07:16 POC Ioniz Calcium Jennifer 1.20 mmol/l (1.12-1.32) 06/10/24 17:10 Phosphorus 3.5 mg/dl (2.5-4.9) 06/12/24 07:16 Magnesium 2.0 mg/dl (1.7-2.4) 06/12/24 07:16 Total Bilirubin 1.4 mg/dl (0.2-1.0) H 06/10/24 17:05 Direct Bilirubin 0.2 mg/dl (0-0.2) 06/10/24 17:05 AST 32 U/L (13-39) 06/10/24 17:05 ALT 17 U/L (7-52) 06/10/24 17:05 Alkaline Phosphatase 74 U/L (34-104) 06/10/24 17:05 Total Creatine Kinase 565 U/L (26-192) H 06/11/24 07:24 Troponin I High Sens 4.3 pg/ml (0-14) 06/10/24 17:05 Total Protein 7.6 gm/dl (6.0-8.3) 06/10/24 17:05 Albumin 4.4 gm/dl (3.4-5.0) 06/10/24 17:05 Lipase 21 U/L (11-82) 06/10/24 17:05 Urine Color Yellow 06/11/24 19:30 Urine Appearance Clear (Clear) 06/11/24 19:30 Urine pH 5.5 (4.5-7.5) 06/11/24 19:30 Ur Specific Klemme 1.018 (1.000-1.030) 06/11/24 19:30 Urine Protein Negative (Negative) 06/11/24 19: Urine Glucose (UA) Negative (Negative) 06/11/24 19: Urine Ketones Negative (Negative) 06/11/24 19: Urine Blood Negative (Negative) 06/11/24 19:30 Urine Nitrite Negative (Negative) 06/11/24 19: Urine Bilirubin Negative (Negative) 06/11/24 19:30 Urine Urobilinogen Negative (Negative) 06/11/24 19:30 Ur Leukocyte Esterase Negative (Negative) 06/11/24 19:30 Urine RBC 0-2 /hpf (0-2) 06/10/24 18:15 Urine WBC 0-5 /hpf (0-5) 06/10/24 18:15 Ur Epithelial Cells 3-5 /hpf (0-2) H 06/10/24 18:15 Urine Bacteria 1+ (None Seen) H 06/10/24 18:15 Urine Mucus Present (None Prsent) A 06/10/24 18:15 SARS-CoV-2 (PCR) NEGATIVE (Negative) 06/10/24 Unknown Influenza Type A (PCR) Negative (Neg) 06/10/24 Unknown Influenza Type B (PCR) Negative (Neg) 06/10/24 Unknown RSV (RT-PCR) Negative (Neg) 06/10/24 Unknown Impressions Abdomen/Pelvis CT 06/10/24 16:50 EXAMINATION: CT of the abdomen and pelvis performed after the administration of IV contrast TECHNIQUE: Helical CT images from the lung bases through the symphysis pubis were obtained with contrast. Coronal and sagittal reformatted images were generated at a workstation for further assessment. Dose reduction techniques were achieved by using automatic exposure control and/or adjustment of mA and/or kV according to patient size and/or use of iterative reconstruction technique. COMPARISON: 01/24/2024 HISTORY: Trauma FINDINGS: Lower chest: No consolidation. No pleural effusion or pneumothorax. Liver: No suspicious liver lesions. Portal veins appear patent. Simple appearing cyst in the superior left hepatic lobe. Gallbladder: No gallstones. No evidence of acute cholecystitis. Spleen: Enlarged measuring 14.2 cm. Pancreas: No suspicious pancreatic lesions. The pancreatic duct is not dilated. Adrenal glands: No adrenal nodules. Kidneys: No hydronephrosis or obstructing renal stones. Small left-sided cyst. Bladder / Pelvic organs: Unremarkable. Bowel: No bowel obstruction. No abnormal bowel wall thickening. The appendix is not visualized. Lymph nodes: No retroperitoneal, mesenteric, or pelvic lymphadenopathy. Peritoneum / Retroperitoneum: No free fluid or air within the abdomen. Vessels: No infrarenal aortic aneurysm. Moderate aortoiliac calcification. Bones and soft tissues: No suspicious lesion in the bones. Fracture of the partially visualized anterior right rib 5 associated with healing callus, is favored subacute or chronic. IMPRESSION: No acute finding of the abdomen or pelvis. Fracture of the partially visualized anterior right rib 5 associated with healing callus, is favored subacute or chronic. Splenomegaly. Electronically signed by Kash Ziegler 06-10-2024 6:[address] 06/10/24 16:51 CT cervical spine without IV contrast History: Trauma Comparison: None Technique: Using multidetector thin collimation helical acquisition technique, axial, coronal and sagittal CT images through the cervical spine were obtained without intravenous contrast. Dose reduction techniques were achieved by using automatic exposure control and/or adjustment of mA and/or kV according to patient size and/or use of iterative reconstruction technique. Findings: The cervical vertebrae are normally aligned. Normal cervical lordosis. No acute fracture or subluxation. No prevertebral edema. Moderate discogenic degenerative changes at C5-6 and C6-7. Moderate scattered areas of degenerative facet change. No abnormality of the paraspinous soft tissues. Impression: No acute fracture or traumatic subluxation. Electronically signed by Kash Ziegler 06-10-2024 6:09 PM Chest X-Ray 06/10/24 16:51 INDICATION: Chest pain. TECHNIQUE: Frontal radiograph of the chest. COMPARISON: None. FINDINGS: Cardiomegaly. Pulmonary vasculature appear within normal limits. No infiltrate, pleural effusion or pneumothorax. No acute osseous abnormality evident. IMPRESSION: No acute cardiopulmonary process. Electronically signed by Ashish Gonzales 06-10-2024 5:[address] 06/10/24 16:51 CT maxillofacial without contrast History: Trauma Comparison: None Technique: Using thin collimation multidetector helical acquisition technique, axial and coronal thin section CT images were reconstructed through the facial bones. Images were reviewed in bone and soft tissue windows. One or more of the following dose-optimizing techniques was utilized for this exam: automated exposure control, adjustment of the mA and/or kV according to patient size, and/or use of iterative reconstruction technique. Findings: There is no significant soft tissue swelling of the face. There is no evident fracture of the facial bones. The cribriform plate appears intact. Alignment of the facial bones appears normal. There is no hematoma, soft tissue mass or gas visualized within the orbits. The visualized portions of the paranasal sinuses are clear. The patient is edentulous. Impression: Normal CT study of the facial bones. Electronically signed by Kash Ziegler 06-10-2024 6:09 PM Femur X-Ray 06/10/24 16:51 INDICATION: Pain and injury. TECHNIQUE: 1 view the pelvis. 4 views of the right femur. 2 views of the right knee. COMPARISON: No relevant priors. FINDINGS: Evaluation of the pelvis, right femur and the right knee. No acute fracture or dislocation. No lytic or blastic bony lesions seen. Mild bilateral hip joint space loss. Rzro-ph-[id number] tricompartmental joint space loss in the knee. Soft tissues appear unremarkable. IMPRESSION: No acute osseous abnormality evident. Electronically signed by Ashish Gonzales 06-10-2024 5:[address] 06/10/24 16:51 CT head without contrast History: Trauma Comparison: None Technique: Using multidetector thin collimation helical acquisition technique, axial, coronal and sagittal CT images from the skull base to the vertex were obtained without intravenous contrast. Dose reduction techniques were achieved by using automatic exposure control and/or adjustment of mA and/or kV according to patient size and/or use of iterative reconstruction technique. Findings: No intracranial hemorrhage, mass-effect, or midline shift. The ventricles are proportionate to the cerebral sulci. The zazueta to white matter differentiation of the cerebral hemispheres is preserved. The basal cisterns are patent. There is moderate cerebral atrophy. Moderate, patchy low-attenuation changes in the white matter, most suggestive of sequelae of chronic small vessel ischemic disease. The visualized paranasal sinuses are clear. Mastoid air cells are clear. Impression: No acute intracranial pathology. Electronically signed by Kash Ziegler 06-10-2024 6:09 PM Knee X-Ray 06/10/24 16:51 INDICATION: Pain and injury. TECHNIQUE: 1 view the pelvis. 4 views of the right femur. 2 views of the right knee. COMPARISON: No relevant priors. FINDINGS: Evaluation of the pelvis, right femur and the right knee. No acute fracture or dislocation. No lytic or blastic bony lesions seen. Mild bilateral hip joint space loss. [id number] tricompartmental joint space loss in the knee. Soft tissues appear unremarkable. IMPRESSION: No acute osseous abnormality evident. Electronically signed by Ashish Gonzales 06-10-2024 5:48 PM Pelvis X-Ray 06/10/24 16:51 INDICATION: Pain and injury. TECHNIQUE: 1 view the pelvis. 4 views of the right femur. 2 views of the right knee. COMPARISON: No relevant priors. FINDINGS: Evaluation of the pelvis, right femur and the right knee. No acute fracture or dislocation. No lytic or blastic bony lesions seen. Mild bilateral hip joint space loss. [id number] tricompartmental joint space loss in the knee. Soft tissues appear unremarkable.
[2024-06-12] MEDS: POTASSIUM CHLORIDE CRTAB 20 MEQ TABCR PO SCH (12:17)
--- NOTE | 2024-06-12 16:23 | Hospitalist Progress Note ---
Date of Service June 12, 2024 Assessment & Plan (1) Rhabdomyolysis: Plan Mechanical fall Mild rhabdomyolysis Facial contusion Patient presents to the hospital with mechanical fall history of right knee osteoarthritis and right hand contracture for several months Patient underwent head CT, face CT, cervical spine CT, abdominal pelvis CT, chest x-ray, femur x-ray, knee x-ray and pelvic x-ray which did not show any acute fractures. CK mildly elevated to 900s IV fluids; trend CK level PT OT evaluation; patient's daughter [facility] Pain control orthopedics consulted, appreciate recs Possible UTI - Ucultx from ED - more than 3 types of organisms present, inconclusive - will repeat UA - empiric ceftriaxone for now Chronic conditions; Hypertension -continue losartan vitamin B12 deficiencycontinue B12 DNR/DNI as per discussed with the daughter DVT prophylaxis SCDs for now Admission and Anticipated Discharge Date Admission Date: June 10, 2024 Subjective pt was seen with nursing at bedside pleasant Review of Systems Review of Systems: All systems reviewed & are unremarkable except as noted in Subjective Physical Exam Physical Exam: General: Alert. No acute distress Skin: bruises noted Neuro: difficulty with movements HEENT: NC/AT CV: RRR Resp: Breath sounds clear bilaterally, no increased effort of breathing Abdomen: Soft, nontender Extremities: difficulty with movements in lower extremities bilaterally. Results & Data Results & Data Vital Signs (Past 12 Hours) Vital Signs Temp Pulse Resp BP Pulse Ox O2 Del Method 06/12/24 15:00 36.8 C 68 16 147/67 H 94 Room Air 06/12/24 06:57 36.8 C 64 16 120/55 L 94 Room Air
[2024-06-13 07:18] LABS: Basophils # (auto) 0.01 K/uL (0.00-0.20); Basophils % (auto) 0.2 %; Eosinophils # (auto) 0.17 K/uL (0.00-0.50); Eosinophils % (auto) 2.7 %; Hematocrit (blood only) 34.1 % (37.0-47.0); Hemoglobin 11.5 g/dl (12.0-16.0); Immature Granulocytes # (auto) 0.02 K/uL (0.01-0.20); Immature Granulocytes % (auto) 0.3 %; Lymphocytes # (auto) 1.69 K/uL (1.20-3.40); Lymphocytes % (auto) 26.9 %; Mean Corpuscular Hemoglobin 28.5 pg (25.0-34.0); Mean Corpuscular Hgb Conc 33.7 g/dL (32.0-36.0); Mean Corpuscular Volume 84.4 fL (80.0-100.0); Mean Platelet Volume 9.6 fL (9.4-12.4); Monocytes # (auto) 0.47 K/uL (0.11-0.59); Monocytes % (auto) 7.5 %; Neutrophils # (auto) 3.93 K/uL (1.40-6.50); Neutrophils % (auto) 62.4 %; Platelet Count 165 K/uL (130-400); RDW Coefficient of Variation 13.5 % (11.5-14.5); RDW Standard Deviation 42.3 fL (36.4-46.3); Red Blood Count 4.04 M/uL (4.20-5.40); White Blood Count 6.29 K/ul (4.8-10.8)
[2024-06-13 07:41] LABS: Albumin Level 3.8 gm/dl (3.4-5.0); Bilirubin,Total 0.6 mg/dl (0.2-1.0); Calcium 8.5 mg/dl (8.6-10.3); Potassium 3.6 mmol/L (3.5-5.1)
[2024-06-13 07:47] LABS: Albumin Globulin Ratio 1.5 (0.9-2); BUN Creatinine Ratio 22.4 (10-20); Creatinine Clr Calc Pharmacy 50.1 ml/min; Globulin 2.6 gm/dl (2.5-4.0); Phosphorus 3.3 mg/dl (2.5-4.9); Total Protein 6.4 gm/dl (6.0-8.3)
--- NOTE | 2024-06-13 11:38 | Hospitalist Progress Note ---
Date of Service June 13, 2024 Assessment & Plan (1) Rhabdomyolysis: Plan Pt is an 88yoF with PMHx significant for hypertension, history of traumatic cervical fracture, mild cognitive impairment presenting after a fall at home. 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 CK mildly elevated to 900s IV fluids; trend CK level PT OT evaluation; patient's daughter [facility] Pain control orthopedics consulted, appreciate recs -conservative treatment -neurology consult for weakness Possible UTI- ruled out Ucultx from ED - more than 3 types of organisms present, inconclusive Repeat UA unremarkable Empiric rocephin discontinued Hypokalemia replete as needed Chronic conditions; Hypertension -continue losartan vitamin B12 deficiencycontinue B12 Diet regular DNR/DNI as per discussion with the daughter DVT prophylaxis SCDs, heparin SQ Admission and Anticipated Discharge Date Admission Date: June 10, 2024 Subjective pt was seen in the AM. Pleasant Her daughter was called an updated Review of Systems Review of Systems: All systems reviewed & are unremarkable except as noted in Subjective Physical Exam Physical Exam: General: Alert. No acute distress Skin: bruises noted Neuro: difficulty with movements HEENT: NC/AT CV: RRR Resp: Breath sounds clear bilaterally, no increased effort of breathing Abdomen: Soft, nontender Extremities: difficulty with movements in lower extremities bilaterally. Results & Data Results & Data Vital Signs (Past 12 Hours) Vital Signs Temp Pulse Resp BP Pulse Ox O2 Del Method 06/13/24 07:45 Room Air 06/13/24 07:26 36.6 C 71 18 185/68 H 95 Room Air Diagnostic Findings Abdomen/Pelvis CT 06/10/24 16:50 EXAMINATION: CT of the abdomen and pelvis performed after the administration of IV contrast TECHNIQUE: Helical CT images from the lung bases through the symphysis pubis were obtained with contrast. Coronal and sagittal reformatted images were generated at a workstation for further assessment. Dose reduction techniques were achieved by using automatic exposure control and/or adjustment of mA and/or kV according to patient size and/or use of iterative reconstruction technique. COMPARISON: 01/24/2024 HISTORY: Trauma FINDINGS: Lower chest: No consolidation. No pleural effusion or pneumothorax. Liver: No suspicious liver lesions. Portal veins appear patent. Simple appearing cyst in the superior left hepatic lobe. Gallbladder: No gallstones. No evidence of acute cholecystitis. Spleen: Enlarged measuring 14.2 cm. Pancreas: No suspicious pancreatic lesions. The pancreatic duct is not dilated. Adrenal glands: No adrenal nodules. Kidneys: No hydronephrosis or obstructing renal stones. Small left-sided cyst. Bladder / Pelvic organs: Unremarkable. Bowel: No bowel obstruction. No abnormal bowel wall thickening. The appendix is not visualized. Lymph nodes: No retroperitoneal, mesenteric, or pelvic lymphadenopathy. Peritoneum / Retroperitoneum: No free fluid or air within the abdomen. Vessels: No infrarenal aortic aneurysm. Moderate aortoiliac calcification. Bones and soft tissues: No suspicious lesion in the bones. Fracture of the partially visualized anterior right rib 5 associated with healing callus, is favored subacute or chronic. IMPRESSION: No acute finding of the abdomen or pelvis. Fracture of the partially visualized anterior right rib 5 associated with healing callus, is favored subacute or chronic. Splenomegaly. Electronically signed by Kash Ziegler 06-10-2024 6:[address] 06/10/24 16:51 CT cervical spine without IV contrast History: Trauma Comparison: None Technique: Using multidetector thin collimation helical acquisition technique, axial, coronal and sagittal CT images through the cervical spine were obtained without intravenous contrast. Dose reduction techniques were achieved by using automatic exposure control and/or adjustment of mA and/or kV according to patient size and/or use of iterative reconstruction technique. Findings: The cervical vertebrae are normally aligned. Normal cervical lordosis. No acute fracture or subluxation. No prevertebral edema. Moderate discogenic degenerative changes at C5-6 and C6-7. Moderate scattered areas of degenerative facet change. No abnormality of the paraspinous soft tissues. Impression: No acute fracture or traumatic subluxation. Electronically signed by Kash Ziegler 06-10-2024 6:09 PM Chest X-Ray 06/10/24 16:51 INDICATION: Chest pain. TECHNIQUE: Frontal radiograph of the chest. COMPARISON: None. FINDINGS: Cardiomegaly. Pulmonary vasculature appear within normal limits. No infiltrate, pleural effusion or pneumothorax. No acute osseous abnormality evident. IMPRESSION: No acute cardiopulmonary process. Electronically signed by Ashish Gonzales 06-10-2024 5:[address] 06/10/24 16:51 CT maxillofacial without contrast History: Trauma Comparison: None Technique: Using thin collimation multidetector helical acquisition technique, axial and coronal thin section CT images were reconstructed through the facial bones. Images were reviewed in bone and soft tissue windows. One or more of the following dose-optimizing techniques was utilized for this exam: automated exposure control, adjustment of the mA and/or kV according to patient size, and/or use of iterative reconstruction technique. Findings: There is no significant soft tissue swelling of the face. There is no evident fracture of the facial bones. The cribriform plate appears intact. Alignment of the facial bones appears normal. There is no hematoma, soft tissue mass or gas visualized within the orbits. The visualized portions of the paranasal sinuses are clear. The patient is edentulous. Impression: Normal CT study of the facial bones. Electronically signed by Kash Ziegler 06-10-2024 6:09 PM Femur X-Ray 06/10/24 16:51 INDICATION: Pain and injury. TECHNIQUE: 1 view the pelvis. 4 views of the right femur. 2 views of the right knee. COMPARISON: No relevant priors. FINDINGS: Evaluation of the pelvis, right femur and the right knee. No acute fracture or dislocation. No lytic or blastic bony lesions seen. Mild bilateral hip joint space loss. Vkxc-us-vzhdcpjm tricompartmental joint space loss in the knee. Soft tissues appear unremarkable. IMPRESSION: No acute osseous abnormality evident. Electronically signed by Ashish Gonzales 06-10-2024 5:[address] 06/10/24 16:51 CT head without contrast History: Trauma Comparison: None Technique: Using multidetector thin collimation helical acquisition technique, axial, coronal and sagittal CT images from the skull base to the vertex were obtained without intravenous contrast. Dose reduction techniques were achieved by using automatic exposure control and/or adjustment of mA and/or kV according to patient size and/or use of iterative reconstruction technique. Findings: No intracranial hemorrhage, mass-effect, or midline shift. The ventricles are proportionate to the cerebral sulci. The zazueta to white matter differentiation of the cerebral hemispheres is preserved. The basal cisterns are patent. There is moderate cerebral atrophy. Moderate, patchy low-attenuation changes in the white matter, most suggestive of sequelae of chronic small vessel ischemic disease. The visualized paranasal sinuses are clear. Mastoid air cells are clear. Impression: No acute intracranial pathology. Electronically signed by Kash Ziegler 06-10-2024 6:09 PM Knee X-Ray 06/10/24 16:51 INDICATION: Pain and injury. TECHNIQUE: 1 view the pelvis. 4 views of the right femur. 2 views of the right knee. COMPARISON: No relevant priors. FINDINGS: Evaluation of the pelvis, right femur and the right knee. No acute fracture or dislocation. No lytic or blastic bony lesions seen. Mild bilateral hip joint space loss. Wobz-sx-fofsyypv tricompartmental joint space loss in the knee. Soft tissues appear unremarkable. IMPRESSION: No acute osseous abnormality evident. Electronically signed by Ahsish Gonzales 06-10-2024 5:48 PM Pelvis X-Ray 06/10/24 16:51 INDICATION: Pain and injury. TECHNIQUE: 1 view the pelvis. 4 views of the right femur. 2 views of the right knee. COMPARISON: No relevant priors. FINDINGS: Evaluation of the pelvis, right femur and the right knee. No acute fracture or dislocation. No lytic or blastic bony lesions seen. Mild bilateral hip joint space loss. Cqup-id-iuvybdco tricompartmental joint space loss in the knee. Soft tissues appear unremarkable.
[2024-06-13] MEDS: HEPARIN SOD 5,000 UNIT/0.5 ML VIAL SQ SCH (20:27)
[2024-06-14 06:41] LABS: Basophils # (auto) 0.01 K/uL (0.00-0.20); Basophils % (auto) 0.2 %; Eosinophils # (auto) 0.11 K/uL (0.00-0.50); Eosinophils % (auto) 1.8 %; Hematocrit (blood only) 34.9 % (37.0-47.0); Hemoglobin 11.6 g/dl (12.0-16.0); Immature Granulocytes # (auto) 0.02 K/uL (0.01-0.20); Immature Granulocytes % (auto) 0.3 %; Lymphocytes # (auto) 1.68 K/uL (1.20-3.40); Lymphocytes % (auto) 27.7 %; Mean Corpuscular Hemoglobin 27.8 pg (25.0-34.0); Mean Corpuscular Hgb Conc 33.2 g/dL (32.0-36.0); Mean Corpuscular Volume 83.5 fL (80.0-100.0); Mean Platelet Volume 9.4 fL (9.4-12.4); Monocytes # (auto) 0.42 K/uL (0.11-0.59); Monocytes % (auto) 6.9 %; Neutrophils # (auto) 3.83 K/uL (1.40-6.50); Neutrophils % (auto) 63.1 %; Platelet Count 178 K/uL (130-400); RDW Coefficient of Variation 13.5 % (11.5-14.5); RDW Standard Deviation 40.5 fL (36.4-46.3); Red Blood Count 4.18 M/uL (4.20-5.40); White Blood Count 6.07 K/ul (4.8-10.8)
[2024-06-14 06:54] LABS: Albumin Globulin Ratio 1.4 (0.9-2); Albumin Level 3.9 gm/dl (3.4-5.0); Bilirubin,Total 0.7 mg/dl (0.2-1.0); Calcium 8.8 mg/dl (8.6-10.3); Creatinine Clr Calc Pharmacy 52.6 ml/min; Globulin 2.7 gm/dl (2.5-4.0); Phosphorus 3.2 mg/dl (2.5-4.9); Potassium 3.8 mmol/L (3.5-5.1); Total Protein 6.6 gm/dl (6.0-8.3)
--- NOTE | 2024-06-14 12:26 | Hospitalist Progress Note ---
Date of Service June 14, 2024 Assessment & Plan (1) Rhabdomyolysis: Plan Pt is an 88yoF with PMHx significant for hypertension, history of traumatic cervical fracture, mild cognitive impairment presenting after a fall at home. 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 CK mildly elevated to 900s IV fluids; trend CK level PT OT evaluation; patient's daughter [facility] Pain control orthopedics consulted, appreciate recs -conservative treatment -neurology consult for weakness, awaiting recs Possible UTI- ruled out Ucultx from ED - more than 3 types of organisms present, inconclusive Repeat UA unremarkable Empiric rocephin discontinued Hypokalemia replete as needed Chronic conditions; Hypertension -continue losartan vitamin B12 deficiencycontinue B12 Diet regular DNR/DNI as per discussion with the daughter DVT prophylaxis SCDs, heparin SQ Admission and Anticipated Discharge Date Admission Date: June 10, 2024 Subjective pt was seen in the AM. Pleasant Review of Systems Review of Systems: All systems reviewed & are unremarkable except as noted in Subjective Physical Exam Physical Exam: General: Alert. No acute distress Skin: bruises noted Neuro: difficulty with movements HEENT: NC/AT CV: RRR Resp: Breath sounds clear bilaterally, no increased effort of breathing Abdomen: Soft, nontender Extremities: difficulty with movements in lower extremities bilaterally. Results & Data Results & Data Vital Signs (Past 12 Hours) Vital Signs Temp Pulse Resp BP Pulse Ox O2 Del Method 06/14/24 07:40 36.5 C 60 20 168/62 H 95 Room Air 06/14/24 07:20 Room Air
[2024-06-15 06:47] LABS: Basophils # (auto) 0.01 K/uL (0.00-0.20); Basophils % (auto) 0.2 %; Eosinophils # (auto) 0.11 K/uL (0.00-0.50); Eosinophils % (auto) 1.8 %; Hematocrit (blood only) 34.8 % (37.0-47.0); Hemoglobin 11.7 g/dl (12.0-16.0); Immature Granulocytes # (auto) 0.02 K/uL (0.01-0.20); Immature Granulocytes % (auto) 0.3 %; Lymphocytes # (auto) 1.63 K/uL (1.20-3.40); Lymphocytes % (auto) 26.7 %; Mean Corpuscular Hemoglobin 28.1 pg (25.0-34.0); Mean Corpuscular Hgb Conc 33.6 g/dL (32.0-36.0); Mean Corpuscular Volume 83.7 fL (80.0-100.0); Mean Platelet Volume 9.4 fL (9.4-12.4); Monocytes # (auto) 0.48 K/uL (0.11-0.59); Monocytes % (auto) 7.9 %; Neutrophils # (auto) 3.86 K/uL (1.40-6.50); Neutrophils % (auto) 63.1 %; Platelet Count 182 K/uL (130-400); RDW Coefficient of Variation 13.3 % (11.5-14.5); RDW Standard Deviation 41.2 fL (36.4-46.3); Red Blood Count 4.16 M/uL (4.20-5.40); White Blood Count 6.11 K/ul (4.8-10.8)
[2024-06-15 07:15] LABS: Albumin Globulin Ratio 1.5 (0.9-2); Albumin Level 3.9 gm/dl (3.4-5.0); BUN Creatinine Ratio 20.4 (10-20); Bilirubin,Total 0.5 mg/dl (0.2-1.0); Calcium 8.9 mg/dl (8.6-10.3); Creatinine Clr Calc Pharmacy 45.8 ml/min; Globulin 2.6 gm/dl (2.5-4.0); Magnesium 1.9 mg/dl (1.7-2.4); Potassium 3.6 mmol/L (3.5-5.1); Total Protein 6.5 gm/dl (6.0-8.3)
--- NOTE | 2024-06-15 17:11 | Hospitalist Progress Note ---
Date of Service June 15, 2024 Assessment & Plan (1) Rhabdomyolysis: Plan Pt is an 88yoF with PMHx significant for hypertension, history of traumatic cervical fracture, mild cognitive impairment presenting after a fall at home. 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 CK mildly elevated to 900s IV fluids; trend CK level PT OT evaluation; patient's daughter [facility] Pain control orthopedics consulted, appreciate recs -conservative treatment -neurology consult for weakness, awaiting recs. Possible UTI- ruled out Ucultx from ED - more than 3 types of organisms present, inconclusive Repeat UA unremarkable Empiric rocephin discontinued Hypokalemia replete as needed Chronic conditions; Hypertension -continue losartan vitamin B12 deficiencycontinue B12 Diet regular DNR/DNI as per discussion with the daughter DVT prophylaxis SCDs, heparin SQ Admission and Anticipated Discharge Date Admission Date: June 10, 2024 Subjective pt was seen in the AM. Pleasant Daughter called and updated Review of Systems Review of Systems: All systems reviewed & are unremarkable except as noted in Subjective Physical Exam Physical Exam: General: Alert. No acute distress Skin: bruises noted Neuro: difficulty with movements HEENT: NC/AT CV: RRR Resp: Breath sounds clear bilaterally, no increased effort of breathing Abdomen: Soft, nontender Extremities: difficulty with movements in lower extremities bilaterally. Results & Data Results & Data Vital Signs (Past 12 Hours) Vital Signs Temp Pulse Resp BP Pulse Ox O2 Del Method 06/15/24 15:37 36.8 C 62 18 149/69 H 97 Room Air 06/15/24 07:36 37.0 C 69 18 166/76 H 94 Room Air 06/15/24 07:18 Room Air
--- NOTE | 2024-06-15 20:20 | Neurology Consultation ---
Date of Consultation June 15, 2024 Assessment & Plan (1) Ambulatory dysfunction: Suspect it is related to spinal cord injury? Unsure about stroke. With worsening balance and left lower extremity weakness that appear to have improved Plan Recommend MRI of the brain without contrast. MRI of the C-spine with and without contrast. Continue with PT OT Telehealth Consultation Telehealth Information Telehealth Information: I performed this visit using a real-time telehealth connection between my location and the patients location ([facility]). After connecting through interactive tele-video, patient was identified by name and date of and/or wristband check.Patient (or authorized healthcare high school admissions representative) was informed that this was a telemedicine visit and it was being conducted confidentially over secure lines. My office door was closed and no one else was present in the room with me.Patient (or authorized healthcare high school admissions representative) provided consent to proceed with the visit, expressed an understanding of privacy and security of the telemedicine visit, and gave permission to have a hospital high school admissions representative in the room in order to assist with the visit and to conduct portions of the visit, as needed. I informed the patient (or authorized healthcare high school admissions representative) that I reviewed their record and presented the opportunity for them to ask any questions regarding the visit today. The patient agreed to participate. History of Present Illness Reason for Consultation: LE weakness Requesting Physician: Moira Villa MD Attending Physician: Moira Villa MD History of Present Illness 88-year-old female patient with PMH of cervical fracture, status post a fall in August 2021 after which she has been with weakness of his right her right upper lower extremity the patient's daughter does not report any history of strokes. She tells me that her mother has been ambulatory until August 2023. Over the past several days she has been noticed to have less balance, and suffered a fall, that that her daughter that her left leg is not helping her very well. The patient is morbidly is not on any anticoagulation. She was refusing MRI of the brain and wished for only physical therapy evaluation. Today she reports that her leg has improved the left leg and she is able to walk more. The patient does have moderate cognitive deficits per the daughter who was able to speak Dutch. She has noted the patient to follow commands, she had no cranial nerve deficits. She has drift in her right upper and lower extremities, was able to demonstrate full strength in her left upper and lower extremities Allergies Allergy/AdvReac Type Severity Reaction Status Date / Time No Known Allergies Allergy Unverified 06/10/24 16:41 Home Medications Medication Instructions Recorded Confirmed Type losartan 50 mg tablet 25 mg PO UD 09/03/23 06/10/24 History cyanocobalamin (vitamin B-12) 1,000 mcg PO QAM 06/10/24 06/10/24 History 1,000 mcg tablet Patient History Medical History Osteoarthritis Hypertension Social History Smoking Status: Never smoker Do You Dip or Chew Tobacco: No; Hx Alcohol Use: No Hx Substance Use: No Preferred Language: E[place] Communication Ability: Effective Communication Ability Comment: patient primary language is E[place]rean Communication Tools: IPad [employer] Required: Yes Beliefs That Will Affect Care: None Current Living Situation: Alone Current Living Situation Comment: Lives home alone in apartment Feels Safe at Home: Yes Safety Concerns: Feels Safe At This Time Assistive Devices: Walker Review of Systems See HPI Physical Exam General Constitutional: Appearance normally developed. morbidly obese Head and face: normocephalic and atraumatic Eyes: no ptosis, no anisocoria, and no dysconjugate gaze Respiratory: normal effort Cardiovascular: regular rhythm and regular rate Abdomen: non distended Skin: no rashes, lesions, or ulcers noted Psychiatric: did not appear in dystress NEUROLOGIC EXAMINATION: Mental Status:alert, oriented to time, place, person, normal recent memory, normal remote memory, normal attention span, normal concentration, normal language and normal fund of knowledge Cranial Nerves: CN 2 - no visual defect on confrontation and pupils round, equal, reactive to light CN 3, 4, 6 - extra-ocular movements intact and no nystagmus CN 5 - facial sensation intact CN 7 - no facial asymmetry CN 8 - intact hearing CN 9, 10 - palate symmetric, normal gag CN 11 - good shoulder shrug CN 12 - tongue midline MOTOR: right upper and lpwer extremity weakness, normal strenght left upper and Lower extremities SENSATION: intact and symmetric to pinprick, light touch, vibration and joint position GAIT: deferred COORDINATION: ok on the left REFLEXES: cannot assess over telemedicine Results & Data Vital Signs (Past 12 Hours) Vital Signs Temp Pulse Resp BP BP Pulse Ox O2 Del Method 06/15/24 19:26 36.6 C 65 18 155/62 H 95 Room Air 06/15/24 15:37 36.8 C 62 18 149/69 H 97 Room Air Laboratory Results Abnormal lab results 06/15/24 Range/Units 06:11 RBC 4.16 L (4.20-5.40) M/uL Hgb 11.7 L (12.0-16.0) g/dl Hct 34.8 L (37.0-47.0) % Chloride 110 H (98-107) mmol/L BUN/Creatinine Ratio 20.4 H (10-20) Glucose 122 H (70-99(Fasting)) mg/dl Diagnostic Findings CT scan of the head shows no acute changes Medications Administered Home Medications Medication Instructions Recorded Confirmed Last Taken losartan 50 mg tablet 25 mg PO UD 09/03/23 06/10/24 Unknown cyanocobalamin (vitamin B-12) 1,000 mcg PO QAM 06/10/24 06/10/24 06/09/24 1,000 mcg tablet Active Medications Generic Name Dose Route Start Last Admin Trade Name Saima PRN Reason Stop Dose Admin Cyanocobalamin 1,000 mcg 06/11/24 09:00 06/15/24 09:02 Cyanocobalamin (B-12) 500 Mcg Tablet PO 07/11/24 08:59 Not Given QAM KASIE Heparin Sodium (Porcine) 5,000 units 06/13/24 21:00 06/15/24 19:40 Heparin Sod 5,000 Unit/0.5 Ml Vial SQ 07/13/24 20:59 5,000 units Q12 KASIE Administration Losartan Potassium 25 mg 06/11/24 09:00 06/15/24 09:02 Losartan Potassium 25 Mg Tab PO 07/11/24 08:59 Not Given QAM KASIE Potassium Chloride 20 meq 06/12/24 09:00 06/15/24 09:02 Potassium Chloride Crtab 20 Meq Tabcr PO 07/12/24 08:59 Not Given QAM KASIE
[2024-06-16 06:43] LABS: Basophils # (auto) 0.01 K/uL (0.00-0.20); Basophils % (auto) 0.1 %; Eosinophils # (auto) 0.15 K/uL (0.00-0.50); Eosinophils % (auto) 2.2 %; Hematocrit (blood only) 38.5 % (37.0-47.0); Hemoglobin 13.1 g/dl (12.0-16.0); Immature Granulocytes # (auto) 0.02 K/uL (0.01-0.20); Immature Granulocytes % (auto) 0.3 %; Lymphocytes % (auto) 32.6 %; Mean Corpuscular Hemoglobin 28.4 pg (25.0-34.0); Mean Corpuscular Volume 83.5 fL (80.0-100.0); Mean Platelet Volume 9.5 fL (9.4-12.4); Monocytes # (auto) 0.46 K/uL (0.11-0.59); Monocytes % (auto) 6.8 %; Neutrophils # (auto) 3.91 K/uL (1.40-6.50); Platelet Count 212 K/uL (130-400); RDW Coefficient of Variation 13.4 % (11.5-14.5); RDW Standard Deviation 41.1 fL (36.4-46.3); Red Blood Count 4.61 M/uL (4.20-5.40); White Blood Count 6.75 K/ul (4.8-10.8)
[2024-06-16 07:17] LABS: Albumin Globulin Ratio 1.5 (0.9-2); Albumin Level 4.4 gm/dl (3.4-5.0); BUN Creatinine Ratio 19.8 (10-20); Bilirubin,Total 0.7 mg/dl (0.2-1.0); Calcium 9.3 mg/dl (8.6-10.3); Creatinine Clr Calc Pharmacy 46.8 ml/min; Magnesium 2.1 mg/dl (1.7-2.4); Phosphorus 3.6 mg/dl (2.5-4.9); Potassium 3.9 mmol/L (3.5-5.1); Total Protein 7.4 gm/dl (6.0-8.3)
--- NOTE | 2024-06-16 11:42 | Hospitalist Progress Note ---
Date of Service June 16, 2024 Assessment & Plan (1) Rhabdomyolysis: Plan Pt is an 88yoF with PMHx significant for hypertension, history of traumatic cervical fracture, mild cognitive impairment presenting after a fall at home. 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 CK mildly elevated to 900s IV fluids; trend CK level PT OT evaluation; patient's daughter [facility] Pain control orthopedics consulted, appreciate recs -conservative treatment -neurology consult for weakness, recommended MRIs -MRIs pending Possible UTI- ruled out Ucultx from ED - more than 3 types of organisms present, inconclusive Repeat UA unremarkable Empiric rocephin discontinued Hypokalemia replete as needed Chronic conditions; Hypertension -continue losartan vitamin B12 deficiencycontinue B12 Diet regular DNR/DNI as per discussion with the daughter DVT prophylaxis SCDs, heparin SQ Admission and Anticipated Discharge Date Admission Date: June 10, 2024 Subjective pt was seen in the AM. Pleasant She denied acute concerns via the convention services director Daughter called and updated- would like to hold off on mris until she's there tomorrow to help mentally prepare her mother for it so she does not have a panic attack Review of Systems Review of Systems: All systems reviewed & are unremarkable except as noted in Subjective Physical Exam Physical Exam: General: Alert. No acute distress Skin: bruises noted Neuro: difficulty with movements HEENT: NC/AT CV: RRR Resp: Breath sounds clear bilaterally, no increased effort of breathing Abdomen: Soft, nontender Extremities: difficulty with movements in lower extremities bilaterally. Results & Data Results & Data Vital Signs (Past 12 Hours) Vital Signs Temp Pulse Resp BP Pulse Ox O2 Del Method 06/16/24 08:35 36.6 C 80 18 153/64 H 97 Room Air
[2024-06-17 10:56] LABS: Basophils # (auto) 0.01 K/uL (0.00-0.20); Basophils % (auto) 0.2 %; Eosinophils # (auto) 0.09 K/uL (0.00-0.50); Eosinophils % (auto) 1.5 %; Hematocrit (blood only) 38.3 % (37.0-47.0); Hemoglobin 12.9 g/dl (12.0-16.0); Immature Granulocytes # (auto) 0.02 K/uL (0.01-0.20); Immature Granulocytes % (auto) 0.3 %; Lymphocytes # (auto) 1.58 K/uL (1.20-3.40); Lymphocytes % (auto) 27.1 %; Mean Corpuscular Hemoglobin 28.2 pg (25.0-34.0); Mean Corpuscular Hgb Conc 33.7 g/dL (32.0-36.0); Mean Corpuscular Volume 83.8 fL (80.0-100.0); Mean Platelet Volume 9.3 fL (9.4-12.4); Monocytes # (auto) 0.43 K/uL (0.11-0.59); Monocytes % (auto) 7.4 %; Neutrophils % (auto) 63.5 %; Platelet Count 199 K/uL (130-400); RDW Coefficient of Variation 13.4 % (11.5-14.5); RDW Standard Deviation 40.9 fL (36.4-46.3); Red Blood Count 4.57 M/uL (4.20-5.40); White Blood Count 5.83 K/ul (4.8-10.8)
[2024-06-17 11:14] LABS: Albumin Globulin Ratio 1.4 (0.9-2); Albumin Level 4.1 gm/dl (3.4-5.0); BUN Creatinine Ratio 16.3 (10-20); Bilirubin,Total 0.7 mg/dl (0.2-1.0); Calcium 9.3 mg/dl (8.6-10.3); Creatinine Clr Calc Pharmacy 43.5 ml/min; Globulin 2.9 gm/dl (2.5-4.0); Magnesium 2.1 mg/dl (1.7-2.4); Phosphorus 3.5 mg/dl (2.5-4.9); Potassium 4.1 mmol/L (3.5-5.1)
[2024-06-17] MEDS ORDERED: LORazepam 0.5 MG TAB PO STA (14:51)
--- NOTE | 2024-06-17 15:40 | Hospitalist Progress Note ---
Date of Service June 17, 2024 Assessment & Plan (1) Rhabdomyolysis: Plan Pt is an 88yoF with PMHx significant for hypertension, history of traumatic cervical fracture, mild cognitive impairment presenting after a fall at home. 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 CK mildly elevated to 900s IV fluids; trend CK level PT OT evaluation; patient's daughter wants patient to go to [facility] if she qualifies Pain control orthopedics consulted, appreciate recs -conservative treatment -neurology consult for weakness, recommended MRIs -MRIs pending- to be given a dose of Ativan prior Possible UTI- ruled out Ucultx from ED - more than 3 types of organisms present, inconclusive Repeat UA unremarkable Empiric rocephin discontinued Hypokalemia replete as needed Chronic conditions; Hypertension -continue losartan vitamin B12 deficiencycontinue B12 Diet regular DNR/DNI as per discussion with the daughter DVT prophylaxis SCDs, heparin SQ Admission and Anticipated Discharge Date Admission Date: June 10, 2024 Subjective Pt was seen in the [facility], concerned about a bruise on her hand Has not yet had MRI- daughter agreeable to ativan dose before Review of Systems Review of Systems: All systems reviewed & are unremarkable except as noted in Subjective Physical Exam Physical Exam: General: Alert. No acute distress Skin: bruises noted Neuro: difficulty with movements HEENT: NC/AT CV: RRR Resp: Breath sounds clear bilaterally, no increased effort of breathing Abdomen: Soft, nontender Extremities: difficulty with movements in lower extremities bilaterally. Results & Data Results & Data Vital Signs (Past 12 Hours) Vital Signs Temp Pulse Resp BP Pulse Ox O2 Del Method 06/17/24 08:54 79 155/67 H 06/17/24 08:25 Room Air 06/17/24 07:14 36.5 C 57 L 18 184/68 H 95 Room Air
[2024-06-17] MEDS: LORazepam 0.5 MG TAB PO STA (18:35)
[2024-06-17] MEDS: GADOBUTROL 65ML VIAL IV ONE (20:47)
--- NOTE | 2024-06-17 22:41 | Magnetic Resonance Report ---
Exam(s): MRI HEAD W/WO Contrast IV Amt: 9ml gadavist EXAM: MR Head Without and With Intravenous Contrast CLINICAL HISTORY: Reason for exam: generalized weakness. TECHNIQUE: Magnetic resonance images of the head/brain without and with intravenous contrast in multiple planes. CONTRAST: Patient received 9ml gadavist of IV contrast COMPARISON: Prior head CT from June 10, 2024. FINDINGS: Brain: Advanced nonspecific white matter changes. No mass. No hemorrhage. No acute infarct. The flow voids of the base of the brain are intact. No evidence of abnormal enhancement. The dural venous sinuses are patent. Ventricles: Mild ventriculomegaly. Bones/joints: Unremarkable. No acute fracture. Sinuses: Chronic maxillary and ethmoid sinusitis.. No acute sinusitis. Mastoid air cells: Small amount of fluid in the mastoid air cells. No mastoid effusion. Orbits: Unremarkable as visualized. IMPRESSION: No evidence of acute intracranial pathology. Electronically signed by: Olga Patel MD 06/17/24 22:40 PM
--- NOTE | 2024-06-17 23:11 | Magnetic Resonance Report ---
Exam(s): MRI C SPINE IV Amt: 9ml gadavist EXAM: MR Cervical Spine With Intravenous Contrast CLINICAL HISTORY: Reason for exam: generalized weakness per recs of neurology. TECHNIQUE: Magnetic resonance images of the cervical spine with intravenous contrast in multiple planes. CONTRAST: Patient received 9ml gadavist of IV contrast COMPARISON: Prior CT scan of the cervical spine from June 10, 2024. FINDINGS: The study is limited secondary to motion artifact. Vertebrae: There are 7 cervical type vertebral bodies with a mild generalized curve to the right and straightening normal cervical lordosis. There is normal vertebral body height and alignment. The bone OsteoSet itchiness with reactive endplate changes. No acute fracture. Remote fracture deformities of the T3 and T4 segments. Spinal cord: There is flattening the ventral cord at C5-6 without abnormal cord signal. No abnormal enhancement. Soft tissues: There is loss of the normal left vertebral flow void concerning for slow flow or no blood flow. DISCS/SPINAL CANAL/NEURAL FORAMINA: C2-C3: There is mild disc degeneration with annular disc bulge flattens the ventral thecal sac. C3-C4: The intervertebral disc is normal. C4-C5: There is mild disc degeneration with annular disc bulge flattening the ventral thecal sac. C5-C6: Advanced disc degeneration with annular disc bulge flattening the ventral cord without evidence of abnormal cord signal and causing severe spinal canal stenosis. C6-C7: Moderate disc degeneration with annular disc bulge flattens the ventral thecal sac and causing severe spinal canal stenosis. C7-T1: The intervertebral disc is normal. IMPRESSION: 1. There is loss of normal left vertebral artery flow void concerning for slow flow or no blood flow. Recommend CT angiogram of the neck for further evaluation. 2. Advanced disc degeneration at C5-6, moderate disc degeneration at C6- 7, mild disc degeneration at C2-3, C4-5 with annular disc bulging flattening the ventral thecal sac and flattening the ventral cord at C5-6 without evidence of abnormal cord signal. 3. There is a severe spinal canal stenosis at C5-6 and C6-7. 4. There is no significant neuroforaminal stenosis. 5. No evidence of acute fracture, infection, tumor or myelopathy. Communications: Verify Receipt Electronically signed by: Olga Patel MD 06/17/24 23:10 PM
[2024-06-18 11:25] LABS: Basophils # (auto) 0.01 K/uL (0.00-0.20); Basophils % (auto) 0.2 %; Eosinophils # (auto) 0.08 K/uL (0.00-0.50); Eosinophils % (auto) 1.6 %; Hematocrit (blood only) 39.8 % (37.0-47.0); Hemoglobin 13.1 g/dl (12.0-16.0); Immature Granulocytes # (auto) 0.02 K/uL (0.01-0.20); Immature Granulocytes % (auto) 0.4 %; Mean Corpuscular Hemoglobin 27.7 pg (25.0-34.0); Mean Corpuscular Hgb Conc 32.9 g/dL (32.0-36.0); Mean Corpuscular Volume 84.1 fL (80.0-100.0); Mean Platelet Volume 9.4 fL (9.4-12.4); Monocytes # (auto) 0.44 K/uL (0.11-0.59); Monocytes % (auto) 8.8 %; Neutrophils # (auto) 3.05 K/uL (1.40-6.50); Platelet Count 189 K/uL (130-400); RDW Coefficient of Variation 13.6 % (11.5-14.5); RDW Standard Deviation 42.2 fL (36.4-46.3); Red Blood Count 4.73 M/uL (4.20-5.40)
[2024-06-18 11:32] LABS: Albumin Level 4.2 gm/dl (3.4-5.0); Bilirubin,Total 0.7 mg/dl (0.2-1.0); Calcium 9.3 mg/dl (8.6-10.3); Magnesium 2.1 mg/dl (1.7-2.4); Potassium 4.1 mmol/L (3.5-5.1)
[2024-06-18 11:39] LABS: Albumin Globulin Ratio 1.4 (0.9-2); BUN Creatinine Ratio 23.9 (10-20); Creatinine Clr Calc Pharmacy 46.3 ml/min; Globulin 2.9 gm/dl (2.5-4.0); Phosphorus 3.5 mg/dl (2.5-4.9); Total Protein 7.1 gm/dl (6.0-8.3)
--- NOTE | 2024-06-18 13:29 | Communication Note ---
Date of Service: June 18, 2024 MRI of the brain shows no acute ischemic changes to contribute to the patient's weakness. MRI of the cervical spine shows advanced cervical stenosis especially at C5-6-C6-7, also disc degeneration with flattening of the ventral cord at C5-6. These findings may be contributing to her gait instability. Recommend neurosurgical consultation as the patient wants aggressive measures this can be done as an outpatient. Otherwise conservative measures
--- NOTE | 2024-06-18 14:35 | Hospitalist Progress Note ---
Date of Service June 18, 2024 Assessment & Plan (1) Rhabdomyolysis: Plan Pt is an 88yoF with PMHx significant for hypertension, history of traumatic cervical fracture, mild cognitive impairment presenting after a fall at home. 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 CK mildly elevated to 900s IV fluids; trend CK level PT OT evaluation; patient's daughter wants patient to go to [facility] if she qualifies Pain control orthopedics consulted, appreciate recs -conservative treatment -neurology consult for weakness, recommended MRIs, neurosugical evaluation as an outpt -MRI brain unremarkable for stroke,MRi cervical spine noting chronic changes Possible UTI- ruled out Ucultx from ED - more than 3 types of organisms present, inconclusive Repeat UA unremarkable Empiric rocephin discontinued Hypokalemia replete as needed Chronic conditions; Hypertension -continue losartan vitamin B12 deficiencycontinue B12 Diet regular DNR/DNI as per discussion with the daughter DVT prophylaxis SCDs, heparin SQ Admission and Anticipated Discharge Date Admission Date: June 10, 2024 Subjective pt was seen with daughter at bedside discussed MRI findings daughter would like pt to go to rehab Review of Systems Review of Systems: All systems reviewed & are unremarkable except as noted in Subjective Physical Exam Physical Exam: General: Alert. No acute distress Skin: bruises noted Neuro: difficulty with movements HEENT: NC/AT CV: RRR Resp: Breath sounds clear bilaterally, no increased effort of breathing Abdomen: Soft, nontender Extremities: difficulty with movements in lower extremities bilaterally. Results & Data Results & Data Vital Signs (Past 12 Hours) Vital Signs Temp Pulse Resp BP Pulse Ox O2 Del Method 06/18/24 14:08 36.6 C 68 16 109/57 L 94 Room Air 06/18/24 07:49 Room Air 06/18/24 07:27 36.5 C 69 16 163/71 H 93 Room Air
[2024-06-19 07:28] VITALS: BP 144/65; PULSE 67; RESP 16; TEMP 97.9; O2SAT 96
--- NOTE | 2024-06-19 10:31 | Discharge Summary ---
Date of Service June 19, 2024 Admission HPI Per Admitting Provider History obtained from interview of the patient's daughter, chart review and discussion with the ED provider. Past medical history of hypertension, history of traumatic cervical fracture, mild cognitive impairment. Patient was brought to the hospital by her daughter after she suffered a fall today. Patient felt on the ground face first; daughter was not able to get her up and called the EMS. Patient denies any visual changes, weakness/numbness of any body part, neck pain, chest pain, abdominal pain, shortness of breath, any changes to urinary habits or bowel habit. As per the daughter, patient has problem with osteoarthritis on her right knee for which she gets injection. 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 Patient has ambulatory dysfunction due to this. MRI Of the brain was planned as outpatient. However, patient did not want to undergo it as per patient's daughter. She does not want patient to undergo any aggressive measures, or MRI during the hospitalization. She wants physical therapy and Occupational Therapy evaluation and possibly get her to [facility] for strengthening/rehab. Admission Exam Per Admitting Provider On physical examination; Constitutional: Alert oriented x 3; not in distress Face; contusion on left face; ecchymosis/bruising present. No active bleeding Respiratory: normal respiratory effort, lungs clear to auscultation, no wheeze, rales, rhonchi. Normal insp/exp effort, no accessory muscle use Cardiovascular: RRR, no murmur, no edema Vessels: no JVD or carotid bruit Chest: normal inspection of chest Abdomen: normal bowel sounds, soft, nontender, no hepatosplenomegaly Musculoskeletal: Contracture of right in flexed supine position Neurologic: PERRL, EOMI, accommodation nl, no face palsy, no dysarthria CN's II- XI intact bilaterally and moves all extremities Principal Diagnosis Fall, ambulatory dysfunction Mild rhabdomyolysis Facial contusion Advanced cervical stenosis Discharge Exam Constitutional: Alert oriented x 3; not in distress Respiratory: normal respiratory effort, lungs clear to auscultation, no wheeze, rales, rhonchi. Cardiovascular: RRR, no murmur, no edema Chest: normal inspection of chest Abdomen: normal bowel sounds, soft, nontender Musculoskeletal: Contracture of right arm in flexed supine position, moves LEs while lying in bed, able to lift LEs off bed b/l Neurologic: PERRL, EOMI, no face palsy, moves all extremities Discharge Data Allergies Allergy/AdvReac Type Severity Reaction Status Date / Time No Known Allergies Allergy Unverified 06/10/24 16:41 Consultations 06/10/24 19:14 ED Decision to Admit Stat 06/11/24 15:34 Consult Orthopedic Surgery Routine 06/15/24 07:39 Consult Neurology Routine Ordered Studies 06/10/24 16:50 CT abd pelvis IV con only Stat IMPRESSION: No acute finding of the abdomen or pelvis. Fracture of the partially visualized anterior right rib 5 associated with healing callus, is favored subacute or chronic. Splenomegaly. 06/10/24 16:51 CT cervical spine wo con Stat Findings: The cervical vertebrae are normally aligned. Normal cervical lordosis. No acute fracture or subluxation. No prevertebral edema. Moderate discogenic degenerative changes at C5-6 and C6-7. Moderate scattered areas of degenerative facet change. No abnormality of the paraspinous soft tissues. Impression: No acute fracture or traumatic subluxation. CT facial bones wo con Stat Findings: There is no significant soft tissue swelling of the face. There is no evident fracture of the facial bones. The cribriform plate appears intact. Alignment of the facial bones appears normal. There is no hematoma, soft tissue mass or gas visualized within the orbits. The visualized portions of the paranasal sinuses are clear. The patient is edentulous. Impression: Normal CT study of the facial bones. CT head/brain wo con Stat Findings: No intracranial hemorrhage, mass-effect, or midline shift. The ventricles are proportionate to the cerebral sulci. The zazueta to white matter differentiation of the cerebral hemispheres is preserved. The basal cisterns are patent. There is moderate cerebral atrophy. Moderate, patchy low-attenuation changes in the white matter, most suggestive of sequelae of chronic small vessel ischemic disease. The visualized paranasal sinuses are clear. Mastoid air cells are clear. Impression: No acute intracranial pathology. 06/17/24 13:30 MR brain wo/w con Urgent FINDINGS: Brain: Advanced nonspecific white matter changes. No mass. No hemorrhage. No acute infarct. The flow voids of the base of the brain are intact. No evidence of abnormal enhancement. The dural venous sinuses are patent. Ventricles: Mild ventriculomegaly. Bones/joints: Unremarkable. No acute fracture. Sinuses: Chronic maxillary and ethmoid sinusitis.. No acute sinusitis. Mastoid air cells: Small amount of fluid in the mastoid air cells. No mastoid effusion. Orbits: Unremarkable as visualized. IMPRESSION: No evidence of acute intracranial pathology. MR cervical spine wo/w con Urgent FINDINGS: The study is limited secondary to motion artifact. Vertebrae: There are 7 cervical type vertebral bodies with a mild generalized curve to the right and straightening normal cervical lordosis. There is normal vertebral body height and alignment. The bone OsteoSet itchiness with reactive endplate changes. No acute fracture. Remote fracture deformities of the T3 and T4 segments. Spinal cord: There is flattening the ventral cord at C5-6 without abnormal cord signal. No abnormal enhancement. Soft tissues: There is loss of the normal left vertebral flow void concerning for slow flow or no blood flow. DISCS/SPINAL CANAL/NEURAL FORAMINA: C2-C3: There is mild disc degeneration with annular disc bulge flattens the ventral thecal sac. C3-C4: The intervertebral disc is normal. C4-C5: There is mild disc degeneration with annular disc bulge flattening the ventral thecal sac. C5-C6: Advanced disc degeneration with annular disc bulge flattening the ventral cord without evidence of abnormal cord signal and causing severe spinal canal stenosis. C6-C7: Moderate disc degeneration with annular disc bulge flattens the ventral thecal sac and causing severe spinal canal stenosis. C7-T1: The intervertebral disc is normal. IMPRESSION: 1. There is loss of normal left vertebral artery flow void concerning for slow flow or no blood flow. Recommend CT angiogram of the neck for further evaluation. 2. Advanced disc degeneration at C5-6, moderate disc degeneration at C6- 7, mild disc degeneration at C2-3, C4-5 with annular disc bulging flattening the ventral thecal sac and flattening the ventral cord at C5-6 without evidence of abnormal cord signal. 3. There is a severe spinal canal stenosis at C5-6 and C6-7. 4. There is no significant neuroforaminal stenosis. 5. No evidence of acute fracture, infection, tumor or myelopathy. Hospital Course (1) Rhabdomyolysis: Plan Pt is an 88yoF with PMHx significant for hypertension, history of traumatic cervical fracture, mild cognitive impairment presenting after a fall at home. Mechanical fall Mild rhabdomyolysis Facial contusion Patient presents to the hospital with mechanical fall history of right knee osteoarthritis and right hand contracture for several months Patient underwent head CT, face CT, cervical spine CT, abdominal pelvis CT, chest x-ray, femur x-ray, knee x-ray and pelvic x-ray which did not show any acute fractures. CK mildly elevated to 900s IV fluids; trend CK level PT OT evaluation; patient's daughter wants patient to go to [facility] if she qualifies Pain control orthopedics consulted, appreciate recs -conservative treatment -neurology consult for weakness, recommended MRIs, neurosugical evaluation as an outpt -MRI brain unremarkable for stroke, MRI of the cervical spine shows advanced cervical stenosis especially at C5-6-C6-7, also disc degeneration with flattening of the ventral cord at C5-6.These findings may be contributing to her gait instability. Recommend neurosurgical consultation, this can be done as an outpatient. Possible UTI- ruled out Ucultx from ED - more than 3 types of organisms present, inconclusive Repeat UA unremarkable Empiric rocephin discontinued Hypokalemia replete as needed Chronic conditions; Hypertension -continue losartan vitamin B12 deficiencycontinue B12 Total Time Total Time Spent Total Time Spent (In Minutes): 40 Discharge Plan Discharge Items Patient Disposition: Transfer Inpatient Rehab Fac Reason For Visit: FALL Discharge Diagnosis: Fall, ambulatory dysfunction Mild rhabdomyolysis Facial contusion Advanced cervical stenosis Activity: Per Instructions section Non-emergency contact: Primary Care Provider and Specialist Call non-emergency contact if: you have any medication questions and your symptoms worsen Follow-up/Referrals: Mu Lomeli MD [Primary Care Provider] - Diet: Regular Diet Texture: Dental soft (bite-sized) Addtl Attending Provider Instructions: Follow up with your primary care physician and orthopedic surgeon. It is also recommended that you follow up with a neurosurgeon given findings of cervical spine stenosis. Pending Studies at Discharge: No Stand-Alone Forms: My [facility] [place] Skilled Items Patient informed of condition?: Yes DNR: Yes Discharge Level of Care: Acute rehab Communicable Disease: No Discharge Prognosis: Stable Lines: None Urinary Catheter: No Medications and DC Order Prescriptions: New losartan 25 mg Tablet 25 mg PO QAM Qty: 30 0RF acetaminophen 325 mg Tablet 650 mg PO Q4H PRN (Reason: pain) Qty: 10 0RF Continued cyanocobalamin (vitamin B-12) 1,000 mcg tablet 1,000 mcg PO QAM Discontinued losartan 50 mg tablet 25 mg PO UD Rx Instructions: 25 mg po daily IN THE MORNING; if BP elevated take other 25 mg po HS per pharmacy Discharge Orders: Discharge Order (Routine); Ordered 06/19/24 Ordered By: Andrews Brooks Admission Data Admit Date/Time: 06/10/24 19:27 Attending Provider: Andrews Brooks Admit Provider: Benny [facility] Primary Care Provider: Mu Lomeli Other Providers: Jorge Madrid; Benny River; [facility]; Trevor Rice; Srini Davis; Moira Villa
[2024-06-19 13:06] LABS: Albumin Globulin Ratio 1.5 (0.9-2); Albumin Level 4.4 gm/dl (3.4-5.0); BUN Creatinine Ratio 22.9 (10-20); Bilirubin,Total 0.7 mg/dl (0.2-1.0); Calcium 9.3 mg/dl (8.6-10.3); Creatinine Clr Calc Pharmacy 44.4 ml/min; Globulin 2.9 gm/dl (2.5-4.0); Magnesium 2.1 mg/dl (1.7-2.4); Phosphorus 3.3 mg/dl (2.5-4.9); Potassium 4.3 mmol/L (3.5-5.1); Total Protein 7.3 gm/dl (6.0-8.3)
[2024-06-19 13:10] LABS: Basophils # (auto) 0.01 K/uL (0.00-0.20); Basophils % (auto) 0.2 %; Eosinophils # (auto) 0.09 K/uL (0.00-0.50); Eosinophils % (auto) 1.7 %; Hematocrit (blood only) 39.8 % (37.0-47.0); Hemoglobin 13.1 g/dl (12.0-16.0); Immature Granulocytes # (auto) 0.03 K/uL (0.01-0.20); Immature Granulocytes % (auto) 0.6 %; Lymphocytes # (auto) 1.57 K/uL (1.20-3.40); Lymphocytes % (auto) 29.8 %; Mean Corpuscular Hemoglobin 27.9 pg (25.0-34.0); Mean Corpuscular Hgb Conc 32.9 g/dL (32.0-36.0); Mean Corpuscular Volume 84.7 fL (80.0-100.0); Mean Platelet Volume 9.4 fL (9.4-12.4); Monocytes # (auto) 0.45 K/uL (0.11-0.59); Monocytes % (auto) 8.5 %; Neutrophils # (auto) 3.12 K/uL (1.40-6.50); Neutrophils % (auto) 59.2 %; Platelet Count 199 K/uL (130-400); RDW Coefficient of Variation 13.7 % (11.5-14.5); RDW Standard Deviation 42.5 fL (36.4-46.3); White Blood Count 5.27 K/ul (4.8-10.8)
== END 2024-06-19 13:49 | DRG 558 ==
LOC: ED 15:59 → SUATTDRO 19:27 → EDINP 19:27 → 3N 22:04